=== PATIENT | female | born 1945 | race Caucasian/White ===

== ENCOUNTER 2016-11-09 18:23 | Emergency (ER) | payer MEDICARE ==
[2016-11-09] MEDS ORDERED: SODIUM CHLORIDE 0.9% 500 ML IV STA (18:41)
[2016-11-09] MEDS ORDERED: ALBUTEROL NEBULIZED 2.5 MG/3 ML INHALATION STA ×2 (18:41→21:02)
--- NOTE | 2016-11-09 18:44 | ED ---
General Adult HPI - General Chief complaint: Upper Respiratory Infection Stated complaint: diff breathing Time Seen by Provider: 11/09/16 18:37 Source: patient, RN notes reviewed Mode of arrival: wheelchair Limitations: no limitations - History of Present Illness Initial comments: 71-year-old female presents emergency Department with a chief complaint of shortness of breath. Patient states she's had a cough with yellow sputum and shortness of breath for the past 3 days or so. Patient denies any fever chills this. Patient denies any pain. Patient states she was concerned due to the shortness of breath and cough so she thought that she should be seen. Patient admits to history of pneumonia a few months ago. Patient denies any leg swelling. Patient states that she has no heart history. Patient states she does have hypertension. Patient denies being a smoker. Patient states that she was concerned due to the continued cough and shortness of breath she thought that she should be evaluated today.Patient denies any recent fever, chills, chest pain, back pain, abdominal pain, nausea vomiting, numbness or tingling, dysuria or hematuria, constipation or diarrhea, headaches or visual changes, or any other current symptoms. - Related Data Home Medications Medication Instructions Recorded Confirmed Furosemide [Lasix] 40 mg PO HS 07/30/15 11/09/16 Mometasone Furoate [Mometasone 2 drops BOTH EARS DAILY PRN 07/30/15 11/09/16 Furoate 0.1%] Ranitidine HCl [Zantac] 150 mg PO BID 07/30/15 11/09/16 Simvastatin [Zocor] 40 mg PO HS 07/30/15 11/09/16 Fluticasone Nasal [place] [Flonase 2 spr EA NOSTRIL DAILY PRN 12/17/15 11/09/16 Nasal [place]] Albuterol Sulfate [Proair Hfa] 2 puff INHALATION RT-Q4H PRN 04/02/16 11/09/16 Carboxymethylcellulose Sodium 1 drop BOTH EYES BID PRN 04/02/16 11/09/16 [Refresh Tears] Cholecalciferol [Vitamin D3] 8,000 unit PO DAILY 04/02/16 11/09/16 Fluticasone Propionate [Flovent 1 puff INHALATION RT-BID 04/02/16 11/09/16 Hfa 110mcg] Ipratropium-Albuterol Nebulize 3 ml INHALATION RT-Q4H PRN 04/02/16 11/09/16 [Duoneb 0.5 mg-3 mg/3 ml Soln] Multivitamin [Multivitamins Adult 1 tab PO DAILY 04/02/16 11/09/16 Gummies] Potassium Chloride [K-Tab ER] 10 meq PO DAILY 04/02/16 11/09/16 Furosemide [Lasix] 80 mg PO QAM 11/09/16 11/09/16 Montelukast [Singulair] 10 mg PO HS 11/09/16 11/09/16 Previous Rx's Medication Instructions Recorded Albuterol Nebulized [Ventolin 2.5 mg INHALATION Q4H #20 nebu 11/09/16 Nebulized] Levofloxacin [Levaquin] 750 mg PO DAILY #5 tab 11/09/16 predniSONE 50 mg PO DAILY #5 tab 11/09/16 Allergies Allergy/AdvReac Type Severity Reaction Status Date / Time tetanus immune globulin Allergy Unknown Verified 11/09/16 18:55 aspirin AdvReac Unknown Verified 11/09/16 18:55 Review of Systems ROS Statement: Those systems with pertinent positive or pertinent negative responses have been documented in the HPI. ROS Other: All systems not noted in ROS Statement are negative. Past Medical History Past Medical History: Hyperlipidemia, Thyroid Disorder Additional Past Medical History / Comment(s): edema, seasonal allergies to grass , trees and mold. History of Any Multi-Drug Resistant Organisms: None Reported Past Surgical History: Adenoidectomy, Appendectomy, Tonsillectomy Additional Past Surgical History / Comment(s): 3/4 thyroid removed, right leg and foot fracture repair, carple tunnel kim repair, parts of her ribs reomved from left upper chest, ovarian cyst, kim breast cysts removed, 1ft intestine removed for blockage Past Psychological History: No Psychological Hx Reported Smoking Status: Never smoker Past Alcohol Use History: None Reported Past Drug Use History: None Reported General Exam - General Exam Comments Initial Comments: General: The patient is awake and alert, in no distress, and does not appear acutely ill. Eye: Pupils are equal, round and reactive to light, extra-ocular movements are intact; there is normal conjunctiva bilaterally. No signs of icterus. Ears, nose, mouth and throat: There are moist mucous membranes and no oral lesions. Neck: The neck is supple, there is no tenderness. Cardiovascular: There is a regular rate and rhythm. No murmur, rub or gallop is appreciated. Respiratory: Lungs are clear to auscultation, respirations are non-labored, breath sounds are diminished in the right lower lobe. No wheezes, stridor, rales, or rhonchi. Gastrointestinal: Soft, non-distended, non-tender abdomen without masses or organomegaly noted. There is no rebound or guarding present. No CVA tenderness. Bowel sounds are unremarkable. Back: There is no tenderness to palpation in the midline. There is no obvious deformity. No rashes noted. Musculoskeletal: Normal ROM, no tenderness, There is no pedal edema. There is no calf tenderness or swelling. Sensation intact. Pulses equal bilaterally 2+. Neurological: CN II-XII intact, There are no obvious motor or sensory deficits. Coordination appears grossly intact. Speech is normal. Skin: Skin is warm and dry and no rashes or lesions are noted. Psychiatric: Cooperative, appropriate mood & affect, normal judgment. Limitations: no limitations Course Vital Signs 11/09/16 11/09/16 11/09/16 18:34 18:50 19:20 Temperature 97.7 F Pulse Rate 91 88 90 Respiratory 18 20 Rate Blood Pressure 137/60 115/67 O2 Sat by Pulse 95 93 L Oximetry 11/09/16 11/09/16 11/09/16 19:30 19:50 20:54 Temperature Pulse Rate 90 89 85 Respiratory 20 20 Rate Blood Pressure 111/59 121/61 O2 Sat by Pulse 96 97 Oximetry 11/09/16 21:22 Temperature Pulse Rate 82 Respiratory Rate Blood Pressure O2 Sat by Pulse Oximetry - Reevaluation(s) Reevaluation #1: 11/09/16 20:59 Patient does appear to have a faint wheeze on reevaluation she does have a breathing machine at home. Reevaluation #2: 11/09/16 21:36 Patient was 96 prior to the second breathing treatment and she is 96 following the breathing treatment. At this time we discussed continued at home care. We discussed discharge. She is comfortable. EKG Findings - EKG Comments: EKG Findings:: normal sinus rhythm 79 bpm, normal axis, no atopy, no S-T depressions or elevations, Medical Decision Making - Medical Decision Making 71-year-old female presents to the emergency Department chief complaint of cough and shortness of breath. This time chest x-ray was reviewed as well as the CAT scan does not show any mass. Patient does have symptoms consistent with bronchitis due to patient's age we will start her on steroids breathing treatments for home she does have a nebulizer and antibiotics. She did have improvement to the oxygen after the breathing treatments feeling much better when discussing the case the patient. This time she will be discharged. All her questions have been answered. She is comfortable with the plan. Return parameters and follow-up were discussed. - Lab Data Result diagrams: 11/09/16 18:50 11/09/16 18:50 Lab Results 11/09/16 11/09/16 11/09/16 Range/Units 18:50 18:50 18:50 WBC 5.6 (3.8-10.6) k/uL RBC 4.79 (3.80-5.40) m/uL Hgb 13.8 (11.4-16.0) gm/dL Hct 42.5 (34.0-46.0) % MCV 88.6 (80.0-100.0) fL MCH 28.8 (25.0-35.0) pg MCHC 32.5 (31.0-37.0) g/dL RDW 15.6 H (11.5-15.5) % Plt Count 136 L (150-450) k/uL Neutrophils % (Manual) 51.0 % Lymphocytes % (Manual) 10.0 % Monocytes % (Manual) 39.0 % Neutrophils # (Manual) 2.9 (1.3-7.7) k/uL Lymphocytes # (Manual) 0.6 L (1.0-4.8) k/uL Monocytes # (Manual) 2.2 H (0-1.0) k/uL Nucleated RBCs 0 (0-0) /100 WBC Differential Comment P Manual Slide Review Performed PT (9.0-12.0) sec INR (<1.1) APTT (22.0-30.0) sec D-Dimer (<0.60) mg/L FEU Sodium 143 (137-145) mmol/L Potassium 3.6 (3.5-5.1) mmol/L Chloride 105 (98-107) mmol/L Carbon Dioxide 27 (22-30) mmol/L Anion Gap 11 mmol/L BUN 20 H (7-17) mg/dL Creatinine 0.90 (0.52-1.04) mg/dL Est GFR (MDRD) Af Amer >60 (>60 ml/min/1.73 sqM) Est GFR (MDRD) Non-Af >60 (>60 ml/min/1.73 sqM) Glucose 140 H (74-99) mg/dL Plasma Lactic Acid Tomas (0.7-2.0) mmol/L Calcium 8.7 (8.4-10.2) mg/dL Total Bilirubin 0.3 (0.2-1.3) mg/dL AST 19 (14-36) U/L ALT 25 (9-52) U/L Alkaline Phosphatase 42 (38-126) U/L Total Creatine Kinase 41 (30-135) U/L CK-MB (CK-2) 1.3 (0.0-2.4) ng/mL CK-MB (CK-2) Rel Index 3.2 Troponin I <0.012 (0.000-0.034) ng/mL NT-Pro-B Natriuret Pep pg/mL Total Protein 6.6 (6.3-8.2) g/dL Albumin 4.2 (3.5-5.0) g/dL 11/09/16 11/09/16 11/09/16 Range/Units 18:50 18:50 18:50 WBC (3.8-10.6) k/uL RBC (3.80-5.40) m/uL Hgb (11.4-16.0) gm/dL Hct (34.0-46.0) % MCV (80.0-100.0) fL MCH (25.0-35.0) pg MCHC (31.0-37.0) g/dL RDW (11.5-15.5) % Plt Count (150-450) k/uL Neutrophils % (Manual) % Lymphocytes % (Manual) % Monocytes % (Manual) % Neutrophils # (Manual) (1.3-7.7) k/uL Lymphocytes # (Manual) (1.0-4.8) k/uL Monocytes # (Manual) (0-1.0) k/uL Nucleated RBCs (0-0) /100 WBC Differential Comment Manual Slide Review PT 11.0 (9.0-12.0) sec INR 1.1 (<1.1) APTT 26.0 (22.0-30.0) sec D-Dimer 0.44 (<0.60) mg/L FEU Sodium (137-145) mmol/L Potassium (3.5-5.1) mmol/L Chloride (98-107) mmol/L Carbon Dioxide (22-30) mmol/L Anion Gap mmol/L BUN (7-17) mg/dL Creatinine (0.52-1.04) mg/dL Est GFR (MDRD) Af Amer (>60 ml/min/1.73 sqM) Est GFR (MDRD) Non-Af (>60 ml/min/1.73 sqM) Glucose (74-99) mg/dL Plasma Lactic Acid Tomas 1.5 (0.7-2.0) mmol/L Calcium (8.4-10.2) mg/dL Total Bilirubin (0.2-1.3) mg/dL AST (14-36) U/L ALT (9-52) U/L Alkaline Phosphatase (38-126) U/L Total Creatine Kinase (30-135) U/L CK-MB (CK-2) (0.0-2.4) ng/mL CK-MB (CK-2) Rel Index Troponin I (0.000-0.034) ng/mL NT-Pro-B Natriuret Pep 131 pg/mL Total Protein (6.3-8.2) g/dL Albumin (3.5-5.0) g/dL - Radiology Data Radiology results: report reviewed, image reviewed Disposition Clinical Impression: Acute bronchitis Disposition: HOME SELF-CARE Condition: Stable Instructions: Acute Bronchitis (ED) Additional Instructions: Please use medication as discussed. Please follow up with family doctor if symptoms have not improved over the next two days. Please return to the emergency room if your symptoms increase or worsen or for any other concerns. Prescriptions: Albuterol Nebulized [Ventolin Nebulized] 2.5 mg INHALATION Q4H #20 nebu Levofloxacin [Levaquin] 750 mg PO DAILY #5 tab predniSONE 50 mg PO DAILY #5 tab Referrals: Kassandra Gaxiola MD [Primary Care Provider] - 1-2 days Time of Disposition: 21:37
[2016-11-09 19:31] LABS: Aty Lym Flag Marked; CH 28.6; CHCM 32.4; HCT 42.5 % (34.0-46.0); HDW 2.43; HGB 13.8 gm/dL (11.4-16.0); MCH 28.8 pg (25.0-35.0); MCHC 32.5 g/dL (31.0-37.0); MCV 88.6 fL (80.0-100.0); Mean Platelet Volume 10.5; RBC 4.79 m/uL (3.80-5.40); RDW 15.6 % (11.5-15.5); WBC 5.6 k/uL (3.8-10.6); WBC (Perox) 5.78
[2016-11-09 19:43] LABS: ALT 25 U/L (9-52); AST 19 U/L (14-36); Alkaline Phosphatase 42 U/L (38-126); Anion Gap 11 mmol/L; Blood Urea Nitrogen 20 mg/dL (7-17); Calcium 8.7 mg/dL (8.4-10.2); Carbon Dioxide 27 mmol/L (22-30); Chloride 105 mmol/L (98-107); Glucose 140 mg/dL (74-99); Non-African American GFR(MDRD) >60 (>60 ml/min/1.73 sqM); Potassium 3.6 mmol/L (3.5-5.1); Sodium 143 mmol/L (137-145); Total Bilirubin 0.3 mg/dL (0.2-1.3); Total Protein 6.6 g/dL (6.3-8.2)
[2016-11-09 19:58] LABS: INR 1.1 (<1.1)
[2016-11-09 20:06] LABS: Creatine Kinase 41 U/L (30-135)
[2016-11-09 20:09] LABS: Add Differential Manual Differential
[2016-11-09 20:12] LABS: Nucleated Red Blood Cells 0 /100 WBC (0-0); Total Cells Counted 100
[2016-11-09 20:13] LABS: Manual Review Performed
--- NOTE | 2016-11-09 20:15 | XR ---
EXAMINATION TYPE: XR chest 2V DATE OF EXAM: 11/09/2016 8:07 PM COMPARISON: 04/02/2016 HISTORY: Difficulty breathing TECHNIQUE: Frontal and lateral views of the chest are obtained. FINDINGS: Heart size is normal. There is no gross heart failure. There is coarsening of interstitial markings. There is no definite pleural effusion. There is slight prominence of the lateral left pulm onary hilum. There are chest leads. There is osteopenia. IMPRESSION: No heart failure. Only fibrotic changes. There is slight bulkiness of the superior later al left pulmonary hilum that could relate to an infiltrate or enlarged lymph node or mass that appear s new compared to old chest x-ray. Follow up is recommended.
[2016-11-09 20:19] LABS: Creatine Kinase MB 1.3 ng/mL (0.0-2.4); Troponin I <0.012 ng/mL (0.000-0.034)
[2016-11-09 20:31] VITALS: RESP 20
--- NOTE | 2016-11-09 20:39 | CT ---
EXAMINATION TYPE: CT chest wo con DATE OF EXAM: 11/09/2016 8:28 PM COMPARISON: NONE HISTORY: Patient complains of difficulty breathing and cough. CT DLP: 114.9 mGycm Automated exposure control for dose reduction was used. FINDINGS: Multiple axial sections were obtained from the thoracic inlet to the diaphragm with no contrast. FINDINGS: The lungs are clear of consolidation. There is some interstitial mild density at the right posterior lung base. There are subpleural small nodules in both lungs that measure up to 5 mm. There is no evid ence of a pulmonary mass. Thoracic aorta is atheromatous. There is no mediastinal adenopathy. I see n o hilar mass. Heart size is normal. There is no pericardial effusion. IMPRESSION: ATHEROSCLEROTIC VASCULAR DISEASE. MILD PULMONARY FIBROTIC CHANGES WITH SUBPLEURAL SMALL NODULES. NO EVIDENCE OF A LEFT SIDE PERIHILAR MASS THAT IS SUGGESTED BY THE CHEST X-RAY TODAY.
[2016-11-09] MEDS ORDERED: LEVOFLOXACIN 750 MG TAB PO STA (21:01)
[2016-11-09] MEDS ORDERED: methylPREDNISolone SOD SUCCI 125 MG/2 ML VIAL IV STA (21:01)
[2016-11-09 21:44] VITALS: BP 120/58; PULSE 97; TEMP 98.3
== END 2016-11-09 22:00 | disposition home or self-care (01) ==
LOC: EC 18:23
DX: J20.9 Acute bronchitis, unspecified (principal); E78.5 Hyperlipidemia, unspecified; J30.2 Other seasonal allergic rhinitis; Z88.6 Allergy status to analgesic agent; Z88.7 Allergy status to serum and vaccine; Z79.899 Other long term (current) drug therapy
CPT/HCPCS: 99284; 96374; 36415; 94640 ×2; 93005; 85379; 83880; 80053; 82550; 82553; 83605; 84484; 85025; 85610; 85730; 87040; 71020; 71250; J2930

== ENCOUNTER 2016-11-13 12:05 | Emergency (ER) | payer MEDICARE ==
[2016-11-13] MEDS ORDERED: IPRATROPIUM-ALBUTEROL 3 ML NEB INHALATION STA (12:54)
--- NOTE | 2016-11-13 12:58 | ED ---
General Adult HPI - General Chief complaint: Upper Respiratory Infection Stated complaint: Difficulty Breathing Time Seen by Provider: 11/13/16 12:29 Source: patient, RN notes reviewed Mode of arrival: wheelchair Limitations: no limitations - History of Present Illness Initial comments: Patient 71-year-old female who presents significant past medical history for asthma, who presents emergency room today with chief complaint of increased redness of breath. She does admit that symptoms started approximately 2 weeks ago. She states that she was seen here in the emergency room last Thursday. She states she was started on antibiotics and steroids. She states she went back to urgent care today. She states by urgent care she was advised come here to the emergency room for further evaluation. Patient doesn't that she's tried a breathing treatment earlier today which has helped some. She states she still having some shortness of breath. She states she stopped taking the antibiotic as she felt like it made her legs swell. She states she has been taking the steroid. Patient denies any other complaints or associated symptoms. Patient denies any recent fever, chills, chest pain, back pain, abdominal pain, nausea or vomiting, numbness or tingling, dysuria or hematuria, constipation or diarrhea, headaches or visual changes, or any other complaints. - Related Data Home Medications Medication Instructions Recorded Confirmed Furosemide [Lasix] 40 mg PO DAILY@1600 07/30/15 11/13/16 Mometasone Furoate [Mometasone 2 drops BOTH EARS DAILY PRN 07/30/15 11/13/16 Furoate 0.1%] Ranitidine HCl [Zantac] 150 mg PO BID 07/30/15 11/13/16 Simvastatin [Zocor] 40 mg PO HS 07/30/15 11/13/16 Fluticasone Nasal [place] [Flonase 2 spr EA NOSTRIL DAILY PRN 12/17/15 11/13/16 Nasal [place]] Carboxymethylcellulose Sodium 1 drop BOTH EYES BID PRN 04/02/16 11/13/16 [Refresh Tears] Cholecalciferol [Vitamin D3] 8,000 unit PO DAILY 04/02/16 11/13/16 Fluticasone Propionate [Flovent 1 puff INHALATION RT-BID 04/02/16 11/13/16 Hfa 110mcg] Ipratropium-Albuterol Nebulize 3 ml INHALATION RT-Q4H PRN 04/02/16 11/13/16 [Duoneb 0.5 mg-3 mg/3 ml Soln] Multivitamin [Multivitamins Adult 1 tab PO DAILY 04/02/16 11/13/16 Gummies] Potassium Chloride [K-Tab ER] 10 meq PO DAILY 04/02/16 11/13/16 Furosemide [Lasix] 80 mg PO QAM 11/09/16 11/13/16 Previous Rx's Medication Instructions Recorded Levofloxacin [Levaquin] 750 mg PO DAILY #5 tab 11/09/16 predniSONE 50 mg PO DAILY #5 tab 11/09/16 Allergies Allergy/AdvReac Type Severity Reaction Status Date / Time tetanus immune globulin Allergy Unknown Verified 11/13/16 13:03 aspirin AdvReac Unknown Verified 11/13/16 13:03 Review of Systems ROS Statement: Those systems with pertinent positive or pertinent negative responses have been documented in the HPI. ROS Other: All systems not noted in ROS Statement are negative. Past Medical History Past Medical History: Hyperlipidemia, Thyroid Disorder Additional Past Medical History / Comment(s): edema, seasonal allergies to grass , trees and mold. History of Any Multi-Drug Resistant Organisms: None Reported Past Surgical History: Adenoidectomy, Appendectomy, Tonsillectomy Additional Past Surgical History / Comment(s): 3/4 thyroid removed, right leg and foot fracture repair, carple tunnel kim repair, parts of her ribs reomved from left upper chest, ovarian cyst, kim breast cysts removed, 1ft intestine removed for blockage Past Psychological History: No Psychological Hx Reported Smoking Status: Never smoker Past Alcohol Use History: None Reported Past Drug Use History: None Reported General Exam - General Exam Comments Initial Comments: General: The patient is awake and alert, in no distress, and does not appear acutely ill. Eye: Pupils are equal, round and reactive to light, extra-ocular movements are intact. No nystagmus. There is normal conjunctiva bilaterally. No signs of icterus. Ears, nose, mouth and throat: There are moist mucous membranes and no oral lesions. Neck: The neck is supple, there is no tenderness or JVD. Cardiovascular: There is a regular rate and rhythm. No murmur, rub or gallop is appreciated. Respiratory: Lungs are clear to auscultation, respirations are non-labored, breath sounds are equal. No wheezes, stridor, rales, or rhonchi. Gastrointestinal: Soft, non-distended, non-tender abdomen without masses or organomegaly noted. There is no rebound or guarding present. No CVA tenderness. Bowel sounds are unremarkable. Musculoskeletal: Normal ROM, no tenderness. Strength 5/5. Sensation intact. Pulses equal bilaterally 2+. Neurological: A&O x 3. CN II-XII intact, There are no obvious motor or sensory deficits. Coordination appears grossly intact. Speech is normal. Skin: Skin is warm and dry and no rashes or lesions are noted. Psychiatric: Cooperative, appropriate mood & affect, normal judgment. Limitations: no limitations Course Vital Signs 11/13/16 11/13/16 11/13/16 12:20 13:16 13:26 Temperature 98.4 F Pulse Rate 91 84 Respiratory 18 20 Rate Blood Pressure 152/70 O2 Sat by Pulse 94 L Oximetry 11/13/16 13:37 Temperature Pulse Rate 88 Respiratory Rate Blood Pressure O2 Sat by Pulse Oximetry EKG Findings - EKG Comments: EKG Findings:: EKG performed at 1422: A 12-lead EKG was performed and interpreted by me as showing the following: Rate is 97, and rhythm is normal sinus. There are normal QRS complexes and normal R-wave progression. ST segments have no elevation or depression, and OH segments appear normal. Medical Decision Making - Medical Decision Making Case discussed in detail with attending physician Dr. Tolbert. Patient reexamined at this time shows no signs of distress. Patient states she was advised by urgent care to come back to the emergency room. Patient did have good workup in the emergency room on Thursday night when she had a CT of the chest which was negative. Patient's x-ray today shows no pneumonia. Shows no other acute abnormalities. Results were discussed with the patient. At this time feeling much better after breathing treatment here in the emergency room. Pulse ox 95% on room air currently. Denies any shortness of breath. At this time patient is advised to continue with her steroids that were previously prescribed. She does admit that she believes the antibiotic is causing leg swelling. She is advised that she making discontinue this at this time she has stopped it 2 days ago. Patient advised follow-up family doctor over the next 2 days or return here to the emergency room if any symptoms increase or worsen. - Lab Data Result diagrams: 11/13/16 13:10 11/13/16 13:10 Lab Results 11/13/16 11/13/16 Range/Units 13:10 13:10 WBC 9.5 (3.8-10.6) k/uL RBC 5.20 (3.80-5.40) m/uL Hgb 14.6 (11.4-16.0) gm/dL Hct 47.5 H (34.0-46.0) % MCV 91.5 (80.0-100.0) fL MCH 28.2 (25.0-35.0) pg MCHC 30.8 L (31.0-37.0) g/dL RDW 15.8 H (11.5-15.5) % Plt Count 152 (150-450) k/uL Sodium 145 (137-145) mmol/L Potassium 4.7 (3.5-5.1) mmol/L Chloride 107 (98-107) mmol/L Carbon Dioxide 26 (22-30) mmol/L Anion Gap 12 mmol/L BUN 15 (7-17) mg/dL Creatinine 0.70 (0.52-1.04) mg/dL Est GFR (MDRD) Af Amer >60 (>60 ml/min/1.73 sqM) Est GFR (MDRD) Non-Af >60 (>60 ml/min/1.73 sqM) Glucose 147 H (74-99) mg/dL Calcium 9.2 (8.4-10.2) mg/dL Total Bilirubin 0.6 (0.2-1.3) mg/dL AST 26 (14-36) U/L ALT 42 (9-52) U/L Alkaline Phosphatase 45 (38-126) U/L Total Protein 7.4 (6.3-8.2) g/dL Albumin 4.7 (3.5-5.0) g/dL Disposition Clinical Impression: Asthma exacerbation Disposition: HOME SELF-CARE Condition: Good Instructions: Bronchospasm (ED) Additional Instructions: Please continue breathing treatments at home every 4-6 hours as needed. Please continue previously prescribed steroids. Please follow-up the family doctor over the next 2 days or return here to the emergency room if any symptoms increase or worsen or for any other concerns. Time of Disposition: 14:29
[2016-11-13 13:40] LABS: ALT 42 U/L (9-52); AST 26 U/L (14-36); Alkaline Phosphatase 45 U/L (38-126); Anion Gap 12 mmol/L; Blood Urea Nitrogen 15 mg/dL (7-17); Calcium 9.2 mg/dL (8.4-10.2); Carbon Dioxide 26 mmol/L (22-30); Chloride 107 mmol/L (98-107); Glucose 147 mg/dL (74-99); Non-African American GFR(MDRD) >60 (>60 ml/min/1.73 sqM); Potassium 4.7 mmol/L (3.5-5.1); Sodium 145 mmol/L (137-145); Total Bilirubin 0.6 mg/dL (0.2-1.3); Total Protein 7.4 g/dL (6.3-8.2)
--- NOTE | 2016-11-13 13:40 | XR ---
EXAMINATION TYPE: XR chest 2V DATE OF EXAM: 11/13/2016 1:29 PM COMPARISON: 11/09/2016 HISTORY: Shortness of breath FINDINGS: The lungs are clear and there is no pneumothorax, pleural effusion, or focal pneumonia. Hyperinflati on suggests COPD and there is atherosclerotic change aorta. Underlying pulmonary fibrosis suggested. Pulmonary hilum are prominent but stable in appearance. Rece nt CT scan suggests no evidence of hilar mass. Degenerative change of the spine noted. IMPRESSION: 1. No acute process.
[2016-11-13 13:47] LABS: CH 28.6; CHCM 31.5; HCT 47.5 % (34.0-46.0); HDW 2.39; HGB 14.6 gm/dL (11.4-16.0); Immature Gran Flag Marked; MCH 28.2 pg (25.0-35.0); MCHC 30.8 g/dL (31.0-37.0); MCV 91.5 fL (80.0-100.0); Mean Platelet Volume 10.7; RDW 15.8 % (11.5-15.5); WBC 9.5 k/uL (3.8-10.6); WBC (Perox) 9.57
[2016-11-13 14:29] LABS: Add Differential Manual Differential
[2016-11-13 14:31] LABS: Nucleated Red Blood Cells 0 /100 WBC (0-0); Total Cells Counted 100
[2016-11-13 14:55] VITALS: BP 135/78; PULSE 108; RESP 16; TEMP 97.8
== END 2016-11-13 14:54 | disposition home or self-care (01) ==
LOC: EC 12:05
DX: J45.901 Unspecified asthma with (acute) exacerbation (principal); R60.9 Edema, unspecified; J30.2 Other seasonal allergic rhinitis; Z79.51 Long term (current) use of inhaled steroids; Z79.899 Other long term (current) drug therapy; Z88.7 Allergy status to serum and vaccine
CPT/HCPCS: 36415; 71020; 80053; 85025; 93005; 94640; 99284

== ENCOUNTER → 2017-08-03 | Outpatient (CLI) | payer MEDICARE ==
--- NOTE | 2017-08-04 09:07 | MM ---
Reason for exam: screening (asymptomatic). Last mammogram was performed 2 years and 1 month ago. History: Patient is postmenopausal. Family history of breast cancer. Benign stereotactic core biopsy, June 03, 2002. Benign excisional biopsy of the left breast, January 15, 1998. 2 cyst aspirations of the right breast. Core biopsy of the left breast. Core biopsy of the right breast. Took estrogen for 30 years. Physical Findings: A clinical breast exam by your physician is recommended on an annual basis and results should be correlated with mammographic findings. MG 3D Screening Mammo W/Cad Bilateral CC and MLO view(s) were taken. Prior study comparison: June 27, 2015, bilateral MG screening mammo w CAD. July 27, 2012, CAD bilateral diagnostic mammogram. There are scattered fibroglandular densities. Previous mammotome biopsy in the right and left breast. There is no discrete abnormality. No significant changes when compared with prior studies. ASSESSMENT: Benign, BI-RAD 2 RECOMMENDATION: Routine screening mammogram of both breasts in 1 year.
== END | disposition home or self-care (01) ==
LOC: RADMAMWWP 12:49
PROVIDERS: ATTEND Family Medicine
DX: Z12.31 Encounter for screening mammogram for malignant neoplasm of breast (principal)
CPT/HCPCS: 77063; G0202

== ENCOUNTER 2018-07-26 00:48 | Emergency (ER) | payer MEDICARE ==
--- NOTE | 2018-07-26 01:09 | ED ---
SOB HPI - General Chief Complaint: Shortness of Breath Stated Complaint: SOB Time Seen by Provider: 07/26/18 01:00 Source: patient Mode of arrival: ambulatory Limitations: no limitations - History of Present Illness Initial Comments: Mr. Lana Maldonado is a 72-year-old female with a history of asthma who presents the emergency department today for evaluation of persistent cough and shortness of breath. Patient states that she suffers from severe seasonal ALLERGIES, she is ALLERGIC to mold, trees, grasses. She states that despite taking her oral medications and using her albuterol every 4 hours she continues to have some wheezing. Patient states that she discussed this with her daughters evening who decided to bring her to the ER for evaluation. The patient denies any fevers, chills, chest pain, palpitations, nausea or vomiting. She reports that aside from the wheezing she is otherwise been in her usual state of health. 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 Patient states she does not want to be admitted to the hospital because her boyfriend is visiting tomorrow. - Related Data Home Medications Medication Instructions Recorded Confirmed Furosemide [Lasix] 40 mg PO DAILY@1600 07/30/15 11/13/16 Mometasone Furoate [Mometasone 2 drops BOTH EARS DAILY PRN 07/30/15 11/13/16 Furoate 0.1%] Ranitidine HCl [Zantac] 150 mg PO BID 07/30/15 11/13/16 Simvastatin [Zocor] 40 mg PO HS 07/30/15 11/13/16 Fluticasone Nasal [place] [Flonase 2 spr EA NOSTRIL DAILY PRN 12/17/15 11/13/16 Nasal [place]] Carboxymethylcellulose Sodium 1 drop BOTH EYES BID PRN 04/02/16 11/13/16 [Refresh Tears] Cholecalciferol [Vitamin D3] 8,000 unit PO DAILY 04/02/16 11/13/16 Fluticasone Propionate [Flovent 1 puff INHALATION RT-BID 04/02/16 11/13/16 Hfa 110mcg] Ipratropium-Albuterol Nebulize 3 ml INHALATION RT-Q4H PRN 04/02/16 11/13/16 [Duoneb 0.5 mg-3 mg/3 ml Soln] Multivitamin [Multivitamins Adult 1 tab PO DAILY 04/02/16 11/13/16 Gummies] Potassium Chloride [K-Tab ER] 10 meq PO DAILY 04/02/16 11/13/16 Furosemide [Lasix] 80 mg PO QAM 11/09/16 11/13/16 Previous Rx's Medication Instructions Recorded Levofloxacin [Levaquin] 750 mg PO DAILY #5 tab 11/09/16 RX: predniSONE 50 mg PO DAILY #5 tab 11/09/16 RX: predniSONE [Deltasone] 40 mg PO DAILY 5 Days #10 tablet 07/26/18 Allergies Allergy/AdvReac Type Severity Reaction Status Date / Time tetanus immune globulin Allergy Unknown Verified 07/26/18 00:57 aspirin AdvReac Unknown Verified 07/26/18 00:57 Review of Systems ROS Statement: Those systems with pertinent positive or pertinent negative responses have been documented in the HPI. ROS Other: All systems not noted in ROS Statement are negative. Past Medical History Past Medical History: COPD, Hyperlipidemia, Thyroid Disorder Additional Past Medical History / Comment(s): edema, seasonal allergies to grass , trees and mold. History of Any Multi-Drug Resistant Organisms: None Reported Past Surgical History: Adenoidectomy, Appendectomy, Tonsillectomy Additional Past Surgical History / Comment(s): 3/4 thyroid removed, right leg and foot fracture repair, carple tunnel kim repair, parts of her ribs reomved from left upper chest, ovarian cyst, kim breast cysts removed, 1ft intestine removed for blockage Past Psychological History: No Psychological Hx Reported Smoking Status: Never smoker Past Alcohol Use History: None Reported Past Drug Use History: None Reported General Exam - General Exam Comments Initial Comments: GENERAL: Patient is well-developed and well-nourished. Patient is nontoxic and well- hydrated and is in no distress. Patient is very well appearing for her age HENT: Normocephalic, Atraumatic. Neck is soft and supple. No significant lymphadenopathy is noted. Oropharynx is clear. Moist mucous membranes. Neck has full range of motion without eliciting any pain. EYES: The sclera were anicteric and conjunctiva were pink and moist. Extraocular movements were intact and pupils were equal round and reactive to light. Eyelids were unremarkable. PULMONARY: Mild expiratory wheeze noted in all lung gama no crackles, rales or decreased lung sounds CARDIOVASCULAR: There is a regular rate and rhythm without any murmurs gallops or rubs. ABDOMEN: Soft and nontender with normal bowel sounds. SKIN: Skin is clear with no lesions or rashes and otherwise unremarkable. NEUROLOGIC: Patient is alert and oriented x3. Cranial nerves II through XII are grossly intact. Motor and sensory are also intact. Normal speech, volume and content. Symmetrical smile. MUSCULOSKELETAL: Normal extremities with adequate strength and full range of motion. No lower extremity swelling or edema. No calf tenderness. LYMPHATICS: No significant lymphadenopathy is noted PSYCHIATRIC: Normal psychiatric evaluation. Limitations: no limitations Limitations: no limitations Course Vital Signs 07/26/18 07/26/18 07/26/18 00:55 02:15 02:28 Temperature 98.1 F Pulse Rate 74 72 72 Respiratory 20 Rate Blood Pressure 128/67 O2 Sat by Pulse 97 Oximetry Medical Decision Making - Medical Decision Making Patient was seen and evaluated, history was reviewed - patient was mildly tachypneic but there is no hypoxia or tachycardia, exam she did have some mild wheezing Chest x-ray breathing treatment were ordered Chest x-ray reveals chronic pulmonary fibrosis but no evidence of pneumonia Patient received her DuoNeb and reported significant improvement in breathing afterwards At this time I don't feel the patient warrants admission to the hospital, I do feel she is stable for discharge home with continued prednisone and follow up with primary care. Patient and daughters at bedside are agreeable to this. All questions pertaining to care were answered best my ability, return parameters were discussed and the patient was discharged home in stable condition. Disposition Clinical Impression: Asthma with exacerbation Disposition: HOME SELF-CARE Condition: Good Instructions: Asthma (ED) Prescriptions: RX: predniSONE [Deltasone] 40 mg PO DAILY 5 Days #10 tablet Is patient prescribed a controlled substance at d/c from ED?: No Referrals: Kassandra Gaxiola MD [Primary Care Provider] - 1-2 days
[2018-07-26] MEDS ORDERED: predniSONE 20 MG TAB PO STA (01:31)
[2018-07-26] MEDS ORDERED: IPRATROPIUM-ALBUTEROL 3 ML NEB INHALATION STA (01:31)
--- NOTE | 2018-07-26 02:11 | XR ---
EXAMINATION TYPE: XR chest 2V DATE OF EXAM: 07/26/2018 COMPARISON: 04/02/2016 and November 13, 2016 HISTORY: Short of breath TECHNIQUE: Frontal and lateral views of the chest are obtained. FINDINGS: Heart size is normal. There is slight increased density at the lateral left pulmonary hilu m. The other lung gama are clear. There is no pleural effusion. There is osteopenia. Thoracic aorta is atheromatous. Increased density at the left pulmonary hilum is stable compared to November 13 7 and likely benign. IMPRESSION: Stable appearance of the chest compared to old exam. Mild pulmonary fibrosis. Normal hea rt.
[2018-07-26 03:11] VITALS: BP 125/86; PULSE 67; RESP 18; TEMP 98.2
== END 2018-07-26 02:54 | disposition home or self-care (01) ==
LOC: EC 00:48
DX: J45.901 Unspecified asthma with (acute) exacerbation (principal); E78.5 Hyperlipidemia, unspecified; Z91.048 Other nonmedicinal substance allergy status; Z79.51 Long term (current) use of inhaled steroids; Z79.899 Other long term (current) drug therapy; Z88.7 Allergy status to serum and vaccine; Z88.6 Allergy status to analgesic agent; Z90.89 Acquired absence of other organs
CPT/HCPCS: 99285; 94640; 71046; J7512

== ENCOUNTER 2018-07-29 03:27 | Emergency (ER) | payer MEDICARE ==
[2018-07-29] MEDS ORDERED: ONDANSETRON 4 MG/2 ML VIAL IVP STA (03:41)
[2018-07-29] MEDS ORDERED: MORPHINE SULFATE 4 MG/ML SYRINGE IV STA ×2 (03:41→05:16)
[2018-07-29] MEDS ORDERED: ESMOLOL IN SODIUM CHLORIDE PMX 2.5 GM in SALINE 1 250ML.BAG IV ONE (04:14)
--- NOTE | 2018-07-29 04:31 | CT ---
EXAMINATION TYPE: CT angio neck DATE OF EXAM: 07/29/2018 HISTORY: No prior, pt awoke with severe neck pain and left sided swelling to neck compromising airway COMPARISON: CT DLP: 373.40 mGycm. Automated Exposure Control for Dose Reduction was Utilized. TECHNIQUE: CTA scan of the neck is performed with IV Contrast, patient injected with 70 mL of Isovue 370, axial images are obtained, coronal and sagittal reformatted images are reviewed. Three-D recons tructed images are created on an independent workstation and reviewed. FINDINGS: There is normal branching pattern of the great vessels on the aortic arch. There is atheromatous sr ge in the thoracic aorta without evidence of aneurysm. Ascending aorta measures 3.7 cm. There is no e vidence of aortic dissection. There is extensive abnormal density in the superior mediastinum which e xtends into the base of the neck on the left side. There is evidence for active contrast extravasatio n into the left anterior base of the neck that measures 2 x 1.3 cm. This appears to be arising from a n artery branch of the proximal left subclavian artery. This is probably a muscular branch. The total size of the hematoma is 11 x 8 x 9 cm. There is arterial flow in the vertebral arteries bilaterally which are fairly symmetric. There is art erial flow in the common internal and external carotid arteries bilaterally without evidence of hemod ynamically significant stenosis. There is no evidence of carotid or vertebral artery dissection. Ther e is arterial flow in the vertebrobasilar artery system. There is tracheal deviation to the right jcarlos e apparently due to left side neck mass. There is left pleural effusion. There is fluid has density o f 28 which could also be acute hemorrhage. IMPRESSION: Large mass at the base of the neck on the left side extending into the superior mediastin um consistent with acute hematoma. There appears to be active bleeding from a muscular branch of the proximal left subclavian artery. There is left pleural effusion which has relatively high density connie t could be hemothorax. This exam was discussed with the ER physician at 4:25 AM.
[2018-07-29 04:37] LABS: ALT 22 U/L (9-52); AST 46 U/L (14-36); Albumin 3.8 g/dL (3.5-5.0); Alkaline Phosphatase 37 U/L (38-126); Anion Gap 10 mmol/L; Anisocytosis Slight; Blood Urea Nitrogen 24 mg/dL (7-17); Calcium 8.2 mg/dL (8.4-10.2); Carbon Dioxide 24 mmol/L (22-30); Chloride 106 mmol/L (98-107); Glucose 205 mg/dL (74-99); HCT 38.8 % (34.0-46.0); HGB 12.1 gm/dL (11.4-16.0); MCH 27.9 pg (25.0-35.0); MCHC 31.3 g/dL (31.0-37.0); MCV 89.2 fL (80.0-100.0); Mean Platelet Volume 10.6; Platelet Count 242 k/uL (150-450); RBC 4.35 m/uL (3.80-5.40); RDW 16.1 % (11.5-15.5); Sodium 140 mmol/L (137-145); Total Protein 6.6 g/dL (6.3-8.2)
--- NOTE | 2018-07-29 04:39 | ED ---
Neck Injury/Pain HPI - General Chief Complaint: Neck Pain/Injury Stated Complaint: Neck Pain Time Seen by Provider: 07/29/18 03:35 Mode of arrival: ambulatory Limitations: no limitations - History of Present Illness Initial Comments: This patient is 72-year-old woman who presents to be evaluated for left-sided neck pain. The patient states that she had pain that awakened her from sleep this morning. She was feeling at the left side of the base of her neck. Family members noticed that her neck. Swollen and they called EMS. EMS transported her here. MD Complaint: neck pain -: minutes(s) Place: home Radiation: left lateral, chest Severity: moderate Quality: aching Consistency: constant Improves With: none Worsens With: none Associated Symptoms: none Treatments Prior to Arrival: none - Related Data Home Medications Medication Instructions Recorded Confirmed Furosemide [Lasix] 40 mg PO DAILY@1600 07/30/15 11/13/16 Mometasone Furoate [Mometasone 2 drops BOTH EARS DAILY PRN 07/30/15 11/13/16 Furoate 0.1%] Ranitidine HCl [Zantac] 150 mg PO BID 07/30/15 11/13/16 Simvastatin [Zocor] 40 mg PO HS 07/30/15 11/13/16 Fluticasone Nasal [place] [Flonase 2 spr EA NOSTRIL DAILY PRN 12/17/15 11/13/16 Nasal [place]] Carboxymethylcellulose Sodium 1 drop BOTH EYES BID PRN 04/02/16 11/13/16 [Refresh Tears] Cholecalciferol [Vitamin D3] 8,000 unit PO DAILY 04/02/16 11/13/16 Fluticasone Propionate [Flovent 1 puff INHALATION RT-BID 04/02/16 11/13/16 Hfa 110mcg] Ipratropium-Albuterol Nebulize 3 ml INHALATION RT-Q4H PRN 04/02/16 11/13/16 [Duoneb 0.5 mg-3 mg/3 ml Soln] Multivitamin [Multivitamins Adult 1 tab PO DAILY 04/02/16 11/13/16 Gummies] Potassium Chloride [K-Tab ER] 10 meq PO DAILY 04/02/16 11/13/16 Furosemide [Lasix] 80 mg PO QAM 11/09/16 11/13/16 Previous Rx's Medication Instructions Recorded Levofloxacin [Levaquin] 750 mg PO DAILY #5 tab 11/09/16 predniSONE 50 mg PO DAILY #5 tab 11/09/16 predniSONE [Deltasone] 40 mg PO DAILY 5 Days #10 tablet 07/26/18 Allergies Allergy/AdvReac Type Severity Reaction Status Date / Time tetanus immune globulin Allergy Unknown Verified 07/29/18 03:41 aspirin AdvReac Unknown Verified 07/29/18 03:41 Review of Systems ROS Statement: Those systems with pertinent positive or pertinent negative responses have been documented in the HPI. ROS Other: All systems not noted in ROS Statement are negative. Constitutional: Denies: fever, chills Respiratory: Denies: cough, dyspnea Cardiovascular: Reports: chest pain. Denies: palpitations, orthopnea, edema, syncope Gastrointestinal: Denies: abdominal pain, nausea, vomiting Genitourinary: Denies: dysuria, hematuria Musculoskeletal: Denies: back pain Skin: Denies: rash Neurological: Denies: headache, weakness, numbness, paresthesias Past Medical History Past Medical History: COPD, Hyperlipidemia, Thyroid Disorder Additional Past Medical History / Comment(s): edema, seasonal allergies to grass , trees and mold. History of Any Multi-Drug Resistant Organisms: None Reported Past Surgical History: Adenoidectomy, Appendectomy, Tonsillectomy Additional Past Surgical History / Comment(s): 3/4 thyroid removed, right leg and foot fracture repair, carple tunnel kim repair, parts of her ribs reomved from left upper chest, ovarian cyst, kim breast cysts removed, 1ft intestine removed for blockage Past Psychological History: No Psychological Hx Reported Smoking Status: Never smoker Past Alcohol Use History: None Reported Past Drug Use History: None Reported General Exam Limitations: no limitations General appearance: alert, in no apparent distress Head exam: Present: atraumatic, normocephalic Eye exam: Present: normal appearance ENT exam: Present: normal oropharynx Neck exam: Present: tenderness, full ROM, other (Patient has swelling to the left side of the neck, which is firm and mildly tender. No pulsatile mass. No bruit.). Absent: normal inspection, meningismus, lymphadenopathy, thyromegaly Respiratory exam: Present: normal lung sounds bilaterally. Absent: respiratory distress, wheezes, rales, rhonchi, stridor, chest wall tenderness, accessory muscle use, decreased breath sounds, prolonged expiratory Cardiovascular Exam: Present: regular rate, normal rhythm, normal heart sounds. Absent: systolic murmur, diastolic murmur, rubs, gallop GI/Abdominal exam: Present: soft. Absent: distended, tenderness, guarding, rebound, rigid, mass Extremities exam: Present: normal inspection, normal capillary refill. Absent: pedal edema, calf tenderness Back exam: Present: normal inspection. Absent: CVA tenderness (R), CVA tenderness (L) Neurological exam: Present: alert Skin exam: Present: warm, dry, intact, normal color. Absent: rash Course Vital Signs 07/29/18 07/29/18 07/29/18 03:38 03:40 03:50 Temperature 97.5 F L Pulse Rate 104 H 105 H Respiratory 20 Rate Blood Pressure 150/85 127/86 130/92 O2 Sat by Pulse 88 L 91 L Oximetry 07/29/18 07/29/18 07/29/18 04:00 04:10 04:20 Temperature Pulse Rate 93 96 Respiratory 18 Rate Blood Pressure 130/92 130/92 123/77 O2 Sat by Pulse 92 L 94 L Oximetry 07/29/18 07/29/18 07/29/18 04:30 04:40 04:50 Temperature Pulse Rate 97 96 85 Respiratory 18 18 18 Rate Blood Pressure 123/77 124/82 99/76 O2 Sat by Pulse 93 L 93 L 95 Oximetry 07/29/18 07/29/18 07/29/18 05:00 05:10 05:20 Temperature Pulse Rate 80 79 80 Respiratory 18 19 Rate Blood Pressure 99/76 102/66 104/67 O2 Sat by Pulse 96 95 Oximetry 07/29/18 07/29/18 07/29/18 05:30 05:40 05:50 Temperature Pulse Rate 80 82 78 Respiratory 18 18 Rate Blood Pressure 104/67 106/64 91/63 O2 Sat by Pulse 95 94 L 94 L Oximetry 07/29/18 07/29/18 07/29/18 06:00 06:10 06:20 Temperature Pulse Rate 76 80 78 Respiratory 18 18 Rate Blood Pressure 91/63 97/66 94/64 O2 Sat by Pulse 93 L 93 L Oximetry 07/29/18 07/29/18 07/29/18 06:30 06:40 06:50 Temperature Pulse Rate 76 78 76 Respiratory 18 18 18 Rate Blood Pressure 94/64 94/65 100/68 O2 Sat by Pulse 95 95 94 L Oximetry 07/29/18 07/29/18 06:53 07:19 Temperature 97.8 F Pulse Rate 75 75 Respiratory 18 18 Rate Blood Pressure 103/71 O2 Sat by Pulse 100 Oximetry Medical Decision Making - Medical Decision Making Patient is 73-year-old woman with what appears to be hematoma to the left neck on the exam. The workup does reveal that there has been rupture of one of the arteries off of the left subclavian. Transfer is arranged to [facility], and given concerns over transfer time, survival flight did come and take the patient for transfer. In addition I had consulted 3 other hospitals that did not have availability of appropriate surgical team. Patient was in stable condition at time of discharge. Blood pressure had been controlled with esmolol drip. - Lab Data Result diagrams: 07/29/18 03:46 07/29/18 03:46 Lab Results 07/29/18 07/29/18 07/29/18 Range/Units 03:46 03:46 03:46 WBC 15.0 H (3.8-10.6) k/uL RBC 4.35 (3.80-5.40) m/uL Hgb 12.1 (11.4-16.0) gm/dL Hct 38.8 (34.0-46.0) % MCV 89.2 (80.0-100.0) fL MCH 27.9 (25.0-35.0) pg MCHC 31.3 (31.0-37.0) g/dL RDW 16.1 H (11.5-15.5) % Plt Count 242 (150-450) k/uL Neutrophils % (Manual) 62 % Band Neutrophils % 6 % Lymphocytes % (Manual) 12 % Monocytes % (Manual) 13 % Metamyelocytes % 4 % Myelocytes % 3 % Neutrophils # (Manual) 10.20 H (1.3-7.7) k/uL Lymphocytes # (Manual) 1.80 (1.0-4.8) k/uL Monocytes # (Manual) 1.95 H (0-1.0) k/uL Metamyelocytes # (Man) 0.60 H (0) k/uL Myelocytes # (Manual) 0.45 H (0) k/uL Nucleated RBCs 0 (0-0) /100 WBC Manual Slide Review Performed Anisocytosis Slight PT (9.0-12.0) sec INR (<1.2) APTT (22.0-30.0) sec Sodium 140 (137-145) mmol/L Potassium 4.7 (3.5-5.1) mmol/L Chloride 106 (98-107) mmol/L Carbon Dioxide 24 (22-30) mmol/L Anion Gap 10 mmol/L BUN 24 H (7-17) mg/dL Creatinine 0.72 (0.52-1.04) mg/dL Est GFR (CKD-EPI)AfAm >90 (>60 ml/min/1.73 sqM) Est GFR (CKD-EPI)NonAf 84 (>60 ml/min/1.73 sqM) Glucose 205 H (74-99) mg/dL Lactic Ac Sepsis Rflx Plasma Lactic Acid Tomas 2.6 H* (0.7-2.0) mmol/L Calcium 8.2 L (8.4-10.2) mg/dL Total Bilirubin 1.0 (0.2-1.3) mg/dL AST 46 H (14-36) U/L ALT 22 (9-52) U/L Alkaline Phosphatase 37 L (38-126) U/L Troponin I (0.000-0.034) ng/mL Total Protein 6.6 (6.3-8.2) g/dL Albumin 3.8 (3.5-5.0) g/dL 07/29/18 07/29/18 07/29/18 Range/Units 03:46 03:46 04:40 WBC (3.8-10.6) k/uL RBC (3.80-5.40) m/uL Hgb (11.4-16.0) gm/dL Hct (34.0-46.0) % MCV (80.0-100.0) fL MCH (25.0-35.0) pg MCHC (31.0-37.0) g/dL RDW (11.5-15.5) % Plt Count (150-450) k/uL Neutrophils % (Manual) % Band Neutrophils % % Lymphocytes % (Manual) % Monocytes % (Manual) % Metamyelocytes % % Myelocytes % % Neutrophils # (Manual) (1.3-7.7) k/uL Lymphocytes # (Manual) (1.0-4.8) k/uL Monocytes # (Manual) (0-1.0) k/uL Metamyelocytes # (Man) (0) k/uL Myelocytes # (Manual) (0) k/uL Nucleated RBCs (0-0) /100 WBC Manual Slide Review Anisocytosis PT 10.8 (9.0-12.0) sec INR 1.1 (<1.2) APTT 20.8 L (22.0-30.0) sec Sodium (137-145) mmol/L Potassium (3.5-5.1) mmol/L Chloride (98-107) mmol/L Carbon Dioxide (22-30) mmol/L Anion Gap mmol/L BUN (7-17) mg/dL Creatinine (0.52-1.04) mg/dL Est GFR (CKD-EPI)AfAm (>60 ml/min/1.73 sqM) Est GFR (CKD-EPI)NonAf (>60 ml/min/1.73 sqM) Glucose (74-99) mg/dL Lactic Ac Sepsis Rflx Y Plasma Lactic Acid Tomas (0.7-2.0) mmol/L Calcium (8.4-10.2) mg/dL Total Bilirubin (0.2-1.3) mg/dL AST (14-36) U/L ALT (9-52) U/L Alkaline Phosphatase (38-126) U/L Troponin I <0.012 (0.000-0.034) ng/mL Total Protein (6.3-8.2) g/dL Albumin (3.5-5.0) g/dL Critical Care Time Critical Care Time: Yes (60 minutes) Critical Care Time: Critical care time for this patient is spent in performing history and physical , ordering tests, interpreting results, discussions with patient and family and then also for arranging complicated patient transportation. Number of facilities needed to be called given the unavailability of appropriate surgical team. Disposition Clinical Impression: Ruptured aneurysm of artery Disposition: OTHER INSTITUTION NOT DEFINED Condition: Critical Is patient prescribed a controlled substance at d/c from ED?: No Referrals: Kassandra Gaxiola MD [Primary Care Provider] - 1-2 days - Out of Hospital Transfer - Req. Specs Out of Hospital Transfer - Requested Specifics: Other Emergency Center ( [facility])
[2018-07-29 04:40] LABS: Potassium 4.7 mmol/L (3.5-5.1)
[2018-07-29 04:46] LABS: INR 1.1 (<1.2); Prothrombin Time 10.8 sec (9.0-12.0)
[2018-07-29 04:50] LABS: Partial Thromboplastin Time 20.8 sec (22.0-30.0)
[2018-07-29 05:14] LABS: Band Neutrophils % 6 %; Metamyelocytes % 4 %; Monocytes # (M) 1.95 k/uL (0-1.0); Myelocytes # (M) 0.45 k/uL (0); Myelocytes % 3 %; Neutrophils % (M) 62 %; Nucleated Red Blood Cells 0 /100 WBC (0-0); Total Cells Counted 100
[2018-07-29 05:59] VITALS: RESP 18
[2018-07-29 06:54] VITALS: PULSE 75; TEMP 97.8
[2018-07-29 07:21] VITALS: BP 103/71
== END 2018-07-29 07:45 | disposition other institution (70) ==
LOC: EC 03:27
DX: I72.8 Aneurysm of other specified arteries (principal); E78.5 Hyperlipidemia, unspecified; J44.9 Chronic obstructive pulmonary disease, unspecified; E07.9 Disorder of thyroid, unspecified; Z79.51 Long term (current) use of inhaled steroids; Z79.899 Other long term (current) drug therapy; Z88.7 Allergy status to serum and vaccine; Z88.6 Allergy status to analgesic agent; Z91.048 Other nonmedicinal substance allergy status; Z90.89 Acquired absence of other organs
CPT/HCPCS: 99291; 96374; 96375; 96376; 36415; 93005; 80053; 83605; 84484; 85025; 85610; 85730; 70498; J2270; J2405; Q9967

== ENCOUNTER 2018-08-09 03:15 | Inpatient (IN) | payer MEDICARE ==
[2018-08-09] MEDS ORDERED: MORPHINE SULFATE 4 MG/ML SYRINGE IV STA (03:46)
--- NOTE | 2018-08-09 03:47 | ED ---
Chest Pain HPI - General Chief Complaint: Chest Pain Stated Complaint: chest pain Time Seen by Provider: 08/09/18 03:37 Source: patient Limitations: no limitations - History of Present Illness Initial Comments: Mrs. 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 The patient was airlifted to an outside facility where she underwent endovascular procedure and was subsequently discharged home on Thursday, August 07. Patient reports that she was discharged in the evening, a prescription for narcotic pain medication was given however her pharmacy was closed on Thursday so she has not had any pain medication since Thursday afternoon. Patient reports she's had constant pain since she was evaluated by her hospital 11 days ago, she received IV narcotic pain medication while in the hospital and was transitioned to oral pain pills. She's been without these pain pills now for 36 hours and reports that the pain in her left shoulder and neck and chest wall is worsening. She denies any new pain, any exertional pain , any shortness of breath OR palpitations. - Related Data Home Medications Medication Instructions Recorded Confirmed Furosemide [Lasix] 40 mg PO DAILY@1600 07/30/15 11/13/16 Mometasone Furoate [Mometasone 2 drops BOTH EARS DAILY PRN 07/30/15 11/13/16 Furoate 0.1%] Ranitidine HCl [Zantac] 150 mg PO BID 07/30/15 11/13/16 Simvastatin [Zocor] 40 mg PO HS 07/30/15 11/13/16 Fluticasone Nasal [place] [Flonase 2 spr EA NOSTRIL DAILY PRN 12/17/15 11/13/16 Nasal [place]] Carboxymethylcellulose Sodium 1 drop BOTH EYES BID PRN 04/02/16 11/13/16 [Refresh Tears] Cholecalciferol [Vitamin D3] 8,000 unit PO DAILY 04/02/16 11/13/16 Fluticasone Propionate [Flovent 1 puff INHALATION RT-BID 04/02/16 11/13/16 Hfa 110mcg] Ipratropium-Albuterol Nebulize 3 ml INHALATION RT-Q4H PRN 04/02/16 11/13/16 [Duoneb 0.5 mg-3 mg/3 ml Soln] Multivitamin [Multivitamins Adult 1 tab PO DAILY 04/02/16 11/13/16 Gummies] Potassium Chloride [K-Tab ER] 10 meq PO DAILY 04/02/16 11/13/16 Furosemide [Lasix] 80 mg PO QAM 11/09/16 11/13/16 Previous Rx's Medication Instructions Recorded Levofloxacin [Levaquin] 750 mg PO DAILY #5 tab 11/09/16 predniSONE 50 mg PO DAILY #5 tab 11/09/16 predniSONE [Deltasone] 40 mg PO DAILY 5 Days #10 tablet 07/26/18 Allergies Allergy/AdvReac Type Severity Reaction Status Date / Time tetanus immune globulin Allergy Unknown Verified 08/09/18 03:25 aspirin AdvReac Unknown Verified 08/09/18 03:25 Review of Systems ROS Statement: Those systems with pertinent positive or pertinent negative responses have been documented in the HPI. ROS Other: All systems not noted in ROS Statement are negative. EKG Findings - EKG Comments: EKG Findings:: EKG obtained that 3:33 AM, rate is 104, rhythm is sinus tachycardia, there is a normal axis, there are normal intervals, [place] is 138, QRS is 84, QTC is 486. There are PVCs, there are no acute ST elevations or depressions no evidence of acute ischemia or infarction. Past Medical History Past Medical History: COPD, Hyperlipidemia, Thyroid Disorder Additional Past Medical History / Comment(s): edema, seasonal allergies to grass , trees and mold. History of Any Multi-Drug Resistant Organisms: None Reported Past Surgical History: Adenoidectomy, Appendectomy, Tonsillectomy Additional Past Surgical History / Comment(s): 3/4 thyroid removed, right leg and foot fracture repair, carple tunnel kim repair, parts of her ribs reomved from left upper chest, ovarian cyst, kim breast cysts removed, 1ft intestine removed for blockage Past Psychological History: No Psychological Hx Reported Smoking Status: Never smoker Past Alcohol Use History: None Reported Past Drug Use History: None Reported General Exam - General Exam Comments Initial Comments: Physical Exam GENERAL: Patient is well-developed and well-nourished. Patient is nontoxic and well- hydrated and is in no distress. HENT: Normocephalic, Atraumatic. EYES: PERRL, EOMI PULMONARY: Unlabored respirations. No audible rales rhonchi or wheezing was noted. CARDIOVASCULAR: There is a regular rate and rhythm without any murmurs gallops or rubs. ABDOMEN: Soft and nontender with normal bowel sounds. SKIN: Skin is clear with no lesions or rashes and otherwise unremarkable. : Deferred NEUROLOGIC: Patient is alert and oriented x3. Moving all extremities spontaneously MUSCULOSKELETAL: Normal extremities with adequate strength and full range of motion. No lower extremity swelling or edema. No calf tenderness. PSYCHIATRIC: Normal psychiatric evaluation. Limitations: no limitations Limitations: no limitations Course Vital Signs 08/09/18 08/09/18 08/09/18 03:21 03:50 04:00 Temperature 98.4 F Pulse Rate 109 H 99 98 Respiratory 18 20 20 Rate Blood Pressure 126/60 117/76 117/76 O2 Sat by Pulse 95 90 L 91 L Oximetry 08/09/18 08/09/18 08/09/18 04:08 04:30 04:50 Temperature Pulse Rate 98 100 Respiratory 20 18 Rate Blood Pressure 117/76 117/76 O2 Sat by Pulse 85 L 91 L 94 L Oximetry 08/09/18 05:48 Temperature Pulse Rate 95 Respiratory 16 Rate Blood Pressure 121/64 O2 Sat by Pulse 95 Oximetry Chest Pain MDM - MDM Patient was seen and evaluated, vital signs were reviewed She was obtained from patient as well as review of her medical record, patient is a vague understanding of her recent diagnoses and procedures but not a thorough understanding she notes she had a large hematoma in her chest wall requiring surgery. Labs and imaging were ordered. Labs resulted with significant leukocytosis. This is likely reactive however given the patient had a recent endovascular procedure we will need to treat CT with contrast of the neck to the pelvis were ordered to evaluate postoperative [employer] months. Patient does have a small hematoma in the right groin as well as large hematoma throughout the neck and over the chest wall minimal tenderness to palpation, no erythema, and no skin changes no signs of cellulitis Computed tomography scan confirms a large fluid collection in the left anterior chest fine IV think and Zosyn were ordered [place] patient care was discussed with admitting physician Dr. alvarez, I discussed options for admission here for IV antibiotics and monitoring versus transfer to [facility]. At this time he feels the patient is okay for admission here and further monitoring. Admission orders were placed. - Patient was updated on plan for admission here and expresses significant relief as she did not want to be transferred back to [facility] due to the inconvenience of travel for her family. Disposition Clinical Impression: Postoperative pain, Infected hematoma following procedure Disposition: ADMITTED IP TO THIS HOSP Referrals: Kassandra Gaxiola MD [Primary Care Provider] - 1-2 days
[2018-08-09 04:16] LABS: Creatine Kinase 22 U/L (30-135)
[2018-08-09 04:17] LABS: Albumin 3.7 g/dL (3.5-5.0); Calcium 8.3 mg/dL (8.4-10.2); Magnesium 2.1 mg/dL (1.6-2.3); Potassium 3.1 mmol/L (3.5-5.1); Total Bilirubin 1.5 mg/dL (0.2-1.3); Total Protein 6.7 g/dL (6.3-8.2)
[2018-08-09 04:20] LABS: Partial Thromboplastin Time 24.4 sec (22.0-30.0)
[2018-08-09 04:23] LABS: Anisocytosis Slight; HCT 33.3 % (34.0-46.0); HGB 10.2 gm/dL (11.4-16.0); Hypochromasia Marked; MCH 28.4 pg (25.0-35.0); MCHC 30.6 g/dL (31.0-37.0); MCV 92.7 fL (80.0-100.0); Mean Platelet Volume 8.2; Platelet Count 252 k/uL (150-450); Poikilocytosis Slight; RBC 3.59 m/uL (3.80-5.40); RDW 17.8 % (11.5-15.5)
[2018-08-09 04:29] LABS: Creatine Kinase MB 0.9 ng/mL (0.0-2.4); Troponin I <0.012 ng/mL (0.000-0.034)
--- NOTE | 2018-08-09 04:30 | XR ---
EXAM: XR Chest, 2 Views CLINICAL HISTORY: ITS.REASON XR Reason: Chest Pain TECHNIQUE: Frontal and lateral views of the chest. COMPARISON: Chest x-ray 07/26/18 IMPRESSION: Mildly elevated left hemidiaphragm. Bibasilar atelectasis. No pleural effusion. Unchanged heart size.
[2018-08-09 04:41] LABS: Myelocytes % 2 %; Neutrophils % (M) 77 %; Nucleated Red Blood Cells 1 /100 WBC (0-0); Total Cells Counted 200
[2018-08-09 04:42] LABS: Large Platelets Present; Monocytes # (M) 4.07 k/uL (0-1.0); Myelocytes # (M) 0.54 k/uL (0); Neutrophils # (M) 20.87 k/uL (1.3-7.7); Polychromasia Present; WBC 27.1 k/uL (3.8-10.6)
--- NOTE | 2018-08-09 05:50 | CT ---
EXAM: CT Neck With Intravenous Contrast CLINICAL HISTORY: ITS.REASON CT Reason: leukocytosis, chest pain s/p endovascular procedur TECHNIQUE: Axial computed tomography images of the neck with intravenous contrast. CTDI is 25 mGy and DLP is 543 mGy-cm. This CT exam was performed using one or more of the following dose reduction techniques: automated exposure control, adjustment of the mA and/or kV according to patient size, and/or use of iterative reconstruction technique. COMPARISON: No relevant prior studies available. FINDINGS: There is extensive low density soft tissue at the base of the neck on the left side with extension to the upper chest wall. Surgical clips are seen in this area. The thyroid demonstrates diffuse calcifications. The lung apices are clear. There is no airway narrowing. There is no arterial injury, stenosis, or occlusion. Small fluid level in the right maxillary sinus. IMPRESSION: Fluid collections versus low density soft tissue in the left juxta clavicular area.
--- NOTE | 2018-08-09 06:12 | CT ---
EXAM: CT Chest With Intravenous Contrast CLINICAL HISTORY: ITS.REASON CT Reason: leukocytosis, chest pain s/p endovascular procedur TECHNIQUE: Axial computed tomography images of the chest with intravenous contrast. CTDI is 53 mGy and DLP is 756 mGy-cm. This CT exam was performed using one or more of the following dose reduction techniques: automated exposure control, adjustment of the mA and/or kV according to patient size, and/or use of iterative reconstruction technique. COMPARISON: 07/29/18 FINDINGS: Lungs: Unremarkable. No mass. No consolidation. Pleural space: Unremarkable. No pneumothorax. No significant effusion. Heart: Unremarkable. No cardiomegaly. No significant pericardial effusion. Bones/joints: Unremarkable. No acute fracture. No dislocation. Soft tissues: Low-density soft tissue in the left juxta clavicular area has considerably decreased since the prior scan. Active hemorrhage is no longer seen in this area. Vasculature: Unremarkable. No thoracic aortic aneurysm. Lymph nodes: Unremarkable. No enlarged lymph nodes. IMPRESSION: Low-density soft tissue in the left juxta clavicular area has considerably decreased since the prior scan. Active hemorrhage is no longer seen in this area. This most likely at least partially represents residual hemorrhage. Cannot exclude abscess or abnormal soft tissue. Continued surveillance is advised. EXAM: CT Abdomen and Pelvis With Intravenous Contrast CLINICAL HISTORY: ITS.REASON CT Reason: leukocytosis, chest pain s/p endovascular procedur TECHNIQUE: Axial computed tomography images of the abdomen and pelvis with intravenous contrast. CTDI is 63 mGy and DLP is 756 mGy-cm. This CT exam was performed using one or more of the following dose reduction techniques: automated exposure control, adjustment of the mA and/or kV according to patient size, and/or use of iterative reconstruction technique. COMPARISON: No relevant prior studies available. FINDINGS: Lung bases: Unremarkable. No mass. No consolidation. ABDOMEN: Liver: Hepatomegaly. Gallbladder and bile ducts: No abnormal ductal dilation or stones. Pancreas: Unremarkable. No mass. No ductal dilation. Spleen: Unremarkable. No splenomegaly. Adrenals: Unremarkable. No mass. Kidneys and ureters: Unremarkable. No solid mass. No hydronephrosis. Stomach and bowel: Dilated, fluid-containing loops of small bowel in the left upper quadrant. The distal small and large bowel are decompressed. No mucosal thickening. PELVIS: Appendix: No findings to suggest acute appendicitis. Bladder: Unremarkable. No mass. Reproductive: Hysterectomy ABDOMEN and PELVIS: Intraperitoneal space: Unremarkable. No free air. No significant fluid collection. Bones/joints: No acute fracture. No dislocation. Soft tissues: Unremarkable. Vasculature: Unremarkable. No abdominal aortic aneurysm. Lymph nodes: Unremarkable. No enlarged lymph nodes. IMPRESSION: Dilated, fluid-containing loops of small bowel in the left upper quadrant. The distal small and large bowel are decompressed. Cannot exclude small bowel obstruction.
[2018-08-09] MEDS ORDERED: VANCOMYCIN IV PER PHARMACY 1 EACH MISC MISCELLANE PRN (06:41)
[2018-08-09] MEDS ORDERED: PIPERACILLIN-TAZOBACTAM 3.375 GM in DEXTROSE/WATER 1 50ML.BAG IVPB STA (06:41)
[2018-08-09] MEDS ORDERED: MORPHINE SULFATE 4 MG/ML SYRINGE IVP STA (06:41)
[2018-08-09] MEDS ORDERED: VANCOMYCIN 1,000 MG in SODIUM CHLORIDE 0.9% 250 ML IVPB STA (06:45)
[2018-08-09] MEDS ORDERED: ACETAMINOPHEN TAB 325 MG TAB PO PRN (06:57)
[2018-08-09] MEDS ORDERED: NALOXONE 0.4 MG/ML 1 ML VIAL IV PRN (06:57)
[2018-08-09] MEDS ORDERED: MORPHINE SULFATE 4 MG/ML SYRINGE IV PRN (06:57)
[2018-08-09] MEDS ORDERED: ONDANSETRON 4 MG/2 ML VIAL IVP PRN (06:57)
--- NOTE | 2018-08-09 12:28 | P.HPIM ---
History of Present Illness This is a pleasant 73 years old female with past medical history of COPD, hyperlipidemia, hypothyroidism, recent hospitalization for neck and upper chest hematoma. She follow up with Dr. Barrow in the outpatient setting. Today she presents with severe left neck and upper chest pain of one day duration. She has been discharged from [facility] multiple days ago however yesterday she is develops severe pain in the left neck at the base and left upper chest radiating across to the right chest. Pain was nonspecific 10/10 in severity, controlled with IV morphine and currently 1/10 area and when asked patient to point to the area of most tenderness she points to the left upper chest just superior to her left breast. The area has bruises which patient states is been there since admission to [facility] and its improving and fading away. Going back to records that shows She came to the emergency room on 07/29/2018 where she had neck CTA which showed a large mass at the base of the left knee extending into the superior mediastinum suspicious for acute hematoma, suspected rupture of one of the left subclavian artery and its branches and transferred patient to [facility], and the bleeding was stopped by procedure through a catheter in her right groin. Since then she is been feeling some pain in her right groin however it was improving and today is 1/ 10 in severity. Review of Systems CONSTITUTIONAL: No fever, no malaise, no fatigue. HEENT: No recent visual problems or hearing problems. Denied any sore throat. CARDIOVASCULAR: No orthopnea, PND, no palpitations, no syncope. PULMONARY: No shortness of breath, no cough, no hemoptysis. GASTROINTESTINAL: No diarrhea, no nausea, no vomiting, no abdominal pain. Normoactive bowel sounds. NEUROLOGICAL: No headaches, no weakness, no numbness. HEMATOLOGICAL: Denies any bleeding or petechiae. GENITOURINARY: Denies any burning micturition, frequency, or urgency. MUSCULOSKELETAL/RHEUMATOLOGICAL: Denies any joint pain, swelling, or any muscle pain. ENDOCRINE: Denies any polyuria or polydipsia. Past Medical History Past Medical History: COPD, Hyperlipidemia, Thyroid Disorder Additional Past Medical History / Comment(s): edema, seasonal allergies to grass , trees and mold. History of Any Multi-Drug Resistant Organisms: None Reported Past Surgical History: Adenoidectomy, Appendectomy, Tonsillectomy Additional Past Surgical History / Comment(s): 4 thyroid removed, right leg and foot fracture repair, carple tunnel kim repair, parts of her ribs reomved from left upper chest, ovarian cyst, kim breast cysts removed, 1ft intestine removed for blockage Past Psychological History: No Psychological Hx Reported Smoking Status: Never smoker Past Alcohol Use History: None Reported Past Drug Use History: None Reported Medications and Allergies Home Medications Medication Instructions Recorded Confirmed Type Furosemide [Lasix] 40 mg PO DAILY@1600 07/30/15 08/09/18 History Mometasone Furoate [Mometasone 2 drops BOTH EARS DAILY PRN 07/30/15 08/09/18 History Furoate 0.1%] Ranitidine HCl [Zantac] 150 mg PO BID 07/30/15 08/09/18 History Simvastatin [Zocor] 40 mg PO HS 07/30/15 08/09/18 History Fluticasone Nasal [place] [Flonase 2 spr EA NOSTRIL DAILY PRN 12/17/15 08/09/18 History Nasal [place]] Carboxymethylcellulose Sodium 1 drop BOTH EYES BID PRN 04/02/16 08/09/18 History [Refresh Tears] Cholecalciferol [Vitamin D3] 8,000 unit PO DAILY 04/02/16 08/09/18 History Fluticasone Propionate [Flovent 1 puff INHALATION RT-BID 04/02/16 08/09/18 History Hfa 110mcg] Ipratropium-Albuterol Nebulize 3 ml INHALATION RT-QID PRN 04/02/16 08/09/18 History [Duoneb 0.5 mg-3 mg/3 ml Soln] Multivitamin [Multivitamins Adult 2 tab PO DAILY 04/02/16 08/09/18 History Gummies] Potassium Chloride [K-Tab ER] 10 meq PO DAILY 04/02/16 08/09/18 History Furosemide [Lasix] 80 mg PO QAM 11/09/16 08/09/18 History Fexofenadine HCl [Lisa Allergy] 180 mg PO DAILY 08/09/18 08/09/18 History Lidocaine 5% Patch [Lidoderm] 1 patch TOPICAL DAILY PRN 08/09/18 08/09/18 History Allergies Allergy/AdvReac Type Severity Reaction Status Date / Time tetanus immune globulin Allergy Unknown Verified 08/09/18 07:49 aspirin AdvReac Unknown Verified 08/09/18 07:49 Physical Exam Vitals: Vital Signs Temp Pulse Resp BP Pulse Ox 08/09/18 07:01 97.8 F 95 16 112/56 91 L 08/09/18 05:48 95 16 121/64 95 08/09/18 04:50 100 18 117/76 94 L 08/09/18 04:30 98 20 117/76 91 L 08/09/18 04:08 85 L 08/09/18 04:00 98 20 117/76 91 L 08/09/18 03:50 99 20 117/76 90 L 08/09/18 03:21 98.4 F 109 H 18 126/60 95 Intake and Output 08/08/18 08/09/18 08/09/18 22:59 06:59 14:59 Other: Weight 53.07 kg GENERAL: The patient is alert and oriented x3, not in any acute distress. Well developed, well nourished. HEENT: Pupils are round and equally reacting to light. EOMI. No scleral icterus. No conjunctival pallor. Normocephalic, atraumatic. No pharyngeal erythema. No thyromegaly. CARDIOVASCULAR: S1 and S2 present. No murmurs, rubs, or gallops. -PULMONARY: Chest is clear to auscultation, no wheezing or crackles. Hematoma across the upper chest and the left neck base, sfading away ABDOMEN: Soft, nontender, nondistended, normoactive bowel sounds. No palpable organomegaly. MUSCULOSKELETAL: No joint swelling or deformity. -EXTREMITIES: No cyanosis, clubbing, or pedal edema. Right groin tenderness and there is some induration in the right medial thigh. The whole right lower extremity looks warmer than the left side. No erythema or discharge or once NEUROLOGICAL: Gross neurological examination did not reveal any focal deficits. SKIN: No rashes. Results CBC & Chem 7: 08/09/18 03:45 08/09/18 03:45 Labs: Abnormal Lab Results - Last 24 Hours (Table) 08/09/18 08/09/18 08/09/18 Range/Units 03:45 03:45 03:45 WBC 27.1 H (3.8-10.6) k/uL RBC 3.59 L (3.80-5.40) m/uL Hgb 10.2 L (11.4-16.0) gm/dL Hct 33.3 L (34.0-46.0) % MCHC 30.6 L (31.0-37.0) g/dL RDW 17.8 H (11.5-15.5) % Neutrophils # (Manual) 20.87 H (1.3-7.7) k/uL Monocytes # (Manual) 4.07 H (0-1.0) k/uL Myelocytes # (Manual) 0.54 H (0) k/uL Nucleated RBCs 1 H (0-0) /100 WBC Potassium 3.1 L (3.5-5.1) mmol/L BUN 21 H (7-17) mg/dL Glucose 133 H (74-99) mg/dL Calcium 8.3 L (8.4-10.2) mg/dL Total Bilirubin 1.5 H (0.2-1.3) mg/dL Total Creatine Kinase 22 L (30-135) U/L Assessment and Plan Assessment: Systemic inflammatory response, present on admissions with leukocytosis and tachycardia, tachypnea with respect rate 21 Possible infected hematoma Right lower extremity induration and warmth recent hospitalization for neck and upper chest hematoma, status post surgical intervention at [facility] about 10 days ago History of COPD, not in acute exacerbation Hyperlipidemia Hypothyroidism Plan: This is a pleasant 73 years old female who presents because of hematoma and possible sepsis. Patient has started already on Vanco and Zosyn, we'll continue with the same antibiotic; and call infectious disease consult.Patient has recent history of surgical intervention for her left lower neck hematoma, which I will get records from [facility]. Call vascular surgery consult and cardiology consult for chest pain. Also will check ultrasound for her right lower extremity complained of pain and induration. Labs and medication were resumed. Continue same treatment. Continue with symptomatic treatment. Resume home medication. Monitor lytes and vitals. DVT and GI prophylaxis. Further recommendationsof the clinical course of the patient DVT prophylaxis: Subcutaneous heparin GI Prophylaxis: Pepcid PT/OT: Pending Prognosis is guarded
[2018-08-09] MEDS: HYDROcodone/APAP 5-325MG 1 EACH TAB PO PRN (14:46)
--- NOTE | 2018-08-09 16:04 | US ---
EXAMINATION TYPE: US venous doppler duplex LE RT DATE OF EXAM: 08/09/2018 2:52 PM COMPARISON: NONE CLINICAL HISTORY: has induration on the Right medial thigh ; patient stated is post right groin cath eterization for treatment access for left IJV wall repair on 07/29/2018; swelling and hematoma right thigh since procedure SIDE PERFORMED: Right TECHNIQUE: The lower extremity deep venous system is examined utilizing real time linear array sonog gali with graded compression, doppler sonography and color-flow sonography. VESSELS IMAGED: Common Femoral Vein Deep Femoral Vein Greater Saphenous Vein * Femoral Vein Popliteal Vein Small Saphenous Vein * Proximal Calf Veins (* superficial vessels) Right Leg: Negative for DVT. See US of Extremity for fluid collection noted right medial leg. IMPRESSION: No evidence for DVT.
--- NOTE | 2018-08-09 17:00 | ECHOF ---
Referral Reason: MEASUREMENTS -------- HEIGHT: 149.9 cm WEIGHT: 53.1 kg BP: 128/71 IVSd: 1.4 cm (0.6 - 1.1) LVIDd: 3.4 cm (3.9 - 5.3) LVPWd: 1.3 cm (0.6 - 1.1) IVSs: 1.5 cm LVIDs: 2.2 cm LVPWs: 1.5 cm LAESV Index (A-L): 30.02 ml/m MV E Prabhu: 0.69 m/s MV DecT: 182 ms MV A Prabhu: 0.92 m/s MV E/A Ratio: 0.75 FINDINGS -------- Resting tachycardia (HR>100bpm). This was a technically adequate study. The left ventricular size is normal. There is mild concentric left ventricular hypertrophy. Overa ll left ventricular systolic function is normal with, an EF between 55 - 60 %. The right ventricle is normal in size and function. LA is midly dilated 29-33ml/m2. The right atrium is normal in size. Aortic valve is trileaflet and is mildly thickened. There is no evidence of aortic regurgitation. There is no evidence of aortic stenosis. The mitral valve leaflets are mildly thickened. There is trace to mild mitral regurgitation. Trace tricuspid regurgitation present. Right ventricular systolic pressure is normal at < 35 mmHg. There is borderline pulmonary hypertension. The pulmonic valve was not well visualized. The aortic root size is normal. Normal inferior vena cava with normal inspiratory collapse consistent with estimated right atrial pre ssure of 5 mmHg. There is no pericardial effusion. CONCLUSIONS -------- 1. Resting tachycardia (HR>100bpm). 2. This was a technically adequate study. 3. The left ventricular size is normal. 4. There is mild concentric left ventricular hypertrophy. 5. Overall left ventricular systolic function is normal with, an EF between 55 - 60 %. 6. LA is midly dilated 29-33ml/m2. 7. Aortic valve is trileaflet and is mildly thickened. 8. The mitral valve leaflets are mildly thickened. 9. There is trace to mild mitral regurgitation. 10. Trace tricuspid regurgitation present. 11. Right ventricular systolic pressure is normal at < 35 mmHg. 12. There is borderline pulmonary hypertension. 13. The pulmonic valve was not well visualized. 14. The aortic root size is normal. 15. There is no pericardial effusion. JOINT CUTTER: Matias Huerta RDCS
--- NOTE | 2018-08-09 17:03 | CONS ---
CONSULTATION ATTENDING DOCTOR: Dr. Gaxiola Mrs. Pike is a 73-year-old female who presented with symptoms of chest discomfort across the upper chest. She was recently in the emergency room and at that time was found to have a large hematoma from spontaneous bleeding on the left subclavian and subsequently transferred to [facility] and underwent a percutaneous procedure. Full details of that is not available to me. It is unclear if she had a coil placement. She was discharged home 2 days ago and had discomfort in the left upper chest and across the chest as well. She was mildly dyspneic, but better now. Prior to this whole event, she has been doing reasonably well. Her breathing has been stable. She has no dizziness or palpitation or syncope. She has some peripheral edema. No clear PND. No orthopnea. MEDICATION: At home included Lasix 80 in the morning, 40 in the afternoon, ranitidine, simvastatin 40 mg daily, potassium, fluticasone, DuoNeb and Flonase. REVIEW OF SYSTEMS: RESPIRATORY system: She had dyspnea on exertion. Occasional cough. GI system: No recent GI bleed. No peptic ulcer disease. system: No dysuria or hematuria. Nervous system: No stroke or seizure. PHYSICAL EXAMINATION: She is a 73-year-old female, alert, oriented, in no apparent distress. A large ecchymotic area noted on the upper chest and back. Blood pressure 128/70 with a heart rate in 90s. HEAD: Normocephalic. Eyes: Sclerae anicteric. Neck: Tenderness noted on the left side with large ecchymosis. HEART: Regular rate and rhythm, S1, S2. No S3 with systolic murmur. No diastolic murmur. ABDOMEN: Soft, nontender. Positive bowel sounds. EXTREMITIES: Trace to 1+ edema bilaterally. LAB DATA: Lab data revealed a hemoglobin of 10.2, white blood cell of 27.1, BUN and creatinine 21 and 0.8. Potassium 3.1. Troponin less than 0.012. EKG revealed a sinus mechanism with a nonspecific ST-T wave changes and rare PVCs. Chest x-ray revealed no infiltrate. CT scan of the neck shows fluid collection in the left juxtaclavicular area. IMPRESSION: 1. Discomfort in the left side of the chest, appears to be related to the recent procedure and hematoma. No evidence to suggest acute ischemic event. 2. History of hyperlipidemia. 3. Leukocytosis, most likely related to the event. 4. Prior history of chronic obstructive pulmonary disease. 5. History of hypothyroidism. RECOMMENDATION: I will obtain echocardiogram with Doppler. We will try to obtain the results of her prior workup. I will start on low-dose beta marla. We will continue to follow her blood pressure and depending on her trend, further recommendations will be made. Thank you for this consult. We will follow with you. MMODL / IJN: [id number] /
--- NOTE | 2018-08-09 17:50 | US ---
EXAMINATION TYPE: US extremity nonvasc mass RT DATE OF EXAM: 08/09/2018 COMPARISON: NONE CLINICAL HISTORY: Induration right medial thigh with right thigh swelling and hematoma post right shalini in catheterization and treatment procedure on 07/29/2018 for repair of Left IJV wall tear. FINDINGS: Extending from the groin to the right popliteal fossa throughout the right thigh are multiple nonvasc ular smoothly-marginated homogeneously anechoic collections demonstrating acoustic through sound vazquez smission - consistent with fluid collections. Larger upper complex fluid collection = 17.1 x 4.8 x 3.8cm. Larger lower complex fluid collection = 13.4 x 5.7 x 3.7cm. IMPRESSION: SONOGRAPHIC FINDINGS CONSISTENT WITH A CLINICAL DIAGNOSIS OF SEROMAS.
[2018-08-09 21:48] LABS: Bilirubin, Delta 0.5 mg/dL (0.0-0.2); Bilirubin,Unconjugated 0.9 mg/dL (0.0-1.1); Total Bilirubin 1.4 mg/dL (0.2-1.3)
[2018-08-09] MEDS: HEPARIN SODIUM,PORCINE 5,000 UNIT/ML 1 ML VIAL SQ SCH (21:52)
[2018-08-09] MEDS: METOPROLOL TARTRATE 25 MG TAB PO SCH (21:52)
[2018-08-09] MEDS: FAMOTIDINE 20 MG/2 ML VIAL IV SCH (21:52)
[2018-08-09] MEDS: IPRATROPIUM-ALBUTEROL 3 ML NEB INHALATION PRN (22:18)
[2018-08-09] MEDS: VANCOMYCIN 1,000 MG in SODIUM CHLORIDE 0.9% 250 ML IVPB SCH (22:52)
--- NOTE | 2018-08-09 23:10 | P.CONS ---
History of Present Illness - Reason for Consult Consult date: 08/09/18 - Chief Complaint Pain in chest - History of Present Illness 73-year-old female who is a very pertinent recent past medical history which he developed severe pain to her left chest and neck area. She presented to the emergency center and there was evidence of aneurysm with evidence of bleeding in counseling she was transferred to [facility]. There she underwent interventional procedure for the bleeding aneurysm in the subclavian area. She fortunately did relatively well and was discharged from [facility] a few days ago. She was seen by her primary care physician and complaining of some pain into the left subclavian area. She is feeling more poorly was also having increasing amount of discomfort into the right thigh area and consequently came to the emergency center. Imaging reveals evidence of no acute change into the left subclavian area but has evidence of fluid collection into the right thigh and with some redness and erythema the infectious diseases consultation was requested. The patient's family is present the present some further information and her questions are answered. The patient is denying high-grade fevers chills or rigors. He feels quite poorly overall with had excellent control of her pain after being given some morphine. Review of Systems 73-year-old woman more comfortable after morphine dose HEENT:Denies headache or acute visual change. Denies sinus or mouth discomforts. Denies neck stiffness or pain. Denies significant oral cavity pain. Denies difficulty on swallowing. Lungs: Denies significant shortness of breath, cough, sputum production, or hemoptysis. Cardiovascular: Denies significant shortness of breath, chest pain, chest wall pain, orthopnea, dyspnea on exertion, syncope Gastrointestinal:Denies nausea, vomiting, diarrhea, constipation, hematemesis, melena, hematochezia. No no significant change of bowel habit noticed. Musculoskeletal: Complains of pain to the right thigh which is improved over the last few days. Skin: Has evidence of the significant ecchymosis to the anterior chest wall especially to the left Neuro: Denies headache or visual change. Denies any new onset weakness or difficulty with ambulation. Denies falls or seizures. Psychiatric:Denies anxiety or depression. Endocrine: Denies significant fatigue, denies significant weight loss or weight gain. Past Medical History Past Medical History: COPD, Hyperlipidemia, Thyroid Disorder Additional Past Medical History / Comment(s): edema, seasonal allergies to grass , trees and mold. History of Any Multi-Drug Resistant Organisms: None Reported Past Surgical History: Adenoidectomy, Appendectomy, Tonsillectomy Additional Past Surgical History / Comment(s): 3/4 thyroid removed, right leg and foot fracture repair, carple tunnel kim repair, parts of her ribs reomved from left upper chest, ovarian cyst, kim breast cysts removed, 1ft intestine removed for blockage Past Anesthesia/Blood Transfusion Reactions: No Reported Reaction Additional Past Anesthesia/Blood Transfusion Reaction / Comm: Pt has received blood in past without reaction. Past Psychological History: No Psychological Hx Reported Additional Psychological History / Comment(s): . Children are close by. No tobacco use. Retired. No animal exposures Smoking Status: Never smoker Past Alcohol Use History: None Reported Past Drug Use History: None Reported - Past Family History Father Family Medical History: No Reported History Additional Family Medical History / Comment(s): Father was healthty and lived to be 89yrs old. Mother Family Medical History: No Reported History Additional Family Medical History / Comment(s): Mother was healthy and lived to be 85 yrs old. Medications and Allergies Home Medications and Allergies Comment(s): Current Medications Acetaminophen (Tylenol Tab) 650 mg PO Q6HR PRN PRN Reason: Mild Pain or Fever > 100.5 Hydrocodone Bitart/Acetaminophen (Ramona 5-325) 1 each PO Q4HR PRN PRN Reason: Moderate Pain Last Admin: 08/09/18 14:46 Dose: 1 each Albuterol/Ipratropium (Duoneb 0.5 Mg-3 Mg/3 Ml Soln) 3 ml INHALATION RT-Q4H PRN PRN Reason: shortness of breath Last Admin: 08/09/18 22:18 Dose: 3 ml Famotidine (Pepcid) 20 mg IV Q12HR ALEXUS Last Admin: 08/09/18 21:52 Dose: 20 mg Heparin Sodium (Porcine) (Heparin) 5,000 unit SQ Q12HR ALEXUS Last Admin: 08/09/18 21:52 Dose: 5,000 unit Vancomycin HCl 1,000 mg/ (Sodium Chloride) 250 mls @ 125 mls/hr IVPB Q16H ALEXUS Last Admin: 08/09/18 22:52 Dose: 125 mls/hr Metoprolol Tartrate (Lopressor) 25 mg PO BID ALEXUS Last Admin: 10/29/18 21:52 Dose: 25 mg Morphine Sulfate (Morphine Sulfate (Inj)) 4 mg IV Q4HR PRN PRN Reason: Severe Pain Naloxone HCl (Narcan) 0.2 mg IV Q2M PRN PRN Reason: Opioid Reversal Ondansetron HCl (Zofran) 4 mg IVP Q8HR PRN PRN Reason: Nausea And Vomiting Home Medications Medication Instructions Recorded Confirmed Type Furosemide [Lasix] 40 mg PO DAILY@1600 07/30/15 08/09/18 History Mometasone Furoate [Mometasone 2 drops BOTH EARS DAILY PRN 07/30/15 08/09/18 History Furoate 0.1%] Ranitidine HCl [Zantac] 150 mg PO BID 07/30/15 08/09/18 History Simvastatin [Zocor] 40 mg PO HS 07/30/15 08/09/18 History Fluticasone Nasal [place] [Flonase 2 spr EA NOSTRIL DAILY PRN 12/17/15 08/09/18 History Nasal [place]] Carboxymethylcellulose Sodium 1 drop BOTH EYES BID PRN 04/02/16 08/09/18 History [Refresh Tears] Cholecalciferol [Vitamin D3] 8,000 unit PO DAILY 04/02/16 08/09/18 History Fluticasone Propionate [Flovent 1 puff INHALATION RT-BID 04/02/16 08/09/18 History Hfa 110mcg] Ipratropium-Albuterol Nebulize 3 ml INHALATION RT-QID PRN 04/02/16 08/09/18 History [Duoneb 0.5 mg-3 mg/3 ml Soln] Multivitamin [Multivitamins Adult 2 tab PO DAILY 04/02/16 08/09/18 History Gummies] Potassium Chloride [K-Tab ER] 10 meq PO DAILY 04/02/16 08/09/18 History Furosemide [Lasix] 80 mg PO QAM 11/09/16 08/09/18 History Fexofenadine HCl [Lisa Allergy] 180 mg PO DAILY 08/09/18 08/09/18 History Lidocaine 5% Patch [Lidoderm] 1 patch TOPICAL DAILY PRN 08/09/18 08/09/18 History Allergies Allergy/AdvReac Type Severity Reaction Status Date / Time tetanus immune globulin Allergy Unknown Verified 08/09/18 07:49 aspirin AdvReac Unknown Verified 08/09/18 07:49 Physical Exam Vitals: Vital Signs Temp Pulse Resp BP Pulse Ox 08/09/18 22:26 88 08/09/18 22:18 92 08/09/18 21:07 99.3 F 107 H 24 124/65 94 L 08/09/18 20:00 101 H 21 126/56 96 08/09/18 17:00 99 19 111/61 97 08/09/18 16:00 98.3 F 98 21 110/63 97 08/09/18 14:48 108 H 23 128/71 96 08/09/18 12:00 96 08/09/18 11:00 98.2 F 101 H 21 103/56 92 L 08/09/18 07:01 97.8 F 95 16 112/56 91 L 08/09/18 05:48 95 16 121/64 95 08/09/18 04:50 100 18 117/76 94 L 08/09/18 04:30 98 20 117/76 91 L 08/09/18 04:08 85 L 08/09/18 04:00 98 20 117/76 91 L 08/09/18 03:50 99 20 117/76 90 L 08/09/18 03:21 98.4 F 109 H 18 126/60 95 Intake and Output 08/09/18 08/09/18 08/09/18 06:59 14:59 22:59 Intake Total 300 Balance 300 Intake: Intake, IV Titration 300 Amount Piperacillin-Tazobactam 3 50 .375 gm In Dextrose/Water 1 50ml.bag @ 12.5 mls/hr IVPB ONCE STA Rx#: [id number] Vancomycin 1,000 mg In 250 Sodium Chloride 0.9% 250 ml @ 125 mls/hr IVPB ONCE STA Rx#:[id number] Other: # Voids 1 Weight 53.07 kg 73-year-old woman more comfortable at this time HEENT: Anicteric conjunctiva are pink and moist nasal mucosa grossly intact without significant lesions, there is no thrush. Neck: The neck is supple without significant lymphadenopathy or thyromegaly. Lungs: symmetrical air entry with some expiratory wheezes but no kushal bronchial sounds no dullness or egophony Heart: Regular rate and rhythm with an audible S1-S2, no S3 no S4. There is no significant murmur click or rub, PMI was nondisplaced. Abdomen: Positive bowel sounds soft and nontender without palpable masses or organomegaly. There was no guarding or rebound. Extremities: The upper extremities do not have significant swelling. There is evidence of the extensive ecchymosis to the left anterior chest wall which the patient relates is abating well with this time. She has some chronic changes to left anterior chest wall where she has had prior fractured ribs many years ago. The right thigh reveals evidence of swelling compared to the right and there is significant tenderness to the anterior aspect of the thigh if he can palpable crepitance. Neuro: Awake alert oriented to person place and time. There are no acute new gross focal sensory motor deficits. Results CBC & Chem 7: 08/09/18 03:45 08/09/18 03:45 Labs: Abnormal Lab Results - Last 24 Hours (Table) 08/09/18 08/09/18 08/09/18 Range/Units 03:45 03:45 03:45 WBC 27.1 H (3.8-10.6) k/uL RBC 3.59 L (3.80-5.40) m/uL Hgb 10.2 L (11.4-16.0) gm/dL Hct 33.3 L (34.0-46.0) % MCHC 30.6 L (31.0-37.0) g/dL RDW 17.8 H (11.5-15.5) % Neutrophils # (Manual) 20.87 H (1.3-7.7) k/uL Monocytes # (Manual) 4.07 H (0-1.0) k/uL Myelocytes # (Manual) 0.54 H (0) k/uL Nucleated RBCs 1 H (0-0) /100 WBC Potassium 3.1 L (3.5-5.1) mmol/L BUN 21 H (7-17) mg/dL Glucose 133 H (74-99) mg/dL Calcium 8.3 L (8.4-10.2) mg/dL Total Bilirubin 1.5 H (0.2-1.3) mg/dL Delta Bilirubin (0.0-0.2) mg/dL Total Creatine Kinase 22 L (30-135) U/L 08/09/18 Range/Units 03:45 WBC (3.8-10.6) k/uL RBC (3.80-5.40) m/uL Hgb (11.4-16.0) gm/dL Hct (34.0-46.0) % MCHC (31.0-37.0) g/dL RDW (11.5-15.5) % Neutrophils # (Manual) (1.3-7.7) k/uL Monocytes # (Manual) (0-1.0) k/uL Myelocytes # (Manual) (0) k/uL Nucleated RBCs (0-0) /100 WBC Potassium (3.5-5.1) mmol/L BUN (7-17) mg/dL Glucose (74-99) mg/dL Calcium (8.4-10.2) mg/dL Total Bilirubin 1.4 H (0.2-1.3) mg/dL Delta Bilirubin 0.5 H (0.0-0.2) mg/dL Total Creatine Kinase (30-135) U/L Laboratory Results WBC 27.1 k/uL (3.8-10.6) H 08/09/18 03:45 RBC 3.59 m/uL (3.80-5.40) L 08/09/18 03:45 Hgb 10.2 gm/dL (11.4-16.0) L 08/09/18 03:45 Hct 33.3 % (34.0-46.0) L 08/09/18 03:45 MCV 92.7 fL (80.0-100.0) 08/09/18 03:45 MCH 28.4 pg (25.0-35.0) 08/09/18 03:45 MCHC 30.6 g/dL (31.0-37.0) L 08/09/18 03:45 RDW 17.8 % (11.5-15.5) H 08/09/18 03:45 Plt Count 252 k/uL (150-450) 08/09/18 03:45 Neutrophils % (Manual) 77 % 08/09/18 03:45 Lymphocytes % (Manual) 7 % 08/09/18 03:45 Monocytes % (Manual) 15 % 08/09/18 03:45 Myelocytes % 2 % 08/09/18 03:45 Neutrophils # (Manual) 20.87 k/uL (1.3-7.7) H 08/09/18 03:45 Lymphocytes # (Manual) 1.90 k/uL (1.0-4.8) 08/09/18 03:45 Monocytes # (Manual) 4.07 k/uL (0-1.0) H 08/09/18 03:45 Myelocytes # (Manual) 0.54 k/uL (0) H 08/09/18 03:45 Nucleated RBCs 1 /100 WBC (0-0) H 08/09/18 03:45 Manual Slide Review Performed 08/09/18 03:45 Large Platelets Present 08/09/18 03:45 Polychromasia Present 08/09/18 03:45 Hypochromasia Marked 08/09/18 03:45 Poikilocytosis Slight 08/09/18 03:45 Anisocytosis Slight 08/09/18 03:45 PT 10.0 sec (9.0-12.0) 08/09/18 03:45 INR 1.0 (<1.2) 08/09/18 03:45 APTT 24.4 sec (22.0-30.0) 08/09/18 03:45 Sodium 137 mmol/L (137-145) 08/09/18 03:45 Potassium 3.1 mmol/L (3.5-5.1) L 08/09/18 03:45 Chloride 101 mmol/L (98-107) 08/09/18 03:45 Carbon Dioxide 28 mmol/L (22-30) 08/09/18 03:45 Anion Gap 8 mmol/L 08/09/18 03:45 BUN 21 mg/dL (7-17) H 08/09/18 03:45 Creatinine 0.80 mg/dL (0.52-1.04) 08/09/18 03:45 Est GFR (CKD-EPI)AfAm 84 (>60 ml/min/1.73 sqM) 08/09/18 03:45 Est GFR (CKD-EPI)NonAf 73 (>60 ml/min/1.73 sqM) 08/09/18 03:45 Glucose 133 mg/dL (74-99) H 08/09/18 03:45 Calcium 8.3 mg/dL (8.4-10.2) L 08/09/18 03:45 Magnesium 2.1 mg/dL (1.6-2.3) 08/09/18 03:45 Total Bilirubin 1.4 mg/dL (0.2-1.3) H 08/09/18 03:45 Conjugated Bilirubin 0.0 mg/dL (0.0-0.3) 08/09/18 03:45 Unconjugated Bilirubin 0.9 mg/dL (0.0-1.1) 08/09/18 03:45 Delta Bilirubin 0.5 mg/dL (0.0-0.2) H 08/09/18 03:45 AST 30 U/L (14-36) 08/09/18 03:45 ALT 35 U/L (9-52) 08/09/18 03:45 Alkaline Phosphatase 98 U/L (38-126) 08/09/18 03:45 Total Creatine Kinase 22 U/L (30-135) L 08/09/18 03:45 CK-MB (CK-2) 0.9 ng/mL (0.0-2.4) 08/09/18 03:45 CK-MB (CK-2) Rel Index 4.1 08/09/18 03:45 Troponin I <0.012 ng/mL (0.000-0.034) 08/09/18 03:45 Total Protein 6.7 g/dL (6.3-8.2) 08/09/18 03:45 Albumin 3.7 g/dL (3.5-5.0) 08/09/18 03:45 Comments: Ultrasound with 2 fluid collections into the right thigh. CT of the chest without pneumothorax or pneumonia Assessment and Plan (1) Postoperative pain Narrative/Plan: 73-year-old woman with a recent pertinent history in that she had the sudden difficulty with pain to the left anterior chest wall side evidence of a bleeding aneurysm which required interventional repair at the [facility]. Shortly after arrival to home she started having some increasing pain at that site and presented to the emergency center. With pain control she' s feeling much better at this time. The area of extensive ecchymosis is improving. There is by ultrasound evidence of some fluid collection into the right thigh which by echo characteristics appears to more of seroma than hematoma. The site does not appear to be grossly infected. The patient does have a leukocytosis noted at admission unclear what the changes from her recent discharge from the [facility]. Her most recent laboratory at this hospital revealed evidence of leukocytosis and was already occurring. With concerns to infection at the right thigh and possibly the anterior chest wall the patient has been started on vancomycin which is appropriate until there is further data. Blood cultures in process. Evaluation she has been requested and may further help direct current therapy. We'll continue ongoing supportive care pain control appears to be adequate at this time. Awaiting her bed in the cardiac unit. Family's questions or answered. Current Visit: Yes Status: Acute Code(s): G89.18 - OTHER ACUTE POSTPROCEDURAL PAIN SNOMED Code(s): 858151601 (2) Ruptured aneurysm of artery Current Visit: No Status: Acute Code(s): I72.9 - ANEURYSM OF UNSPECIFIED SITE SNOMED Code(s): 13698213
[2018-08-10] MEDS: HYDROcodone/APAP 5-325MG 1 EACH TAB PO PRN ×3 (01:21→13:23)
[2018-08-10] MEDS: IPRATROPIUM-ALBUTEROL 3 ML NEB INHALATION PRN ×5 (03:21→22:05)
[2018-08-10 07:17] LABS: ALT 22 U/L (9-52); AST 22 U/L (14-36); Albumin 2.8 g/dL (3.5-5.0); Alkaline Phosphatase 75 U/L (38-126); Anion Gap 7 mmol/L; Blood Urea Nitrogen 18 mg/dL (7-17); Calcium 8.2 mg/dL (8.4-10.2); Carbon Dioxide 27 mmol/L (22-30); Chloride 105 mmol/L (98-107); Glucose 92 mg/dL (74-99); Potassium 3.8 mmol/L (3.5-5.1); Sodium 139 mmol/L (137-145); Total Bilirubin 0.9 mg/dL (0.2-1.3); Total Protein 5.4 g/dL (6.3-8.2)
[2018-08-10 07:34] LABS: Anisocytosis Slight; HGB 9.2 gm/dL (11.4-16.0); Hypochromasia Marked; MCH 28.9 pg (25.0-35.0); MCHC 30.6 g/dL (31.0-37.0); MCV 94.5 fL (80.0-100.0); Macrocytosis Slight; Platelet Count 191 k/uL (150-450); Poikilocytosis Slight; RBC 3.18 m/uL (3.80-5.40); RDW 17.3 % (11.5-15.5)
[2018-08-10] MEDS: FAMOTIDINE 20 MG/2 ML VIAL IV SCH (08:35)
[2018-08-10] MEDS: METOPROLOL TARTRATE 25 MG TAB PO SCH ×2 (08:35→20:05)
[2018-08-10] MEDS: HEPARIN SODIUM,PORCINE 5,000 UNIT/ML 1 ML VIAL SQ SCH ×2 (08:35→20:05)
--- NOTE | 2018-08-10 09:17 | P.PN ---
Subjective This is a pleasant 73 years old female with past medical history of COPD, hyperlipidemia, hypothyroidism, recent hospitalization for neck and upper chest hematoma. She follow up with Dr. Barrow in the outpatient setting. Today she presents with severe left neck and upper chest pain of one day duration. She has been discharged from [facility] multiple days ago however yesterday she is develops severe pain in the left neck at the base and left upper chest radiating across to the right chest. Pain was nonspecific 10/10 in severity, controlled with IV morphine and currently 1/10 area and when asked patient to point to the area of most tenderness she points to the left upper chest just superior to her left breast. The area has bruises which patient states is been there since admission to [facility] and its improving and fading away. Going back to records that shows She came to the emergency room on 07/29/2018 where she had neck CTA which showed a large mass at the base of the left knee extending into the superior mediastinum suspicious for acute hematoma, suspected rupture of one of the left subclavian artery and its branches and transferred patient to [facility], and the bleeding was stopped by procedure through a catheter in her right groin. Since then she is been feeling some pain in her right groin however it was improving and today is 1/ 10 in severity. 08/10/2018 Patient confirmed to me that she having the pain of the left upper chest after her boyfriend gave her heart and she went home, and after that she was trying to get up from her incliner when she developed severe left upper chest pain. Patient can move her left shoulders and upper arm freely in all directions both actively and passively. Patient chest pain was severe last night and uncontrolled that affected her sleep. However she feels better today with pain medication. Her right thigh is much better as per patient is a pleased as she can bend her knee today. She was still complaining of from cough and some whitish phlegm at times. Patient has suspicious of bowel obstruction on CAT scan. She has bowel movement about 2 days ago. She is passing flatus until last night. Patient denies abdominal pain and no tenderness on abdominal exam. We will order abdominal x-ray for follow-up. Encourage incentive spirometry. Objective - Vital Signs Vital signs: Vital Signs Temp 97.3 F L 08/09/18 23:06 Pulse 80 08/10/18 08:08 Resp 18 08/09/18 23:06 BP 115/56 08/10/18 01:57 Pulse Ox 94 L 08/10/18 04:00 Intake & Output 08/09/18 08/10/18 08/10/18 18:59 06:59 18:59 Intake Total 300 360 Balance 300 360 Weight 54.7 kg Intake: Intake, IV Titration 300 Amount Piperacillin-Tazobactam 3 50 .375 gm In Dextrose/Water 1 50ml.bag @ 12.5 mls/hr IVPB ONCE STA Rx#: [id number] Vancomycin 1,000 mg In 250 Sodium Chloride 0.9% 250 ml @ 125 mls/hr IVPB ONCE STA Rx#:[id number] Oral 360 Other: Voiding Method Toilet # Voids 2 - Exam GENERAL: The patient is alert and oriented x3, not in any acute distress. Well developed, well nourished. HEENT: Pupils are round and equally reacting to light. EOMI. No scleral icterus. No conjunctival pallor. Normocephalic, atraumatic. No pharyngeal erythema. No thyromegaly. CARDIOVASCULAR: S1 and S2 present. No murmurs, rubs, or gallops. -PULMONARY: Chest is clear to auscultation, no wheezing or crackles. Hematoma across the upper chest and the left neck base, fading away. Upper chest wall nontender. No obvious swelling ABDOMEN: Soft, nontender, nondistended, normoactive bowel sounds. No palpable organomegaly. MUSCULOSKELETAL: No joint swelling or deformity. -EXTREMITIES: No cyanosis, clubbing, or pedal edema. Right groin tenderness and there is some induration in the right medial thigh. The whole right lower extremity looks warmer than the left side. No erythema or discharge or once. All improving NEUROLOGICAL: Gross neurological examination did not reveal any focal deficits. SKIN: No rashes. - Labs CBC & Chem 7: 08/10/18 06:04 08/10/18 06:04 Labs: Abnormal Lab Results - Last 24 Hours (Table) 08/09/18 08/10/18 08/10/18 Range/Units 03:45 06:04 06:04 WBC 23.7 H (3.8-10.6) k/uL RBC 3.18 L (3.80-5.40) m/uL Hgb 9.2 L (11.4-16.0) gm/dL Hct 30.0 L (34.0-46.0) % MCHC 30.6 L (31.0-37.0) g/dL RDW 17.3 H (11.5-15.5) % BUN 18 H (7-17) mg/dL Calcium 8.2 L (8.4-10.2) mg/dL Total Bilirubin 1.4 H (0.2-1.3) mg/dL Delta Bilirubin 0.5 H (0.0-0.2) mg/dL Total Protein 5.4 L (6.3-8.2) g/dL Albumin 2.8 L (3.5-5.0) g/dL Microbiology - Last 24 Hours (Table) 08/09/18 07:00 Blood Culture - Preliminary Blood No Growth after 24 hours Assessment and Plan Assessment: Systemic inflammatory response, present on admissions with leukocytosis and tachycardia, tachypnea with respect rate 21 Possible infected hematoma, Right lower extremity induration and warmth, ultrasound: Seroma of the right lower extremit recent hospitalization for neck and upper chest hematoma, status post surgical intervention at [facility] about 10 days prior to admission History of COPD, not in acute exacerbation Hyperlipidemia Hypothyroidism Plan: This is a pleasant 73 years old female who presents because of hematoma and possible sepsis. Patient has started already on Vanco and Zosyn, we'll continue with the same antibiotic; and call infectious disease consult.Patient has recent history of surgical intervention for her left lower neck hematoma, which I will get records from [facility]. Call vascular surgery consult and cardiology consult for chest pain. Also will check ultrasound for her right lower extremity complained of pain and induration. Labs and medication were resumed. Continue same treatment. Continue with symptomatic treatment. Resume home medication. Monitor lytes and vitals. DVT and GI prophylaxis. Further recommendationsof the clinical course of the patient DVT prophylaxis: Subcutaneous heparin GI Prophylaxis: Pepcid PT/OT: Pending Prognosis is guarded
[2018-08-10 10:37] LABS: Band Neutrophils % 7 %; Metamyelocytes # (M) 0.24 k/uL (0); Metamyelocytes % 1 %; Neutrophils % (M) 72 %; Nucleated Red Blood Cells 1 /100 WBC (0-0); Total Cells Counted 200
[2018-08-10 10:38] LABS: Lymphocytes # (M) 1.41 k/uL (1.0-4.8); Monocytes # (M) 3.76 k/uL (0-1.0); WBC 23.5 k/uL (3.8-10.6)
[2018-08-10 10:39] LABS: Polychromasia Present
[2018-08-10] MEDS: VANCOMYCIN 1,000 MG in SODIUM CHLORIDE 0.9% 250 ML IVPB SCH (13:23)
--- NOTE | 2018-08-10 13:57 | CONS ---
CONSULTATION This is a 73-year-old female, she came to the emergency room. 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 For that patient was transferred to in [facility]. Patient had some endovascular intervention, detail is not known. According to the patient they went from the groin and they controlled the bleeding. Patient was sent home in and she came to the emergency room with some chest discomfort. Patient responded well to the pain medication. Patient had a CT of the neck and chest. Neck was negative, chest showed there is some fluid collection noted off the left subclavicular area. No evidence of stenosis, obstruction or thrombosis. MEDICAL HISTORY: History of COPD, hyperlipidemia, thyroid disorder. SURGICAL HISTORY: Patient had thyroid removed and right leg and foot fracture noted in the past. Patient also had some cysts removed from the breast. PHYSICAL EXAMINATION: Patient was seen in the emergency room. . NECK: Supple. She has some ecchymosis noted to the anterior chest wall from the previous hematoma. Good air entry into both lungs. ABDOMEN: Soft. Femorals are present. CT scan report noted. At this point there is no evidence of the any leaking aneurysm. No evidence of a thrombosis. There is some fluid collection. We will watch very closely. At this point, follow with you. MMODL / IJN: [id number] /
--- NOTE | 2018-08-10 14:28 | P.PN ---
Subjective Progress Note Date: 08/10/18 Is is a pleasant 73-year-old female who initially presented to the hospital with symptoms of chest discomfort across the upper chest area. She was recently in the emergency room and at that time was found to have a large hematoma from spontaneous bleeding on the left subclavian and was transferred to the [facility] for which she underwent a percutaneous procedure. She was seen in consultation yesterday by Dr. Holman who follows her in the office. This morning patient was seen and examined sitting up in the chair, denied any chest pain, breathing is stable. Hemodynamically she is stable. I pressure 110/50 with a heart rate in the 70s, 96% on 2 L of oxygen. White blood cell count 23.5, hemoglobin 9.2, platelet count 191. Sodium 139, potassium 3.8, BUN 18, creatinine 0.7. Echocardiogram with Doppler study was performed which revealed an ejection fraction of 55-60%. Objective - Vital Signs Vital signs: Vital Signs Temp 98.2 F 08/10/18 10:57 Pulse 84 08/10/18 11:58 Resp 18 08/10/18 10:58 BP 111/53 08/10/18 10:57 Pulse Ox 96 08/10/18 10:57 Intake & Output 08/09/18 08/10/18 08/10/18 18:59 06:59 18:59 Intake Total 300 720 Output Total 300 Balance 300 420 Weight 54.7 kg Intake: Intake, IV Titration 300 Amount Piperacillin-Tazobactam 3 50 .375 gm In Dextrose/Water 1 50ml.bag @ 12.5 mls/hr IVPB ONCE STA Rx#: [id number] Vancomycin 1,000 mg In 250 Sodium Chloride 0.9% 250 ml @ 125 mls/hr IVPB ONCE STA Rx#:[id number] Oral 720 Output: Urine 300 Other: Voiding Method Toilet Toilet # Voids 2 1 # Bowel Movements 1 - Exam PHYSICAL EXAMINATION: GENERAL: 73-year-old female in no acute distress at the time of my examination HEENT: Head is atraumatic, normocephalic. Pupils equal, round. Sclera anicteric. Conjunctiva are clear. Mucous membranes of the mouth are moist. Neck is supple. There is no elevated jugular venous pressure.] bruit is heard. HEART EXAMINATION: Heart S1, S2 normal. No murmur or gallop heard. CHEST EXAMINATION: Lungs are clear to auscultation and precussion. Positive upper chest wall tenderness is noted on palpation ABDOMEN: Soft, nontender. Bowel sounds are heard. No organomegaly noted. EXTREMITIES: 2+ peripheral pulses with trace evidence of peripheral edema and no calf tenderness noted. NEUROLOGIC patient is awake, alert and oriented X3 . - Labs CBC & Chem 7: 08/10/18 06:04 08/10/18 06:04 Labs: Abnormal Lab Results - Last 24 Hours (Table) 08/09/18 08/10/18 08/10/18 Range/Units 03:45 06:04 06:04 WBC 23.5 H (3.8-10.6) k/uL RBC 3.18 L (3.80-5.40) m/uL Hgb 9.2 L (11.4-16.0) gm/dL Hct 30.0 L (34.0-46.0) % MCHC 30.6 L (31.0-37.0) g/dL RDW 17.3 H (11.5-15.5) % Neutrophils # (Manual) 18.50 H (1.3-7.7) k/uL Monocytes # (Manual) 3.76 H (0-1.0) k/uL Metamyelocytes # (Man) 0.24 H (0) k/uL Nucleated RBCs 1 H (0-0) /100 WBC BUN 18 H (7-17) mg/dL Calcium 8.2 L (8.4-10.2) mg/dL Total Bilirubin 1.4 H (0.2-1.3) mg/dL Delta Bilirubin 0.5 H (0.0-0.2) mg/dL Total Protein 5.4 L (6.3-8.2) g/dL Albumin 2.8 L (3.5-5.0) g/dL Microbiology - Last 24 Hours (Table) 08/09/18 07:00 Blood Culture - Preliminary Blood No Growth after 24 hours Assessment and Plan Plan: Assessment and plan #1 atypical chest pain, likely secondary to recent procedure and hematoma. No evidence to suggest acute ischemic event. #2 hyperlipidemia #3 leukocytosis #4 history of COPD #7 hypothyroidism Plan Echocardiogram with Doppler study was performed which revealed a normal left ventricular systolic function. Hemodynamically the patient is stable today. Further recommendations to follow. DNP note has been reviewed, I agree with a documented findings and plan of care. Patient was seen and examined.
[2018-08-10] MEDS: SIMETHICONE 80 MG CHEWABLE PO SCH ×3 (15:09→20:05)
[2018-08-10 16:01] LABS: Anisocytosis Slight; HCT 30.2 % (34.0-46.0); Hypochromasia Marked; MCH 28.2 pg (25.0-35.0); MCHC 29.7 g/dL (31.0-37.0); MCV 94.8 fL (80.0-100.0); Macrocytosis Slight; Platelet Count 187 k/uL (150-450); Poikilocytosis Slight; RBC 3.19 m/uL (3.80-5.40); RDW 17.2 % (11.5-15.5); WBC 26.5 k/uL (3.8-10.6)
[2018-08-10] MEDS: LIDOCAINE 5% PATCH TOPICAL SCH (16:16)
[2018-08-10] MEDS: FAMOTIDINE 20 MG TAB PO SCH (20:05)
--- NOTE | 2018-08-10 21:59 | P.PN ---
Subjective Progress Note Date: 08/10/18 73-year-old female who is a very pertinent recent past medical history which he developed severe pain to her left chest and neck area. She presented to the emergency center and there was evidence of aneurysm with evidence of bleeding in counseling she was transferred to [facility]. There she underwent interventional procedure for the bleeding aneurysm in the subclavian area. She fortunately did relatively well and was discharged from [facility] a few days ago. She was seen by her primary care physician and complaining of some pain into the left subclavian area. She is feeling more poorly was also having increasing amount of discomfort into the right thigh area and consequently came to the emergency center. Imaging reveals evidence of no acute change into the left subclavian area but has evidence of fluid collection into the right thigh and with some redness and erythema the infectious diseases consultation was requested. The patient's family is present the present some further information and her questions are answered. The patient is denying high-grade fevers chills or rigors. He feels quite poorly overall with had excellent control of her pain after being given some morphine. 08/10/2018 reveals the patient to be further improved today with utilization of topical lidocaine and morphine. Her family is present and are pleased with her improvement. She is still having some discomfort to her right leg but it seems to have improved further today it is much less swollen and tender than it was. Objective - Vital Signs Vital signs: Vital Signs Temp 97.3 F L 08/10/18 20:05 Pulse 95 08/10/18 20:05 Resp 19 08/10/18 20:05 BP 123/59 08/10/18 20:05 Pulse Ox 92 L 08/10/18 20:05 Intake & Output 08/10/18 08/10/18 08/11/18 06:59 18:59 06:59 Intake Total 300 940 250 Output Total 300 Balance 300 640 250 Weight 54.7 kg Intake: IV 10 0.9 10 Intake, IV Titration 300 Amount Piperacillin-Tazobactam 3 50 .375 gm In Dextrose/Water 1 50ml.bag @ 12.5 mls/hr IVPB ONCE STA Rx#: [id number] Vancomycin 1,000 mg In 250 Sodium Chloride 0.9% 250 ml @ 125 mls/hr IVPB ONCE STA Rx#:[id number] Oral 940 240 Output: Urine 300 Other: Voiding Method Toilet Toilet Toilet # Voids 2 1 # Bowel Movements 1 - Exam 73-year-old woman more comfortable at this time HEENT: Anicteric conjunctiva are pink and moist nasal mucosa grossly intact without significant lesions, there is no thrush. Neck: The neck is supple without significant lymphadenopathy or thyromegaly. Lungs: symmetrical air entry with some expiratory wheezes but no kushal bronchial sounds no dullness or egophony Heart: Regular rate and rhythm with an audible S1-S2, no S3 no S4. There is no significant murmur click or rub, PMI was nondisplaced. Abdomen: Positive bowel sounds soft and nontender without palpable masses or organomegaly. There was no guarding or rebound. Extremities: The upper extremities do not have significant swelling. There is evidence of the extensive ecchymosis to the left anterior chest wall which the patient relates is abating well with this time. She has some chronic changes to left anterior chest wall where she has had prior fractured ribs many years ago. The right thigh reveals evidence of swelling compared to the right , but it has improved today, there is no skin erythema or crepitance noted Neuro: Awake alert oriented to person place and time. There are no acute new gross focal sensory motor deficits. - Labs CBC & Chem 7: 08/10/18 15:21 08/10/18 06:04 Labs: Abnormal Lab Results - Last 24 Hours (Table) 08/10/18 08/10/18 08/10/18 Range/Units 06:04 06:04 15:21 WBC 23.5 H 26.5 H (3.8-10.6) k/uL RBC 3.18 L 3.19 L (3.80-5.40) m/uL Hgb 9.2 L 9.0 L (11.4-16.0) gm/dL Hct 30.0 L 30.2 L (34.0-46.0) % MCHC 30.6 L 29.7 L (31.0-37.0) g/dL RDW 17.3 H 17.2 H (11.5-15.5) % Neutrophils # (Manual) 18.50 H (1.3-7.7) k/uL Monocytes # (Manual) 3.76 H (0-1.0) k/uL Metamyelocytes # (Man) 0.24 H (0) k/uL Nucleated RBCs 1 H (0-0) /100 WBC BUN 18 H (7-17) mg/dL Calcium 8.2 L (8.4-10.2) mg/dL Total Protein 5.4 L (6.3-8.2) g/dL Albumin 2.8 L (3.5-5.0) g/dL Microbiology - Last 24 Hours (Table) 08/09/18 07:00 Blood Culture - Preliminary Blood No Growth after 24 hours Laboratory Results WBC 26.5 k/uL (3.8-10.6) H 08/10/18 15:21 RBC 3.19 m/uL (3.80-5.40) L 08/10/18 15:21 Hgb 9.0 gm/dL (11.4-16.0) L 08/10/18 15:21 Hct 30.2 % (34.0-46.0) L 08/10/18 15:21 MCV 94.8 fL (80.0-100.0) 08/10/18 15:21 MCH 28.2 pg (25.0-35.0) 08/10/18 15:21 MCHC 29.7 g/dL (31.0-37.0) L 08/10/18 15:21 RDW 17.2 % (11.5-15.5) H 08/10/18 15:21 Plt Count 187 k/uL (150-450) 08/10/18 15:21 Neutrophils % (Manual) 72 % 08/10/18 06:04 Band Neutrophils % 7 % 08/10/18 06:04 Lymphocytes % (Manual) 6 % 08/10/18 06:04 Monocytes % (Manual) 16 % 08/10/18 06:04 Metamyelocytes % 1 % 08/10/18 06:04 Myelocytes % 2 % 08/09/18 03:45 Neutrophils # (Manual) 18.50 k/uL (1.3-7.7) H 08/10/18 06:04 Lymphocytes # (Manual) 1.41 k/uL (1.0-4.8) 08/10/18 06:04 Monocytes # (Manual) 3.76 k/uL (0-1.0) H 08/10/18 06:04 Metamyelocytes # (Man) 0.24 k/uL (0) H 08/10/18 06:04 Myelocytes # (Manual) 0.54 k/uL (0) H 08/09/18 03:45 Nucleated RBCs 1 /100 WBC (0-0) H 08/10/18 06:04 Manual Slide Review Performed 08/10/18 06:04 Large Platelets Present 08/09/18 03:45 Polychromasia Present 08/10/18 06:04 Hypochromasia Marked 08/10/18 15:21 Poikilocytosis Slight 08/10/18 15:21 Anisocytosis Slight 08/10/18 15:21 Macrocytosis Slight 08/10/18 15:21 PT 10.0 sec (9.0-12.0) 08/09/18 03:45 INR 1.0 (<1.2) 08/09/18 03:45 APTT 24.4 sec (22.0-30.0) 08/09/18 03:45 Sodium 139 mmol/L (137-145) 08/10/18 06:04 Potassium 3.8 mmol/L (3.5-5.1) 08/10/18 06:04 Chloride 105 mmol/L (98-107) 08/10/18 06:04 Carbon Dioxide 27 mmol/L (22-30) 08/10/18 06:04 Anion Gap 7 mmol/L 08/10/18 06:04 BUN 18 mg/dL (7-17) H 08/10/18 06:04 Creatinine 0.72 mg/dL (0.52-1.04) 08/10/18 06:04 Est GFR (CKD-EPI)AfAm >90 (>60 ml/min/1.73 sqM) 08/10/18 06:04 Est GFR (CKD-EPI)NonAf 83 (>60 ml/min/1.73 sqM) 08/10/18 06:04 Glucose 92 mg/dL (74-99) 08/10/18 06:04 Calcium 8.2 mg/dL (8.4-10.2) L 08/10/18 06:04 Magnesium 2.1 mg/dL (1.6-2.3) 08/09/18 03:45 Total Bilirubin 0.9 mg/dL (0.2-1.3) 08/10/18 06:04 Conjugated Bilirubin 0.0 mg/dL (0.0-0.3) 08/09/18 03:45 Unconjugated Bilirubin 0.9 mg/dL (0.0-1.1) 08/09/18 03:45 Delta Bilirubin 0.5 mg/dL (0.0-0.2) H 08/09/18 03:45 AST 22 U/L (14-36) 08/10/18 06:04 ALT 22 U/L (9-52) 08/10/18 06:04 Alkaline Phosphatase 75 U/L (38-126) 08/10/18 06:04 Total Creatine Kinase 22 U/L (30-135) L 08/09/18 03:45 CK-MB (CK-2) 0.9 ng/mL (0.0-2.4) 08/09/18 03:45 CK-MB (CK-2) Rel Index 4.1 08/09/18 03:45 Troponin I <0.012 ng/mL (0.000-0.034) 08/09/18 03:45 Total Protein 5.4 g/dL (6.3-8.2) L 08/10/18 06:04 Albumin 2.8 g/dL (3.5-5.0) L 08/10/18 06:04 Microbiology 08/09/18 07:00 Blood Blood Culture - Preliminary No Growth after 24 hours Assessment and Plan (1) Postoperative pain Narrative/Plan: 73-year-old woman with a recent pertinent history in that she had the sudden difficulty with pain to the left anterior chest wall side evidence of a bleeding aneurysm which required interventional repair at the [facility]. Shortly after arrival to home she started having some increasing pain at that site and presented to the emergency center. With pain control she' s feeling much better at this time. The area of extensive ecchymosis is improving. There is by ultrasound evidence of some fluid collection into the right thigh which by echo characteristics appears to more of seroma than hematoma. The site does not appear to be grossly infected. The patient does have a leukocytosis noted at admission unclear what the changes from her recent discharge from the [facility]. Her most recent laboratory at this hospital revealed evidence of leukocytosis and was already occurring. With concerns to infection at the right thigh and possibly the anterior chest wall the patient has been started on vancomycin which is appropriate until there is further data. Blood cultures in process. Evaluation she has been requested and may further help direct current therapy. We'll continue ongoing supportive care pain control appears to be adequate at this time. Awaiting her bed in the cardiac unit. Family's questions or answered. 08/10/2018 reveals the patient to be further improved. Pain control is improved. Cultures are in process and her way to determine any further antibiotic therapy. Is having no difficulty with current vancomycin therapy. She is not having significant fever or chills and the leg is improved. Current Visit: Yes Status: Acute Code(s): G89.18 - OTHER ACUTE POSTPROCEDURAL PAIN SNOMED Code(s): 887600638 (2) Ruptured aneurysm of artery Current Visit: No Status: Acute Code(s): I72.9 - ANEURYSM OF UNSPECIFIED SITE SNOMED Code(s): 21973337
[2018-08-11] MEDS: VANCOMYCIN 1,000 MG in SODIUM CHLORIDE 0.9% 250 ML IVPB SCH ×2 (06:09→21:17)
--- NOTE | 2018-08-11 07:28 | XR ---
EXAMINATION TYPE: XR abdomen 2V DATE OF EXAM: 08/10/2018 COMPARISON: NONE HISTORY: Pain TECHNIQUE: Single supine KUB image of the abdomen is obtained FINDINGS: Nonspecific distention of small and large bowel with moderate fecal stasis. No convincing evidence for pneumoperitoneum. No unusual calcifications. The lung bases are clear. The osseous structures are intact. IMPRESSION: 1. Overall nonspecific bowel gas pattern.
[2018-08-11] MEDS: LIDOCAINE 5% PATCH TOPICAL SCH (08:49)
[2018-08-11] MEDS: HEPARIN SODIUM,PORCINE 5,000 UNIT/ML 1 ML VIAL SQ SCH ×2 (08:49→20:13)
[2018-08-11] MEDS: SIMETHICONE 80 MG CHEWABLE PO SCH ×4 (08:49→20:12)
[2018-08-11] MEDS: FAMOTIDINE 20 MG TAB PO SCH ×2 (08:49→21:23)
[2018-08-11] MEDS: METOPROLOL TARTRATE 25 MG TAB PO SCH ×2 (08:49→20:12)
--- NOTE | 2018-08-11 10:03 | P.PN ---
Subjective This is a pleasant 73 years old female with past medical history of COPD, hyperlipidemia, hypothyroidism, recent hospitalization for neck and upper chest hematoma. She follow up with Dr. Barrow in the outpatient setting. Today she presents with severe left neck and upper chest pain of one day duration. She has been discharged from [facility] multiple days ago however yesterday she is develops severe pain in the left neck at the base and left upper chest radiating across to the right chest. Pain was nonspecific 10/10 in severity, controlled with IV morphine and currently 1/10 area and when asked patient to point to the area of most tenderness she points to the left upper chest just superior to her left breast. The area has bruises which patient states is been there since admission to [facility] and its improving and fading away. Going back to records that shows She came to the emergency room on 07/29/2018 where she had neck CTA which showed a large mass at the base of the left knee extending into the superior mediastinum suspicious for acute hematoma, suspected rupture of one of the left subclavian artery and its branches and transferred patient to [facility], and the bleeding was stopped by procedure through a catheter in her right groin. Since then she is been feeling some pain in her right groin however it was improving and today is 1/ 10 in severity. 08/10/2018 Patient confirmed to me that she having the pain of the left upper chest after her boyfriend gave her heart and she went home, and after that she was trying to get up from her incliner when she developed severe left upper chest pain. Patient can move her left shoulders and upper arm freely in all directions both actively and passively. Patient chest pain was severe last night and uncontrolled that affected her sleep. However she feels better today with pain medication. Her right thigh is much better as per patient is a pleased as she can bend her knee today. She was still complaining of from cough and some whitish phlegm at times. Patient has suspicious of bowel obstruction on CAT scan. She has bowel movement about 2 days ago. She is passing flatus until last night. Patient denies abdominal pain and no tenderness on abdominal exam. We will order abdominal x-ray for follow-up. Encourage incentive spirometry. 08/11/2018 Patient left upper chest pain and dried upper thigh pain are significantly improving and the pain is well controlled on both sides. No more fever. However she still have leukocytosis. Repeat labs from today is still pending. Patient still is on IV antibiotics. Records from [facility] still pending, discussed with staff and bedside nurse to request them again today. Objective - Vital Signs Vital signs: Vital Signs Temp 98.9 F 08/11/18 07:37 Pulse 86 08/11/18 07:37 Resp 24 08/11/18 08:32 BP 98/59 08/11/18 07:37 Pulse Ox 97 08/11/18 07:37 Intake & Output 08/10/18 08/11/18 08/11/18 18:59 06:59 18:59 Intake Total 940 450 Output Total 300 Balance 640 450 Weight 56.155 kg Intake: IV 10 0.9 10 Oral 940 440 Output: Urine 300 Other: Voiding Method Toilet Toilet # Voids 1 2 # Bowel Movements 1 1 - Exam GENERAL: The patient is alert and oriented x3, not in any acute distress. Well developed, well nourished. HEENT: Pupils are round and equally reacting to light. EOMI. No scleral icterus. No conjunctival pallor. Normocephalic, atraumatic. No pharyngeal erythema. No thyromegaly. CARDIOVASCULAR: S1 and S2 present. No murmurs, rubs, or gallops. -PULMONARY: Chest is clear to auscultation, no wheezing or crackles. Hematoma across the upper chest and the left neck base, fading away. Upper chest wall nontender. No obvious swelling ABDOMEN: Soft, nontender, nondistended, normoactive bowel sounds. No palpable organomegaly. MUSCULOSKELETAL: No joint swelling or deformity. -EXTREMITIES: No cyanosis, clubbing, or pedal edema. Right groin tenderness and there is some induration in the right medial thigh. The whole right lower extremity looks warmer than the left side. No erythema or discharge or once. All improving NEUROLOGICAL: Gross neurological examination did not reveal any focal deficits. SKIN: No rashes. - Labs CBC & Chem 7: 08/10/18 15:21 08/10/18 06:04 Labs: Abnormal Lab Results - Last 24 Hours (Table) 08/10/18 08/10/18 Range/Units 06:04 15:21 WBC 23.5 H 26.5 H (3.8-10.6) k/uL RBC 3.19 L (3.80-5.40) m/uL Hgb 9.0 L (11.4-16.0) gm/dL Hct 30.2 L (34.0-46.0) % MCHC 29.7 L (31.0-37.0) g/dL RDW 17.2 H (11.5-15.5) % Neutrophils # (Manual) 18.50 H (1.3-7.7) k/uL Monocytes # (Manual) 3.76 H (0-1.0) k/uL Metamyelocytes # (Man) 0.24 H (0) k/uL Nucleated RBCs 1 H (0-0) /100 WBC Microbiology - Last 24 Hours (Table) 08/09/18 07:00 Blood Culture - Preliminary Blood No Growth after 48 hours Assessment and Plan Assessment: Systemic inflammatory response, present on admissions with leukocytosis and tachycardia, tachypnea with respect rate 21 Possible infected hematoma, Right lower extremity induration and warmth, ultrasound: Seroma of the right lower extremit recent hospitalization for neck and upper chest hematoma, status post surgical intervention at [facility] about 10 days prior to admission History of COPD, not in acute exacerbation Hyperlipidemia Hypothyroidism Plan: This is a pleasant 73 years old female who presents because of hematoma and possible sepsis. Patient has started already on Vanco and Zosyn, we'll continue with the same antibiotic; and call infectious disease consult.Patient has recent history of surgical intervention for her left lower neck hematoma, which I will get records from [facility]. Call vascular surgery consult and cardiology consult for chest pain. Also will check ultrasound for her right lower extremity complained of pain and induration. Labs and medication were resumed. Continue same treatment. Continue with symptomatic treatment. Resume home medication. Monitor lytes and vitals. DVT and GI prophylaxis. Further recommendationsof the clinical course of the patient DVT prophylaxis: Subcutaneous heparin GI Prophylaxis: Pepcid PT/OT: Pending Prognosis is guarded
[2018-08-11 10:49] LABS: ALT 19 U/L (9-52); AST 22 U/L (14-36); Albumin 2.9 g/dL (3.5-5.0); Alkaline Phosphatase 82 U/L (38-126); Anion Gap 7 mmol/L; Blood Urea Nitrogen 18 mg/dL (7-17); Calcium 8.2 mg/dL (8.4-10.2); Carbon Dioxide 23 mmol/L (22-30); Chloride 110 mmol/L (98-107); Glucose 130 mg/dL (74-99); Potassium 4.3 mmol/L (3.5-5.1); Sodium 140 mmol/L (137-145); Total Bilirubin 0.9 mg/dL (0.2-1.3); Total Protein 5.5 g/dL (6.3-8.2)
[2018-08-11 10:54] LABS: Anisocytosis Slight; HCT 30.8 % (34.0-46.0); HGB 9.2 gm/dL (11.4-16.0); Hypochromasia Marked; MCH 28.7 pg (25.0-35.0); MCV 95.8 fL (80.0-100.0); Macrocytosis Slight; Mean Platelet Volume 8.9; Platelet Count 166 k/uL (150-450); Poikilocytosis Slight; RBC 3.22 m/uL (3.80-5.40); RDW 16.6 % (11.5-15.5); WBC 20.6 k/uL (3.8-10.6)
[2018-08-11 11:38] LABS: Band Neutrophils % 1 %; Lymphocytes # (M) 1.24 k/uL (1.0-4.8); Metamyelocytes # (M) 0.21 k/uL (0); Metamyelocytes % 1 %; Monocytes # (M) 4.12 k/uL (0-1.0); Myelocytes # (M) 0.41 k/uL (0); Myelocytes % 2 %; Neutrophils % (M) 71 %; Nucleated Red Blood Cells 0 /100 WBC (0-0); Polychromasia Present; Total Cells Counted 200
[2018-08-11] MEDS: IPRATROPIUM-ALBUTEROL 3 ML NEB INHALATION PRN ×2 (15:08→19:07)
[2018-08-11] MEDS: HYDROcodone/APAP 5-325MG 1 EACH TAB PO PRN (20:15)
[2018-08-11] MEDS ORDERED: VANCOMYCIN TROUGH DUE 1 EACH MISC MISCELLANE ONE (21:00)
[2018-08-12] MEDS: IPRATROPIUM-ALBUTEROL 3 ML NEB INHALATION PRN ×4 (08:10→20:08)
[2018-08-12 09:23] LABS: Anisocytosis Slight; HGB 9.9 gm/dL (11.4-16.0); Hypochromasia Marked; MCH 28.9 pg (25.0-35.0); MCHC 30.8 g/dL (31.0-37.0); Mean Platelet Volume 8.7; Platelet Count 173 k/uL (150-450); Poikilocytosis Slight; RDW 16.5 % (11.5-15.5); WBC 15.8 k/uL (3.8-10.6)
[2018-08-12] MEDS: LIDOCAINE 5% PATCH TOPICAL SCH (09:26)
[2018-08-12] MEDS: HEPARIN SODIUM,PORCINE 5,000 UNIT/ML 1 ML VIAL SQ SCH ×2 (09:26→20:47)
[2018-08-12] MEDS: FAMOTIDINE 20 MG TAB PO SCH ×2 (09:26→20:47)
[2018-08-12] MEDS: METOPROLOL TARTRATE 25 MG TAB PO SCH ×2 (09:26→20:46)
[2018-08-12] MEDS: SIMETHICONE 80 MG CHEWABLE PO SCH ×4 (09:26→22:06)
[2018-08-12 09:38] LABS: ALT 25 U/L (9-52); AST 31 U/L (14-36); Alkaline Phosphatase 92 U/L (38-126); Anion Gap 7 mmol/L; Blood Urea Nitrogen 15 mg/dL (7-17); Calcium 8.6 mg/dL (8.4-10.2); Carbon Dioxide 22 mmol/L (22-30); Chloride 112 mmol/L (98-107); Glucose 98 mg/dL (74-99); Potassium 5.2 mmol/L (3.5-5.1); Sodium 141 mmol/L (137-145); Total Protein 5.9 g/dL (6.3-8.2)
[2018-08-12 10:00] LABS: Band Neutrophils % 2 %; Eosinophils # (M) 0.16 k/uL (0-0.7); Lymphocytes # (M) 0.79 k/uL (1.0-4.8); Metamyelocytes # (M) 0.47 k/uL (0); Metamyelocytes % 3 %; Monocytes # (M) 2.69 k/uL (0-1.0); Myelocytes # (M) 0.32 k/uL (0); Myelocytes % 2 %; Neutrophils % (M) 70 %; Nucleated Red Blood Cells 0 /100 WBC (0-0); Polychromasia Present; Total Cells Counted 200
[2018-08-12] MEDS: VANCOMYCIN 1,000 MG in SODIUM CHLORIDE 0.9% 250 ML IVPB SCH ×2 (10:50→22:06)
[2018-08-12] MEDS ORDERED: SODIUM POLYSTYRENE SULFONATE 15 GM/60 ML BOTTLE PO STA (11:44)
--- NOTE | 2018-08-12 11:44 | P.PN ---
Subjective This is a pleasant 73 years old female with past medical history of COPD, hyperlipidemia, hypothyroidism, recent hospitalization for neck and upper chest hematoma. She follow up with Dr. Barrow in the outpatient setting. Today she presents with severe left neck and upper chest pain of one day duration. She has been discharged from [facility] multiple days ago however yesterday she is develops severe pain in the left neck at the base and left upper chest radiating across to the right chest. Pain was nonspecific 10/10 in severity, controlled with IV morphine and currently 1/10 area and when asked patient to point to the area of most tenderness she points to the left upper chest just superior to her left breast. The area has bruises which patient states is been there since admission to [facility] and its improving and fading away. 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 Since then she is been feeling some pain in her right groin however it was improving and today is 1/ 10 in severity. 08/10/2018 Patient confirmed to me that she having the pain of the left upper chest after her boyfriend gave her heart and she went home, and after that she was trying to get up from her incliner when she developed severe left upper chest pain. Patient can move her left shoulders and upper arm freely in all directions both actively and passively. Patient chest pain was severe last night and uncontrolled that affected her sleep. However she feels better today with pain medication. Her right thigh is much better as per patient is a pleased as she can bend her knee today. She was still complaining of from cough and some whitish phlegm at times. Patient has suspicious of bowel obstruction on CAT scan. She has bowel movement about 2 days ago. She is passing flatus until last night. Patient denies abdominal pain and no tenderness on abdominal exam. We will order abdominal x-ray for follow-up. Encourage incentive spirometry. 08/11/2018 Patient left upper chest pain and dried upper thigh pain are significantly improving and the pain is well controlled on both sides. No more fever. However she still have leukocytosis. Repeat labs from today is still pending. Patient still is on IV antibiotics. Records from [facility] still pending, discussed with staff and bedside nurse to request them again today. 08/12/2018 Patient chest pain is continued to improve and is today is 0/10, no dyspnea. She still complains from the tilt cough and with few white phlegm. Her right thigh swelling and possible infection is improving and her high pain is well controlled down to 1-2/10 in severity today. Continue with pain management. She saturating 96% on 2 L nasal cannula. WBC is coming down to 15.8 K, mostly patient is responding well with the IV vancomycin her BMP was unremarkable except for mild increase in potassium. One-time dose of Kayexalate is given. Follow-up potassium level tomorrow. Objective - Vital Signs Vital signs: Vital Signs Temp 97.5 F L 08/12/18 07:33 Pulse 88 08/12/18 08:22 Resp 18 08/12/18 07:33 BP 130/64 08/12/18 07:33 Pulse Ox 96 08/12/18 07:33 Intake & Output 08/11/18 08/12/18 08/12/18 18:59 06:59 18:59 Other: # Voids 3 0 # Bowel Movements 1 0 - Exam GENERAL: The patient is alert and oriented x3, not in any acute distress. Well developed, well nourished. HEENT: Pupils are round and equally reacting to light. EOMI. No scleral icterus. No conjunctival pallor. Normocephalic, atraumatic. No pharyngeal erythema. No thyromegaly. CARDIOVASCULAR: S1 and S2 present. No murmurs, rubs, or gallops. -PULMONARY: Chest is clear to auscultation, no wheezing or crackles. Hematoma across the upper chest and the left neck base, fading away. Upper chest wall nontender. No obvious swelling ABDOMEN: Soft, nontender, nondistended, normoactive bowel sounds. No palpable organomegaly. MUSCULOSKELETAL: No joint swelling or deformity. -EXTREMITIES: No cyanosis, clubbing, or pedal edema. Right groin tenderness and there is some induration in the right medial thigh. The whole right lower extremity looks warmer than the left side. No erythema or discharge or once. All improving NEUROLOGICAL: Gross neurological examination did not reveal any focal deficits. SKIN: No rashes. - Labs CBC & Chem 7: 08/12/18 08:27 08/12/18 08:27 Labs: Abnormal Lab Results - Last 24 Hours (Table) 08/12/18 08/12/18 Range/Units 08:27 08:27 WBC 15.8 H (3.8-10.6) k/uL RBC 3.40 L (3.80-5.40) m/uL Hgb 9.9 L (11.4-16.0) gm/dL Hct 32.0 L (34.0-46.0) % MCHC 30.8 L (31.0-37.0) g/dL RDW 16.5 H (11.5-15.5) % Neutrophils # (Manual) 11.30 H (1.3-7.7) k/uL Lymphocytes # (Manual) 0.79 L (1.0-4.8) k/uL Monocytes # (Manual) 2.69 H (0-1.0) k/uL Metamyelocytes # (Man) 0.47 H (0) k/uL Myelocytes # (Manual) 0.32 H (0) k/uL Potassium 5.2 H (3.5-5.1) mmol/L Chloride 112 H (98-107) mmol/L Total Protein 5.9 L (6.3-8.2) g/dL Albumin 3.0 L (3.5-5.0) g/dL Microbiology - Last 24 Hours (Table) 08/09/18 07:00 Blood Culture - Preliminary Blood No Growth after 72 hours Assessment and Plan Assessment: Systemic inflammatory response, present on admissions with leukocytosis and tachycardia, tachypnea with respect rate 21, improvement Possible infected hematoma Right lower extremity induration and warmth, ultrasound: Seroma of the right lower extremit, with possible infection recent hospitalization for neck and upper chest hematoma, status post surgical intervention at [facility] about 10 days prior to admission History of COPD, not in acute exacerbation Hyperlipidemia Hypothyroidism Plan: This is a pleasant 73 years old female who presents because of hematoma and possible sepsis. Patient has started already on Vanco and Zosyn, we'll continue with the same antibiotic; and call infectious disease consult.Patient has recent history of surgical intervention for her left lower neck hematoma, which I will get records from [facility]. Call vascular surgery consult and cardiology consult for chest pain. Also will check ultrasound for her right lower extremity complained of pain and induration. Labs and medication were resumed. Continue same treatment. Continue with symptomatic treatment. Resume home medication. Monitor lytes and vitals. DVT and GI prophylaxis. Further recommendationsof the clinical course of the patient DVT prophylaxis: Subcutaneous heparin GI Prophylaxis: Pepcid PT/OT: Pending Prognosis is guarded
[2018-08-12] MEDS ORDERED: MORPHINE ORAL SOLN 10 MG/5 ML CUP PO PRN (13:45)
[2018-08-12] MEDS: HYDROcodone/APAP 5-325MG 1 EACH TAB PO PRN (19:58)
[2018-08-12 23:38] VITALS: RESP 16
[2018-08-13] MEDS: HYDROcodone/APAP 5-325MG 1 EACH TAB PO PRN (01:39)
[2018-08-13] MEDS: IPRATROPIUM-ALBUTEROL 3 ML NEB INHALATION PRN ×2 (06:57→10:46)
[2018-08-13] MEDS: LIDOCAINE 5% PATCH TOPICAL SCH (08:16)
[2018-08-13] MEDS: HEPARIN SODIUM,PORCINE 5,000 UNIT/ML 1 ML VIAL SQ SCH (08:16)
[2018-08-13] MEDS: SIMETHICONE 80 MG CHEWABLE PO SCH ×2 (08:17→13:32)
[2018-08-13] MEDS: METOPROLOL TARTRATE 25 MG TAB PO SCH (08:17)
[2018-08-13] MEDS: FAMOTIDINE 20 MG TAB PO SCH (08:17)
[2018-08-13 08:37] LABS: ALT 10 U/L (9-52); AST 27 U/L (14-36); Alkaline Phosphatase 82 U/L (38-126); Anion Gap 7 mmol/L; Blood Urea Nitrogen 15 mg/dL (7-17); Calcium 8.6 mg/dL (8.4-10.2); Carbon Dioxide 23 mmol/L (22-30); Chloride 110 mmol/L (98-107); Glucose 106 mg/dL (74-99); Potassium 4.7 mmol/L (3.5-5.1); Sodium 140 mmol/L (137-145); Total Bilirubin 0.8 mg/dL (0.2-1.3); Total Protein 5.8 g/dL (6.3-8.2)
[2018-08-13 08:44] LABS: Anisocytosis Slight; HCT 32.9 % (34.0-46.0); HGB 9.8 gm/dL (11.4-16.0); Hypochromasia Marked; MCH 27.9 pg (25.0-35.0); MCHC 29.8 g/dL (31.0-37.0); MCV 93.7 fL (80.0-100.0); Mean Platelet Volume 8.8; Platelet Count 169 k/uL (150-450); Poikilocytosis Slight; RBC 3.52 m/uL (3.80-5.40); RDW 16.4 % (11.5-15.5)
[2018-08-13] MEDS: VANCOMYCIN 1,000 MG in SODIUM CHLORIDE 0.9% 250 ML IVPB SCH (11:00)
[2018-08-13 11:24] LABS: Band Neutrophils % 3 %; Lymphocytes # (M) 1.08 k/uL (1.0-4.8); Metamyelocytes # (M) 0.12 k/uL (0); Metamyelocytes % 1 %; Monocytes # (M) 1.92 k/uL (0-1.0); Myelocytes # (M) 0.12 k/uL (0); Myelocytes % 1 %; Neutrophils % (M) 71 %; Nucleated Red Blood Cells 0 /100 WBC (0-0); Polychromasia Present; Total Cells Counted 200
[2018-08-13 14:08] VITALS: BP 107/57; PULSE 88; TEMP 98.7
--- NOTE | 2018-08-13 16:02 | P.DS ---
Providers Date of admission: 08/10/18 12:32 Expected date of discharge: 08/13/18 Attending physician: MD Dr. Quan Garland Consults: 08/09/18 09:07 Consult Physician Urgent Consulting Provider: Romeo Holman Consult Reason/Comments: chest pain , h/o aneurysm procedure Do you want consulting provider notified?: Yes 08/09/18 09:14 Consult Physician Urgent Consulting Provider: Juwan Ro Consult Reason/Comments: possible infected hematoma, leukocytosis Do you want consulting provider notified?: Yes 08/09/18 12:14 Consult Physician Urgent Consulting Provider: Antwon Lira Consult Reason/Comments: h/o recent hematoma in the neck and chest with possible sepsis on admission Do you want consulting provider notified?: Already Contacted Primary care physician: Kassandra Gaxiola [place] [facility] Course: Final Diagnoses: Possible sepsis, present on admissions with leukocytosis and tachycardia, tachypnea, improved Hematoma, possibly infected. Right lower extremity induration and warmth, ultrasound: Seroma of the right lower extremit, with possible infection. recent hospitalization for neck and upper chest hematoma, status post surgical intervention at [facility] regarding bleeding aneurysm. History of COPD, not in acute exacerbation Hyperlipidemia Hypothyroidism Chest pain, atypical, no acute ischemic event as per cardiology Hospital course:This is a pleasant 73 years old female with past medical history of COPD, hyperlipidemia, hypothyroidism, recent hospitalization for neck and upper chest hematoma. She follow up with Dr. Barrow in the outpatient setting. Today she presents with severe left neck and upper chest pain of one day duration. She has been discharged from [facility] multiple days ago however yesterday she is develops severe pain in the left neck at the base and left upper chest radiating across to the right chest. Pain was nonspecific 10/10 in severity, controlled with IV morphine and currently 1/10 area and when asked patient to point to the area of most tenderness she points to the left upper chest just superior to her left breast. The area has bruises which patient states is been there since admission to [facility] and its improving and fading away. 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 Since then she is been feeling some pain in her right groin however it was improving and today is 1/ 10 in severity. 08/10/2018 Patient confirmed to me that she having the pain of the left upper chest after her boyfriend gave her heart and she went home, and after that she was trying to get up from her incliner when she developed severe left upper chest pain. Patient can move her left shoulders and upper arm freely in all directions both actively and passively. Patient chest pain was severe last night and uncontrolled that affected her sleep. However she feels better today with pain medication. Her right thigh is much better as per patient is a pleased as she can bend her knee today. She was still complaining of from cough and some whitish phlegm at times. Patient has suspicious of bowel obstruction on CAT scan. She has bowel movement about 2 days ago. She is passing flatus until last night. Patient denies abdominal pain and no tenderness on abdominal exam. We will order abdominal x-ray for follow-up. Encourage incentive spirometry. 08/11/2018 Patient left upper chest pain and dried upper thigh pain are significantly improving and the pain is well controlled on both sides. No more fever. However she still have leukocytosis. Repeat labs from today is still pending. Patient still is on IV antibiotics. Records from [facility] still pending, discussed with staff and bedside nurse to request them again today. 08/12/2018 Patient chest pain is continued to improve and is today is 0/10, no dyspnea. She still complains from the tilt cough and with few white phlegm. Her right thigh swelling and possible infection is improving and her high pain is well controlled down to 1-2/10 in severity today. Continue with pain management. She saturating 96% on 2 L nasal cannula. WBC is coming down to 15.8 K, mostly patient is responding well with the IV vancomycin her BMP was unremarkable except for mild increase in potassium. One-time dose of Kayexalate is given. Follow-up potassium level tomorrow. Evaluated by vascular surgery, cardiology. Patient maintained on IV antibiotics as per infectious disease. CT of the neck and chest reviewed by vascular surgery reporting neck as negative, chest with some fluid collection off of the left subclavian area without evidence of stenosis obstruction or thrombosis. Significant clinical improvement. Cleared for discharge by cardiology. Patient will be discharged home pending clearance from vascular surgery, infectious disease, in a stable condition with guarded prognosis. Exam GENERAL: The patient is alert and oriented x3, not in any acute distress. HEENT: Pupils are round and equally reacting to light. EOMI. No scleral icterus. No conjunctival pallor. Normocephalic. CARDIOVASCULAR: S1 and S2 present. No murmurs, rubs, or gallops. -PULMONARY: Chest is clear to auscultation, no wheezing or crackles. Hematoma across the upper chest and the left neck base, fading away. Upper chest wall nontender, no swelling ABDOMEN: Soft, nontender, nondistended, normoactive bowel sounds. No palpable organomegaly. -EXTREMITIES: No cyanosis, clubbing, or pedal edema. Right groin tenderness, edema improved NEUROLOGICAL: Gross neurological examination did not reveal any focal deficits. The impression and plan of care has been dictated as directed. : I performed a history and examination of this patient, discussed the same with the dictator. I agree with the dictator's note ,documented as a scribe. Any additional findings or plans will be noted. Time taken: 35 minutes Patient Condition at Discharge: Stable Plan - Discharge Summary Discharge Rx Participant: No New Discharge Prescriptions: New Acetaminophen Tab [Tylenol] 650 mg PO Q6HR PRN tab PRN Reason: Mild Pain Or Fever > 100.5 Metoprolol Tartrate [Lopressor] 25 mg PO BID #60 tab Continue Mometasone Furoate [Mometasone Furoate 0.1%] 2 drops BOTH EARS DAILY PRN PRN Reason: IRRITATION Simvastatin [Zocor] 40 mg PO HS Ranitidine HCl [Zantac] 150 mg PO BID Fluticasone Nasal [place] [Flonase Nasal [place]] 2 spr EA NOSTRIL DAILY PRN PRN Reason: Allergy Symptoms Multivitamin [Multivitamins Adult Gummies] 2 tab PO DAILY Carboxymethylcellulose Sodium [Refresh Tears] 1 drop BOTH EYES BID PRN PRN Reason: Dry Eye(S) Cholecalciferol [Vitamin D3] 8,000 unit PO DAILY Ipratropium-Albuterol Nebulize [Duoneb 0.5 mg-3 mg/3 ml Soln] 3 ml INHALATION RT-QID PRN PRN Reason: Shortness Of Breath Fluticasone Propionate [Flovent Hfa 110mcg] 1 puff INHALATION RT-BID Lidocaine 5% Patch [Lidoderm 5% Patch] 1 patch TOPICAL DAILY PRN PRN Reason: Pain Fexofenadine HCl [Lisa Allergy] 180 mg PO DAILY Discharge Medication List Mometasone Furoate [Mometasone Furoate 0.1%] 2 drops BOTH EARS DAILY PRN [History] Ranitidine HCl [Zantac] 150 mg PO BID 07/30/15 [History] Simvastatin [Zocor] 40 mg PO HS 07/30/15 [History] Fluticasone Nasal [place] [Flonase Nasal [place]] 2 spr EA NOSTRIL DAILY PRN [History] Carboxymethylcellulose Sodium [Refresh Tears] 1 drop BOTH EYES BID PRN 04/02/16 [History] Cholecalciferol [Vitamin D3] 8,000 unit PO DAILY 04/02/16 [History] Fluticasone Propionate [Flovent Hfa 110mcg] 1 puff INHALATION RT-BID 04/02/16 [ History] Ipratropium-Albuterol Nebulize [Duoneb 0.5 mg-3 mg/3 ml Soln] 3 ml INHALATION RT -QID PRN 04/02/16 [History] Multivitamin [Multivitamins Adult Gummies] 2 tab PO DAILY 04/02/16 [History] Fexofenadine HCl [Lisa Allergy] 180 mg PO DAILY 08/09/18 [History] Lidocaine 5% Patch [Lidoderm 5% Patch] 1 patch TOPICAL DAILY PRN 08/09/18 [ History] Acetaminophen Tab [Tylenol] 650 mg PO Q6HR PRN tab 08/13/18 [Rx] Metoprolol Tartrate [Lopressor] 25 mg PO BID #60 tab 08/13/18 [Rx] Follow up Appointment(s)/Referral(s): Juwan Ro MD [STAFF PHYSICIAN] - 1 Week Kassandra Gaxiola MD [Primary Care Provider] - 3 Days [facility], [NON-STAFF] - Antwon Lira MD [STAFF PHYSICIAN] - 1 Week Ambulatory/Diagnostic Orders: Complete Blood Count w/diff [LAB.AMB] Time Frame: 3 Days, Location: None Selected Activity/Diet/Wound Care/Special Instructions: Antibiotic as per ID. pending clearance/final DC recommendations per vascular surgery. Confirm cardiology follow-up appointment prior to discharge. Lasix dcd, borderline hypotension, normal EF reported per cardiology
[2018-08-13] MEDS ORDERED: VANCOMYCIN TROUGH DUE 1 EACH MISC MISCELLANE ONE (21:00)
== END 2018-08-13 16:51 | disposition home health service (06) | DRG 872 ==
LOC: EC 03:15 → 3NMEDONC 07:01 → 3SCARD 10:04 → 3NMEDONC 12:07 → 3SCARD 12:08 → OBSVTOIN 08-10 12:32 → 4MS4W 08-10 21:18
PROVIDERS: ADMIT Internal Medicine; ATTEND Internal Medicine
DX: A41.9 Sepsis, unspecified organism (principal); E78.5 Hyperlipidemia, unspecified; J44.9 Chronic obstructive pulmonary disease, unspecified; E89.0 Postprocedural hypothyroidism; G89.18 Other acute postprocedural pain; R07.89 Other chest pain; M79.81 Nontraumatic hematoma of soft tissue; Z79.51 Long term (current) use of inhaled steroids; Z79.899 Other long term (current) drug therapy; Z88.6 Allergy status to analgesic agent; Z88.7 Allergy status to serum and vaccine; Z90.49 Acquired absence of other specified parts of digestive tract
CPT/HCPCS: 36415; 70491; 71046; 71260; 74019; 74177; 80053; 80202; 82248; 82550; 82553; 83735; 84484; 85025; 85027; 85610; 85730; 87040; 93005; 93306; 94640; 94760; 96361; 96365; 96367; 96375; 96376; 99285

== ENCOUNTER 2018-09-04 19:29 | Emergency (ER) | payer MEDICARE ==
[2018-09-04 19:40] VITALS: TEMP 98.2
[2018-09-04] MEDS ORDERED: SODIUM CHLORIDE 0.9% 1,000 ML IV STA (19:40)
--- NOTE | 2018-09-04 20:02 | ED ---
General Adult HPI - General Source: patient Mode of arrival: ambulatory Limitations: no limitations <Cl Bell - Last Filed: 09/04/18 21:12> <Jacob Tolbert - Last Filed: 09/04/18 22:50> - General Chief complaint: Chest Pain Stated complaint: Chest pain - History of Present Illness Initial comments: Dictation was produced using [employer] dictation software. please excuse any grammatical, word or spelling errors. Chief Complaint: Chin is a 72-year-old female past medical history of superior mediastinal hematoma presents with similar symptoms as in the past. History of Present Illness: 72-year-old female with past medical history of superior mediastinal hematoma presents with chest pain and neck pain. Patient states her symptoms have been on and off since the procedure. She was diagnosed with this mediastinal hematoma back in July 29. Patient was diagnosed here based on a CT angiogram of the chest and neck. She was airlifted to [facility] where she had surgical intervention performed. Patient also was told that she had a hemothorax. A left-sided chest tube was placed. Patient had follow-up appointments last week with her vascular surgeon and was found to be okay. Patient states she's been having intermittent pain since the surgery. Today she states that she is having symptoms of left-sided chest pain with radiation to the neck and left shoulder. She states he symptoms are very similar to when she was initially diagnosed. And as any neuro deficits. Denies any numbness tingling or paresthesias to the left upper extremity. The ROS documented in this emergency department record has been reviewed and confirmed by me. Those systems with pertinent positive or negative responses have been documented in the HPI. All other systems are other negative and/or noncontributory. (Cl Bell) - Related Data Home Medications Medication Instructions Recorded Confirmed Mometasone Furoate [Mometasone 2 drops BOTH EARS DAILY PRN 07/30/15 08/09/18 Furoate 0.1%] Ranitidine HCl [Zantac] 150 mg PO BID 07/30/15 08/09/18 Simvastatin [Zocor] 40 mg PO HS 07/30/15 08/09/18 Fluticasone Nasal [place] [Flonase 2 spr EA NOSTRIL DAILY PRN 12/17/15 08/09/18 Nasal [place]] Carboxymethylcellulose Sodium 1 drop BOTH EYES BID PRN 04/02/16 08/09/18 [Refresh Tears] Cholecalciferol [Vitamin D3] 8,000 unit PO DAILY 04/02/16 08/09/18 Fluticasone Propionate [Flovent 1 puff INHALATION RT-BID 04/02/16 08/09/18 Hfa 110mcg] Ipratropium-Albuterol Nebulize 3 ml INHALATION RT-QID PRN 04/02/16 08/09/18 [Duoneb 0.5 mg-3 mg/3 ml Soln] Multivitamin [Multivitamins Adult 2 tab PO DAILY 04/02/16 08/09/18 Gummies] Fexofenadine HCl [Lisa Allergy] 180 mg PO DAILY 08/09/18 08/09/18 Lidocaine 5% Patch [Lidoderm 5% 1 patch TOPICAL DAILY PRN 08/09/18 08/09/18 Patch] Previous Rx's Medication Instructions Recorded Acetaminophen Tab [Tylenol] 650 mg PO Q6HR PRN tab 08/13/18 Ciprofloxacin HCl [Cipro] 500 mg PO Q12HR #20 tablet 08/13/18 Metoprolol Tartrate [Lopressor] 25 mg PO BID #60 tab 08/13/18 Allergies Allergy/AdvReac Type Severity Reaction Status Date / Time tetanus immune globulin Allergy Unknown Verified 09/04/18 19:40 aspirin AdvReac Unknown Verified 09/04/18 19:40 Review of Systems ROS Other: All systems not noted in ROS Statement are negative. <Cl Bell - Last Filed: 09/04/18 21:12> ROS Other: All systems not noted in ROS Statement are negative. <Jacob Tolbert - Last Filed: 09/04/18 22:50> ROS Statement: Those systems with pertinent positive or pertinent negative responses have been documented in the HPI. Past Medical History Past Medical History: COPD, Hyperlipidemia, Thyroid Disorder Additional Past Medical History / Comment(s): edema, seasonal allergies to grass , trees and mold. History of Any Multi-Drug Resistant Organisms: None Reported Past Surgical History: Adenoidectomy, Appendectomy, Tonsillectomy Additional Past Surgical History / Comment(s): 3/4 thyroid removed, right leg and foot fracture repair, carple tunnel kim repair, parts of her ribs reomved from left upper chest, ovarian cyst, kim breast cysts removed, 1ft intestine removed for blockage, heart surgery Past Anesthesia/Blood Transfusion Reactions: No Reported Reaction Additional Past Anesthesia/Blood Transfusion Reaction / Comment(s): Pt has received blood in past without reaction. Past Psychological History: No Psychological Hx Reported Smoking Status: Never smoker Past Alcohol Use History: None Reported Past Drug Use History: None Reported - Past Family History Father Family Medical History: No Reported History Additional Family Medical History / Comment(s): Father was healthty and lived to be 89yrs old. Mother Family Medical History: No Reported History Additional Family Medical History / Comment(s): Mother was healthy and lived to be 85 yrs old. <Cl Bell - Last Filed: 09/04/18 21:12> General Exam Limitations: no limitations <Cl Bell - Last Filed: 09/04/18 21:12> <Jacob Tolbert - Last Filed: 09/04/18 22:50> - General Exam Comments Initial Comments: PHYSICAL EXAM: General Impression: Alert and oriented x3, not in acute distress HEENT: Normocephalic atraumatic, extra-ocular movements intact, pupils equal and reactive to light bilaterally, mucous membranes moist. Cardiovascular: Heart regular rate and rhythm, S1&S2 audible, no murmurs, rubs or gallops Chest: Lungs clear to auscultation bilaterally, no rhonchi, no wheeze, no rales Abdomen: Bowel sounds present, abdomen soft, non-tender, non-distended, no organomegaly Musculoskeletal: Pulses present and equal in all extremities, no peripheral edema Motor: Power 5/5 bilaterally, no focal deficits noted Neurological: CN II-XII grossly intact, no focal motor or sensory deficits noted Skin: Intact with no visualized rashes Psych: Normal affect and mood (Cl Bell) Vital Signs 09/04/18 09/04/18 19:37 22:46 Temperature 98.2 F Pulse Rate 107 H 84 Respiratory 18 16 Rate Blood Pressure 132/81 124/54 O2 Sat by Pulse 94 L Oximetry Medical Decision Making - Lab Data Result diagrams: 09/04/18 20:09 09/04/18 20:09 <Cl Bell - Last Filed: 09/04/18 21:12> - Lab Data Result diagrams: 09/04/18 20:09 09/04/18 20:09 <Jacob Tolbert - Last Filed: 09/04/18 22:50> - Medical Decision Making ED course: 72-year-old female with complex history of superior mediastinal hematoma presents with chest pain, jaw pain and left shoulder pain. As upon arrival shows heart rate of 107, rest of vital signs within normal limits. Patient is well-appearing. Labs and CTs of the chest and neck were obtained. Patient is sent out to oncoming physician for follow-up of pending studies. EKG Interpretation: A 12 lead EKG was obtained. It was interpreted by myself and attending physician. There is a P wave before every QRS complex. Rate is 101. Rhythm is sinus tachycardia,. Interval 142, QS 94, QTC 484. QT is not prolonged. No ST segment depression or elevation. Overall, this EKG is unremarkable (Cl Bell) - Lab Data Lab Results 09/04/18 09/04/18 09/04/18 Range/Units 20:09 20:09 20:09 WBC 6.4 (3.8-10.6) k/uL RBC 4.74 (3.80-5.40) m/uL Hgb 13.2 D (11.4-16.0) gm/dL Hct 41.0 (34.0-46.0) % MCV 86.6 D (80.0-100.0) fL MCH 27.9 (25.0-35.0) pg MCHC 32.3 (31.0-37.0) g/dL RDW 15.1 (11.5-15.5) % Plt Count 137 L (150-450) k/uL Neutrophils % (Manual) 55 % Lymphocytes % (Manual) 20 % Monocytes % (Manual) 25 % Neutrophils # (Manual) 3.52 (1.3-7.7) k/uL Lymphocytes # (Manual) 1.28 (1.0-4.8) k/uL Monocytes # (Manual) 1.60 H (0-1.0) k/uL Nucleated RBCs 0 (0-0) /100 WBC Manual Slide Review Performed Large Platelets Present Hypochromasia Slight PT (9.0-12.0) sec INR (<1.2) APTT (22.0-30.0) sec Sodium 141 (137-145) mmol/L Potassium 3.1 L (3.5-5.1) mmol/L Chloride 106 (98-107) mmol/L Carbon Dioxide 29 (22-30) mmol/L Anion Gap 6 mmol/L BUN 16 (7-17) mg/dL Creatinine 0.83 (0.52-1.04) mg/dL Est GFR (CKD-EPI)AfAm 80 (>60 ml/min/1.73 sqM) Est GFR (CKD-EPI)NonAf 70 (>60 ml/min/1.73 sqM) Glucose 109 H (74-99) mg/dL Calcium 9.0 (8.4-10.2) mg/dL Magnesium 1.9 (1.6-2.3) mg/dL Total Bilirubin 0.2 (0.2-1.3) mg/dL AST 15 (14-36) U/L ALT 20 (9-52) U/L Alkaline Phosphatase 42 (38-126) U/L Total Creatine Kinase <20 L (30-135) U/L CK-MB (CK-2) 0.5 (0.0-2.4) ng/mL CK-MB (CK-2) Rel Index Troponin I <0.012 (0.000-0.034) ng/mL Total Protein 6.5 (6.3-8.2) g/dL Albumin 3.7 (3.5-5.0) g/dL Lipase 91 (23-300) U/L 09/04/18 Range/Units 20:09 WBC (3.8-10.6) k/uL RBC (3.80-5.40) m/uL Hgb (11.4-16.0) gm/dL Hct (34.0-46.0) % MCV (80.0-100.0) fL MCH (25.0-35.0) pg MCHC (31.0-37.0) g/dL RDW (11.5-15.5) % Plt Count (150-450) k/uL Neutrophils % (Manual) % Lymphocytes % (Manual) % Monocytes % (Manual) % Neutrophils # (Manual) (1.3-7.7) k/uL Lymphocytes # (Manual) (1.0-4.8) k/uL Monocytes # (Manual) (0-1.0) k/uL Nucleated RBCs (0-0) /100 WBC Manual Slide Review Large Platelets Hypochromasia PT 10.7 (9.0-12.0) sec INR 1.1 (<1.2) APTT 26.4 (22.0-30.0) sec Sodium (137-145) mmol/L Potassium (3.5-5.1) mmol/L Chloride (98-107) mmol/L Carbon Dioxide (22-30) mmol/L Anion Gap mmol/L BUN (7-17) mg/dL Creatinine (0.52-1.04) mg/dL Est GFR (CKD-EPI)AfAm (>60 ml/min/1.73 sqM) Est GFR (CKD-EPI)NonAf (>60 ml/min/1.73 sqM) Glucose (74-99) mg/dL Calcium (8.4-10.2) mg/dL Magnesium (1.6-2.3) mg/dL Total Bilirubin (0.2-1.3) mg/dL AST (14-36) U/L ALT (9-52) U/L Alkaline Phosphatase (38-126) U/L Total Creatine Kinase (30-135) U/L CK-MB (CK-2) (0.0-2.4) ng/mL CK-MB (CK-2) Rel Index Troponin I (0.000-0.034) ng/mL Total Protein (6.3-8.2) g/dL Albumin (3.5-5.0) g/dL Lipase (23-300) U/L Disposition <Cl Bell - Last Filed: 09/04/18 21:12> Is patient prescribed a controlled substance at d/c from ED?: No <Jacob Tolbert - Last Filed: 09/04/18 22:50> Clinical Impression: Chest pain Disposition: HOME SELF-CARE Condition: Good Instructions: Chest Pain (ED) Referrals: Kassandra Gaxiola MD [Primary Care Provider] - 1-2 days
[2018-09-04 20:41] LABS: INR 1.1 (<1.2); Partial Thromboplastin Time 26.4 sec (22.0-30.0); Prothrombin Time 10.7 sec (9.0-12.0)
[2018-09-04 20:48] LABS: Albumin 3.7 g/dL (3.5-5.0); Magnesium 1.9 mg/dL (1.6-2.3); Potassium 3.1 mmol/L (3.5-5.1); Total Bilirubin 0.2 mg/dL (0.2-1.3); Total Protein 6.5 g/dL (6.3-8.2)
[2018-09-04 20:51] LABS: Creatine Kinase <20 U/L (30-135)
[2018-09-04 20:54] LABS: Hypochromasia Slight; MCH 27.9 pg (25.0-35.0); MCHC 32.3 g/dL (31.0-37.0); Mean Platelet Volume 10.4; Platelet Count 137 k/uL (150-450); RBC 4.74 m/uL (3.80-5.40); RDW 15.1 % (11.5-15.5); WBC 6.4 k/uL (3.8-10.6)
[2018-09-04 20:58] LABS: HGB 13.2 gm/dL (11.4-16.0)
[2018-09-04 20:59] LABS: MCV 86.6 fL (80.0-100.0)
[2018-09-04 21:05] LABS: Creatine Kinase MB 0.5 ng/mL (0.0-2.4); Troponin I <0.012 ng/mL (0.000-0.034)
[2018-09-04 21:43] LABS: Lymphocytes # (M) 1.28 k/uL (1.0-4.8); Neutrophils # (M) 3.52 k/uL (1.3-7.7); Neutrophils % (M) 55 %; Nucleated Red Blood Cells 0 /100 WBC (0-0); Total Cells Counted 100
[2018-09-04 21:44] LABS: Large Platelets Present
--- NOTE | 2018-09-04 21:48 | CT ---
EXAMINATION TYPE: CT angio chest DATE OF EXAM: 09/04/2018 COMPARISON: CT August 09, 2018 HISTORY: Chest and neck pain. CT DLP: 192.4 mGycm. Automated Exposure Control for Dose Reduction was Utilized. CONTRAST: CTA scan of the thorax is performed with IV Contrast, patient injected with 62ml mL of Isovue 370, pu lmonary embolism protocol. MIP Images are created on CT scanner and reviewed. FINDINGS: LUNGS: There is new diffuse groundglass opacity bilaterally felt to reflect mild edema. No focal pleu ral effusion or pneumothorax is seen bilaterally. Tracheobronchial tree remains patent. No suspicious focal consolidation is seen MEDIASTINUM: There is satisfactory enhancement of the pulmonary artery and its branches, there is no CT evidence for pulmonary embolism. There are no greater than 1 cm hilar or mediastinal lymph nodes. No significant pericardial effusion is seen. Cardiomegaly is redemonstrated. Enlarged main pulmona ry artery measuring 3.0 cm diameter axial image 48 is redemonstrated. Adjacent ascending aorta measur es 3.7 cm diameter axial image 48. Some chronic deformity to left superior aspect sternum is redemons trated. OTHER: Underlying scoliosis is felt present. Suspect surgical change to the right breast. IMPRESSION: 1. No CT evidence for acute pulmonary embolism. 2. Cardiomegaly with mild diffuse alveolar edema, correlate for mild acute CHF exacerbation.
--- NOTE | 2018-09-04 21:54 | CT ---
EXAMINATION TYPE: CT angio neck DATE OF EXAM: 09/04/2018 HISTORY: Chest and neck pain. COMPARISON: CT neck August 09, 2018 CT DLP: 240.8 mGycm. Automated Exposure Control for Dose Reduction was Utilized. TECHNIQUE: CTA scan of the neck is performed with IV Contrast, patient injected with 62ml mL of Isov ue 370, axial images are obtained, coronal and sagittal reformatted images are reviewed. Three-D joann nstructed images are created on an independent workstation and reviewed. FINDINGS: Carotid/Vascular Structures: Moderate mixed plaque in the aortic arch is present. There is normal thr ee-vessel origin from aortic arch. Visualized portion of the subclavian arteries are patent bilateral ly with some tortuous course. Right common carotid artery shows tortuous course without significant p laque or stenosis including at level of right carotid bulb. There is mild calcified plaque in left ca rotid bulb without significant stenosis. Remainder of bilateral internal/external carotid artery show no significant plaque or stenosis with mild calcified plaque supraclinoid segments seen bilaterally. There is torturous course of bilateral vertebral arteries which are patent to basilar junction. No linear hypodensity to suggest dissection is seen. No suspicious extraluminal contrast is noted. Other: Underlying scoliosis is redemonstrated. There is exaggerated cervical kyphosis again seen. There are multiple calcified nodules throughout the thyroid gland redemonstrated. There is marked interval improvement in left supraclavicular hematoma versus prior study. IMPRESSION: No significant stenosis in common or internal carotid arteries bilaterally. No carotid d issection is present.
[2018-09-04] MEDS ORDERED: POTASSIUM CHLORIDE ER 20 MEQ TAB.ER PO STA (22:17)
[2018-09-04] MEDS ORDERED: HYDROcodone/APAP 5-325MG 1 EACH TAB PO STA (22:18)
[2018-09-04 22:48] VITALS: BP 124/54; PULSE 84; RESP 16
== END 2018-09-04 23:19 | disposition home or self-care (01) ==
LOC: EC 19:29
DX: R07.9 Chest pain, unspecified (principal); M54.2 Cervicalgia; R68.84 Jaw pain; M25.512 Pain in left shoulder; J44.9 Chronic obstructive pulmonary disease, unspecified; E78.5 Hyperlipidemia, unspecified; E07.9 Disorder of thyroid, unspecified; Z79.51 Long term (current) use of inhaled steroids; Z79.899 Other long term (current) drug therapy; Z90.89 Acquired absence of other organs; Z88.6 Allergy status to analgesic agent; Z88.7 Allergy status to serum and vaccine
CPT/HCPCS: 36415; 80053; 82550; 82553; 83690; 83735; 84484; 85025; 85610; 85730; 70498; 71275; 99285; 96360; 96361 ×2; Q9967

== ENCOUNTER → 2018-10-01 | Outpatient (CLI) | payer MEDICARE ==
--- NOTE | 2018-10-01 12:35 | BD ---
EXAMINATION TYPE: Axial Bone Density DATE OF EXAM: 10/01/2018 COMPARISON: NONE CLINICAL HISTORY: Osteoporosis screening. Postmenopausal female. Height: 58 Weight: 114.5 FRAX RISK QUESTIONS: Alcohol (3 or more units per day): no Family History (Parent hip fracture): no Glucocorticoids (More than 3mos): no (Ex: prednisone, prednisolone, methylprednisolone, dexamethasone, and hydrocortisone). History of Fracture in Adulthood: yes Secondary Osteoporosis: 1. Type 1 Diabetes: no 2. Hyperthyroidism: no 3. Menopause before 45: yes 4. Malnutrition: no 5. Chronic liver disease: no Rheumatoid Arthritis: no Current Tobacco Use: no RISK FACTORS HISTORY OF: Hip Fracture (Right/Left): right femur fx When: 4 years ago Surgery to Spine/Hip(right/left)/Wrist (right/left): bilateral carpal tunnel surgery/ right femur When: femur 4 years ago Family History of Osteoporosis: yes Active: yes Diet low in dairy products/other sources of calcium: no Postmenopausal woman: age 27 hysterectomy Lost more than 2 inches in height since high school: yes Frequent falls: no MEDICATIONS: fluticasone, mometasone, vitafusion, robert, simvastatin, furosemide, zantac, potassium chloride Additional History: EXAM MEASUREMENTS: Bone mineral densitometry was performed using the [employer] System. Bone mineral density as measured about the Lumbar spine is: ----- L1-L4(G/cm2): 0.785 T Score Values are as follows: ----- L2: -3.2 ----- L3: -4.1 ----- L4: -3.7 ----- L1-L4: -3.3 Bone mineral density has: increased 0.5 % since study of: 09.30.2016 Bone mineral density about the L hip (g/cm2): 0.894 T Score values are as follows: -----L Neck: -1.0 -----L Total: -1.1 Bone mineral density has: decreased -2.4 % since study of: 09.30.2016 IMPRESSION: Osteoporosis (T Score less than -2.5). There is increased fracture risk and therapy is usually indicated based on age. Re-Screen 1-2 years. NOTE: T-SCORE=SD OF THE YOUNG ADULT MEAN.
--- NOTE | 2018-10-07 10:21 | MM ---
Reason for exam: screening (asymptomatic). Last mammogram was performed 1 year and 2 months ago. History: Patient is postmenopausal. Benign stereotactic core biopsy, June 03, 2002. Benign excisional biopsy of the left breast, January 15, 1998. 2 cyst aspirations of the right breast. Core biopsy of the left breast. Core biopsy of the right breast. Took estrogen for 30 years. Physical Findings: A clinical breast exam by your physician is recommended on an annual basis and results should be correlated with mammographic findings. MG 3D Screening Mammo W/Cad Bilateral CC and MLO view(s) were taken. Prior study comparison: August 03, 2017, bilateral MG 3d screening mammo w/cad. June 27, 2015, bilateral MG screening mammo w CAD. There are scattered fibroglandular densities. Stable benign calcifications. There is no discrete abnormality. No significant changes when compared with prior studies. ASSESSMENT: Benign, BI-RAD 2 RECOMMENDATION: Routine screening mammogram of both breasts in 1 year.
== END ==
LOC: RADMAMWWP 10:25
PROVIDERS: ATTEND Family Medicine
DX: Z12.31 Encounter for screening mammogram for malignant neoplasm of breast (principal); M81.0 Age-related osteoporosis without current pathological fracture
CPT/HCPCS: 77063; 77067; 77080

== ENCOUNTER 2018-10-16 13:45 | Emergency (ER) | payer MEDICARE ==
[2018-10-16] MEDS ORDERED: MORPHINE SULFATE 4 MG/ML SYRINGE IV STA (14:04)
[2018-10-16] MEDS ORDERED: SODIUM CHLORIDE 0.9% 1,000 ML IV STA (14:04)
[2018-10-16 14:54] LABS: Albumin 3.8 g/dL (3.5-5.0); Calcium 8.8 mg/dL (8.4-10.2); Potassium 4.1 mmol/L (3.5-5.1); Total Bilirubin 0.5 mg/dL (0.2-1.3); Total Protein 6.5 g/dL (6.3-8.2)
[2018-10-16 14:56] LABS: Partial Thromboplastin Time 28.6 sec (22.0-30.0); Prothrombin Time 10.4 sec (9.0-12.0)
[2018-10-16 15:03] LABS: HCT 42.7 % (34.0-46.0); HGB 12.7 gm/dL (11.4-16.0); Hypochromasia Slight; MCH 25.7 pg (25.0-35.0); MCHC 29.8 g/dL (31.0-37.0); MCV 86.1 fL (80.0-100.0); Mean Platelet Volume 9.4; Platelet Count 153 k/uL (150-450); RBC 4.96 m/uL (3.80-5.40); RDW 15.7 % (11.5-15.5); WBC 5.9 k/uL (3.8-10.6)
[2018-10-16 15:10] LABS: Creatine Kinase <20 U/L (30-135)
[2018-10-16 15:23] LABS: Creatine Kinase MB 0.4 ng/mL (0.0-2.4); Troponin I <0.012 ng/mL (0.000-0.034)
[2018-10-16 15:50] LABS: Band Neutrophils % 1 %; Lymphocytes # (M) 1.06 k/uL (1.0-4.8); Monocytes # (M) 1.18 k/uL (0-1.0); Neutrophils % (M) 61 %; Nucleated Red Blood Cells 0 /100 WBC (0-0); Total Cells Counted 100
[2018-10-16 15:51] LABS: Toxic Vacuolation Present
--- NOTE | 2018-10-16 16:11 | ED ---
Chest Pain HPI - General Chief Complaint: Chest Pain Stated Complaint: chest pain Time Seen by Provider: 10/16/18 13:56 Source: patient, RN notes reviewed Mode of arrival: wheelchair Limitations: no limitations - History of Present Illness Initial Comments: This is a 73-year-old female presents with complaints of sharp left-sided chest pain is been intermittent for some time. She states is dull and sharp was 8/10 severity she hasn't shortness of breath with it today. No cough or phlegm production she states it does seem to radiate up into her neck. No focal deficits. She did recently have a left carotid artery procedure. She is certain about this. No cough or phlegm production the pain is somewhat reproducible with movement and deep breathing. She does state pain seems to radiate at times to her back. No other current complaints MD Complaint: chest pain - Related Data Home Medications Medication Instructions Recorded Confirmed Mometasone Furoate [Mometasone 2 drops BOTH EARS DAILY PRN 07/30/15 10/16/18 Furoate 0.1%] Ranitidine HCl [Zantac] 150 mg PO BID 07/30/15 10/16/18 Simvastatin [Zocor] 40 mg PO HS 07/30/15 10/16/18 Fluticasone Nasal [place] [Flonase 2 spr EA NOSTRIL DAILY PRN 12/17/15 10/16/18 Nasal [place]] Carboxymethylcellulose Sodium 1 drop BOTH EYES BID PRN 04/02/16 10/16/18 [Refresh Tears] Cholecalciferol [Vitamin D3] 8,000 unit PO DAILY 04/02/16 10/16/18 Ipratropium-Albuterol Nebulize 3 ml INHALATION RT-QID PRN 04/02/16 10/16/18 [Duoneb 0.5 mg-3 mg/3 ml Soln] Multivitamin [Multivitamins Adult 2 tab PO DAILY 04/02/16 10/16/18 Gummies] Fexofenadine HCl [Lisa Allergy] 180 mg PO DAILY 08/09/18 10/16/18 Lidocaine 5% Patch [Lidoderm 5% 1 patch TOPICAL DAILY PRN 08/09/18 10/16/18 Patch] Furosemide [Lasix] 40 mg PO DAILY 10/16/18 10/16/18 Furosemide [Lasix] 80 mg PO DAILY 10/16/18 10/16/18 Potassium Chloride ER [K-Dur 10] 10 meq PO DAILY 10/16/18 10/16/18 Previous Rx's Medication Instructions Recorded predniSONE 20 mg PO BID #10 tab 10/16/18 Allergies Allergy/AdvReac Type Severity Reaction Status Date / Time bee venom protein (honey bee) Allergy Anaphylaxis Verified 10/16/18 14:23 tetanus immune globulin Allergy Unknown Verified 10/16/18 14:23 aspirin AdvReac Unknown Verified 10/16/18 14:23 Review of Systems ROS Statement: Those systems with pertinent positive or pertinent negative responses have been documented in the HPI. ROS Other: All systems not noted in ROS Statement are negative. EKG Findings - EKG Results: EKG: interpreted by PAULD (Normal sinus rhythm rate of 98. Interval 1:30 QRS duration 84 QT since QTC 370/472 left exodeviation nonspecific anterior configuration) Past Medical History Past Medical History: COPD, Hyperlipidemia, Thyroid Disorder Additional Past Medical History / Comment(s): edema, seasonal allergies to grass , trees and mold. History of Any Multi-Drug Resistant Organisms: None Reported Past Surgical History: Adenoidectomy, Appendectomy, Tonsillectomy Additional Past Surgical History / Comment(s): 3/4 thyroid removed, right leg and foot fracture repair, carple tunnel kim repair, parts of her ribs reomved from left upper chest, ovarian cyst, kim breast cysts removed, 1ft intestine removed for blockage, heart surgery, Anerysm repain in neck 07/2018 Past Anesthesia/Blood Transfusion Reactions: No Reported Reaction Additional Past Anesthesia/Blood Transfusion Reaction / Comment(s): Pt has received blood in past without reaction. Past Psychological History: No Psychological Hx Reported Smoking Status: Never smoker Past Alcohol Use History: None Reported Past Drug Use History: None Reported - Past Family History Father Family Medical History: No Reported History Additional Family Medical History / Comment(s): Father was healthty and lived to be 89yrs old. Mother Family Medical History: No Reported History Additional Family Medical History / Comment(s): Mother was healthy and lived to be 85 yrs old. General Exam - General Exam Comments Initial Comments: This is a well-developed well-nourished awake alert oriented 3 female Limitations: no limitations General appearance: alert, anxious Head exam: Present: atraumatic, normocephalic, normal inspection Eye exam: Present: normal appearance, PERRL, EOMI. Absent: scleral icterus, conjunctival injection, periorbital swelling ENT exam: Present: normal exam, mucous membranes moist Neck exam: Present: normal inspection, tenderness (Some mild tenderness palpation over the left anterior lateral neck musculature), other (No stridor JVD or bruits). Absent: meningismus, lymphadenopathy Respiratory exam: Present: normal lung sounds bilaterally, chest wall tenderness (Producible tennis palpation on the left costochondral costal sternal margin.). Absent: respiratory distress, wheezes, rales, rhonchi, stridor Cardiovascular Exam: Present: regular rate, normal rhythm, normal heart sounds. Absent: systolic murmur, diastolic murmur, rubs, gallop, clicks GI/Abdominal exam: Present: soft, normal bowel sounds. Absent: distended, tenderness, guarding, rebound, rigid Extremities exam: Present: full ROM, normal capillary refill. Absent: tenderness, pedal edema, joint swelling, calf tenderness Back exam: Present: normal inspection Neurological exam: Present: alert, oriented X3, CN II-XII intact Psychiatric exam: Present: normal affect, normal mood Skin exam: Present: warm, dry, intact, normal color. Absent: rash Course Vital Signs 10/16/18 10/16/18 10/16/18 13:48 14:00 15:00 Temperature 97.2 F L Pulse Rate 106 H 101 H 88 Respiratory 18 16 18 Rate Blood Pressure 123/77 110/67 118/68 O2 Sat by Pulse 93 L 93 L 95 Oximetry 10/16/18 10/16/18 16:00 17:00 Temperature Pulse Rate 84 81 Respiratory 18 11 L Rate Blood Pressure 116/67 118/64 O2 Sat by Pulse 95 84 L Oximetry - Reevaluation(s) Reevaluation #1: 10/16/18 16:13 EKG was compared with one dated 09/04/18 shows similar configuration. Chest Pain MDM - MDM I did review the imaging and reports no evidence of acute findings. The patient 's chest wall pain is reproducible at this time is low index of suspicion for cardiovascular or pulmonary etiologies. Patient be discharged Disposition Clinical Impression: Costalchondritis, Chest wall syndrome Disposition: HOME SELF-CARE Condition: Good Instructions: Costochondritis (ED), Chest Wall Pain (ED) Additional Instructions: [id number] Tylenol for pain in addition to the prescribed medication Prescriptions: predniSONE 20 mg PO BID #10 tab Is patient prescribed a controlled substance at d/c from ED?: No Referrals: Kassandra Gaxiola MD [Primary Care Provider] - 1-2 days
--- NOTE | 2018-10-16 16:46 | CT ---
EXAMINATION TYPE: CT angio neck DATE OF EXAM: 10/16/2018 HISTORY: Chest pain. History of left side carotid aneurysm repair. COMPARISON: 09/04/2018 CT DLP: 243.1 mGycm. Automated Exposure Control for Dose Reduction was Utilized. TECHNIQUE: CTA scan of the neck is performed with IV Contrast, patient injected with 65ml mL of Isov ue 370, axial images are obtained, coronal and sagittal reformatted images are reviewed. Three-D joann nstructed images are created on an independent workstation and reviewed. FINDINGS: There is normal branching pattern of the great vessels on the aortic arch. There is wide patency of t he common internal and external carotid arteries. There is minimal plaque with calcification at the l eft carotid artery bifurcation without luminal narrowing. There is bilateral arterial flow in the lulu tebral arteries which are fairly symmetric. There is patency of the vertebrobasilar artery system. Th ere is bilateral intracranial internal carotid artery flow. There is no evidence of carotid or verteb ral aneurysm or dissection. IMPRESSION: Negative CT angiogram of the neck. No change compared to last exam.
--- NOTE | 2018-10-16 17:02 | CT ---
EXAMINATION TYPE: CT angio thor/abd pel aorta DATE OF EXAM: 10/16/2018 COMPARISON: 07/31/2018 HISTORY: Chest pain. CT DLP: 528.4 mGycm. Automated Exposure Control for Dose Reduction was Utilized. CONTRAST: CT scan of the thorax, abdomen and pelvis is performed with IV Contrast, patient injected with 65ml m L of Isovue 370. FINDINGS: There are 3-D post processed images. There is fairly normal branching pattern of the great vessels on the aortic arch. There is bilateral patency of the subclavian arteries. Thoracic aorta shows mild atheromatous change. The ascending aort a measures 2.7 cm. There is no evidence of dissection. I see no filling defects in the pulmonary jason magdaleno. Abdominal aorta shows no evidence of aneurysm or dissection. There is atheromatous mild change. There is patency of the celiac artery and superior mesenteric artery. There is bilateral patency of the re nal arteries. There is bilateral patency of the iliac and femoral arteries. I see no evidence of hemo dynamic stenosis. There is 1 cm cyst left lobe of the liver. Liver shows otherwise no focal defect. Bile ducts are not dilated. Spleen appears normal. Kidneys show no hydronephrosis. There is no retroperitoneal adenopath y. There is no evidence of a bowel obstruction. Bladder distends smoothly. There is metal artifact fr om surgery on the proximal right femur. There is intramedullary radha. There is no evidence of free air . IMPRESSION: Minimal atherosclerotic vascular disease. No evidence of aneurysm or dissection. No evidence of hemod ynamic stenosis. No evidence of pulmonary embolism. No adverse change compared to old exam.
[2018-10-16] MEDS ORDERED: predniSONE 50 MG TAB PO STA (17:44)
[2018-10-16 18:07] VITALS: BP 149/74; PULSE 78; RESP 16; TEMP 97.8
== END 2018-10-16 18:06 | disposition home or self-care (01) ==
LOC: EC 13:45
DX: M94.0 Chondrocostal junction syndrome [Tietze] (principal); M54.2 Cervicalgia; M54.9 Dorsalgia, unspecified; E78.5 Hyperlipidemia, unspecified; J44.9 Chronic obstructive pulmonary disease, unspecified; Z88.6 Allergy status to analgesic agent; Z88.7 Allergy status to serum and vaccine; Z91.018 Allergy to other foods; Z79.899 Other long term (current) drug therapy; Z90.89 Acquired absence of other organs
CPT/HCPCS: 36415; 93005; 83880; 80053; 82150; 82550; 82553; 83690; 83735; 84484; 85025; 85610; 85730; 70498; 71275; 74174; 99285; 96374; 96361 ×3; J2270; J7512; Q9967

== ENCOUNTER 2019-06-05 09:30 | Inpatient (IN) | payer MEDICARE ==
[2019-06-05] MEDS ORDERED: PIPERACILLIN-TAZOBACTAM 3.375 GM in SODIUM CHLORIDE 0.9% 100 ML IVPB STA (09:45)
--- NOTE | 2019-06-05 10:00 | ED ---
General Adult HPI - General Chief complaint: Extremity Injury, Lower Stated complaint: rt leg infection Time Seen by Provider: 06/05/19 09:30 Source: patient, RN notes reviewed Mode of arrival: wheelchair Limitations: no limitations - History of Present Illness Initial comments: This is a 73-year-old female presents to the emergency department stating that on Thursday she cut her leg on a tin box. Patient states he got red and warm so she went to her primary medical care doctor and was put on Bactrim. Patient states since that time is gotten worse and she was instructed since he is not improving that she is to follow-up in the emergency department. Patient states the area of redness is getting worse and spreading. Patient states it's also very warm. Patient denies any fever or chills. Patient denies any posterior leg pain or swelling. Patient denies any other symptoms at this time. Her injury was to the distal right leg. - Related Data Home Medications Medication Instructions Recorded Confirmed Mometasone Furoate [Mometasone 2 drops BOTH EARS DAILY PRN 07/30/15 06/05/19 Furoate 0.1%] Ranitidine HCl [Zantac] 150 mg PO BID 07/30/15 06/05/19 Simvastatin [Zocor] 40 mg PO HS 07/30/15 06/05/19 Fluticasone Nasal [place] [Flonase 2 spr EA NOSTRIL DAILY PRN 12/17/15 06/05/19 Nasal [place]] Carboxymethylcellulose Sodium 1 drop BOTH EYES BID PRN 04/02/16 06/05/19 [Refresh Tears] Cholecalciferol [Vitamin D3 (25 8,000 unit PO DAILY 04/02/16 06/05/19 Mcg = 1000 Iu)] Fexofenadine HCl [Lisa Allergy] 180 mg PO DAILY 08/09/18 06/05/19 Furosemide [Lasix] 40 mg PO HS 10/16/18 06/05/19 Furosemide [Lasix] 80 mg PO QAM 10/16/18 06/05/19 Potassium Chloride ER [K-Dur 10] 10 meq PO DAILY 10/16/18 06/05/19 Albuterol Sulfate [Proair Hfa] 2 puff INHALATION RT-Q6H PRN 06/05/19 06/05/19 Fluticasone Propionate [Flovent 1 puff INHALATION RT-BID 06/05/19 06/05/19 Hfa 110 mcg] Sulfamethox-Tmp 800-160Mg [Bactrim 1 tab PO Q12HR 06/05/19 06/05/19 DS 800-160 mg] Allergies Allergy/AdvReac Type Severity Reaction Status Date / Time bee venom protein (honey bee) Allergy Anaphylaxis Verified 06/05/19 09:43 tetanus immune globulin Allergy Rash/Hives Verified 06/05/19 09:43 aspirin AdvReac NOSE BLEED Verified 06/05/19 09:43 Review of Systems ROS Statement: Those systems with pertinent positive or pertinent negative responses have been documented in the HPI. ROS Other: All systems not noted in ROS Statement are negative. Past Medical History Past Medical History: COPD, Hyperlipidemia, Thyroid Disorder Additional Past Medical History / Comment(s): edema, seasonal allergies to grass, trees and mold. History of Any Multi-Drug Resistant Organisms: None Reported Past Surgical History: Adenoidectomy, Appendectomy, Tonsillectomy Additional Past Surgical History / Comment(s): 3/4 thyroid removed, right leg and foot fracture repair, carple tunnel kim repair, parts of her ribs reomved from left upper chest, ovarian cyst, kim breast cysts removed, 1ft intestine removed for blockage, heart surgery, Anerysm repain in neck 07/2018 Past Anesthesia/Blood Transfusion Reactions: No Reported Reaction Additional Past Anesthesia/Blood Transfusion Reaction / Comment(s): Pt has received blood in past without reaction. Past Psychological History: No Psychological Hx Reported Smoking Status: Never smoker Past Alcohol Use History: None Reported Past Drug Use History: None Reported - Past Family History Father Family Medical History: No Reported History Additional Family Medical History / Comment(s): Father was healthty and lived to be 89yrs old. Mother Family Medical History: No Reported History Additional Family Medical History / Comment(s): Mother was healthy and lived to be 85 yrs old. General Exam - General Exam Comments Initial Comments: GENERAL: Patient is well-developed and well-nourished. Patient is nontoxic and well- hydrated and is in mild distress. ENT: Neck is soft and supple. No significant lymphadenopathy is noted. Oropharynx is clear. Moist mucous membranes. Neck has full range of motion without eliciting any pain. EYES: The sclera were anicteric and conjunctiva were pink and moist. Extraocular movements were intact and pupils were equal round and reactive to light. Eyelids were unremarkable. PULMONARY: Unlabored respirations. Good breath sounds bilaterally. No audible rales rhonchi or wheezing was noted. CARDIOVASCULAR: There is a regular rate and rhythm without any murmurs gallops or rubs. ABDOMEN: Soft and nontender with normal bowel sounds. SKIN: Skin is clear with no lesions or rashes and otherwise unremarkable. NEUROLOGIC: Patient is alert and oriented x3. Cranial nerves II through XII are grossly intact. Motor and sensory are also intact. Normal speech, volume and content. Symmetrical smile. MUSCULOSKELETAL: Patient has an area around a superficial wound on the distal right leg that appears warm hot and tender. Classic representation for cellulitis LYMPHATICS: No significant lymphadenopathy is noted PSYCHIATRIC: Normal psychiatric evaluation. Limitations: no limitations Course Vital Signs 06/05/19 09:33 Temperature 98.2 F Pulse Rate 80 Respiratory 16 Rate Blood Pressure 120/65 O2 Sat by Pulse 95 Oximetry Medical Decision Making - Medical Decision Making EKG shows normal sinus rhythm at 64 bpm GA interval is 140 QRS is 94 QT interval 466 QTC is 480. Patient's EKG shows no ST segment elevation or depression or T wave abnormalities are noted. Patient states she had outpatient x-rays are indicated to her that there was no damage to the bone and there was no foreign body noted Patient failed outpatient treatment for cellulitis on the leg I therefore started the patient on Zosyn called Dr. Jarquin he agreed to admit admitted the patient wrote admitting orders. - Lab Data Result diagrams: 06/05/19 10:05 06/05/19 10:05 Lab Results 06/05/19 06/05/19 06/05/19 Range/Units 10:05 10:05 10:05 WBC 5.9 (3.8-10.6) k/uL RBC 5.12 (3.80-5.40) m/uL Hgb 13.9 (11.4-16.0) gm/dL Hct 44.2 (34.0-46.0) % MCV 86.3 (80.0-100.0) fL MCH 27.2 (25.0-35.0) pg MCHC 31.5 (31.0-37.0) g/dL RDW 16.1 H (11.5-15.5) % Plt Count 126 L (150-450) k/uL Neutrophils % (Manual) 58 % Band Neutrophils % 1 % Lymphocytes % (Manual) 13 % Monocytes % (Manual) 28 % Neutrophils # (Manual) 3.40 (1.3-7.7) k/uL Lymphocytes # (Manual) 0.77 L (1.0-4.8) k/uL Monocytes # (Manual) 1.65 H (0-1.0) k/uL Nucleated RBCs 0 (0-0) /100 WBC Manual Slide Review Performed Anisocytosis Slight PT (9.0-12.0) sec INR (<1.2) APTT (22.0-30.0) sec Sodium 142 (137-145) mmol/L Potassium 4.4 (3.5-5.1) mmol/L Chloride 105 (98-107) mmol/L Carbon Dioxide 25 (22-30) mmol/L Anion Gap 12 mmol/L BUN 13 (7-17) mg/dL Creatinine 0.84 (0.52-1.04) mg/dL Est GFR (CKD-EPI)AfAm 79 (>60 ml/min/1.73 sqM) Est GFR (CKD-EPI)NonAf 68 (>60 ml/min/1.73 sqM) Glucose 103 H (74-99) mg/dL Plasma Lactic Acid Tomas 1.3 (0.7-2.0) mmol/L Calcium 9.7 (8.4-10.2) mg/dL Total Bilirubin 0.4 (0.2-1.3) mg/dL AST 17 (14-36) U/L ALT 15 (9-52) U/L Alkaline Phosphatase 47 (38-126) U/L Total Protein 7.1 (6.3-8.2) g/dL Albumin 4.2 (3.5-5.0) g/dL Urine Color Urine Appearance (Clear) Urine pH (5.0-8.0) Ur Specific [place] (1.001-1.035) Urine Protein (Negative) Urine Glucose (UA) (Negative) Urine Ketones (Negative) Urine Blood (Negative) Urine Nitrite (Negative) Urine Bilirubin (Negative) Urine Urobilinogen (<2.0) mg/dL Ur Leukocyte Esterase (Negative) Urine RBC (0-5) /hpf Urine WBC (0-5) /hpf Ur Squamous Epith Cells (0-4) /hpf 06/05/19 06/05/19 Range/Units 10:05 10:05 WBC (3.8-10.6) k/uL RBC (3.80-5.40) m/uL Hgb (11.4-16.0) gm/dL Hct (34.0-46.0) % MCV (80.0-100.0) fL MCH (25.0-35.0) pg MCHC (31.0-37.0) g/dL RDW (11.5-15.5) % Plt Count (150-450) k/uL Neutrophils % (Manual) % Band Neutrophils % % Lymphocytes % (Manual) % Monocytes % (Manual) % Neutrophils # (Manual) (1.3-7.7) k/uL Lymphocytes # (Manual) (1.0-4.8) k/uL Monocytes # (Manual) (0-1.0) k/uL Nucleated RBCs (0-0) /100 WBC Manual Slide Review Anisocytosis PT 10.2 (9.0-12.0) sec INR 0.9 (<1.2) APTT 29.0 (22.0-30.0) sec Sodium (137-145) mmol/L Potassium (3.5-5.1) mmol/L Chloride (98-107) mmol/L Carbon Dioxide (22-30) mmol/L Anion Gap mmol/L BUN (7-17) mg/dL Creatinine (0.52-1.04) mg/dL Est GFR (CKD-EPI)AfAm (>60 ml/min/1.73 sqM) Est GFR (CKD-EPI)NonAf (>60 ml/min/1.73 sqM) Glucose (74-99) mg/dL Plasma Lactic Acid Tomas (0.7-2.0) mmol/L Calcium (8.4-10.2) mg/dL Total Bilirubin (0.2-1.3) mg/dL AST (14-36) U/L ALT (9-52) U/L Alkaline Phosphatase (38-126) U/L Total Protein (6.3-8.2) g/dL Albumin (3.5-5.0) g/dL Urine Color Yellow Urine Appearance Clear (Clear) Urine pH 7.0 (5.0-8.0) Ur Specific [place] 1.010 (1.001-1.035) Urine Protein Negative (Negative) Urine Glucose (UA) Negative (Negative) Urine Ketones Negative (Negative) Urine Blood Negative (Negative) Urine Nitrite Negative (Negative) Urine Bilirubin Negative (Negative) Urine Urobilinogen <2.0 (<2.0) mg/dL Ur Leukocyte Esterase Large H (Negative) Urine RBC 1 (0-5) /hpf Urine WBC 2 (0-5) /hpf Ur Squamous Epith Cells <1 (0-4) /hpf Disposition Clinical Impression: Cellulitis of leg, right Disposition: ADMITTED IP TO THIS HOSP Referrals: Kassandra Gaxiola MD [Primary Care Provider] - 1-2 days Time of Disposition: 11:36
[2019-06-05] MEDS: SODIUM CHLORIDE 0.9% 500 ML 500 ML IV SCH ×2 (10:09→10:10)
[2019-06-05 10:42] LABS: Anisocytosis Slight; HCT 44.2 % (34.0-46.0); HGB 13.9 gm/dL (11.4-16.0); MCH 27.2 pg (25.0-35.0); MCHC 31.5 g/dL (31.0-37.0); MCV 86.3 fL (80.0-100.0); Mean Platelet Volume 10.4; Platelet Count 126 k/uL (150-450); RBC 5.12 m/uL (3.80-5.40); RDW 16.1 % (11.5-15.5); WBC 5.9 k/uL (3.8-10.6)
[2019-06-05 10:51] LABS: Appearance,Urine Clear (Clear); Bilirubin,Urine Negative (Negative); Blood,Urine Negative (Negative); Color,Urine Yellow; Glucose,Urine (UA) Negative (Negative); INR 0.9 (<1.2); Ketones,Urine Negative (Negative); Leukocyte Esterase,Urine Large (Negative); Nitrite,Urine Negative (Negative); Protein,Urine Negative (Negative); Prothrombin Time 10.2 sec (9.0-12.0); RBC,Urine 1 /hpf (0-5); Squamous Epithelial Cell,Urine <1 /hpf (0-4); Urobilinogen,Urine <2.0 mg/dL (<2.0); WBC,Urine 2 /hpf (0-5)
[2019-06-05 10:53] LABS: Albumin 4.2 g/dL (3.5-5.0); Calcium 9.7 mg/dL (8.4-10.2); Potassium 4.4 mmol/L (3.5-5.1); Total Bilirubin 0.4 mg/dL (0.2-1.3); Total Protein 7.1 g/dL (6.3-8.2)
[2019-06-05 11:16] LABS: Band Neutrophils % 1 %; Lymphocytes # (M) 0.77 k/uL (1.0-4.8); Monocytes # (M) 1.65 k/uL (0-1.0); Neutrophils % (M) 58 %; Nucleated Red Blood Cells 0 /100 WBC (0-0); Total Cells Counted 100
[2019-06-05] MEDS ORDERED: SODIUM CHLORIDE 0.9% 1,000 ML IV ONE (11:36)
[2019-06-05 14:05] VITALS: BMI 24.0
[2019-06-05] MEDS ORDERED: ARTIFICIAL TEARS-HYPROMELLOSE DROPS 15 ML BTL BOTH EYES PRN (14:21)
[2019-06-05] MEDS ORDERED: FLUTICASONE 50MCG/SPRAY NASAL 16GM EA NOSTRIL PRN (14:21)
[2019-06-05] MEDS ORDERED: ALBUTEROL NEBULIZED 2.5 MG/3 ML INHALATION PRN (14:21)
[2019-06-05] MEDS ORDERED: MOMETASONE FUROATE BOTH EARS PRN (14:21)
[2019-06-05] MEDS ORDERED: TEMAZEPAM 15 MG CAP PO PRN (14:23)
[2019-06-05] MEDS ORDERED: HYDROcodone/APAP 5-325MG 1 EACH TAB PO PRN (14:23)
[2019-06-05] MEDS ORDERED: ALPRAZolam 0.25 MG TAB PO PRN (14:23)
[2019-06-05] MEDS ORDERED: ACETAMINOPHEN TAB 500 MG TAB PO PRN (14:23)
--- NOTE | 2019-06-05 15:18 | HP ---
HISTORY AND PHYSICAL DATE OF SERVICE: 06/05/2019 CHIEF COMPLAINT: Pain and swelling of the right leg. HISTORY OF PRESENT ILLNESS: This 73-year-old woman with a past medical history of multiple medical problems including history of COPD, hyperlipidemia, hypothyroidism, history of adenoidectomy, appendectomy history, being followed by Dr. Kassandra Gaxiola in the outpatient setting, apparently slipped and fell in a dog pee and hit a tin can according to her a few days ago. The patient had a severe injury on the right espinoza. Patient was started on Bactrim. Because of increasing pain and swelling and worsening of symptoms, patient came to [facility] and was admitted to the hospital for further evaluation and treatment. There is no history of fever, rigors or chills. No history of headache, loss of consciousness or seizures. The platelets only 126. PAST MEDICAL HISTORY: History of COPD, hyperlipidemia, hypothyroidism, history of adenoidectomy. MEDICATIONS: Prior to admission include home medications: 1. Mometasone 2 drops daily p.r.n. 2. Flonase 2 sprays daily p.r.n. 3. Refresh 1 drop both eyes b.i.d. 4. Bactrim DS 1 p.o. b.i.d. 5. Flovent 1 puff b.i.d. 6. ProAir HFA 2 puffs q.6h p.r.n. 7. Lasix 80 mg q.a.m. and 40 mg q.h.s. 8. Zocor 40 mg q.h.s. 9. Zantac 150 mg p.o. b.i.d. 10.K-Dur 10 mEq p.o. daily. 11.Lisa 180 mg p.o. daily. 12.Vitamin D3 1000 daily. ALLERGIES: BEE VENOM, TETANUS, IMMUNOGLOBULIN, ASPIRIN. FAMILY HISTORY: No history of heart disease or strokes in the family. SOCIAL HISTORY: No history of smoking. No history of alcohol intake. REVIEW OF SYSTEMS: ENT: Diminished vision. Diminished hearing. CARDIOVASCULAR: No angina or palpitations. RESPIRATION: As mentioned earlier. GI no nausea or vomiting. no dysuria. NERVOUS SYSTEM: No numbness or weakness. ALLERGY/IMMUNOLOGY: No asthma, hay fever. MUSCULOSKELETAL as mentioned earlier. HEMATOLOGY/ONCOLOGY: No history of anemia. ENDOCRINE: Hypothyroidism. CONSTITUTIONAL: As mentioned earlier. DERMATOLOGY mentioned earlier. RHEUMATOLOGY: Negative. PSYCHIATRY as mentioned. PHYSICAL EXAMINATION: Alert and oriented x3. Pulse is 66. Blood pressure 146/74, respiration 18, temperature 98 degrees, pulse ox 94% on room air. HEENT: Conjunctivae normal. Oral mucosa moist. NECK is no jugular venous distention. No carotid bruit. No lymph node enlargement. CARDIOVASCULAR: S1, S2 muffled. No S3, no S4. RESPIRATORY: Breath sounds diminished in the bases. A few scattered rhonchi and crackles. ABDOMEN: Soft, nontender. No mass palpable. LEGS: Significant swelling of the left leg, in the lower left leg and some tenderness and erythema and also some excoriation also present. No expressible pus noted. Pulses diminished bilaterally. NERVOUS SYSTEM: Higher functions as mentioned. Moves all 4 limbs. No focal motor or sensory deficits. LYMPHATICS: No lymph nodes palpable in the neck, axillae or groin. SKIN as mentioned. JOINTS: No active deforming arthropathy. LAB: WBC 5.9, hemoglobin 13.9, platelets 126. ASSESSMENT: 1. Acute right leg cellulitis with failure of outpatient treatment. 2. Thrombocytopenia. 3. Rule out peripheral vascular disease, peripheral artery disease. 4. Chronic obstructive pulmonary disease. 5. Hyperlipidemia. 6. Hypothyroidism. 7. History of seasonal allergies. 8. History of appendectomy. 9. History of intestinal resection. 10.History of aneurysm repair in the neck. RECOMMENDATIONS AND DISCUSSION: In this 73-year-old woman who presented with multiple medical issues, at this time, we will monitor the patient closely. Continue the current medications, management and symptomatic treatment . We will initiate home medications. DVT prophylaxis. I would also recommend broad-spectrum IV antibiotics, infectious disease evaluation. Doppler of the lower legs are ordered to rule out possible peripheral vascular disease. Overall prognosis guarded because of multiple complex medical issues. Symptomatic treatment of the pain also is ordered. Further recommendations to follow. MMODL / IJN: [id number] /
[2019-06-05] MEDS: PIPERACILLIN-TAZOBACTAM 3.375 GM in SODIUM CHLORIDE 0.9% 100 ML IVPB SCH ×2 (16:02→23:49)
[2019-06-05] MEDS: HEPARIN SODIUM,PORCINE 5,000 UNIT/ML 1 ML VIAL SQ SCH ×2 (16:02→20:39)
[2019-06-05] MEDS: HYDROmorphone 0.5 MG/0.5 ML SYRINGE IVP PRN ×2 (16:02→23:49)
[2019-06-05] MEDS: FLUTICASONE 110 MCG INHALER INHALATION SCH (20:18)
[2019-06-05] MEDS: FAMOTIDINE 20 MG TAB PO SCH (20:27)
[2019-06-05] MEDS: FUROSEMIDE 40 MG TAB PO SCH (20:27)
[2019-06-05] MEDS: ATORVASTATIN 20 MG TAB PO SCH (20:27)
[2019-06-06] MEDS: HYDROmorphone 0.5 MG/0.5 ML SYRINGE IVP PRN ×3 (04:30→15:05)
[2019-06-06] MEDS: FLUTICASONE 110 MCG INHALER INHALATION SCH ×2 (08:00→21:35)
[2019-06-06] MEDS: HEPARIN SODIUM,PORCINE 5,000 UNIT/ML 1 ML VIAL SQ SCH ×2 (08:27→20:47)
[2019-06-06] MEDS: FUROSEMIDE 80 MG TAB PO SCH (08:28)
[2019-06-06] MEDS: LORATADINE 10 MG TAB PO SCH (08:28)
[2019-06-06] MEDS: CHOLECALCIFEROL 1,000 UNIT TAB PO SCH (08:28)
[2019-06-06] MEDS: PIPERACILLIN-TAZOBACTAM 3.375 GM in SODIUM CHLORIDE 0.9% 100 ML IVPB SCH ×2 (08:28→15:05)
[2019-06-06] MEDS: FAMOTIDINE 20 MG TAB PO SCH (08:28)
[2019-06-06] MEDS: POTASSIUM CHLORIDE ER 10 MEQ TAB.ER.PRT PO SCH (08:28)
[2019-06-06 09:08] LABS: Calcium 8.2 mg/dL (8.4-10.2); Potassium 3.8 mmol/L (3.5-5.1)
[2019-06-06 09:10] LABS: Anisocytosis Slight; HCT 41.3 % (34.0-46.0); MCHC 31.4 g/dL (31.0-37.0); MCV 85.8 fL (80.0-100.0); Mean Platelet Volume 10.2; Platelet Count 126 k/uL (150-450); RBC 4.81 m/uL (3.80-5.40); RDW 16.7 % (11.5-15.5)
[2019-06-06 10:16] LABS: Monocytes # (M) 1.92 k/uL (0-1.0); Neutrophils % (M) 58 %; Nucleated Red Blood Cells 0 /100 WBC (0-0); Total Cells Counted 100
--- NOTE | 2019-06-06 16:31 | PN ---
PROGRESS NOTE DATE OF SERVICE: 06/06/2019 This 73-year-old woman who was admitted with pain and swelling of the right leg had significant cellulitis and failure of outpatient treatment. Patient was started on broad-spectrum IV antibiotics. Infectious Disease is following the patient closely. No chest pain. No palpitations. No fever. On exam, alert and oriented x3. Pulse is 86, blood pressure 104/63, respiration 18, temperature 98.2, pulse ox 93% on room air. HEENT: Conjunctivae normal. NECK: No jugular venous distention. CARDIOVASCULAR SYSTEM: S1, S2 muffled. RESPIRATORY SYSTEM: Breath sounds diminished at the bases. No rhonchi. No crackles. ABDOMEN: Soft, non-tender. LEGS: Right leg cellulitis present. NERVOUS SYSTEM: No focal deficit. LABS: Platelets are 126. Otherwise, monocytes are 1.92. Other labs are noted. Cultures are pending at this time. ASSESSMENT: 1. Acute right leg cellulitis with failure of outpatient treatment. 2. Thrombocytopenia; undetermined etiology. 3. Rule out peripheral artery disease. 4. Chronic obstructive pulmonary disease. 5. Hyperlipidemia. 6. Hypothyroidism. 7. History of seasonal allergies. 8. History appendectomy. 9. History of intestinal resection. 10.History of aneurysm repair in the neck. RECOMMENDATIONS AND DISCUSSION: I recommend to continue current medications, continue with the monitoring, symptomatic treatment. Otherwise, I would also recommend vascular surgery consultation. Further recommendations to follow. MMODL / CATHYN: [id number] /
[2019-06-06] MEDS: ATORVASTATIN 20 MG TAB PO SCH (20:47)
[2019-06-06] MEDS: FUROSEMIDE 40 MG TAB PO SCH (20:48)
--- NOTE | 2019-06-06 22:48 | P.PN ---
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 Patient did well and was discharged home subsequently admitted to [facility] due to increasing pain and significant ecchymosis to the left neck/chest wall. Patient was stabilized and discharged home on ciprofloxacin. The patient gives history that she slipped and dog urine, fell and caused abrasion to the right pretibial area by a tin can. Patient denies any loss of consciousness. She denies any lightheadedness or dizziness prior to the fall. She has been treated in the outpatient setting with Bactrim but continued to have increased redness and swelling and thus came into [facility] emergency center for evaluation. She has been afebrile, white count 5.9, creatinine 0.83. She was given 2 L of IV fluids in the emergency center, started on Zosyn and [facility] Blood culture and urine cultures are status received. Urine was positive for large leukoesterase and PVCs 2. Patient denies any urinary symptoms. Patient states the the swelling of her right lower leg is much improved since admission. Please see the consult note as dictated by nurse practitioner Mrs. Silvia Moscoso. The patient relates that she had the acute injury to the right lower extremity has developed extensive cellulitis. She did have a fall which resulted in ecchymosis to the right knee and left distal leg also. Do not appear infected but minimally tender. Cultures are in process and she is currently being lucretia ated cefazolin. Silvadene and local care to the leg is been requested. Elevate the site. No Other sites of infection are noted.. She relates no further acute vascular abnormalities like she had with the left subclavian artery and was cared for at the [facility]. I evaluation, assessment and plan as dictated by nurse practitioner Mrs. Silvia Moscoso. Objective - Vital Signs Vital signs: Vital Signs Temp 98.2 F 06/06/19 13:04 Pulse 86 06/06/19 13:04 Resp 18 06/06/19 13:04 BP 104/63 06/06/19 13:04 Pulse Ox 93 L 06/06/19 13:04 Intake & Output 06/06/19 06/06/19 06/07/19 06:59 18:59 06:59 Intake Total 500 840 Balance 500 840 Intake: Oral 500 840 Other: Voiding Method Toilet Toilet Bedside Commode Bedside Commode # Voids 4 3 - Labs CBC & Chem 7: 06/06/19 07:49 06/06/19 07:49 Labs: Abnormal Lab Results - Last 24 Hours (Table) 06/06/19 06/06/19 Range/Units 07:49 07:49 RDW 16.7 H (11.5-15.5) % Plt Count 126 L (150-450) k/uL Lymphocytes # (Manual) 0.60 L (1.0-4.8) k/uL Monocytes # (Manual) 1.92 H (0-1.0) k/uL Calcium 8.2 L (8.4-10.2) mg/dL Microbiology - Last 24 Hours (Table) 06/05/19 10:03 Blood Culture - Preliminary Blood No Growth after 24 hours 06/05/19 10:05 Urine Culture - Final Urine,Clean Catch
--- NOTE | 2019-06-06 23:02 | CONS ---
DATE OF CONSULTATION: 06/06/2019 This patient is a 73-year-old pleasant female. She has a history of trauma to the right lower extremity and developed marked cellulitis and tenderness on the right lower extremity. The patient has no history of diabetes. 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 PHYSICAL EXAMINATION: The patient's vital signs are stable. NECK: Supple. Trachea central. CHEST: Clear. ABDOMEN: Soft. Femorals are 2+. Dorsal pedis 1+. The patient has cellulitis of the right lower extremity. No discharge noted. There is slight tenderness noted. PLAN: Patient's IV antibiotic under care of Dr. Juwan Ro. Recommend Silvadene cream with a compression wrap. At this point, no need for surgical intervention. If she notes any localized abscess, then the patient may need I&D. I have discussed this case with Dr. Ro. MMISMAEL / CATHYN: [id number] / MTDD
[2019-06-07] MEDS: HYDROmorphone 0.5 MG/0.5 ML SYRINGE IVP PRN ×2 (00:29→20:40)
[2019-06-07] MEDS: FLUTICASONE 110 MCG INHALER INHALATION SCH ×2 (07:58→19:56)
[2019-06-07] MEDS: FAMOTIDINE 20 MG TAB PO SCH (08:57)
[2019-06-07] MEDS: FUROSEMIDE 80 MG TAB PO SCH (08:57)
[2019-06-07] MEDS: HEPARIN SODIUM,PORCINE 5,000 UNIT/ML 1 ML VIAL SQ SCH ×2 (08:57→20:41)
[2019-06-07] MEDS: LORATADINE 10 MG TAB PO SCH (08:57)
[2019-06-07] MEDS: CHOLECALCIFEROL 1,000 UNIT TAB PO SCH (08:58)
[2019-06-07] MEDS: POTASSIUM CHLORIDE ER 10 MEQ TAB.ER.PRT PO SCH (08:58)
[2019-06-07 11:19] LABS: Anisocytosis Slight; HCT 44.8 % (34.0-46.0); HGB 14.4 gm/dL (11.4-16.0); MCH 27.7 pg (25.0-35.0); MCHC 32.1 g/dL (31.0-37.0); MCV 86.4 fL (80.0-100.0); Mean Platelet Volume 9.5; Platelet Count 144 k/uL (150-450); RBC 5.18 m/uL (3.80-5.40); RDW 16.1 % (11.5-15.5); WBC 7.2 k/uL (3.8-10.6)
[2019-06-07 11:29] LABS: Calcium 8.8 mg/dL (8.4-10.2); Potassium 4.2 mmol/L (3.5-5.1)
[2019-06-07 12:30] LABS: Band Neutrophils % 1 %; Eosinophils # (M) 0.07 k/uL (0-0.7); Lymphocytes # (M) 0.86 k/uL (1.0-4.8); Monocytes # (M) 2.02 k/uL (0-1.0); Neutrophils % (M) 59 %; Nucleated Red Blood Cells 0 /100 WBC (0-0); Total Cells Counted 200
[2019-06-07 12:33] LABS: Poikilocytosis (M) Present
--- NOTE | 2019-06-07 13:10 | XR ---
EXAMINATION TYPE: XR Hip RT and AP Pelvis DATE OF EXAM: 06/07/2019 COMPARISON: NONE HISTORY: Right hip pain from fall. TECHNIQUE: A single AP view of the pelvis is obtained. Two views of the right hip are obtained. FINDINGS: There is no acute fracture/dislocation evident in the pelvis. Old healed fracture deformi ty of seen of the right mid femoral diaphysis. Intramedullary radha and proximal cortical screw christy es the known prior old healed fracture. Old healed fracture deformities of the inferior pubic rami ar e also seen. Mild generalized osseous demineralization is present. Minimal degenerative changes of th e femoral acetabular joints are seen as there is joint space narrowing. Very mild degenerative change s of the lumbosacral junction are also noted. No lucency surrounds the right femoral radha. The overlyi ng soft tissue appears unremarkable. Two views of right hip show no acute fracture or dislocation. No focal lytic or sclerotic lesion seen in the proximal right femur. The overlying soft tissue is unremarkable. IMPRESSION: There is no acute fracture or dislocation in the pelvis or right hip. Mild bilateral fem oral acetabular arthropathy and mild degenerative changes of the lumbosacral joint. Old healed fractu res of the right femur and inferior pubic rami as discussed above.
[2019-06-07 14:58] VITALS: RESP 16
--- NOTE | 2019-06-07 17:15 | PN ---
PROGRESS NOTE DATE OF SERVICE: pt with acute right leg cellulitis with failure of outpatient treatment is being closely monitored. Patient also complained of hip pain also. No chest pain. No palpitations. No fever. X-ray of the hip showed mild bilateral femoral acetabular arthropathy and DJD. Old heel fracture of the right femur was also noted and inferior pubic rami also noted. No chest pain. No palpitations. No fever. EXAM: Alert and oriented times three. Pulse 78, blood pressure 102/60, respiration 20, temperature 98.2, pulse ox 94% on room air. HEENT is conjunctivae normal. NECK: No jugular venous distention. CARDIOVASCULAR: S1, S2 muffled. RESPIRATIONS: Breath sounds diminished in the bases. A few scattered rhonchi. No crackles. ABDOMEN is soft, nontender. LEGS: No edema. No swelling. NERVOUS SYSTEM: No focal deficits. LEGS are significant swelling and erythema and cellulitis of the right leg. NERVOUS SYSTEM: No focal deficits. LABS: WBC 7.2, hemoglobin 14.4, platelets 144, monocytes at 2.02. ASSESSMENT: 1. Acute right leg cellulitis with failure of outpatient treatment. 2. Thrombocytopenia undetermined etiology. 3. Right hip pain possible degenerative joint disease. 4. Chronic obstructive pulmonary disease. 5. Hyperlipidemia. 6. Hypothyroidism. 7. History of seasonal allergies. 8. History of appendectomy. 9. History intestinal resection. 10.History of aneurysm repair in the neck. RECOMMENDATIONS AND DISCUSSION: Recommend to continue current medication, continue to monitor, symptomatic treatment. Otherwise, at this time, I recommend follow closely with Infectious Disease. Continue the IV antibiotics. Guarded prognosis. Further recommendations to follow. MMODL / IJN: [id number] / [facility]ITALQuynh
--- NOTE | 2019-06-07 19:15 | P.CONS ---
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 Patient did well and was discharged home subsequently admitted to [facility] due to increasing pain and significant ecchymosis to the left neck/chest wall. Patient was stabilized and discharged home on ciprofl oxacin. The patient gives history that she slipped and dog urine, fell and caused abrasion to the right pretibial area by a tin can. Patient denies any loss of consciousness. She denies any lightheadedness or dizziness prior to the fall. She has been treated in the outpatient setting with Bactrim but continued to have increased redness and swelling and thus came into [facility] emergency center for evaluation. She has been afebrile, white count 5.9, creatinine 0.83. She was given 2 L of IV fluids in the emergency center, started on Zosyn and [facility] Blood culture and urine cultures are status received. Urine was positive for large leukoesterase and PVCs 2. Patient denies any urinary symptoms. Patient states the the swelling of her right lower leg is much improved since admission. Review of Systems All systems: negative Constitutional: Denies anorexia, Denies chills, Denies fatigue, Denies fever, Denies malaise, Denies poor appetite, Denies weakness Eyes: denies blurred vision, denies pain Ears, nose, mouth and throat: Denies dysphagia, Denies headache, Denies nasal congestion, Denies nasal discharge, Denies sore throat, Denies vertigo Cardiovascular: Denies chest pain, Denies decreased exercise tolerance, Denies dyspnea on exertion, Denies edema, Denies leg edema, Denies lightheadedness, Denies palpitations, Denies shortness of breath, Denies syncope Respiratory: Denies cough, Denies cough with sputum, Denies dyspnea, Denies excessive sputum, Denies hemoptysis, Denies home oxygen, Denies wheezing Gastrointestinal: Denies abdominal pain, Denies diarrhea, Denies loss of appetite, Denies nausea, Denies vomiting Genitourinary: Denies dysuria, Denies hematuria, Denies urgency, Denies urinary frequency Musculoskeletal: Denies frequent falls, Denies gait dysfunction, Denies muscle weakness, Denies myalgias Integumentary: Reports color changes, Reports darkening of skin, Reports wounds, Denies pruritus, Denies rash Neurological: Denies aphasia, Denies change in mentation, Denies confusion, Denies numbness, Denies weakness Psychiatric: Denies anxiety, Denies depression Endocrine: Denies fatigue, Denies weight change Past Medical History Past Medical History: COPD, Hyperlipidemia, Thyroid Disorder Additional Past Medical History / Comment(s): edema, seasonal allergies to grass, trees and mold. History of Any Multi-Drug Resistant Organisms: None Reported Past Surgical History: Adenoidectomy, Appendectomy, Tonsillectomy Additional Past Surgical History / Comment(s): 3/4 thyroid removed, right leg and foot fracture repair, carple tunnel kim repair, parts of her ribs reomved from left upper chest, ovarian cyst, kim breast cysts removed, 1ft intestine removed for blockage, heart surgery, Anerysm repain in neck 07/2018 Past Anesthesia/Blood Transfusion Reactions: No Reported Reaction Additional Past Anesthesia/Blood Transfusion Reaction / Comm: Pt has received blood in past without reaction. Past Psychological History: No Psychological Hx Reported Additional Psychological History / Comment(s): . Children are close by. No tobacco use. Retired Smoking Status: Never smoker Past Alcohol Use History: None Reported Additional Past Alcohol Use History / Comment(s): Lifelong nonsmoker. No illicit drug use, no alcohol use. Patient's daughter and granddaughter currently living with her. Patient has her own dog and her daughters to dogs in the home. She is retired. Past Drug Use History: None Reported - Past Family History Father Family Medical History: No Reported History Additional Family Medical History / Comment(s): Father was healthty and lived to be 89yrs old. Mother Family Medical History: No Reported History Additional Family Medical History / Comment(s): Mother was healthy and lived to be 85 yrs old. Medications and Allergies Home Medications Medication Instructions Recorded Confirmed Type Mometasone Furoate [Mometasone 2 drops BOTH EARS DAILY PRN 07/30/15 06/05/19 History Furoate 0.1%] Ranitidine HCl [Zantac] 150 mg PO BID 10/19/15 08/25/19 History Simvastatin [Zocor] 40 mg PO HS 07/30/15 06/05/19 History Fluticasone Nasal [place] [Flonase 2 spr EA NOSTRIL DAILY PRN 12/17/15 06/05/19 History Nasal [place]] Carboxymethylcellulose Sodium 1 drop BOTH EYES BID PRN 04/02/16 06/05/19 History [Refresh Tears] Cholecalciferol [Vitamin D3 (25 8,000 unit PO DAILY 04/02/16 06/05/19 History Mcg = 1000 Iu)] Fexofenadine HCl [Lisa Allergy] 180 mg PO DAILY 08/09/18 06/05/19 History Furosemide [Lasix] 40 mg PO HS 10/16/18 06/05/19 History Furosemide [Lasix] 80 mg PO QAM 10/16/18 06/05/19 History Potassium Chloride ER [K-Dur 10] 10 meq PO DAILY 10/16/18 06/05/19 History Albuterol Sulfate [Proair Hfa] 2 puff INHALATION RT-Q6H PRN 06/05/19 06/05/19 History Fluticasone Propionate [Flovent 1 puff INHALATION RT-BID 06/05/19 06/05/19 History Hfa 110 mcg] Sulfamethox-Tmp 800-160Mg [Bactrim 1 tab PO Q12HR 06/05/19 06/05/19 History DS 800-160 mg] Allergies Allergy/AdvReac Type Severity Reaction Status Date / Time bee venom protein (honey bee) Allergy Anaphylaxis Verified 06/05/19 09:43 tetanus immune globulin Allergy Rash/Hives Verified 06/05/19 09:43 aspirin AdvReac NOSE BLEED Verified 06/05/19 09:43 Physical Exam Vitals: Vital Signs Temp Pulse Pulse Pulse Resp BP BP 06/06/19 08:14 72 06/06/19 08:01 68 06/06/19 04:55 97.9 F 76 20 109/65 06/05/19 22:15 97.5 F L 86 20 126/81 06/05/19 15:00 97.8 F 83 18 120/60 06/05/19 12:13 98.1 F 76 14 158/86 06/05/19 12:10 98.0 F 66 18 146/74 06/05/19 11:57 72 14 143/82 06/05/19 09:33 98.2 F 80 16 120/65 Pulse Ox 06/06/19 08:14 06/06/19 08:01 06/06/19 04:55 95 06/05/19 22:15 98 06/05/19 15:00 93 L 06/05/19 12:13 96 06/05/19 12:10 95 06/05/19 11:57 94 L 06/05/19 09:33 95 Intake and Output 06/05/19 06/06/19 06/06/19 22:59 06:59 14:59 Intake Total 400 100 Balance 400 100 Intake: Oral 400 100 Other: Voiding Method Toilet Bedside Commode # Voids 4 Gen: This is a 73-year-old female. Patient is sitting up in bed and appears to be comfortable and in no acute distress. HEENT: Head is atraumatic, normocephalic. Pupils equal, round. Sclerae is anicteric. NECK: Supple. No JVD. No lymphadenopathy. No thyromegaly. LUNGS: Clear to auscultation. No wheezes or rhonchi. No intercostal retractions. HEART: Regular rate and rhythm. No murmur. ABDOMEN: Soft. Bowel sounds are present. No masses. No tenderness. EXTREMITIES: No pedal edema. Legs are elevated in bed. Patient has abrasion to the mid pretibial area on the right with surrounding erythema and mild edema. No drainage. No foul order. NEUROLOGICAL: Patient is awake, alert and oriented x3. Cranial nerves 2 through 12 are grossly intact. Results Results: Laboratory Results WBC 6.0 k/uL (3.8-10.6) 06/06/19 07:49 RBC 4.81 m/uL (3.80-5.40) 06/06/19 07:49 Hgb 13.0 gm/dL (11.4-16.0) 06/06/19 07:49 Hct 41.3 % (34.0-46.0) 06/06/19 07:49 MCV 85.8 fL (80.0-100.0) 06/06/19 07:49 MCH 27.0 pg (25.0-35.0) 06/06/19 07:49 MCHC 31.4 g/dL (31.0-37.0) 06/06/19 07:49 RDW 16.7 % (11.5-15.5) H 06/06/19 07:49 Plt Count 126 k/uL (150-450) L 06/06/19 07:49 Neutrophils % (Manual) 58 % 06/05/19 10:05 Band Neutrophils % 1 % 06/05/19 10:05 Lymphocytes % (Manual) 13 % 06/05/19 10:05 Monocytes % (Manual) 28 % 06/05/19 10:05 Neutrophils # (Manual) 3.40 k/uL (1.3-7.7) 06/05/19 10:05 Lymphocytes # (Manual) 0.77 k/uL (1.0-4.8) L 06/05/19 10:05 Monocytes # (Manual) 1.65 k/uL (0-1.0) H 06/05/19 10:05 Nucleated RBCs 0 /100 WBC (0-0) 06/05/19 10:05 Manual Slide Review Performed 06/05/19 10:05 Anisocytosis Slight 06/06/19 07:49 PT 10.2 sec (9.0-12.0) 06/05/19 10:05 INR 0.9 (<1.2) 06/05/19 10:05 APTT 29.0 sec (22.0-30.0) 06/05/19 10:05 Sodium 140 mmol/L (137-145) 06/06/19 07:49 Potassium 3.8 mmol/L (3.5-5.1) 06/06/19 07:49 Chloride 103 mmol/L (98-107) 06/06/19 07:49 Carbon Dioxide 27 mmol/L (22-30) 06/06/19 07:49 Anion Gap 10 mmol/L 06/06/19 07:49 BUN 13 mg/dL (7-17) 06/06/19 07:49 Creatinine 0.90 mg/dL (0.52-1.04) 06/06/19 07:49 Est GFR (CKD-EPI)AfAm 73 (>60 ml/min/1.73 sqM) 06/06/19 07:49 Est GFR (CKD-EPI)NonAf 63 (>60 ml/min/1.73 sqM) 06/06/19 07:49 Glucose 87 mg/dL (74-99) 06/06/19 07:49 Plasma Lactic Acid Tomas 1.3 mmol/L (0.7-2.0) 06/05/19 10:05 Calcium 8.2 mg/dL (8.4-10.2) L 06/06/19 07:49 Total Bilirubin 0.4 mg/dL (0.2-1.3) 06/05/19 10:05 AST 17 U/L (14-36) 06/05/19 10:05 ALT 15 U/L (9-52) 06/05/19 10:05 Alkaline Phosphatase 47 U/L (38-126) 06/05/19 10:05 Total Protein 7.1 g/dL (6.3-8.2) 06/05/19 10:05 Albumin 4.2 g/dL (3.5-5.0) 06/05/19 10:05 Urine Color Yellow 06/05/19 10:05 Urine Appearance Clear (Clear) 06/05/19 10:05 Urine pH 7.0 (5.0-8.0) 06/05/19 10:05 Ur Specific [place] 1.010 (1.001-1.035) 06/05/19 10:05 Urine Protein Negative (Negative) 06/05/19 10:05 Urine Glucose (UA) Negative (Negative) 06/05/19 10:05 Urine Ketones Negative (Negative) 06/05/19 10:05 Urine Blood Negative (Negative) 06/05/19 10:05 Urine Nitrite Negative (Negative) 06/05/19 10:05 Urine Bilirubin Negative (Negative) 06/05/19 10:05 Urine Urobilinogen <2.0 mg/dL (<2.0) 06/05/19 10:05 Ur Leukocyte Esterase Large (Negative) H 06/05/19 10:05 Urine RBC 1 /hpf (0-5) 06/05/19 10:05 Urine WBC 2 /hpf (0-5) 06/05/19 10:05 Ur Squamous Epith Cells <1 /hpf (0-4) 06/05/19 10:05 CBC & Chem 7: 06/06/19 07:49 06/06/19 07:49 Labs: Abnormal Lab Results - Last 24 Hours (Table) 06/05/19 06/05/19 06/05/19 Range/Units 10:05 10:05 10:05 RDW 16.1 H (11.5-15.5) % Plt Count 126 L (150-450) k/uL Lymphocytes # (Manual) 0.77 L (1.0-4.8) k/uL Monocytes # (Manual) 1.65 H (0-1.0) k/uL Glucose 103 H (74-99) mg/dL Calcium (8.4-10.2) mg/dL Ur Leukocyte Esterase Large H (Negative) 06/06/19 06/06/19 Range/Units 07:49 07:49 RDW 16.7 H (11.5-15.5) % Plt Count 126 L (150-450) k/uL Lymphocytes # (Manual) (1.0-4.8) k/uL Monocytes # (Manual) (0-1.0) k/uL Glucose (74-99) mg/dL Calcium 8.2 L (8.4-10.2) mg/dL Ur Leukocyte Esterase (Negative) Microbiology - Last 24 Hours (Table) 06/05/19 10:05 Urine Culture - Preliminary Urine,Clean Catch Assessment and Plan Plan: This is a 73-year-old female patient admitted to the hospital with right lower extremity cellulitis secondary to abrasion with tin can. Patient is currently on Zosyn. Patient does have ALLERGY to tetanus. Blood and urine cultures as received. No wound culture is available as patient is not having drainage. Continue supportive care. Further recommendations as patient progresses. The above dictated assessment and findings were discussed with Dr. Ro. The impression and plan of care have been directed as dictated. Silvia Moscoso nurse practitioner acting as scribe for Dr. Ro.
[2019-06-07] MEDS: FUROSEMIDE 40 MG TAB PO SCH (20:41)
[2019-06-07] MEDS: ATORVASTATIN 20 MG TAB PO SCH (20:41)
--- NOTE | 2019-06-08 00:19 | P.PN ---
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 Patient did well and was discharged home subsequently admitted to [facility] due to increasing pain and significant ecchymosis to the left neck/chest wall. Patient was stabilized and discharged home on ciprofloxacin. The patient gives history that she slipped and dog urine, fell and caused abrasion to the right pretibial area by a tin can. Patient denies any loss of consciousness. She denies any lightheadedness or dizziness prior to the fall. She has been treated in the outpatient setting with Bactrim but continued to have increased redness and swelling and thus came into [facility] emergency center for evaluation. She has been afebrile, white count 5.9, creatinine 0.83. She was given 2 L of IV fluids in the emergency center, started on Zosyn and [facility]. Blood culture and urine cultures are status received. Urine was positive for large leukoesterase and PVCs 2. Patient denies any urinary symptoms. Patient states the the swelling of her right lower leg is much improved since admission. 06/07/2019 the patient has improved and the pain and swelling to the right leg has improved. Denies other acute new symptoms. Objective - Vital Signs Vital signs: Vital Signs Temp 97.2 F L 06/07/19 22:57 Pulse 98 06/07/19 22:57 Resp 16 06/07/19 22:57 BP 117/74 06/07/19 22:57 Pulse Ox 93 L 06/07/19 22:57 Intake & Output 06/07/19 06/07/19 06/08/19 06:59 18:59 06:59 Intake Total 600 1080 Balance 600 1080 Intake: Oral 600 1080 Other: Voiding Method Toilet Toilet Bedside Commode Bedside Commode # Voids 3 1 1 - Exam Gen: This is a 73-year-old female. Patient is sitting up in bed and appears to be comfortable and in no acute distress. HEENT: Head is atraumatic, normocephalic. Pupils equal, round. Sclerae is anict melissa. NECK: Supple. No JVD. No lymphadenopathy. No thyromegaly. LUNGS: Clear to auscultation. No wheezes or rhonchi. No intercostal retractions. HEART: Regular rate and rhythm. No murmur. ABDOMEN: Soft. Bowel sounds are present. No masses. No tenderness. EXTREMITIES: No pedal edema. Legs are elevated in bed. Patient has abrasion to the mid pretibial area on the right with improved erythema and mild edema. No drainage. No foul order. NEUROLOGICAL: Patient is awake, alert and oriented x3. - Labs CBC & Chem 7: 06/07/19 10:57 06/07/19 10:57 Labs: Abnormal Lab Results - Last 24 Hours (Table) 06/07/19 Range/Units 10:57 RDW 16.1 H (11.5-15.5) % Plt Count 144 L (150-450) k/uL Lymphocytes # (Manual) 0.86 L (1.0-4.8) k/uL Monocytes # (Manual) 2.02 H (0-1.0) k/uL Microbiology - Last 24 Hours (Table) 06/05/19 10:03 Blood Culture - Preliminary Blood No Growth after 48 hours Laboratory Results WBC 7.2 k/uL (3.8-10.6) 06/07/19 10:57 RBC 5.18 m/uL (3.80-5.40) 06/07/19 10:57 Hgb 14.4 gm/dL (11.4-16.0) 06/07/19 10:57 Hct 44.8 % (34.0-46.0) 06/07/19 10:57 MCV 86.4 fL (80.0-100.0) 06/07/19 10:57 MCH 27.7 pg (25.0-35.0) 06/07/19 10:57 MCHC 32.1 g/dL (31.0-37.0) 06/07/19 10:57 RDW 16.1 % (11.5-15.5) H 06/07/19 10:57 Plt Count 144 k/uL (150-450) L 06/07/19 10:57 Neutrophils % (Manual) 59 % 06/07/19 10:57 Band Neutrophils % 1 % 06/07/19 10:57 Lymphocytes % (Manual) 12 % 06/07/19 10:57 Monocytes % (Manual) 28 % 06/07/19 10:57 Eosinophils % (Manual) 1 % 06/07/19 10:57 Neutrophils # (Manual) 4.30 k/uL (1.3-7.7) 06/07/19 10:57 Lymphocytes # (Manual) 0.86 k/uL (1.0-4.8) L 06/07/19 10:57 Monocytes # (Manual) 2.02 k/uL (0-1.0) H 06/07/19 10:57 Eosinophils # (Manual) 0.07 k/uL (0-0.7) 06/07/19 10:57 Nucleated RBCs 0 /100 WBC (0-0) 06/07/19 10:57 Manual Slide Review Performed 06/07/19 10:57 Poikilocytosis (manual Present 06/07/19 10:57 Anisocytosis Slight 06/07/19 10:57 PT 10.2 sec (9.0-12.0) 06/05/19 10:05 INR 0.9 (<1.2) 06/05/19 10:05 APTT 29.0 sec (22.0-30.0) 06/05/19 10:05 Sodium 139 mmol/L (137-145) 06/07/19 10:57 Potassium 4.2 mmol/L (3.5-5.1) 06/07/19 10:57 Chloride 103 mmol/L (98-107) 06/07/19 10:57 Carbon Dioxide 26 mmol/L (22-30) 06/07/19 10:57 Anion Gap 10 mmol/L 06/07/19 10:57 BUN 15 mg/dL (7-17) 06/07/19 10:57 Creatinine 0.77 mg/dL (0.52-1.04) 06/07/19 10:57 Est GFR (CKD-EPI)AfAm 87 (>60 ml/min/1.73 sqM) 06/07/19 10:57 Est GFR (CKD-EPI)NonAf 76 (>60 ml/min/1.73 sqM) 06/07/19 10:57 Glucose 94 mg/dL (74-99) 06/07/19 10:57 Plasma Lactic Acid Tomas 1.3 mmol/L (0.7-2.0) 06/05/19 10:05 Calcium 8.8 mg/dL (8.4-10.2) 06/07/19 10:57 Total Bilirubin 0.4 mg/dL (0.2-1.3) 06/05/19 10:05 AST 17 U/L (14-36) 06/05/19 10:05 ALT 15 U/L (9-52) 06/05/19 10:05 Alkaline Phosphatase 47 U/L (38-126) 06/05/19 10:05 Total Protein 7.1 g/dL (6.3-8.2) 06/05/19 10:05 Albumin 4.2 g/dL (3.5-5.0) 06/05/19 10:05 Urine Color Yellow 06/05/19 10:05 Urine Appearance Clear (Clear) 06/05/19 10:05 Urine pH 7.0 (5.0-8.0) 06/05/19 10:05 Ur Specific [place] 1.010 (1.001-1.035) 06/05/19 10:05 Urine Protein Negative (Negative) 06/05/19 10:05 Urine Glucose (UA) Negative (Negative) 06/05/19 10:05 Urine Ketones Negative (Negative) 06/05/19 10:05 Urine Blood Negative (Negative) 06/05/19 10:05 Urine Nitrite Negative (Negative) 06/05/19 10:05 Urine Bilirubin Negative (Negative) 06/05/19 10:05 Urine Urobilinogen <2.0 mg/dL (<2.0) 06/05/19 10:05 Ur Leukocyte Esterase Large (Negative) H 06/05/19 10:05 Urine RBC 1 /hpf (0-5) 06/05/19 10:05 Urine WBC 2 /hpf (0-5) 06/05/19 10:05 Ur Squamous Epith Cells <1 /hpf (0-4) 06/05/19 10:05 Microbiology 06/05/19 10:03 Blood Blood Culture - Preliminary No Growth after 48 hours 06/05/19 10:05 Urine,Clean Catch Urine Culture - Final Assessment and Plan (1) Cellulitis of leg, right Current Visit: Yes Status: Acute Code(s): L03.115 - CELLULITIS OF RIGHT LOWER LIMB SNOMED Code(s): 308388309
[2019-06-08 07:59] LABS: Calcium 8.5 mg/dL (8.4-10.2); Potassium 3.7 mmol/L (3.5-5.1)
[2019-06-08 08:11] LABS: Anisocytosis Slight; HCT 45.2 % (34.0-46.0); HGB 14.4 gm/dL (11.4-16.0); MCH 27.4 pg (25.0-35.0); MCHC 31.8 g/dL (31.0-37.0); MCV 86.3 fL (80.0-100.0); Platelet Count 127 k/uL (150-450); RBC 5.23 m/uL (3.80-5.40); RDW 16.9 % (11.5-15.5); WBC 6.7 k/uL (3.8-10.6)
[2019-06-08] MEDS: FLUTICASONE 110 MCG INHALER INHALATION SCH (08:15)
[2019-06-08] MEDS: FUROSEMIDE 80 MG TAB PO SCH (08:49)
[2019-06-08] MEDS: HEPARIN SODIUM,PORCINE 5,000 UNIT/ML 1 ML VIAL SQ SCH (08:49)
[2019-06-08] MEDS: CHOLECALCIFEROL 1,000 UNIT TAB PO SCH (08:49)
[2019-06-08] MEDS: FAMOTIDINE 20 MG TAB PO SCH (08:49)
[2019-06-08] MEDS: POTASSIUM CHLORIDE ER 10 MEQ TAB.ER.PRT PO SCH (08:50)
[2019-06-08] MEDS: LORATADINE 10 MG TAB PO SCH (08:50)
[2019-06-08 09:27] LABS: Lymphocytes # (M) 0.74 k/uL (1.0-4.8); Monocytes # (M) 2.08 k/uL (0-1.0); Neutrophils % (M) 58 %; Nucleated Red Blood Cells 0 /100 WBC (0-0); Poikilocytosis (M) Present; Total Cells Counted 100
[2019-06-08 14:20] VITALS: BP 113/77; PULSE 89; TEMP 98.9
--- NOTE | 2019-06-08 16:58 | P.DS ---
Providers Date of admission: 06/07/19 15:45 Expected date of discharge: 06/08/19 Attending physician: Yoan Jarquin Consults: 06/05/19 14:23 Consult Physician Routine Consulting Provider: Juwan Ro Consult Reason/Comments: cellulitis Do you want consulting provider notified?: Yes 06/06/19 14:39 Consult Physician Routine Consulting Provider: Antwon Lira Consult Reason/Comments: pad Do you want consulting provider notified?: Yes Primary care physician: Kassandra Gaxiola Hospital Course: Final diagnosis Acute right leg cellulitis with failure of outpatient treatment Thrombocytopenia of undetermined etiology Right hip pain possible degenerative joint disease Chronic obstructive pulmonary disease Hyperlipidemia Hypothyroidism History of seasonal ALLERGIES history of appendectomy History of intestinal resection History of aneurysm repair in the neck Discharge disposition Patient is being discharged in a stable condition with guarded prognosis to home and patient will follow-up with primary care provider this week. She will go home on an oral course of antibiotics per infectious disease recommendations in the form of Keflex. History of present illness This is a 73-year-old female who was admitted with acute right leg cellulitis with failure of outpatient treatment and was being closely monitored. Patient was on IV antibiotic therapy in the form of cefazolin per infectious disease recommendations. Cultures were negative and patient will be going home on oral antibiotics in the form of Keflex for the next 10 days. Patient will follow-up with primary care provider Dr. Gaxiola this week. Patient denies any chest pain, shortness of breath, or palpitations at this time. Patient remained afebrile. Patient denies any nausea or vomiting and is tolerating diet. Patient states that her leg is much better and has improved over the last 2 days. Patient will follow-up in the wound care clinic as needed. Currently patient's condition is stable with much improvement in patient is asking to go home. On exam vital signs are stable. A pressure is 113/77, pulse is 89, respirations are 16, temp is 98.9F, oxygen saturation is 92% on room air. Cardio S1 and S2 are muffled. Respiratory system shows diminished breath sounds in the bases otherwise clear to auscultation. Abdomen is soft, thin, nontender. Nervous system shows no focal deficits and gait is steady. Please refer to medication reconciliation sheet for a list of medications. Patient Condition at Discharge: Stable Plan - Discharge Summary Discharge Rx Participant: No New Discharge Prescriptions: New Cephalexin [Keflex] 500 mg PO Q8HR #21 cap SILVER sulfADIAZINE CREAM [Silvadene Cream] 1 applic TOPICAL DAILY #1 applic Continue Mometasone Furoate [Mometasone Furoate 0.1%] 2 drops BOTH EARS DAILY PRN PRN Reason: IRRITATION Simvastatin [Zocor] 40 mg PO HS Ranitidine HCl [Zantac] 150 mg PO BID Fluticasone Nasal [place] [Flonase Nasal [place]] 2 spr EA NOSTRIL DAILY PRN PRN Reason: Allergy Symptoms Carboxymethylcellulose Sodium [Refresh Tears] 1 drop BOTH EYES BID PRN PRN Reason: Dry Eye(S) Cholecalciferol [Vitamin D3 (25 Mcg = 1000 Iu)] 8,000 unit PO DAILY Fexofenadine HCl [Lisa Allergy] 180 mg PO DAILY Furosemide [Lasix] 40 mg PO HS Furosemide [Lasix] 80 mg PO QAM Potassium Chloride ER [K-Dur 10] 10 meq PO DAILY Fluticasone Propionate [Flovent Hfa 110 mcg] 1 puff INHALATION RT-BID Albuterol Sulfate [Proair Hfa] 2 puff INHALATION RT-Q6H PRN PRN Reason: Shortness Of Breath Discontinued Sulfamethox-Tmp 800-160Mg [Bactrim DS 800-160 mg] 1 tab PO Q12HR Discharge Medication List Mometasone Furoate [Mometasone Furoate 0.1%] 2 drops BOTH EARS DAILY PRN 07/30/15 [History] Ranitidine HCl [Zantac] 150 mg PO BID 07/30/15 [History] Simvastatin [Zocor] 40 mg PO HS 07/30/15 [History] Fluticasone Nasal [place] [Flonase Nasal [place]] 2 spr EA NOSTRIL DAILY PRN 12/17/15 [History] Carboxymethylcellulose Sodium [Refresh Tears] 1 drop BOTH EYES BID PRN 04/02/16 [History] Cholecalciferol [Vitamin D3 (25 Mcg = 1000 Iu)] 8,000 unit PO DAILY 04/02/16 [History] Fexofenadine HCl [Lisa Allergy] 180 mg PO DAILY 08/09/18 [History] Furosemide [Lasix] 40 mg PO HS 10/16/18 [History] Furosemide [Lasix] 80 mg PO QAM 10/16/18 [History] Potassium Chloride ER [K-Dur 10] 10 meq PO DAILY 10/16/18 [History] Albuterol Sulfate [Proair Hfa] 2 puff INHALATION RT-Q6H PRN 06/05/19 [History] Fluticasone Propionate [Flovent Hfa 110 mcg] 1 puff INHALATION RT-BID 06/05/19 [History] Cephalexin [Keflex] 500 mg PO Q8HR #21 cap 06/08/19 [Rx] SILVER sulfADIAZINE CREAM [Silvadene Cream] 1 applic TOPICAL DAILY #1 applic 06/08/19 [Rx] Follow up Appointment(s)/Referral(s): Kassandra Gaxiola MD [Primary Care Provider] - 06/09/19 2:30 am ( ) Patient Instructions/Handouts: Cellulitis (DC) Activity/Diet/Wound Care/Special Instructions: Activity Limited until follow-up Continue antibiotics until complete Follow-up with primary care provider upon discharge Follow-up with wound clinic as needed Continue current diet Apply Silvadene to the wound once daily until follow-up Discharge Disposition: HOME SELF-CARE
== END 2019-06-08 15:06 | disposition home or self-care (01) | DRG 603 ==
LOC: EC 09:30 → 4MS4W 11:42 → OBSVTOIN 06-07 15:45
PROVIDERS: ADMIT Internal Medicine; ATTEND Internal Medicine
DX: L03.115 Cellulitis of right lower limb (principal); D69.6 Thrombocytopenia, unspecified; E03.9 Hypothyroidism, unspecified; I49.3 Ventricular premature depolarization; M19.90 Unspecified osteoarthritis, unspecified site; J44.9 Chronic obstructive pulmonary disease, unspecified; E78.5 Hyperlipidemia, unspecified; Z79.51 Long term (current) use of inhaled steroids; Z90.49 Acquired absence of other specified parts of digestive tract; Z86.79 Personal history of other diseases of the circulatory system; Z88.7 Allergy status to serum and vaccine; Z88.6 Allergy status to analgesic agent; Z91.030 Bee allergy status; Z90.89 Acquired absence of other organs; Z98.890 Other specified postprocedural states
CPT/HCPCS: 36415; 73502; 80048; 80053; 81001; 83605; 85025; 85610; 85730; 87040; 87086; 93005; 94640; 96365; 99284

== ENCOUNTER 2019-10-03 08:25 | Emergency (ER) | payer MEDICARE ==
[2019-10-03 08:32] VITALS: BP 120/73; PULSE 86; RESP 18; TEMP 98
--- NOTE | 2019-10-03 08:47 | ED ---
Eye Problem HPI - General Chief complaint: Eye Problems Stated complaint: post surg rt eye vision loss Time Seen by Provider: 10/03/19 08:34 Source: patient, RN notes reviewed, old records reviewed Mode of arrival: ambulatory Limitations: no limitations - History of Present Illness Initial comments: Patient is a 74-year-old female who presents emergency Department today with complaints of right eye or dictation. Patient reports that she had her right lens replacement surgery done in of last week. Patient reports that this is an by Dr. Richardson at [facility] surgery site. She reports she's been using the drops as directed after the surgery. Patient complains of blurry vision, and right eye pain saturating since yesterday. Patient reports she called office and was told to come to the emergency room. - Related Data Home Medications Medication Instructions Recorded Confirmed Mometasone Furoate [Mometasone 2 drops BOTH EARS DAILY PRN 07/30/15 06/05/19 Furoate 0.1%] Ranitidine HCl [Zantac] 150 mg PO BID 07/30/15 06/05/19 Simvastatin [Zocor] 40 mg PO HS 07/30/15 06/05/19 Fluticasone Nasal [place] [Flonase 2 spr EA NOSTRIL DAILY PRN 12/17/15 06/05/19 Nasal [place]] Carboxymethylcellulose Sodium 1 drop BOTH EYES BID PRN 04/02/16 06/05/19 [Refresh Tears] Cholecalciferol [Vitamin D3 (25 8,000 unit PO DAILY 04/02/16 06/05/19 Mcg = 1000 Iu)] Fexofenadine HCl [Lisa Allergy] 180 mg PO DAILY 08/09/18 06/05/19 Furosemide [Lasix] 40 mg PO HS 10/16/18 06/05/19 Furosemide [Lasix] 80 mg PO QAM 10/16/18 06/05/19 Potassium Chloride ER [K-Dur 10] 10 meq PO DAILY 10/16/18 06/05/19 Albuterol Sulfate [Proair Hfa] 2 puff INHALATION RT-Q6H PRN 06/05/19 06/05/19 Fluticasone Propionate [Flovent 1 puff INHALATION RT-BID 06/05/19 06/05/19 Hfa 110 mcg] Previous Rx's Medication Instructions Recorded Cephalexin [Keflex] 500 mg PO Q8HR #21 cap 06/08/19 SILVER sulfADIAZINE CREAM 1 applic TOPICAL DAILY #1 applic 06/08/19 [Silvadene Cream] Allergies Allergy/AdvReac Type Severity Reaction Status Date / Time bee venom protein (honey bee) Allergy Anaphylaxis Verified 10/03/19 08:32 tetanus immune globulin Allergy Rash/Hives Verified 10/03/19 08:32 aspirin AdvReac NOSE BLEED Verified 10/03/19 08:32 Review of Systems ROS Statement: Those systems with pertinent positive or pertinent negative responses have been documented in the HPI. ROS Other: All systems not noted in ROS Statement are negative. Past Medical History Past Medical History: COPD, Hyperlipidemia, Thyroid Disorder Additional Past Medical History / Comment(s): edema, seasonal allergies to grass, trees and mold. History of Any Multi-Drug Resistant Organisms: None Reported Past Surgical History: Adenoidectomy, Appendectomy, Tonsillectomy Additional Past Surgical History / Comment(s): 3/4 thyroid removed, right leg and foot fracture repair, carple tunnel kim repair, parts of her ribs reomved from left upper chest, ovarian cyst, kim breast cysts removed, 1ft intestine removed for blockage, heart surgery, Anerysm repain in neck 07/2018 Past Anesthesia/Blood Transfusion Reactions: No Reported Reaction Additional Past Anesthesia/Blood Transfusion Reaction / Comment(s): Pt has received blood in past without reaction. Past Psychological History: No Psychological Hx Reported Smoking Status: Never smoker Past Alcohol Use History: None Reported Past Drug Use History: None Reported - Past Family History Father Family Medical History: No Reported History Additional Family Medical History / Comment(s): Father was healthty and lived to be 89yrs old. Mother Family Medical History: No Reported History Additional Family Medical History / Comment(s): Mother was healthy and lived to be 85 yrs old. General Exam - General Exam Comments Initial Comments: 74-year-old female. Alert and oriented. Limitations: no limitations General appearance: alert, in no apparent distress Head exam: Present: atraumatic, normocephalic, normal inspection Eye exam: Present: normal appearance, PERRL, EOMI, other (right eye conjunctival injection. No pain with EOM. ). Absent: scleral icterus, conjunctival injection, periorbital swelling Expanded Pupils: Regular, Round: Left (Pain with bright lights) Sclera/Conjunctival: Injection: Right Visual acuity (R) = 20/: 100 Visual acuity (L) = 20/: 30 With correction: No IOP (R) in mmH IOP (L) in mmH IOP measured with: Tonopen ENT exam: Present: normal exam, mucous membranes moist Neck exam: Present: normal inspection. Absent: tenderness, meningismus, lymphadenopathy Respiratory exam: Present: normal lung sounds bilaterally. Absent: respiratory distress, wheezes, rales, rhonchi, stridor Cardiovascular Exam: Present: regular rate, normal rhythm, normal heart sounds. Absent: systolic murmur, diastolic murmur, rubs, gallop, clicks GI/Abdominal exam: Present: soft, normal bowel sounds. Absent: distended, tenderness, guarding, rebound, rigid Neurological exam: Present: alert, oriented X3, CN II-XII intact Psychiatric exam: Present: normal affect, normal mood Course Vital Signs 10/03/19 08:28 Temperature 98.0 F Pulse Rate 86 Respiratory 18 Rate Blood Pressure 120/73 O2 Sat by Pulse 94 L Oximetry Medical Decision Making - Medical Decision Making patient's 74-year-old with right eye pain approximately 4 days post lens replacement. This was done by Dr. Richardson. She has 20/100 vision acuity in the right eye 20/30 in the left. She does have some significant right eye conjunctival injection. Patient's case is discussed with Dr. Flores ankle discussed the case with Dr. Richardson. He recommends going directly to his office at 10 AM for him to evaluate her. Patient will be discharged from the hospital and would likely to the office. Disposition Clinical Impression: Post-op pain, Injection of surface of right eye Disposition: HOME SELF-CARE Condition: Good Instructions (If sedation given, give patient instructions): Blurred Vision (ED) Additional Instructions: Patient advised to go directly to Dr. Richardson's office at 10 AM. Is patient prescribed a controlled substance at d/c from ED?: No Referrals: Kassandra Gaxiola MD [Primary Care Provider] - 1-2 days Time of Disposition: 09:25
[2019-10-03] MEDS ORDERED: SODIUM CHLORIDE 0.9% 1,000 ML IV ONE (09:21)
[2019-10-03] MEDS ORDERED: SODIUM CHLORIDE 0.9% 1,000 ML IV SCH (09:30)
== END 2019-10-03 09:37 | disposition home or self-care (01) ==
LOC: EC 08:25
DX: G89.18 Other acute postprocedural pain (principal); H15.89 Other disorders of sclera; E78.5 Hyperlipidemia, unspecified; J44.9 Chronic obstructive pulmonary disease, unspecified; Z79.899 Other long term (current) drug therapy; Z88.6 Allergy status to analgesic agent; Z88.7 Allergy status to serum and vaccine; Z91.030 Bee allergy status
CPT/HCPCS: 99284

== ENCOUNTER 2019-10-11 08:34 | Emergency (ER) | payer MEDICARE ==
[2019-10-11 08:42] VITALS: RESP 18; TEMP 97.9
--- NOTE | 2019-10-11 09:09 | ED ---
General Adult HPI - General Chief complaint: Chest Pain Stated complaint: BLAIR Time Seen by Provider: 10/11/19 08:40 Source: patient, family, RN notes reviewed, old records reviewed Mode of arrival: ambulatory Limitations: physical limitation - History of Present Illness Initial comments: This is a 74-year-old female presents emergency Department for chest pain on the left side. Patient states this happened many times to her in the past usually it is the beginning of a pneumonia. Patient states she is coughing and coughing up some sputum. Patient states when she coughs the pain is much more significant. Patient states she is short of breath when she is coughing so much. Patient also states that she coughs so hard yesterday that she felt a pop and was side of her chest that is when the pain began. Patient denies any back pain. Patient denies any abdominal pain patient denies nausea vomiting diarrhea. Patient denies any lightheadedness or dizziness. Patient denies any swelling to the legs or calf tenderness. - Related Data Home Medications Medication Instructions Recorded Confirmed Mometasone Furoate [Mometasone 2 drops BOTH EARS DAILY PRN 07/30/15 06/05/19 Furoate 0.1%] Ranitidine HCl [Zantac] 150 mg PO BID 07/30/15 06/05/19 Simvastatin [Zocor] 40 mg PO HS 07/30/15 06/05/19 Fluticasone Nasal [place] [Flonase 2 spr EA NOSTRIL DAILY PRN 12/17/15 06/05/19 Nasal [place]] Carboxymethylcellulose Sodium 1 drop BOTH EYES BID PRN 04/02/16 06/05/19 [Refresh Tears] Cholecalciferol [Vitamin D3 (25 8,000 unit PO DAILY 04/02/16 06/05/19 Mcg = 1000 Iu)] Fexofenadine HCl [Lisa Allergy] 180 mg PO DAILY 08/09/18 06/05/19 Furosemide [Lasix] 40 mg PO HS 10/16/18 06/05/19 Furosemide [Lasix] 80 mg PO QAM 10/16/18 06/05/19 Potassium Chloride ER [K-Dur 10] 10 meq PO DAILY 10/16/18 06/05/19 Albuterol Sulfate [Proair Hfa] 2 puff INHALATION RT-Q6H PRN 06/05/19 06/05/19 Fluticasone Propionate [Flovent 1 puff INHALATION RT-BID 06/05/19 06/05/19 Hfa 110 mcg] Previous Rx's Medication Instructions Recorded Cephalexin [Keflex] 500 mg PO Q8HR #21 cap 06/08/19 SILVER sulfADIAZINE CREAM 1 applic TOPICAL DAILY #1 applic 06/08/19 [Silvadene Cream] Azithromycin [Zithromax Tri-Yinka] 500 mg PO DAILY #3 tab 10/11/19 Allergies Allergy/AdvReac Type Severity Reaction Status Date / Time bee venom protein (honey bee) Allergy Anaphylaxis Verified 10/11/19 08:42 tetanus immune globulin Allergy Rash/Hives Verified 10/11/19 08:42 aspirin AdvReac NOSE BLEED Verified 10/11/19 08:42 Review of Systems ROS Statement: Those systems with pertinent positive or pertinent negative responses have been documented in the HPI. ROS Other: All systems not noted in ROS Statement are negative. Past Medical History Past Medical History: COPD, Hyperlipidemia, Thyroid Disorder Additional Past Medical History / Comment(s): edema, seasonal allergies to grass, trees and mold. History of Any Multi-Drug Resistant Organisms: None Reported Past Surgical History: Adenoidectomy, Appendectomy, Bowel Resection, Tonsillectomy Additional Past Surgical History / Comment(s): 3/4 thyroid removed, right leg an d foot fracture repair, carple tunnel kim repair, parts of her ribs reomved from left upper chest, ovarian cyst, kim breast cysts removed, 1ft intestine removed for blockage, heart surgery, Anerysm repair in neck 07/2018. Right eye surgery Past Anesthesia/Blood Transfusion Reactions: No Reported Reaction Additional Past Anesthesia/Blood Transfusion Reaction / Comment(s): Pt has received blood in past without reaction. Past Psychological History: No Psychological Hx Reported Smoking Status: Never smoker Past Alcohol Use History: None Reported Past Drug Use History: None Reported - Past Family History Father Family Medical History: No Reported History Additional Family Medical History / Comment(s): Father was healthty and lived to be 89yrs old. Mother Family Medical History: No Reported History Additional Family Medical History / Comment(s): Mother was healthy and lived to be 85 yrs old. General Exam - General Exam Comments Initial Comments: GENERAL: Patient is well-developed and well-nourished. Patient is nontoxic and well-hydrated and is in mild distress. ENT: Neck is soft and supple. No significant lymphadenopathy is noted. Oropharynx is clear. Moist mucous membranes. Neck has full range of motion without eliciting any pain. EYES: The sclera were anicteric and conjunctiva were pink and moist. Extraocular movements were intact and pupils were equal round and reactive to light. Eyelids were unremarkable. PULMONARY: Unlabored respirations. Good breath sounds bilaterally. No audible rales rhonchi or wheezing was noted. CARDIOVASCULAR: There is a regular rate and rhythm without any murmurs gallops or rubs. ABDOMEN: Soft and nontender with normal bowel sounds. SKIN: Skin is clear with no lesions or rashes and otherwise unremarkable. NEUROLOGIC: Patient is alert and oriented x3. Cranial nerves II through XII are grossly intact. Motor and sensory are also intact. Normal speech, volume and content. Symmetrical smile. MUSCULOSKELETAL: Normal extremities with adequate strength and full range of motion. LYMPHATICS: No significant lymphadenopathy is noted PSYCHIATRIC: Normal psychiatric evaluation. Limitations: physical limitation Course Vital Signs 10/11/19 10/11/19 10/11/19 08:38 08:58 10:04 Temperature 97.9 F Pulse Rate 101 H 92 Pulse Rate [ 99 Brush Head Maker ] Respiratory 18 18 Rate Blood Pressure 122/71 114/72 O2 Sat by Pulse 94 L 98 Oximetry Medical Decision Making - Medical Decision Making EKG shows normal sinus rhythm at 90 bpm IN interval 132 QRS is 92 QT interval 360 QTC is 472. Patient's EKG shows no ST segment elevation. Chest x-ray shows no acute abnormality. I will back into the room and reevaluated the patient she states that after lying there for a while she was only having Left-sided chest pain with deep breathing. I gave the patient a shot of Toradol and Rocephin because of all the coughing and sputum production. - Lab Data Result diagrams: 10/11/19 08:50 10/11/19 08:50 Lab Results 10/11/19 10/11/19 10/11/19 Range/Units 08:50 08:50 08:50 WBC 11.4 H (3.8-10.6) k/uL RBC 5.44 H (3.80-5.40) m/uL Hgb 14.6 (11.4-16.0) gm/dL Hct 47.4 H (34.0-46.0) % MCV 87.1 (80.0-100.0) fL MCH 26.9 (25.0-35.0) pg MCHC 30.9 L (31.0-37.0) g/dL RDW 15.7 H (11.5-15.5) % Plt Count 132 L (150-450) k/uL Neutrophils % (Manual) 72 % Lymphocytes % (Manual) 9 % Monocytes % (Manual) 19 % Neutrophils # (Manual) 8.21 H (1.3-7.7) k/uL Lymphocytes # (Manual) 1.03 (1.0-4.8) k/uL Monocytes # (Manual) 2.17 H (0-1.0) k/uL Nucleated RBCs 0 (0-0) /100 WBC Manual Slide Review Performed RBC Morphology Normal PT 10.6 (9.0-12.0) sec INR 1.0 (<1.2) APTT 27.5 (22.0-30.0) sec D-Dimer 0.43 (<0.60) mg/L FEU Sodium 142 (137-145) mmol/L Potassium 3.4 L (3.5-5.1) mmol/L Chloride 105 (98-107) mmol/L Carbon Dioxide 25 (22-30) mmol/L Anion Gap 12 mmol/L BUN 14 (7-17) mg/dL Creatinine 0.73 (0.52-1.04) mg/dL Est GFR (CKD-EPI)AfAm >90 (>60 ml/min/1.73 sqM) Est GFR (CKD-EPI)NonAf 81 (>60 ml/min/1.73 sqM) Glucose 218 H (74-99) mg/dL Calcium 8.7 (8.4-10.2) mg/dL Magnesium 1.7 (1.6-2.3) mg/dL Total Bilirubin 0.5 (0.2-1.3) mg/dL AST 19 (14-36) U/L ALT 14 (4-34) U/L Alkaline Phosphatase 47 (38-126) U/L Troponin I (0.000-0.034) ng/mL Total Protein 7.3 (6.3-8.2) g/dL Albumin 4.3 (3.5-5.0) g/dL 10/11/19 Range/Units 08:50 WBC (3.8-10.6) k/uL RBC (3.80-5.40) m/uL Hgb (11.4-16.0) gm/dL Hct (34.0-46.0) % MCV (80.0-100.0) fL MCH (25.0-35.0) pg MCHC (31.0-37.0) g/dL RDW (11.5-15.5) % Plt Count (150-450) k/uL Neutrophils % (Manual) % Lymphocytes % (Manual) % Monocytes % (Manual) % Neutrophils # (Manual) (1.3-7.7) k/uL Lymphocytes # (Manual) (1.0-4.8) k/uL Monocytes # (Manual) (0-1.0) k/uL Nucleated RBCs (0-0) /100 WBC Manual Slide Review RBC Morphology PT (9.0-12.0) sec INR (<1.2) APTT (22.0-30.0) sec D-Dimer (<0.60) mg/L FEU Sodium (137-145) mmol/L Potassium (3.5-5.1) mmol/L Chloride (98-107) mmol/L Carbon Dioxide (22-30) mmol/L Anion Gap mmol/L BUN (7-17) mg/dL Creatinine (0.52-1.04) mg/dL Est GFR (CKD-EPI)AfAm (>60 ml/min/1.73 sqM) Est GFR (CKD-EPI)NonAf (>60 ml/min/1.73 sqM) Glucose (74-99) mg/dL Calcium (8.4-10.2) mg/dL Magnesium (1.6-2.3) mg/dL Total Bilirubin (0.2-1.3) mg/dL AST (14-36) U/L ALT (4-34) U/L Alkaline Phosphatase (38-126) U/L Troponin I <0.012 (0.000-0.034) ng/mL Total Protein (6.3-8.2) g/dL Albumin (3.5-5.0) g/dL Disposition Clinical Impression: Acute bronchitis Disposition: [facility] Instructions (If sedation given, give patient instructions): Acute Bronchitis (ED) Prescriptions: Azithromycin [Zithromax Tri-Yinka] 500 mg PO DAILY #3 tab Is patient prescribed a controlled substance at d/c from ED?: No Referrals: Kassandra Gaxiola MD [Primary Care Provider] - 1-2 days Time of Disposition: 10:55
--- NOTE | 2019-10-11 09:32 | XR ---
EXAMINATION TYPE: XR chest 2V DATE OF EXAM: 10/11/2019 COMPARISON: 08/09/2018 TECHNIQUE: PA and lateral views submitted. HISTORY: Chest pain FINDINGS: The lungs are clear and there is no pneumothorax, pleural effusion, or focal pneumonia. Atheroscler otic change aorta. Ectasia of the ascending aorta. Metallic density overlying the left lung apex coul d be related to previous procedure or foreign body. No overt failure. Underlying COPD noted. Degenera tive change of the spine. Arthropathy of the shoulders with diffuse osteopenia. IMPRESSION: 1. COPD with no definite acute process. Left perihilar subsegmental consolidation may been the basis of atelectasis rather than early infiltrate correlate clinically..
[2019-10-11 09:34] LABS: ALT 14 U/L (4-34); AST 19 U/L (14-36); African American GFR (CKD) >90 (>60 ml/min/1.73 sqM); Albumin 4.3 g/dL (3.5-5.0); Alkaline Phosphatase 47 U/L (38-126); Anion Gap 12 mmol/L; Blood Urea Nitrogen 14 mg/dL (7-17); Calcium 8.7 mg/dL (8.4-10.2); Carbon Dioxide 25 mmol/L (22-30); Chloride 105 mmol/L (98-107); Glucose 218 mg/dL (74-99); Magnesium 1.7 mg/dL (1.6-2.3); Non-African American GFR(CKD) 81 (>60 ml/min/1.73 sqM); Potassium 3.4 mmol/L (3.5-5.1); Sodium 142 mmol/L (137-145); Total Bilirubin 0.5 mg/dL (0.2-1.3); Total Protein 7.3 g/dL (6.3-8.2)
[2019-10-11 09:41] LABS: D-Dimer 0.43 mg/L FEU (<0.60); Partial Thromboplastin Time 27.5 sec (22.0-30.0); Prothrombin Time 10.6 sec (9.0-12.0)
[2019-10-11 09:48] LABS: HCT 47.4 % (34.0-46.0); HGB 14.6 gm/dL (11.4-16.0); MCH 26.9 pg (25.0-35.0); MCHC 30.9 g/dL (31.0-37.0); MCV 87.1 fL (80.0-100.0); Mean Platelet Volume 11.1; Platelet Count 132 k/uL (150-450); RBC 5.44 m/uL (3.80-5.40); RDW 15.7 % (11.5-15.5); WBC 11.4 k/uL (3.8-10.6)
[2019-10-11 10:25] LABS: Lymphocytes # (M) 1.03 k/uL (1.0-4.8); Monocytes # (M) 2.17 k/uL (0-1.0); Neutrophils # (M) 8.21 k/uL (1.3-7.7); Neutrophils % (M) 72 %; Nucleated Red Blood Cells 0 /100 WBC (0-0); Total Cells Counted 100
[2019-10-11] MEDS ORDERED: cefTRIAXone IN SWFI 1,000 MG/10 ML SYRINGE IVP STA (10:49)
[2019-10-11] MEDS ORDERED: KETOROLAC 60 MG/2 ML VIAL IVP STA (10:54)
[2019-10-11 11:22] VITALS: BP 128/76; PULSE 72
== END 2019-10-11 11:12 ==
LOC: EC 08:34
DX: J20.9 Acute bronchitis, unspecified (principal); J44.9 Chronic obstructive pulmonary disease, unspecified; E78.5 Hyperlipidemia, unspecified; Z90.89 Acquired absence of other organs; Z79.51 Long term (current) use of inhaled steroids; Z79.899 Other long term (current) drug therapy; Z91.048 Other nonmedicinal substance allergy status; Z88.7 Allergy status to serum and vaccine; Z88.6 Allergy status to analgesic agent
CPT/HCPCS: 36415; 93005; 85379; 80053; 83735; 84484; 85025; 85610; 85730; 87040; 71046; 99285; 96374; 96375; J0696; J1885

== ENCOUNTER 2020-03-06 00:55 | Observation (INO) | payer MEDICARE ==
--- NOTE | 2020-03-06 01:12 | ED ---
Extremity Problem HPI - General Chief complaint: Extremity Problem,Nontraumatic Stated complaint: Leg Pain Time Seen by Provider: 03/06/20 00:58 Source: patient, RN notes reviewed, old records reviewed Mode of arrival: wheelchair Limitations: no limitations - History of Present Illness Initial comments: This is a 74-year-old female presenting with bilateral lower extremity leg pain leg edema history of blood clot. Patient complaining of left lower extremity pain occasional cough no significant current shortness of breath. Patient states that she has no recent travel history no sick contacts. No fevers. Patient has been having increasing pain causing her difficulty to walk secondary to swelling. No significant current chest pain patient does have high cholesterol and COPD MD Complaint: extremity pain, extremity swelling (BL LE) -: days(s) Location: left, right, bilateral lower extremity History of Same: No Radiation: proximal Severity scale (1-10): 7 Quality: aching Consistency: constant Improves with: nothing Worsens with: weight bearing Associated Symptoms: shortness of breath (COPD) - Related Data Home Medications Medication Instructions Recorded Confirmed Mometasone Furoate [Mometasone 2 drops BOTH EARS DAILY PRN 07/30/15 06/05/19 Furoate 0.1%] Ranitidine HCl [Zantac] 150 mg PO BID 07/30/15 06/05/19 Simvastatin [Zocor] 40 mg PO HS 07/30/15 06/05/19 Fluticasone Nasal [place] [Flonase 2 spr EA NOSTRIL DAILY PRN 12/17/15 06/05/19 Nasal [place]] Carboxymethylcellulose Sodium 1 drop BOTH EYES BID PRN 04/02/16 06/05/19 [Refresh Tears] Cholecalciferol [Vitamin D3 (25 8,000 unit PO DAILY 04/02/16 06/05/19 Mcg = 1000 Iu)] Fexofenadine HCl [Lisa Allergy] 180 mg PO DAILY 08/09/18 06/05/19 Furosemide [Lasix] 40 mg PO HS 10/16/18 06/05/19 Furosemide [Lasix] 80 mg PO QAM 10/16/18 06/05/19 Potassium Chloride ER [K-Dur 10] 10 meq PO DAILY 10/16/18 06/05/19 Albuterol Sulfate [Proair Hfa] 2 puff INHALATION RT-Q6H PRN 06/05/19 06/05/19 Fluticasone Propionate [Flovent 1 puff INHALATION RT-BID 06/05/19 06/05/19 Hfa 110 mcg] Previous Rx's Medication Instructions Recorded Cephalexin [Keflex] 500 mg PO Q8HR #21 cap 06/08/19 SILVER sulfADIAZINE CREAM 1 applic TOPICAL DAILY #1 applic 06/08/19 [Silvadene Cream] Azithromycin [Zithromax Tri-Yinka] 500 mg PO DAILY #3 tab 10/11/19 Allergies Allergy/AdvReac Type Severity Reaction Status Date / Time bee venom protein (honey bee) Allergy Anaphylaxis Verified 03/06/20 01:01 tetanus immune globulin Allergy Rash/Hives Verified 03/06/20 01:01 aspirin AdvReac NOSE BLEED Verified 03/06/20 01:01 Review of Systems ROS Statement: Those systems with pertinent positive or pertinent negative responses have been documented in the HPI. ROS Other: All systems not noted in ROS Statement are negative. Past Medical History Past Medical History: COPD, Hyperlipidemia, Thyroid Disorder Additional Past Medical History / Comment(s): edema, seasonal allergies to grass, trees and mold. History of Any Multi-Drug Resistant Organisms: None Reported Past Surgical History: Adenoidectomy, Appendectomy, Bowel Resection, Tonsillectomy Additional Past Surgical History / Comment(s): 3/4 thyroid removed, right leg and foot fracture repair, carple tunnel kim repair, parts of her ribs reomved from left upper chest, ovarian cyst, kim breast cysts removed, 1ft intestine removed for blockage, heart surgery, Anerysm repair in neck 07/2018. Right eye surgery Past Anesthesia/Blood Transfusion Reactions: No Reported Reaction Additional Past Anesthesia/Blood Transfusion Reaction / Comment(s): Pt has received blood in past without reaction. Past Psychological History: No Psychological Hx Reported Smoking Status: Never smoker Past Alcohol Use History: None Reported Past Drug Use History: None Reported - Past Family History Father Family Medical History: No Reported History Additional Family Medical History / Comment(s): Father was healthty and lived to be 89yrs old. Mother Family Medical History: No Reported History Additional Family Medical History / Comment(s): Mother was healthy and lived to be 85 yrs old. General Exam Limitations: no limitations General appearance: alert, in no apparent distress, anxious Head exam: Present: atraumatic, normocephalic, normal inspection Eye exam: Present: normal appearance, PERRL, EOMI. Absent: scleral icterus, conjunctival injection, periorbital swelling ENT exam: Present: normal exam, mucous membranes moist Neck exam: Present: normal inspection. Absent: tenderness, meningismus, lymphadenopathy Respiratory exam: Present: rhonchi, decreased breath sounds, prolonged expiratory. Absent: respiratory distress, wheezes, rales, stridor Cardiovascular Exam: Present: normal rhythm, tachycardia, normal heart sounds. Absent: systolic murmur, diastolic murmur, rubs, gallop, clicks GI/Abdominal exam: Present: soft, normal bowel sounds. Absent: distended, tenderness, guarding, rebound, rigid Extremities exam: Present: normal inspection, full ROM, tenderness (BL LEG), normal capillary refill, calf tenderness (Left), other (BL LE EDEMA 2 plus). Absent: pedal edema, joint swelling Back exam: Present: normal inspection Neurological exam: Present: alert, oriented X3, CN II-XII intact Psychiatric exam: Present: normal affect, normal mood Skin exam: Present: warm, dry, intact, normal color. Absent: rash Course Vital Signs 03/06/20 00:56 Temperature 98.6 F Pulse Rate 102 H Respiratory 22 Rate Blood Pressure 124/71 O2 Sat by Pulse 97 Oximetry - Reevaluation(s) Reevaluation #1: 03/06/20 03:11 Medical records reviewed Reevaluation #2: 03/06/20 03:11 Patient's in no distress - Consultations Consultation #1: Spoke with Dr. Jarquin for [facility] Medical Decision Making - Medical Decision Making 74 female with bilateral leg pain from coughing coming in for evaluation. Patient has bilateral lower extremity edema will admit obtain ultrasound to rule out DVT, patient also has chest x-ray showing infiltrate versus mass, will admit for IV antibiotics - Lab Data Result diagrams: 03/06/20 01:27 03/06/20 01:27 Lab Results 03/06/20 03/06/20 03/06/20 Range/Units 01:27 01:27 01:27 WBC 7.8 (3.8-10.6) k/uL RBC 5.12 (3.80-5.40) m/uL Hgb 13.5 (11.4-16.0) gm/dL Hct 43.9 (34.0-46.0) % MCV 85.8 D (80.0-100.0) fL MCH 26.4 (25.0-35.0) pg MCHC 30.7 L (31.0-37.0) g/dL RDW 15.7 H (11.5-15.5) % Plt Count 154 (150-450) k/uL Neutrophils % (Manual) 60 % Band Neutrophils % 1 % Lymphocytes % (Manual) 11 % Monocytes % (Manual) 27 % Metamyelocytes % 1 % Neutrophils # (Manual) 4.70 (1.3-7.7) k/uL Lymphocytes # (Manual) 0.86 L (1.0-4.8) k/uL Monocytes # (Manual) 2.11 H (0-1.0) k/uL Metamyelocytes # (Man) 0.08 H (0) k/uL Nucleated RBCs 0 (0-0) /100 WBC Manual Slide Review Performed PT 10.7 (9.0-12.0) sec INR 1.0 (<1.2) APTT 29.6 (22.0-30.0) sec D-Dimer 0.39 (<0.60) mg/L FEU Sodium 140 (137-145) mmol/L Potassium 3.1 L (3.5-5.1) mmol/L Chloride 101 (98-107) mmol/L Carbon Dioxide 26 (22-30) mmol/L Anion Gap 13 mmol/L BUN 17 (7-17) mg/dL Creatinine 0.91 (0.52-1.04) mg/dL Est GFR (CKD-EPI)AfAm 71 (>60 ml/min/1.73 sqM) Est GFR (CKD-EPI)NonAf 61 (>60 ml/min/1.73 sqM) Glucose 136 H (74-99) mg/dL Calcium 8.9 (8.4-10.2) mg/dL Phosphorus 4.3 (2.5-4.5) mg/dL Magnesium 2.1 (1.6-2.3) mg/dL Total Bilirubin 0.3 (0.2-1.3) mg/dL AST 19 (14-36) U/L ALT 11 (4-34) U/L Alkaline Phosphatase 69 (38-126) U/L Creatine Kinase 44 (30-135) U/L Troponin I (0.000-0.034) ng/mL NT-Pro-B Natriuret Pep pg/mL Total Protein 7.4 (6.3-8.2) g/dL Albumin 4.4 (3.5-5.0) g/dL 03/06/20 03/06/20 Range/Units 01:27 01:27 WBC (3.8-10.6) k/uL RBC (3.80-5.40) m/uL Hgb (11.4-16.0) gm/dL Hct (34.0-46.0) % MCV (80.0-100.0) fL MCH (25.0-35.0) pg MCHC (31.0-37.0) g/dL RDW (11.5-15.5) % Plt Count (150-450) k/uL Neutrophils % (Manual) % Band Neutrophils % % Lymphocytes % (Manual) % Monocytes % (Manual) % Metamyelocytes % % Neutrophils # (Manual) (1.3-7.7) k/uL Lymphocytes # (Manual) (1.0-4.8) k/uL Monocytes # (Manual) (0-1.0) k/uL Metamyelocytes # (Man) (0) k/uL Nucleated RBCs (0-0) /100 WBC Manual Slide Review PT (9.0-12.0) sec INR (<1.2) APTT (22.0-30.0) sec D-Dimer (<0.60) mg/L FEU Sodium (137-145) mmol/L Potassium (3.5-5.1) mmol/L Chloride (98-107) mmol/L Carbon Dioxide (22-30) mmol/L Anion Gap mmol/L BUN (7-17) mg/dL Creatinine (0.52-1.04) mg/dL Est GFR (CKD-EPI)AfAm (>60 ml/min/1.73 sqM) Est GFR (CKD-EPI)NonAf (>60 ml/min/1.73 sqM) Glucose (74-99) mg/dL Calcium (8.4-10.2) mg/dL Phosphorus (2.5-4.5) mg/dL Magnesium (1.6-2.3) mg/dL Total Bilirubin (0.2-1.3) mg/dL AST (14-36) U/L ALT (4-34) U/L Alkaline Phosphatase (38-126) U/L Creatine Kinase (30-135) U/L Troponin I <0.012 (0.000-0.034) ng/mL NT-Pro-B Natriuret Pep 202 pg/mL Total Protein (6.3-8.2) g/dL Albumin (3.5-5.0) g/dL - EKG Data -: EKG Interpreted by Me (EKG shows sinus rhythm of 91, [place] 1:30, QRS 94, QTc 477) - Radiology Data Radiology results: report reviewed (Chest x-ray shows worsening infiltrate), image reviewed Disposition Clinical Impression: Bilateral leg edema, Edema of lower extremity, Pneumonia Disposition: ADMITTED IP TO THIS [facility] Condition: Good Is patient prescribed a controlled substance at d/c from ED?: No Referrals: Kassandra Gaxiola MD [Primary Care Provider] - 1-2 days
[2020-03-06] MEDS ORDERED: MORPHINE SULFATE 4 MG/ML SYRINGE IVP STA (02:00)
[2020-03-06 02:12] LABS: HCT 43.9 % (34.0-46.0); HGB 13.5 gm/dL (11.4-16.0); MCH 26.4 pg (25.0-35.0); MCHC 30.7 g/dL (31.0-37.0); Mean Platelet Volume 11.3; Platelet Count 154 k/uL (150-450); RBC 5.12 m/uL (3.80-5.40); RDW 15.7 % (11.5-15.5); WBC 7.8 k/uL (3.8-10.6)
[2020-03-06 02:19] LABS: MCV 85.8 fL (80.0-100.0)
[2020-03-06 02:25] LABS: Albumin 4.4 g/dL (3.5-5.0); Calcium 8.9 mg/dL (8.4-10.2); D-Dimer 0.39 mg/L FEU (<0.60); Magnesium 2.1 mg/dL (1.6-2.3); Partial Thromboplastin Time 29.6 sec (22.0-30.0); Phosphorus 4.3 mg/dL (2.5-4.5); Potassium 3.1 mmol/L (3.5-5.1); Prothrombin Time 10.7 sec (9.0-12.0); Total Bilirubin 0.3 mg/dL (0.2-1.3); Total Protein 7.4 g/dL (6.3-8.2)
[2020-03-06 02:28] LABS: Band Neutrophils % 1 %; Lymphocytes # (M) 0.86 k/uL (1.0-4.8); Metamyelocytes # (M) 0.08 k/uL (0); Metamyelocytes % 1 %; Monocytes # (M) 2.11 k/uL (0-1.0); Neutrophils % (M) 60 %; Nucleated Red Blood Cells 0 /100 WBC (0-0); Total Cells Counted 100
--- NOTE | 2020-03-06 02:48 | XR ---
EXAMINATION TYPE: XR chest 2V DATE OF EXAM: 03/06/2020 COMPARISON: 10/11/2019 HISTORY: Short of breath TECHNIQUE: FINDINGS: There is some left side perihilar infiltrate. There is no gross heart failure. Thoracic aor ta is atheromatous. There is no pleural effusion. Heart is top normal in size. IMPRESSION: There is some left side perihilar infiltrate appears increased compared to last exam. Fol low-up recommended. Tumor is possible. No heart failure. Heart appears slightly increased compared to old exam.
[2020-03-06] MEDS ORDERED: POTASSIUM BICARBONATE/CIT AC 20 MEQ TABLET.EFF PO ONE (03:06)
[2020-03-06] MEDS ORDERED: IPRATROPIUM-ALBUTEROL 3 ML NEB INHALATION PRN (03:09)
[2020-03-06] MEDS ORDERED: AZITHROMYCIN 500 MG in SODIUM CHLORIDE 0.9% 250 ML IVPB STA (03:09)
[2020-03-06] MEDS ORDERED: FUROSEMIDE 10 MG/ML 4 ML VIAL IV SCH (03:15)
--- NOTE | 2020-03-06 04:01 | CT ---
EXAMINATION TYPE: CT angio chest DATE OF EXAM: 03/06/2020 COMPARISON: 09/04/2018 HISTORY: SOB CT DLP: 182.3 mGycm Automated exposure control for dose reduction was used. CONTRAST: Performed with IV Contrast, patient injected with 80mL mL of Isovue 370. Multiple axial sections were obtained from the thoracic inlet to the diaphragm with intravenous contr ast and 3-D post processed images. FINDINGS: There is mild subsegmental atelectasis at the lung bases. There is no pleural effusion. There is no e vidence of a pulmonary mass. Thoracic aorta is atheromatous. Ascending aorta measures 3.5 cm. There are large pulmonary arteries. I see no filling defect in the pulmonary arteries. There is no mediastinal adenopathy. There are no h ilar masses. Bony thorax is intact. Upper abdominal soft tissues are intact. IMPRESSION: No evidence of pulmonary embolism. Large pulmonary arteries suggestive of pulmonary hypertension. Mil d fibrotic changes and subsegmental atelectasis at the lung bases similar to old exam. There is clear ing of the groundglass interstitial pulmonary infiltrates to a large extent compared to old exam.
[2020-03-06 04:58] LABS: Appearance,Urine Clear (Clear); Bilirubin,Urine Negative (Negative); Blood,Urine Negative (Negative); Color,Urine Light Yellow; Glucose,Urine (UA) Negative (Negative); Ketones,Urine Negative (Negative); Leukocyte Esterase,Urine Negative (Negative); Nitrite,Urine Negative (Negative); PH, Urine 6.5 (5.0-8.0); Protein,Urine Negative (Negative); Specific Gravity,Urine 1.019 (1.001-1.035); Urobilinogen,Urine <2.0 mg/dL (<2.0)
[2020-03-06] MEDS ORDERED: AZITHROMYCIN 500 MG in SODIUM CHLORIDE 0.9% 250 ML IVPB ONE (05:00)
[2020-03-06 08:54] VITALS: RESP 18
--- NOTE | 2020-03-06 08:57 | US ---
EXAMINATION TYPE: US venous doppler duplex LE DATE OF EXAM: 03/06/2020 8:49 AM COMPARISON: NONE CLINICAL HISTORY: edema. Edema SIDE PERFORMED: Bilateral TECHNIQUE: The lower extremity deep venous system is examined utilizing real time linear array sonog gali with graded compression, doppler sonography and color-flow sonography. VESSELS IMAGED: External Iliac Vein (EIV) Common Femoral Vein Deep Femoral Vein Greater Saphenous Vein * Femoral Vein Popliteal Vein Small Saphenous Vein * Proximal Calf Veins (* superficial vessels) There is normal flow, compressibility, vascular waveforms. Right Leg: Negative for DVT Left Leg: Negative for DVT IMPRESSION: No evident deep venous arthrosis at or above the knees.
[2020-03-06] MEDS ORDERED: ENOXAPARIN 40 MG/0.4 ML SYRINGE SQ SCH (09:00)
[2020-03-06] MEDS ORDERED: FAMOTIDINE 20 MG TAB PO SCH (11:30)
[2020-03-06] MEDS ORDERED: KETOROLAC 30 MG/ML 1 ML VIAL IVP SCH (12:00)
[2020-03-06] MEDS ORDERED: POTASSIUM CHLORIDE ER 20 MEQ TAB.ER PO STA (13:58)
--- NOTE | 2020-03-06 14:16 | XR ---
Left ankle HISTORY: Ankle swelling 3 views of the left ankle Soft tissue swelling is noted. Bone mineralization is reduced. Joint space and alignment are normal. No fracture or dislocation. Postop change noted to the fifth metatarsal. Soft tissue calcification in the left leg may represent phlebolith. IMPRESSION: Soft tissue swelling. Osteopenia.
[2020-03-06 14:29] VITALS: BMI 23.0
--- NOTE | 2020-03-06 15:36 | P.HPIM ---
History of Present Illness 74-year-old pleasant female came in with complaints of edema. The left leg patient was worked up for PE and a DVT all of which are negative. Patient while workup for PE is found to have some groundglass a paced is in the CT patient doesn't have any fevers patient does have some lymphopenia because of these findings Covid 19 testing was ordered results of which are still pending and patient will isolate herself until we get the results of Covid 19. Patient denied any shortness of breath does have history of can start failure can be related to pulmonary edema pedal edema can be secondary to that as well. Patient received IV Lasix feeling better now. I did obtain a x-ray of the left leg there may be some osteoarthritis but that there is only osteopenia suspicion is low for gouty arthritis. Patient will be given not at nonsteroidal anti- inflammatory medications clinically patient doesn't appear to have cellulitis at this time patient will be discharged on nonsteroidal anti-inflammatory's and azithromycin for possible atypical pneumonia versus Covid 19. Review of Systems REVIEW OF SYSTEMS: CONSTITUTIONAL: No fever, no malaise, no fatigue. HEENT: No recent visual problems or hearing problems. Denied any sore throat. CARDIOVASCULAR: No chest pain, orthopnea, PND, no palpitations, no syncope. PULMONARY: No shortness of breath, no cough, no hemoptysis. GASTROINTESTINAL: No diarrhea, no nausea, no vomiting, no abdominal pain. NEUROLOGICAL: No headaches, no weakness, no numbness. HEMATOLOGICAL: Denies any bleeding or petechiae. GENITOURINARY: Denies any burning micturition, frequency, or urgency. MUSCULOSKELETAL/RHEUMATOLOGICAL: As mentioned in HPI ENDOCRINE: Denies any polyuria or polydipsia. The rest of the 14-point review of systems is negative. Past Medical History Past Medical History: COPD, Hyperlipidemia, Thyroid Disorder Additional Past Medical History / Comment(s): edema, seasonal allergies to grass, trees and mold. History of Any Multi-Drug Resistant Organisms: None Reported Past Surgical History: Adenoidectomy, Appendectomy, Bowel Resection, Tonsillectomy Additional Past Surgical History / Comment(s): 3/4 thyroid removed, right leg and foot fracture repair, carple tunnel kim repair, parts of her ribs reomved from left upper chest, ovarian cyst, kim breast cysts removed, 1ft intestine removed for blockage, heart surgery, Anerysm repair in neck 07/2018. Right eye surgery Past Anesthesia/Blood Transfusion Reactions: No Reported Reaction Additional Past Anesthesia/Blood Transfusion Reaction / Comment(s): Pt has received blood in past without reaction. Past Psychological History: No Psychological Hx Reported Smoking Status: Never smoker Past Alcohol Use History: None Reported Past Drug Use History: None Reported - Past Family History Father Family Medical History: No Reported History Additional Family Medical History / Comment(s): Father was healthty and lived to be 89yrs old. Mother Family Medical History: No Reported History Additional Family Medical History / Comment(s): Mother was healthy and lived to be 85 yrs old. Medications and Allergies Home Medications Medication Instructions Recorded Confirmed Type Mometasone Furoate [Mometasone 2 drops BOTH EARS DAILY PRN 07/30/15 06/05/19 History Furoate 0.1%] Simvastatin [Zocor] 40 mg PO HS 07/30/15 06/05/19 History Fluticasone Nasal [place] [Flonase 2 spr EA NOSTRIL DAILY PRN 12/17/15 06/05/19 History Nasal [place]] Carboxymethylcellulose Sodium 1 drop BOTH EYES BID PRN 04/02/16 06/05/19 History [Refresh Tears] Cholecalciferol [Vitamin D3 (25 8,000 unit PO DAILY 04/02/16 06/05/19 History Mcg = 1000 Iu)] Furosemide [Lasix] 40 mg PO HS 10/16/18 06/05/19 History Furosemide [Lasix] 80 mg PO QAM 10/16/18 06/05/19 History Albuterol Sulfate [Proair Hfa] 2 puff INHALATION RT-Q6H PRN 06/05/19 06/05/19 History Fluticasone Propionate [Flovent 1 puff INHALATION RT-BID 06/05/19 06/05/19 History Hfa 110 mcg] SILVER sulfADIAZINE CREAM 1 applic TOPICAL DAILY #1 applic 06/08/19 Rx [Silvadene Cream] Azithromycin [Zithromax Tri-Yinka] 500 mg PO DAILY #5 tab 03/06/20 Rx Famotidine [Pepcid] 20 mg PO BID #30 tab 03/06/20 Rx Meloxicam [Mobic] 15 mg PO DAILY #14 tab 03/06/20 Rx Potassium Chloride ER [K-Dur 10] 20 meq PO BID #60 tab 03/06/20 Rx Allergies Allergy/AdvReac Type Severity Reaction Status Date / Time bee venom protein (honey bee) Allergy Anaphylaxis Verified 03/06/20 01:01 tetanus immune globulin Allergy Rash/Hives Verified 03/06/20 01:01 aspirin AdvReac NOSE BLEED Verified 03/06/20 01:01 Physical Exam Vitals: Vital Signs Temp Pulse Resp BP Pulse Ox 03/06/20 08:53 81 18 128/70 95 03/06/20 06:38 70 16 120/70 96 03/06/20 00:56 98.6 F 102 H 22 124/71 97 Intake and Output 03/06/20 03/06/20 03/06/20 06:59 14:59 22:59 Other: Weight 51.71 kg 51.71 kg PHYSICAL EXAMINATION: GENERAL: The patient is alert and oriented x3, not in any acute distress. Well developed, well nourished. HEENT: Pupils are round and equally reacting to light. EOMI. No scleral icterus. No conjunctival pallor. Normocephalic, atraumatic. No pharyngeal erythema. No thyromegaly. CARDIOVASCULAR: S1 and S2 present. No murmurs, rubs, or gallops. PULMONARY: Chest is clear to auscultation, no wheezing or crackles. ABDOMEN: Soft, nontender, nondistended, normoactive bowel sounds. No palpable organomegaly. MUSCULOSKELETAL: No joint swelling or deformity. EXTREMITIES: No cyanosis, clubbing, or pedal edema. Mild ankle swelling on the left side NEUROLOGICAL: Gross neurological examination did not reveal any focal deficits. SKIN: No rashes. Note: Because of COVID 19 isolation, some of the history and physical exam findings or indirect and obtained from nursing staff, and other physician examinations to avoid unnecessary contact with the patient. Results CBC & Chem 7: 03/06/20 01:27 03/06/20:27 Labs: Abnormal Lab Results - Last 24 Hours (Table) 03/06/20 03/06/20 Range/Units : 01:27 MCHC 30.7 L (31.0-37.0) g/dL RDW 15.7 H (11.5-15.5) % Lymphocytes # (Manual) 0.86 L (1.0-4.8) k/uL Monocytes # (Manual) 2.11 H (0-1.0) k/uL Metamyelocytes # (Man) 0.08 H (0) k/uL Potassium 3.1 L (3.5-5.1) mmol/L Glucose 136 H (74-99) mg/dL Assessment and Plan Plan: -Left ankle swelling most probably osteoarthritis of the left ankle patient will be discharged on anti-inflammatory medications follow-up with PCP as an outpatient patient doesn't appear to have cellulitis in that area. -Ground glass appearance on the chest CAT scan rule out pulmonary embolism but this groundglass appearance can be CHF received IV Lasix overnight feeling well I cannot completely rule out atypical pneumonia: 19:19 testing was pending patient will be discharged on azithromycin although patient doesn't have any fever or significant cough. Echocardiogram in the past showed normal ejection fraction on the completely cannot rule out diastolic dysfunction with some acute exacerbation -COPD without any acute exacerbation -Hyperlipidemia -Hypothyroidism
--- NOTE | 2020-03-06 15:37 | P.DS ---
Providers Date of admission: 03/06/20 03:09 Attending physician: Ajit Montejo [facility] Course: Please of to my history of present illness for further details Patient Condition at Discharge: Good Plan - Discharge Summary New Discharge Prescriptions: New Meloxicam [Mobic] 15 mg PO DAILY #14 tab Famotidine [Pepcid] 20 mg PO BID #30 tab Continue Azithromycin [Zithromax Tri-Yinka] 500 mg PO DAILY #5 tab Changed Potassium Chloride ER [K-Dur 10] 20 meq PO BID #60 tab Discontinued Ranitidine HCl [Zantac] 150 mg PO BID Fexofenadine HCl [Lisa Allergy] 180 mg PO DAILY Cephalexin [Keflex] 500 mg PO Q8HR #21 cap No Action Mometasone Furoate [Mometasone Furoate 0.1%] 2 drops BOTH EARS DAILY PRN PRN Reason: IRRITATION Simvastatin [Zocor] 40 mg PO HS Fluticasone Nasal [place] [Flonase Nasal [place]] 2 spr EA NOSTRIL DAILY PRN PRN Reason: Allergy Symptoms Carboxymethylcellulose Sodium [Refresh Tears] 1 drop BOTH EYES BID PRN PRN Reason: Dry Eye(S) Cholecalciferol [Vitamin D3 (25 Mcg = 1000 Iu)] 8,000 unit PO DAILY Furosemide [Lasix] 40 mg PO HS Furosemide [Lasix] 80 mg PO QAM Fluticasone Propionate [Flovent Hfa 110 mcg] 1 puff INHALATION RT-BID Albuterol Sulfate [Proair Hfa] 2 puff INHALATION RT-Q6H PRN PRN Reason: Shortness Of Breath SILVER sulfADIAZINE CREAM [Silvadene Cream] 1 applic TOPICAL DAILY #1 applic Discharge Medication List Mometasone Furoate [Mometasone Furoate 0.1%] 2 drops BOTH EARS DAILY PRN 07/30/15 [History] Simvastatin [Zocor] 40 mg PO HS 07/30/15 [History] Fluticasone Nasal [place] [Flonase Nasal [place]] 2 spr EA NOSTRIL DAILY PRN 12/17/15 [History] Carboxymethylcellulose Sodium [Refresh Tears] 1 drop BOTH EYES BID PRN 04/02/16 [History] Cholecalciferol [Vitamin D3 (25 Mcg = 1000 Iu)] 8,000 unit PO DAILY 04/02/16 [History] Furosemide [Lasix] 40 mg PO HS 10/16/18 [History] Furosemide [Lasix] 80 mg PO QAM 10/16/18 [History] Albuterol Sulfate [Proair Hfa] 2 puff INHALATION RT-Q6H PRN 06/05/19 [History] Fluticasone Propionate [Flovent Hfa 110 mcg] 1 puff INHALATION RT-BID 06/05/19 [History] SILVER sulfADIAZINE CREAM [Silvadene Cream] 1 applic TOPICAL DAILY #1 applic 06/08/19 [Rx] Azithromycin [Zithromax Tri-Yinka] 500 mg PO DAILY #5 tab 03/06/20 [Rx] Famotidine [Pepcid] 20 mg PO BID #30 tab 03/06/20 [Rx] Meloxicam [Mobic] 15 mg PO DAILY #14 tab 03/06/20 [Rx] Potassium Chloride ER [K-Dur 10] 20 meq PO BID #60 tab 03/06/20 [Rx] Follow up Appointment(s)/Referral(s): Kassandra Gaxiola MD [Primary Care Provider] - 3 Days Discharge Disposition: HOME SELF-CARE
[2020-03-06 16:13] VITALS: BP 118/78; PULSE 74; TEMP 98.2
[2020-03-07] MEDS ORDERED: AZITHROMYCIN 500 MG TAB PO SCH (06:00)
== END 2020-03-06 16:19 | disposition home or self-care (01) ==
LOC: EC 00:55 → 4SSUR 03:09
PROVIDERS: ADMIT Hospitalist; ATTEND Hospitalist
DX: M79.89 Other specified soft tissue disorders (principal); J44.9 Chronic obstructive pulmonary disease, unspecified; E78.5 Hyperlipidemia, unspecified; E89.0 Postprocedural hypothyroidism; R91.8 Other nonspecific abnormal finding of lung field; R60.0 Localized edema; M79.605 Pain in left leg; M79.604 Pain in right leg; D72.810 Lymphocytopenia; E78.00 Pure hypercholesterolemia, unspecified; J30.1 Allergic rhinitis due to pollen; M85.872 Other specified disorders of bone density and structure, left ankle and foot; Z11.59 Encounter for screening for other viral diseases; Z79.899 Other long term (current) drug therapy; Z79.51 Long term (current) use of inhaled steroids; Z91.030 Bee allergy status; Z88.7 Allergy status to serum and vaccine; Z88.6 Allergy status to analgesic agent; Z90.89 Acquired absence of other organs; Z90.49 Acquired absence of other specified parts of digestive tract; Z87.81 Personal history of (healed) traumatic fracture; Z98.890 Other specified postprocedural states; Z86.69 Personal history of other diseases of the nervous system and sense organs; Z87.42 Personal history of other diseases of the female genital tract; Z87.19 Personal history of other diseases of the digestive system; Z86.79 Personal history of other diseases of the circulatory system
CPT/HCPCS: 96366; 96367; 96365; 96372; 96375; 71275; 99285; 36415; 93005; 85379; 83880; 80053; 82550; 83735; 84100; 84484; 85025; 85610; 85730; 81003; 87040; 87635; 73610; 71046; 93970; G0378; J2270; J1940; J0456; J1650; J0696; J1885; Q9967

== ENCOUNTER 2020-05-16 19:21 | Emergency (ER) | payer MEDICARE ==
[2020-05-16 19:45] VITALS: TEMP 98
--- NOTE | 2020-05-16 19:47 | ED ---
Fall HPI - General Chief Complaint: Fall Stated Complaint: Fall Time Seen by Provider: 05/16/20 19:35 Source: patient, family, RN notes reviewed, old records reviewed Mode of arrival: ambulatory - History of Present Illness Initial Comments: This is a 4-year-old female DF for fall, patient leaned over trying to reach and the coffee table to fall out of her chair landing on her left sided no loss of consciousness. Complaining of left shoulder pain left-sided pain left-sided rib pain. No significant shortness of breath. 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, recurrent falls Fall Witnessed: yes, by family Place Fall Occurred: home Loss of Consciousness: none Prolonged Down Time?: no Symptoms Prior to Fall: none Location - Extremities: Left: Shoulder, Elbow, Forearm Severity: moderate Quality: burning Context: tripped/slipped Associated Symptoms: denies - Related Data Home Medications Medication Instructions Recorded Confirmed Mometasone Furoate [Mometasone 2 drops BOTH EARS DAILY PRN 07/30/15 06/05/19 Furoate 0.1%] Simvastatin [Zocor] 40 mg PO HS 07/30/15 06/05/19 Fluticasone Nasal [place] [Flonase 2 spr EA NOSTRIL DAILY PRN 12/17/15 06/05/19 Nasal [place]] Carboxymethylcellulose Sodium 1 drop BOTH EYES BID PRN 04/02/16 06/05/19 [Refresh Tears] Cholecalciferol [Vitamin D3 (25 8,000 unit PO DAILY 04/02/16 06/05/19 Mcg = 1000 Iu)] Furosemide [Lasix] 40 mg PO HS 10/16/18 06/05/19 Furosemide [Lasix] 80 mg PO QAM 10/16/18 06/05/19 Albuterol Sulfate [Proair Hfa] 2 puff INHALATION RT-Q6H PRN 06/05/19 06/05/19 Fluticasone Propionate [Flovent 1 puff INHALATION RT-BID 06/05/19 06/05/19 Hfa 110 mcg] Previous Rx's Medication Instructions Recorded SILVER sulfADIAZINE CREAM 1 applic TOPICAL DAILY #1 applic 06/08/19 [Silvadene Cream] Azithromycin [Zithromax Tri-Yinka] 500 mg PO DAILY #5 tab 03/06/20 Famotidine [Pepcid] 20 mg PO BID #30 tab 03/06/20 Meloxicam [Mobic] 15 mg PO DAILY #14 tab 03/06/20 Potassium Chloride ER [K-Dur 10] 20 meq PO BID #60 tab 03/06/20 Allergies Allergy/AdvReac Type Severity Reaction Status Date / Time bee venom protein (honey bee) Allergy Anaphylaxis Verified 05/16/20 19:44 tetanus immune globulin Allergy Rash/Hives Verified 05/16/20 19:44 aspirin AdvReac NOSE BLEED Verified 05/16/20 19:44 Review of Systems ROS Statement: Those systems with pertinent positive or pertinent negative responses have been documented in the HPI. ROS Other: All systems not noted in ROS Statement are negative. Past Medical History Past Medical History: COPD, Hyperlipidemia, Thyroid Disorder Additional Past Medical History / Comment(s): edema, seasonal allergies to grass, trees and mold. History of Any Multi-Drug Resistant Organisms: None Reported Past Surgical History: Adenoidectomy, Appendectomy, Bowel Resection, Tonsillectomy Additional Past Surgical History / Comment(s): 3/4 thyroid removed, right leg and foot fracture repair, carple tunnel kim repair, parts of her ribs reomved from left upper chest, ovarian cyst, kim breast cysts removed, 1ft intestine re moved for blockage, heart surgery, Anerysm repair in neck 07/2018. Right eye surgery Past Anesthesia/Blood Transfusion Reactions: No Reported Reaction Additional Past Anesthesia/Blood Transfusion Reaction / Comment(s): Pt has received blood in past without reaction. Past Psychological History: No Psychological Hx Reported Smoking Status: Never smoker Past Alcohol Use History: None Reported Past Drug Use History: None Reported - Past Family History Father Family Medical History: No Reported History Additional Family Medical History / Comment(s): Father was healthty and lived to be 89yrs old. Mother Family Medical History: No Reported History Additional Family Medical History / Comment(s): Mother was healthy and lived to be 85 yrs old. General Exam General appearance: alert, in no apparent distress Head exam: Present: atraumatic, normocephalic, normal inspection Eye exam: Present: normal appearance, PERRL, EOMI. Absent: scleral icterus, conjunctival injection, periorbital swelling ENT exam: Present: normal exam, mucous membranes moist Neck exam: Present: normal inspection. Absent: tenderness, meningismus, lymphadenopathy Respiratory exam: Present: normal lung sounds bilaterally. Absent: respiratory distress, wheezes, rales, rhonchi, stridor Cardiovascular Exam: Present: regular rate, normal rhythm, normal heart sounds. Absent: systolic murmur, diastolic murmur, rubs, gallop, clicks GI/Abdominal exam: Present: soft, normal bowel sounds. Absent: distended, tenderness, guarding, rebound, rigid Extremities exam: Present: normal inspection, full ROM, normal capillary refill. Absent: tenderness, pedal edema, joint swelling, calf tenderness Back exam: Present: normal inspection Neurological exam: Present: alert, oriented X3, CN II-XII intact Psychiatric exam: Present: normal affect, normal mood Skin exam: Present: warm, dry, intact, normal color. Absent: rash Course Vital Signs 05/16/20 05/16/20 19:39 21:48 Temperature 98.0 F 98.0 F Pulse Rate 90 78 Respiratory 17 16 Rate Blood Pressure 119/73 139/85 O2 Sat by Pulse 96 94 L Oximetry - Reevaluation(s) Reevaluation #1: medical record is reviewed patient symptoms siginficantly improved informed patient of results, questions answered and ok for discharge, Medical Decision Making - Medical Decision Making 74 female DF status post fall mechanical fall in nature with no trauma noted. Patient can be discharged - Radiology Data Radiology results: report reviewed (X-ray of left shoulder elbow and ribs as well as chest x-rays negative for genetic injury), image reviewed Disposition Clinical Impression: Fall, Contusion of left shoulder, Contusion of rib on left side Disposition: HOME SELF-CARE Condition: Good Instructions (If sedation given, give patient instructions): Fall Prevention for Older Adults (ED), Shoulder Pain (ED), Rib Contusion (ED) Is patient prescribed a controlled substance at d/c from ED?: No Referrals: Kassandra Gaxiola MD [Primary Care Provider] - 1-2 days
--- NOTE | 2020-05-16 20:54 | XR ---
EXAMINATION TYPE: XR chest 2V DATE OF EXAM: 05/16/2020 COMPARISON: 03/06/2020 HISTORY: Chest pain TECHNIQUE: 2 views FINDINGS: There is some left side mild perihilar infiltrate. There is also some infiltrate above the right pulmonary hilum apparently in the anterior segment of the right upper lobe. There is no heart f ailure. Heart is enlarged. There is no pleural effusion. There is osteopenia. There is prominence of the left pulmonary hilum shown to be related to large vessels on the old CT scan of 03/06/2020. There is a mild thoracic dextroscoliosis. IMPRESSION: There is some new right upper lobe infiltrate compared to old exam. Stable left perihilar density. No heart failure seen. Follow-up recommended to show clearing. No heart failure seen.
--- NOTE | 2020-05-16 20:55 | XR ---
EXAMINATION TYPE: XR shoulder complete LT DATE OF EXAM: 05/16/2020 COMPARISON: NONE HISTORY: Shoulder pain TECHNIQUE: 3 views FINDINGS: I see no fracture nor dislocation. There is some poorly marginated interstitial infiltrate around the left pulmonary hilum. The glenohumeral joint is anatomic. There is osteopenia. IMPRESSION: No acute abnormality of the left shoulder. Left side perihilar infiltrate.
--- NOTE | 2020-05-16 20:59 | XR ---
EXAMINATION TYPE: XR ribs LT DATE OF EXAM: 05/16/2020 COMPARISON: 03/06/2020 HISTORY: Rib pain TECHNIQUE: 4 views FINDINGS: There is no evidence of pleural effusion or pneumothorax. I see no rib fracture. There is s ome osteopenia. There is some mild perihilar interstitial pulmonary infiltrate and poorly defined lef t pulmonary proximal vessels. IMPRESSION: No rib fracture seen. Left pulmonary hilum is indistinct and there is probably left perih ilar infiltrate. I am still concerned that there is something developing at the left pulmonary hilum even though the chest x-ray is fairly stable.
--- NOTE | 2020-05-16 21:06 | XR ---
EXAMINATION TYPE: XR elbow complete LT DATE OF EXAM: 05/16/2020 COMPARISON: NONE HISTORY: Elbow pain TECHNIQUE: 3 views FINDINGS: I see no fracture nor dislocation. Joint spaces are fairly normal. There is no sign of radi opaque foreign body. There is no evidence of elbow joint effusion. IMPRESSION: No fracture seen.
[2020-05-16] MEDS ORDERED: ACET/COD 300 MG/30 MG STARTER PACK 6 TAB BTL PO STA (21:11)
[2020-05-16] MEDS ORDERED: Acetaminophen-Codeine 300-30mg TAB PO STA (21:11)
[2020-05-16 21:49] VITALS: BP 139/85; PULSE 78; RESP 16
== END 2020-05-16 21:49 | disposition home or self-care (01) ==
LOC: EC 19:21
DX: S40.012A Contusion of left shoulder, initial encounter (principal); S20.212A Contusion of left front wall of thorax, initial encounter; J44.9 Chronic obstructive pulmonary disease, unspecified; E78.5 Hyperlipidemia, unspecified; Z79.899 Other long term (current) drug therapy; Z79.51 Long term (current) use of inhaled steroids; Z91.030 Bee allergy status; Z88.6 Allergy status to analgesic agent; Z88.7 Allergy status to serum and vaccine; W07.XXXA Fall from chair, initial encounter
CPT/HCPCS: 71046; 99284

== ENCOUNTER 2021-07-25 20:50 | Emergency (ER) | payer MEDICARE ==
[2021-07-25 22:24] VITALS: RESP 18
[2021-07-25] MEDS ORDERED: ACET/COD 300 MG/30 MG STARTER PACK 6 TAB BTL PO STA (23:39)
[2021-07-25] MEDS ORDERED: MORPHINE SULFATE 2 MG/ML SYRINGE IM STA (23:39)
[2021-07-25] MEDS ORDERED: KETOROLAC 15 MG/ML 1 ML VIAL IM STA (23:39)
--- NOTE | 2021-07-25 23:41 | ED ---
Back Pain HPI - General Chief Complaint: Back Pain/Injury Stated Complaint: Back Pain Time Seen by Provider: 07/25/21 22:59 Source: patient - History of Present Illness Initial Comments: 75-year-old female patient presents to the emergency department today for evaluation of left low back pain with radiation down the left leg. States it started earlier tonight around 8 PM. States she does have history of chronic back pain intermittently. Denies any injury. Denies any fall. She denies numbness, tickling, weakness to the extremities. Denies saddle anesthesia or loss of bowel or bladder control. Denies abdominal pain or fever. States she did take Tylenol without relief. Denies using any other medications. - Related Data Home Medications Medication Instructions Recorded Confirmed Mometasone Furoate [Mometasone 2 drops BOTH EARS DAILY PRN 07/30/15 06/05/19 Furoate 0.1%] Simvastatin [Zocor] 40 mg PO HS 07/30/15 06/05/19 Fluticasone Nasal [place] [Flonase 2 spr EA NOSTRIL DAILY PRN 12/17/15 06/05/19 Nasal [place]] Carboxymethylcellulose Sodium 1 drop BOTH EYES BID PRN 04/02/16 06/05/19 [Refresh Tears] Cholecalciferol [Vitamin D3 (25 8,000 unit PO DAILY 04/02/16 06/05/19 Mcg = 1000 Iu)] Furosemide [Lasix] 40 mg PO HS 10/16/18 06/05/19 Furosemide [Lasix] 80 mg PO QAM 10/16/18 06/05/19 Albuterol Sulfate [Proair Hfa] 2 puff INHALATION RT-Q6H PRN 06/05/19 06/05/19 Fluticasone Propionate [Flovent 1 puff INHALATION RT-BID 06/05/19 06/05/19 Hfa 110 mcg] Previous Rx's Medication Instructions Recorded SILVER sulfADIAZINE CREAM 1 applic TOPICAL DAILY #1 applic 06/08/19 [Silvadene Cream] Azithromycin [Zithromax Tri-Yinka (3 500 mg PO DAILY #5 tab 03/06/20 tabs)] Famotidine [Pepcid] 20 mg PO BID #30 tab 03/06/20 Meloxicam [Mobic] 15 mg PO DAILY #14 tab 03/06/20 Potassium Chloride ER [K-Dur 10] 20 meq PO BID #60 tab 03/06/20 Cyclobenzaprine [Flexeril] 5 mg PO BID #10 tablet 07/25/21 Ibuprofen [Motrin] 600 mg PO Q8HR PRN #30 tab 07/25/21 Allergies Allergy/AdvReac Type Severity Reaction Status Date / Time bee venom protein (honey bee) Allergy Anaphylaxis Verified 07/25/21 22:24 tetanus immune globulin Allergy Rash/Hives Verified 07/25/21 22:24 aspirin AdvReac NOSE BLEED Verified 07/25/21 22:24 Review of Systems ROS Statement: Those systems with pertinent positive or pertinent negative responses have been documented in the HPI. ROS Other: All systems not noted in ROS Statement are negative. Past Medical History Past Medical History: COPD, Hyperlipidemia, Thyroid Disorder Additional Past Medical History / Comment(s): edema, seasonal allergies to grass, trees and mold. History of Any Multi-Drug Resistant Organisms: None Reported Past Surgical History: Adenoidectomy, Appendectomy, Bowel Resection, Tonsillectomy Additional Past Surgical History / Comment(s): 3/4 thyroid removed, right leg and foot fracture repair, carple tunnel kim repair, parts of her ribs reomved from left upper chest, ovarian cyst, kim breast cysts removed, 1ft intestine removed for blockage, heart surgery, Anerysm repair in neck 07/2018. Right eye surgery Past Anesthesia/Blood Transfusion Reactions: No Reported Reaction Additional Past Anesthesia/Blood Transfusion Reaction / Comment(s): Pt has received blood in past without reaction. Past Psychological History: No Psychological Hx Reported Smoking Status: Never smoker Past Alcohol Use History: None Reported Past Drug Use History: None Reported - Past Family History Father Family Medical History: No Reported History Additional Family Medical History / Comment(s): Father was healthty and lived to be 89yrs old. Mother Family Medical History: No Reported History Additional Family Medical History / Comment(s): Mother was healthy and lived to be 85 yrs old. General Exam General appearance: alert, in no apparent distress Eye exam: Present: normal appearance, PERRL, EOMI. Absent: scleral icterus, conjunctival injection, nystagmus, periorbital swelling ENT exam: Present: normal exam, normal oropharynx, mucous membranes moist Respiratory exam: Present: normal lung sounds bilaterally. Absent: respiratory distress, wheezes, rales, rhonchi, stridor Cardiovascular Exam: Present: regular rate, normal rhythm, normal heart sounds. Absent: systolic murmur, diastolic murmur, rubs, gallop, clicks GI/Abdominal exam: Present: soft, normal bowel sounds. Absent: distended, tenderness, guarding, rebound, rigid Extremities exam: Present: normal inspection, full ROM, normal capillary refill, other (Skin to the lower extremities is pink, warm, dry. Cap refill less than 3 seconds. Pedal and posttibial pulses 2+.). Absent: tenderness, pedal edema, joint swelling, calf tenderness Neurological exam: Present: alert, oriented X3, CN II-XII intact Expanded Motor strength exam: RLE: 5, LLE: 5 Psychiatric exam: Present: normal affect, normal mood Skin exam: Present: warm, dry, intact, normal color. Absent: rash Course Vital Signs 07/25/21 07/25/21 22:18 23:55 Temperature 97.9 F 98.4 F Pulse Rate 77 82 Respiratory 18 18 Rate Blood Pressure 126/73 146/81 O2 Sat by Pulse 95 94 L Oximetry Medical Decision Making - Medical Decision Making 75-year-old female patient presented to the emergency department today for evaluation of left low back pain with radiation down the left leg. Neurovascular status intact. No concerning symptoms for cauda equina. She is afebrile, vital signs. Symptoms are consistent with sciatica. She'll be given pain medication. Discharge. Her primary care physician for recheck in 1-2 days. Return parameters discussed in detail. She verbalizes understanding and agrees with this plan. My attending is Dr. Tolbert. Disposition Clinical Impression: Sciatica Disposition: HOME SELF-CARE Condition: Good Instructions (If sedation given, give patient instructions): Sciatica (ED), Acute Low Back Pain (ED) Additional Instructions: Take medications as directed. Avoid prolonged sitting, standing, lying down. Try to walk at least once per hour. Follow up with her primary care physician for recheck in 1-2 days. Return to the emergency department for any new, worsening, or concerning symptoms. Prescriptions: Cyclobenzaprine [Flexeril] 5 mg PO BID #10 tablet Ibuprofen [Motrin] 600 mg PO Q8HR PRN #30 tab PRN Reason: Pain Is patient prescribed a controlled substance at d/c from ED?: No Referrals: Kassandra Gaxiola MD [Primary Care Provider] - 1-2 days Time of Disposition: 23:40
[2021-07-26 00:36] VITALS: BP 146/81; PULSE 82; TEMP 98.4
== END 2021-07-25 23:55 | disposition home or self-care (01) ==
LOC: EC 20:50
DX: M54.41 Lumbago with sciatica, right side (principal); J44.9 Chronic obstructive pulmonary disease, unspecified; E78.5 Hyperlipidemia, unspecified; Z91.018 Allergy to other foods; Z88.6 Allergy status to analgesic agent; Z88.7 Allergy status to serum and vaccine; Z79.899 Other long term (current) drug therapy
CPT/HCPCS: 99283 ×2; 96372 ×4; J2270; J1885

== ENCOUNTER → 2021-10-15 | Outpatient (CLI) | payer MEDICARE ==
[2021-10-15 10:13] LABS: Appearance,Urine Clear (Clear); Bilirubin,Urine Negative (Negative); Blood,Urine Negative (Negative); Color,Urine Yellow; Glucose,Urine (UA) Negative (Negative); Ketones,Urine Negative (Negative); Leukocyte Esterase,Urine Negative (Negative); Nitrite,Urine Negative (Negative); Protein,Urine Trace (Negative); Specific Gravity,Urine 1.015 (1.001-1.035); Urobilinogen,Urine <2.0 mg/dL (<2.0)
[2021-10-15 10:24] LABS: African American GFR (CKD) >90 (>60 ml/min/1.73 sqM); Anion Gap 6 mmol/L; Blood Urea Nitrogen 9 mg/dL (7-17); Calcium 8.7 mg/dL (8.4-10.2); Carbon Dioxide 25 mmol/L (22-30); Chloride 110 mmol/L (98-107); Glucose 102 mg/dL (74-99); Non-African American GFR(CKD) 84 (>60 ml/min/1.73 sqM); Sodium 141 mmol/L (137-145)
[2021-10-15 10:26] LABS: Prothrombin Time 10.9 sec (9.0-12.0)
[2021-10-15 10:27] LABS: HCT 42.5 % (34.0-46.0); HGB 13.1 gm/dL (11.4-16.0); Hypochromasia Moderate; MCH 27.4 pg (25.0-35.0); MCHC 30.9 g/dL (31.0-37.0); MCV 88.9 fL (80.0-100.0); Mean Platelet Volume 11.4; Platelet Count 118 k/uL (150-450); RBC 4.78 m/uL (3.80-5.40); RDW 15.6 % (11.5-15.5); WBC 4.2 k/uL (3.8-10.6)
[2021-10-15 11:54] LABS: Band Neutrophils % 1 %; Eosinophils # (M) 0.04 k/uL (0-0.7); Lymphocytes # (M) 0.46 k/uL (1.0-4.8); Monocytes # (M) 1.05 k/uL (0-1.0); Neutrophils % (M) 62 %; Nucleated Red Blood Cells 0 /100 WBC (0-0); Total Cells Counted 100
[2021-10-15 11:55] LABS: Anisocytosis (M) Present
--- NOTE | 2021-10-15 14:50 | XR ---
EXAMINATION TYPE: XR chest 2V DATE OF EXAM: 10/15/2021 COMPARISON: 03/06/2020 INDICATION: Short of breath TECHNIQUE: Single frontal view of the chest is obtained. FINDINGS: The heart size is normal. The pulmonary vasculature is normal. The lungs are clear. Pulmonary hilum appears somewhat prominent but stable over the interval. There is exaggeration of thoracic kyphosis in the upper thoracic spine. IMPRESSION: 1. No acute pulmonary process.
== END | disposition home or self-care (01) ==
LOC: LABPAT 08:24
PROVIDERS: ATTEND Orthopaedic Surgery Orthopaedic Surgery of the Spine
DX: Z01.812 Encounter for preprocedural laboratory examination (principal)
CPT/HCPCS: 36415; 71046; 80048; 81003; 85025; 85610; 85730; 87070

== ENCOUNTER 2021-12-05 15:35 | Inpatient (IN) | payer MEDICARE ==
--- NOTE | 2021-12-05 15:50 | ED ---
Fall HPI - General Stated Complaint: Fall-R hip injury Time Seen by Provider: 12/05/21 15:35 Source: patient, EMS Mode of arrival: EMS - History of Present Illness Initial Comments: This is a 68-year-old female with a history of COPD hyperlipidemia thyroid disorder spinal stenosis prior surgery and right femur who apparently fell in a chair gave way at her home today landing on her right hip complains or right hip pain. She was brought in by EMS clinically it appeared that she had a fractured right hip. No complaints of head neck or other injuries. She was given 4 mg of morphine sulfate with some relief of the pain. The current complaints modifying factors MD Complaint: fall - Related Data Home Medications Medication Instructions Recorded Confirmed Mometasone Furoate [Mometasone 2 drops BOTH EARS DAILY PRN 07/30/15 12/05/21 Furoate 0.1%] Simvastatin [Zocor] 40 mg PO HS 07/30/15 12/05/21 Fluticasone Nasal [place] [Flonase 2 spr EA NOSTRIL DAILY PRN 12/17/15 12/05/21 Nasal [place]] Carboxymethylcellulose Sodium 1 drop BOTH EYES BID PRN 04/02/16 12/05/21 [Refresh Tears] Cholecalciferol [Vitamin D3 (25 8,000 unit PO DAILY 04/02/16 12/05/21 Mcg = 1000 Iu)] Albuterol Sulfate [Proair Hfa] 2 puff INHALATION RT-Q6H PRN 06/05/19 12/05/21 Fluticasone Propionate [Flovent 1 puff INHALATION RT-BID 06/05/19 12/05/21 Hfa 110 mcg] Cyclobenzaprine [Flexeril] 5 mg PO BID PRN 10/22/21 12/05/21 Potassium Chloride [Potassium 10 meq PO DAILY 12/05/21 12/05/21 Chloride ER] Sennosides-Docusate Sodium 1 tab PO DAILY 12/05/21 12/05/21 [Senokot-S] Previous Rx's Medication Instructions Recorded Famotidine [Pepcid] 20 mg PO BID #30 tab 03/06/20 HYDROcodone/APAP 7.5-325MG [[place] 1 tab PO Q6HR PRN #28 tab 11/03/21 7.5-325] Allergies Allergy/AdvReac Type Severity Reaction Status Date / Time bee venom protein (honey bee) Allergy Anaphylaxis Verified 12/05/21 17:24 tetanus immune globulin Allergy Rash/Hives Verified 12/05/21 17:24 aspirin AdvReac NOSE BLEED Verified 12/05/21 17:24 Review of Systems ROS Statement: Those systems with pertinent positive or pertinent negative responses have been documented in the HPI. ROS Other: All systems not noted in ROS Statement are negative. Past Medical History Past Medical History: COPD, Hyperlipidemia, Thyroid Disorder Additional Past Medical History / Comment(s): edema, seasonal allergies to grass, trees and mold. History of Any Multi-Drug Resistant Organisms: None Reported Past Surgical History: Adenoidectomy, Appendectomy, Bowel Resection, Tonsillectomy Additional Past Surgical History / Comment(s): 3/4 thyroid removed, right leg and foot fracture repair, carple tunnel kim repair, parts of her ribs reomved from left upper chest, ovarian cyst, kim breast cysts removed, 1ft intestine removed for blockage, heart surgery, Anerysm repair in neck 07/2018. Right eye surgery, lumbar spine surgery, cage and screws placed Oct 2021 Past Anesthesia/Blood Transfusion Reactions: No Reported Reaction Additional Past Anesthesia/Blood Transfusion Reaction / Comment(s): Pt has received blood in past without reaction. Past Psychological History: No Psychological Hx Reported Smoking Status: Never smoker Past Alcohol Use History: None Reported Past Drug Use History: None Reported - Past Family History Father Family Medical History: No Reported History Additional Family Medical History / Comment(s): Father was healthty and lived to be 89yrs old. Mother Family Medical History: No Reported History Additional Family Medical History / Comment(s): Mother was healthy and lived to be 85 yrs old. General Exam - General Exam Comments Initial Comments: This a well-developed frail-appearing emails awake alert oriented 3 with a Glenn Coma Scale of 15 Limitations: physical limitation General appearance: alert, anxious Head exam: Present: atraumatic, normocephalic, normal inspection Eye exam: Present: normal appearance, PERRL, EOMI. Absent: scleral icterus, conjunctival injection, periorbital swelling ENT exam: Present: normal exam, mucous membranes moist Neck exam: Present: normal inspection, full ROM. Absent: tenderness, meningismus, lymphadenopathy Respiratory exam: Present: normal lung sounds bilaterally. Absent: respiratory distress, wheezes, rales, rhonchi, stridor Cardiovascular Exam: Present: regular rate, normal rhythm, normal heart sounds. Absent: systolic murmur, diastolic murmur, rubs, gallop, clicks GI/Abdominal exam: Present: soft, normal bowel sounds. Absent: distended, tenderness, guarding, rebound, rigid Rectal exam: Present: deferred Extremities exam: Present: tenderness, normal capillary refill, other (Tenderness palpation of the right proximal femur lateral rotation and shortening noted. No tenderness palpation of the foot ankle tib-fib or knee on that side. No pelvic tenderness). Absent: full ROM, pedal edema, joint swelling, calf tenderness Back exam: Present: normal inspection Neurological exam: Present: alert, oriented X3, CN II-XII intact Psychiatric exam: Present: normal affect, normal mood Skin exam: Present: warm, dry, intact, normal color. Absent: rash Course Vital Signs 12/05/21 12/05/21 15:42 18:08 Temperature 99.0 F Pulse Rate 97 90 Respiratory 18 18 Rate Blood Pressure 136/82 119/59 O2 Sat by Pulse 94 L 96 Oximetry Medical Decision Making - Medical Decision Making I did discuss findings with patient family members were present also with Dr. Chris patient will be admitted for medical clearance for Dr. Montejo's group patient was still having pain she did receive more pain medication. - EKG Data -: EKG Interpreted by Me EKG shows normal: sinus rhythm Rate: normal (Sinus rhythm rate 90. Interval 139 QRS duration 90 QT since QTC 394/442 nonspecific lateral changes) - Radiology Data Radiology results: report reviewed, image reviewed (Imaging reviewed and evidence of a surgical neck fracture right hip) Disposition Clinical Impression: Closed right hip fracture Disposition: ADMITTED IP TO THIS [facility] Condition: Stable Referrals: Kassandra Gaxiola MD [Primary Care Provider] - 1-2 days
[2021-12-05] MEDS ORDERED: MORPHINE SULFATE 2 MG/ML SYRINGE IVP STA (15:57)
--- NOTE | 2021-12-05 16:44 | XR ---
EXAMINATION TYPE: XR pelvis AP view, XR femur RT DATE OF EXAM: 12/05/2021 COMPARISON: X-ray dated 06/07/2019 and 07/17/2013 INDICATION: Pain after fall TECHNIQUE: Single AP view of the pelvis with standard 4 views of the right femur. FINDINGS: Diffuse osteopenia. Previous lumbosacral fixation using 2 rods and 4 screws with no hardware break. M ild degenerative changes of the hip joints. Degenerative changes with near ankylosis of the sacroilia c joints. No definite acute pelvic bone fracture identified. Previous right femoral fixation using an intramedullary nail and interlocking screw. No evidence of p rosthesis break. Partially healed fracture of the femoral diaphysis fracture, grossly stable since 20 19 x-ray with stable slight malalignment. Subtle nondisplaced fracture at the old fracture site canno t be excluded. Very subtle linear lucency is seen at the most superior aspect of the right femoral neck at its junct ion with the greater trochanter, possibly artifactual rather than a subtle nondisplaced fracture, ple ase correlate clinically. IMPRESSION: Questionable very subtle nondisplaced fracture at the junction of the right femoral neck and right fe moral greater trochanter versus artifact, please correlate clinically. No other definite obvious frac ture identified.
[2021-12-05] MEDS ORDERED: HYDROmorphone 0.5 MG/0.5 ML SYRINGE IVP STA (16:49)
--- NOTE | 2021-12-05 17:04 | XR ---
EXAMINATION: XR chest 2V DATE AND TIME: 12/05/2021 4:19 PM CLINICAL INDICATION: Pain; fall TECHNIQUE: AP and lateral COMPARISON: 10/31/2021 FINDINGS: There is architectural distortion, with asymmetry of the position of the shoulders/clavicles. No definite acute pulmonary process. The pleural spaces are negative. The cardiac silhouette is not enlarged. The remainder of the mediastinal silhouette is unremarkable. The skeletal structures are negative for fracture or malalignment. The soft tissues are negative for acute findings. IMPRESSION: No acute radiographic process.
[2021-12-05] MEDS ORDERED: LORazepam 2 MG/ML INJ IM STA (18:34)
[2021-12-05] MEDS ORDERED: HYDROmorphone 1 MG/ML 1 ML SYRINGE IVP STA (18:34)
[2021-12-05] MEDS ORDERED: LORazepam 2 MG/ML INJ IV STA (18:50)
--- NOTE | 2021-12-05 18:52 | CT ---
EXAMINATION TYPE: CT hip RT wo con DATE OF EXAM: 12/05/2021 COMPARISON: Same day radiographs HISTORY: Fall, right hip pain. CT DLP: 509 mGycm Automated exposure control for dose reduction was used. FINDINGS: Imaging FOV obtained from the right hemisacrum down to the distal right femoral shaft. There is an apex-anterior intertrochanteric right femoral neck fracture. The right femoral IM radha appears intact. The acetabulum is intact. There are no other fractures. Soft tissues are unremarkable. IMPRESSION: RIGHT FEMORAL NECK FRACTURE.
[2021-12-05] MEDS ORDERED: NALOXONE 0.4 MG/ML 1 ML VIAL IV PRN (18:59)
[2021-12-05 19:04] LABS: ALT 10 U/L (4-34); AST 21 U/L (14-36); African American GFR (CKD) >90 (>60 ml/min/1.73 sqM); Albumin 3.8 g/dL (3.5-5.0); Alkaline Phosphatase 84 U/L (38-126); Anion Gap 8 mmol/L; Blood Urea Nitrogen 10 mg/dL (7-17); Calcium 8.1 mg/dL (8.4-10.2); Carbon Dioxide 28 mmol/L (22-30); Chloride 105 mmol/L (98-107); Creatine Kinase <20 U/L (30-135); Glucose 108 mg/dL (74-99); Magnesium 1.9 mg/dL (1.6-2.3); Non-African American GFR(CKD) 85 (>60 ml/min/1.73 sqM); Sodium 141 mmol/L (137-145); Total Bilirubin 0.5 mg/dL (0.2-1.3); Total Protein 6.9 g/dL (6.3-8.2)
[2021-12-05 19:08] LABS: Appearance,Urine Clear (Clear); Bilirubin,Urine Negative (Negative); Blood,Urine Negative (Negative); Color,Urine Light Yellow; Glucose,Urine (UA) Negative (Negative); Ketones,Urine Negative (Negative); Leukocyte Esterase,Urine Negative (Negative); Nitrite,Urine Negative (Negative); PH, Urine 6.5 (5.0-8.0); Protein,Urine Negative (Negative); Specific Gravity,Urine 1.007 (1.001-1.035); Urobilinogen,Urine <2.0 mg/dL (<2.0)
[2021-12-05 19:17] LABS: HGB 11.8 gm/dL (11.4-16.0); Hypochromasia Moderate; MCH 26.5 pg (25.0-35.0); MCHC 31.1 g/dL (31.0-37.0); MCV 85.2 fL (80.0-100.0); Mean Platelet Volume 11.3; Platelet Count 127 k/uL (150-450); RBC 4.46 m/uL (3.80-5.40); RDW 15.9 % (11.5-15.5); WBC 6.3 k/uL (3.8-10.6)
[2021-12-05 19:20] LABS: Partial Thromboplastin Time 26.1 sec (22.0-30.0); Prothrombin Time 11.1 sec (9.0-12.0)
[2021-12-05 20:14] LABS: Band Neutrophils % 1 %; Hypersegmented Neutrophils Present; Lymphocytes # (M) 0.88 k/uL (1.0-4.8); Metamyelocytes # (M) 0.06 k/uL (0); Metamyelocytes % 1 %; Monocytes # (M) 1.26 k/uL (0-1.0); Neutrophils % (M) 65 %; Nucleated Red Blood Cells 0 /100 WBC (0-0); Total Cells Counted 200
[2021-12-05] MEDS: HYDROmorphone 1 MG/ML 1 ML SYRINGE IVP PRN (22:45)
[2021-12-06] MEDS: SODIUM CHLORIDE 0.9% 1,000 ML IV SCH ×3 (00:16→11:44)
[2021-12-06] MEDS: HEPARIN SODIUM,PORCINE/PF 5,000 UNIT/0.5 ML SYRINGE SQ SCH ×3 (00:17→22:10)
[2021-12-06] MEDS ORDERED: Potassium Replacement Protocol 1 EACH MISC MISCELLANE PRN (02:39)
[2021-12-06] MEDS: POTASSIUM CHLORIDE ER 20 MEQ TAB.ER PO SCH ×2 (03:06→03:55)
[2021-12-06] MEDS: HYDROmorphone 1 MG/ML 1 ML SYRINGE IVP PRN ×4 (03:06→12:39)
[2021-12-06] MEDS ORDERED: FLUTICASONE 50MCG/SPRAY NASAL 16GM EA NOSTRIL PRN (08:09)
[2021-12-06] MEDS ORDERED: ARTIFICIAL TEARS-HYPROMELLOSE DROPS 15 ML BTL BOTH EYES PRN (08:09)
[2021-12-06] MEDS ORDERED: POTASSIUM CHLORIDE ER 20 MEQ TAB.ER PO STA (08:29)
--- NOTE | 2021-12-06 08:40 | P.CONS ---
History of Present Illness - Reason for Consult The operative clearance - History of Present Illness 76-year-old female was admitted after a mechanical fall and found to have right femoral neck fracture. Patient will undergo surgery today. Patient is fairly functional and lives by herself. Patient had a recent spinal surgery which she tolerated very well. Patient does have history of COPD although as per the patient patient never smoked and denies any present smoking history. Patient had an EKG which showed some nonspecific T-wave changes in the lateral leads although these are not new. Patient presently doesn't have any chest pain patient denied any shortness of breath, denied any history of congestive heart failure. REVIEW OF SYSTEMS: CONSTITUTIONAL: No fever, no malaise, no fatigue. HEENT: No recent visual problems or hearing problems. Denied any sore throat. CARDIOVASCULAR: No chest pain, orthopnea, PND, no palpitations, no syncope. PULMONARY: No shortness of breath, no cough, no hemoptysis. GASTROINTESTINAL: No diarrhea, no nausea, no vomiting, no abdominal pain. NEUROLOGICAL: No headaches, no weakness, no numbness. HEMATOLOGICAL: Denies any bleeding or petechiae. GENITOURINARY: Denies any burning micturition, frequency, or urgency. MUSCULOSKELETAL/RHEUMATOLOGICAL: As mentioned in HPI ENDOCRINE: Denies any polyuria or polydipsia. The rest of the 14-point review of systems is negative. PHYSICAL EXAMINATION: GENERAL: The patient is alert and oriented x3, not in any acute distress. Thin built HEENT: Pupils are round and equally reacting to light. EOMI. No scleral icterus. No conjunctival pallor. Normocephalic, atraumatic. No pharyngeal erythema. No thyromegaly. CARDIOVASCULAR: S1 and S2 present. No murmurs, rubs, or gallops. PULMONARY: Chest is clear to auscultation, no wheezing or crackles. ABDOMEN: Soft, nontender, nondistended, normoactive bowel sounds. No palpable organomegaly. MUSCULOSKELETAL: Deferred to orthopedic surgery EXTREMITIES: No cyanosis, clubbing, or pedal edema. NEUROLOGICAL: Gross neurological examination did not reveal any focal deficits. SKIN: No rashes. Assessment and plan - preoperative clearance for right hip surgery: Patient is a low operative risk for surgery. -Hyperlipidemia--hypothyroidism COPD without any acute exacerbation -Chronic back pain with recent back surgery DVT prophylaxis: Per primary service Past Medical History Past Medical History: COPD, Hyperlipidemia, Thyroid Disorder Additional Past Medical History / Comment(s): edema, seasonal allergies to grass, trees and mold. History of Any Multi-Drug Resistant Organisms: None Reported Past Surgical History: Adenoidectomy, Appendectomy, Bowel Resection, Tonsillectomy Additional Past Surgical History / Comment(s): 3/4 thyroid removed, right leg and foot fracture repair, carple tunnel kim repair, parts of her ribs reomved from left upper chest, ovarian cyst, kim breast cysts removed, 1ft intestine removed for blockage, heart surgery, Anerysm repair in neck 07/2018. Right eye surgery, lumbar spine surgery, cage and screws placed Oct 2021 Past Anesthesia/Blood Transfusion Reactions: No Reported Reaction Additional Past Anesthesia/Blood Transfusion Reaction / Comm: Pt has received blood in past without reaction. Past Psychological History: No Psychological Hx Reported Additional Psychological History / Comment(s): . Children are close by. No tobacco use. Retired Smoking Status: Never smoker Past Alcohol Use History: None Reported Additional Past Alcohol Use History / Comment(s): Lifelong nonsmoker. No illicit drug use, no alcohol use. Patient's daughter and granddaughter currently living with her. Patient has her own dog and her daughters to dogs in the home. She is retired. Past Drug Use History: None Reported - Past Family History Father Family Medical History: No Reported History Additional Family Medical History / Comment(s): Father was healthty and lived to be 89yrs old. Mother Family Medical History: No Reported History Additional Family Medical History / Comment(s): Mother was healthy and lived to be 85 yrs old. Medications and Allergies Home Medications Medication Instructions Recorded Confirmed Type Mometasone Furoate [Mometasone 2 drops BOTH EARS DAILY PRN 07/30/15 12/05/21 History Furoate 0.1%] Simvastatin [Zocor] 40 mg PO HS 07/30/15 12/05/21 History Fluticasone Nasal [place] [Flonase 2 spr EA NOSTRIL DAILY PRN 12/17/15 12/05/21 History Nasal [place]] Carboxymethylcellulose Sodium 1 drop BOTH EYES BID PRN 04/02/16 12/05/21 History [Refresh Tears] Cholecalciferol [Vitamin D3 (25 8,000 unit PO DAILY 04/02/16 12/05/21 History Mcg = 1000 Iu)] Albuterol Sulfate [Proair Hfa] 2 puff INHALATION RT-Q6H PRN 06/05/19 12/05/21 History Fluticasone Propionate [Flovent 1 puff INHALATION RT-BID 06/05/19 12/05/21 History Hfa 110 mcg] Famotidine [Pepcid] 20 mg PO BID #30 tab 03/06/20 12/05/21 Rx Cyclobenzaprine [Flexeril] 5 mg PO BID PRN 10/22/21 12/05/21 History HYDROcodone/APAP 7.5-325MG [[place] 1 tab PO Q6HR PRN #28 tab 11/03/21 12/05/21 Rx 7.5-325] Potassium Chloride [Potassium 10 meq PO DAILY 12/05/21 12/05/21 History Chloride ER] Sennosides-Docusate Sodium 1 tab PO DAILY 12/05/21 12/05/21 History [Senokot-S] Allergies Allergy/AdvReac Type Severity Reaction Status Date / Time bee venom protein (honey bee) Allergy Anaphylaxis Verified 12/05/21 17:24 tetanus immune globulin Allergy Rash/Hives Verified 12/05/21 17:24 aspirin AdvReac NOSE BLEED Verified 12/05/21 17:24 Physical Exam Vitals: Vital Signs Temp Pulse Pulse Resp BP BP Pulse Ox 12/06/21 06:49 98.4 F 85 17 103/59 91 L 12/06/21 01:29 97.7 F 90 14 114/67 95 12/05/21 22:27 98.5 F 87 14 110/66 92 L 12/05/21 21:42 77 16 149/79 98 12/05/21 18:08 90 18 119/59 96 12/05/21 15:42 99.0 F 97 18 136/82 94 L Intake and Output 12/05/21 12/06/21 12/06/21 22:59 06:59 14:59 Output Total 500 Balance -500 Output: Urine 500 Other: Weight 49.895 kg Results CBC & Chem 7: 12/05/21 18:44 12/05/21 18:44 Labs: Abnormal Lab Results - Last 24 Hours (Table) 12/05/21 12/05/21 Range/Units 18:44 18:44 RDW 15.9 H (11.5-15.5) % Plt Count 127 L (150-450) k/uL Lymphocytes # (Manual) 0.88 L (1.0-4.8) k/uL Monocytes # (Manual) 1.26 H (0-1.0) k/uL Metamyelocytes # (Man) 0.06 H (0) k/uL Potassium 3.0 L (3.5-5.1) mmol/L Glucose 108 H (74-99) mg/dL Calcium 8.1 L (8.4-10.2) mg/dL Creatine Kinase <20 L (30-135) U/L
[2021-12-06 10:08] LABS: African American GFR (CKD) 101.2 (60.0-200.0); Anion Gap 13.2 mmol/L (10.00-18.00); BUN/Creat Ratio 15.5 Ratio (12.00-20.00); Blood Urea Nitrogen 9.3 mg/dL (9.0-27.0); Calcium 8.5 mg/dL (8.7-10.3); Carbon Dioxide 23.8 mmol/L (20.0-27.5); Non-African American GFR(CKD) 87.3 (60.0-200.0); Potassium 3.8 mmol/L (3.5-5.5)
[2021-12-06] MEDS: POTASSIUM CHLORIDE ER 10 MEQ TAB.ER.PRT PO SCH (10:23)
[2021-12-06] MEDS: CHOLECALCIFEROL 125 MCG (5000 IU) TABLET PO SCH (10:26)
[2021-12-06] MEDS: FAMOTIDINE 20 MG TAB PO SCH ×2 (10:26→22:09)
[2021-12-06] MEDS: SENNOSIDES-DOCUSATE SODIUM 1 EACH TAB PO SCH (10:27)
--- NOTE | 2021-12-06 10:54 | P.HPOR ---
History of Present Illness H&P Date: 12/06/21 This patient is a 76-year-old female with past medical history COPD, hyperlipidemia, thyroid disorder that presented to [facility] emergency department yesterday 12/05/21 with complaints of right hip pain following a fall at home. The patient states she was walking at home holding onto a chair, when the chair pushed forward and she fell onto the right hip. She was unable to get up off the floor or ambulate. She was able to reach the phone and call her daughter, who called EMS. Patient was transported to [facility] emergency department. X-rays and CT scan of the right hip in the emergency department revealed a right femoral neck fracture. Patient was admitted under the care of orthopedic surgery with a consult placed to internal medicine for preoperative medical clearance. Patient is seen and examined bedside morning. She is complaining of isolated right hip pain. She also notes chronic low back pain. Patient has history of recent lumbar spine surgery by Dr. Quinones. 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 Patient states her pain is manageable at this time. She has no additional complaints. She states she does not take blood thinners. She has not eaten since yesterday. She denies numbness or tingling of the bilateral lower extremities. Vital signs stable. Past Medical History Past Medical History: COPD, Hyperlipidemia, Thyroid Disorder Additional Past Medical History / Comment(s): edema, seasonal allergies to grass, trees and mold. History of Any Multi-Drug Resistant Organisms: None Reported Past Surgical History: Adenoidectomy, Appendectomy, Bowel Resection, Tonsillectomy Additional Past Surgical History / Comment(s): 3/4 thyroid removed, right leg an d foot fracture repair, carple tunnel kim repair, parts of her ribs reomved from left upper chest, ovarian cyst, kim breast cysts removed, 1ft intestine removed for blockage, heart surgery, Anerysm repair in neck 07/2018. Right eye surgery, lumbar spine surgery, cage and screws placed Oct 2021 Past Anesthesia/Blood Transfusion Reactions: No Reported Reaction Additional Past Anesthesia/Blood Transfusion Reaction / Comment(s): Pt has received blood in past without reaction. Past Psychological History: No Psychological Hx Reported Additional Psychological History / Comment(s): . Children are close by. No tobacco use. Retired Smoking Status: Never smoker Past Alcohol Use History: None Reported Additional Past Alcohol Use History / Comment(s): Lifelong nonsmoker. No illicit drug use, no alcohol use. Patient's daughter and granddaughter currently living with her. Patient has her own dog and her daughters to dogs in the home. She is retired. Past Drug Use History: None Reported - Past Family History Father Family Medical History: No Reported History Additional Family Medical History / Comment(s): Father was healthty and lived to be 89yrs old. Mother Family Medical History: No Reported History Additional Family Medical History / Comment(s): Mother was healthy and lived to be 85 yrs old. Medications and Allergies Home Medications Medication Instructions Recorded Confirmed Type Mometasone Furoate [Mometasone 2 drops BOTH EARS DAILY PRN 07/30/15 12/05/21 History Furoate 0.1%] Simvastatin [Zocor] 40 mg PO HS 07/30/15 12/05/21 History Fluticasone Nasal [place] [Flonase 2 spr EA NOSTRIL DAILY PRN 12/17/15 12/05/21 History Nasal [place]] Carboxymethylcellulose Sodium 1 drop BOTH EYES BID PRN 04/02/16 12/05/21 History [Refresh Tears] Cholecalciferol [Vitamin D3 (25 8,000 unit PO DAILY 04/02/16 12/05/21 History Mcg = 1000 Iu)] Albuterol Sulfate [Proair Hfa] 2 puff INHALATION RT-Q6H PRN 06/05/19 12/05/21 History Fluticasone Propionate [Flovent 1 puff INHALATION RT-BID 06/05/19 12/05/21 History Hfa 110 mcg] Famotidine [Pepcid] 20 mg PO BID #30 tab 03/06/20 12/05/21 Rx Cyclobenzaprine [Flexeril] 5 mg PO BID PRN 10/22/21 12/05/21 History HYDROcodone/APAP 7.5-325MG [[place] 1 tab PO Q6HR PRN #28 tab 11/03/21 12/05/21 Rx 7.5-325] Potassium Chloride [Potassium 10 meq PO DAILY 12/05/21 12/05/21 History Chloride ER] Sennosides-Docusate Sodium 1 tab PO DAILY 12/05/21 12/05/21 History [Senokot-S] Allergies Allergy/AdvReac Type Severity Reaction Status Date / Time bee venom protein (honey bee) Allergy Anaphylaxis Verified 12/05/21 17:24 tetanus immune globulin Allergy Rash/Hives Verified 12/05/21 17:24 aspirin AdvReac NOSE BLEED Verified 12/05/21 17:24 Physical Examination On examination, the patient is sitting up in bed in no apparent distress. She is alert and oriented 3. Her head appears normocephalic and atraumatic. Her breathing appears nonlabored. On inspection of the bilateral upper extremities, there are no obvious deformities or signs of trauma. On inspection of her left lower extremity, there are no obvious deformities or signs of trauma. No pain with passive range of motion of the left hip. On inspection of the right lower extremity, the extremity is short and externally rotated. There is diffuse pain with palpation of the right hip, range of motion of the right hip is not tested at this time. No pain with palpation of the right knee, lower leg, ankle, foot. Right lower extremity is warm and well perfused with brisk capillary refill distally. Patient has good strength and range of motion of the right ankle and toes. Motor and sensory function is intact of the right lower extremity. Calves are soft and nontender to palpation bilaterally. Results Right hip, femur x-ray 12/05/21: Acute basicervical femoral neck fracture with evidence of a prior intramedullary radha of the right femur. Prior femur fracture appears healed. - Labs Labs: Abnormal Lab Results - Last 24 Hours (Table) 12/05/21 12/05/21 12/06/21 Range/Units 18:44 18:44 05:28 RDW 15.9 H (11.5-15.5) % Plt Count 127 L (150-450) k/uL Lymphocytes # (Manual) 0.88 L (1.0-4.8) k/uL Monocytes # (Manual) 1.26 H (0-1.0) k/uL Metamyelocytes # (Man) 0.06 H (0) k/uL Potassium 3.0 L (3.5-5.1) mmol/L Glucose 108 H (74-99) mg/dL Calcium 8.1 L 8.5 L (8.4-10.2) mg/dL Creatine Kinase <20 L (30-135) U/L H & H 12/05/21 Range/Units 18:44 Hgb 11.8 (11.4-16.0) gm/dL Hct 38.0 (34.0-46.0) % Coagulation 12/05/21 Range/Units 18:40 INR 1.0 (<1.2) Result Diagrams: 12/05/21 18:44 12/06/21 05:28 Assessment and Plan Assessment: Right basicervical femoral neck fracture History of intramedullary radha of right femur in 2012 Plan: - The clinical and imaging findings were discussed with the patient. The patient was discussed in detail Dr. Petty. Recommend removal of right femoral nail and insertion of long gamma nail today, pending medical clearance and consent. Patient gave verbal consent for procedure bedside today. - Non-weight bearing right lower extremity. - Pain medication as needed. - Internal medicine consulted for pre-op medical clearance. - NPO diet. Will plan for OR this afternoon.
[2021-12-06] MEDS ORDERED: TRANEXAMIC ACID 1,000 MG in SODIUM CHLORIDE 0.9% 100 ML IVPB ONE ×4 (11:05)
[2021-12-06] MEDS ORDERED: LACTATED RINGERS 1,000 ML IV ONE (14:47)
[2021-12-06] MEDS ORDERED: fentaNYL (PF) 50 MCG/ML 2 ML AMP IVP ONE (15:15)
[2021-12-06 15:34] LABS: Glucose,Whole Blood 91 mg/dL (75-99)
[2021-12-06] MEDS ORDERED: TRANEXAMIC ACID 1,000 MG/10 ML VIAL ONE (16:40)
[2021-12-06] MEDS ORDERED: PROPOFOL 10 MG/ML 20 ML VIAL IV ONE (16:40)
[2021-12-06] MEDS ORDERED: PHENYLEPHRINE-0.9% NACL SYG 1,000 MCG/10 ML SYRINGE ONE (16:40)
[2021-12-06] MEDS ORDERED: SUCCINYLCHOLINE CHLORIDE 100 MG/5 ML SYR IV ONE (16:40)
[2021-12-06] MEDS ORDERED: LIDOCAINE 1% INJ 10MG/ML (20 ML MDV) ONE (16:40)
[2021-12-06] MEDS ORDERED: NEOSTIGMINE 1 MG/ML 10 ML VIAL ONE (16:40)
[2021-12-06] MEDS ORDERED: HYDROmorphone (PF) 1 MG/ML ONE (16:40)
[2021-12-06] MEDS ORDERED: ROCURONIUM 10 MG/ML (5 ML VIAL) IV ONE (16:40)
[2021-12-06] MEDS ORDERED: GLYCOPYRROLATE 0.2 MG/ML 2 ML VIAL ONE (16:40)
[2021-12-06] MEDS ORDERED: fentaNYL (PF) 50 MCG/ML 2 ML AMP ONE (16:40)
[2021-12-06] MEDS ORDERED: SODIUM CHLORIDE 0.9% 100 ML BAG ONE (16:40)
[2021-12-06] MEDS ORDERED: ESMOLOL 100 MG/10 ML VIAL ONE (16:40)
[2021-12-06] MEDS ORDERED: SODIUM CHLORIDE 0.9% 100 ML with ceFAZolin 1,000 MG IV ONE ×2 (16:45)
--- NOTE | 2021-12-06 18:47 | FL ---
Fluoroscopy HISTORY: Nail insertion MR fracture 1.2 minutes fluoroscopy time supplied to the referring clinician. 6 intraoperative C-arm images docu ment the procedure. See dictated report from orthopedic surgery.
[2021-12-06] MEDS ORDERED: NEOMYCIN-BACITRACIN-POLY OINT 14 GM TUBE TOPICAL ONE (18:51)
[2021-12-06] MEDS ORDERED: ONDANSETRON 4 MG/2 ML VIAL IVP PRN (18:57)
[2021-12-06] MEDS ORDERED: HYDROcodone/APAP 5-325MG 1 EACH TAB PO PRN (18:57)
[2021-12-06] MEDS ORDERED: HYDROmorphone 1 MG/ML 1 ML SYRINGE IVP PRN ×3 (19:01)
--- NOTE | 2021-12-06 19:11 | P.OP ---
Date of Procedure: 12/06/21 Preoperative Diagnosis: 1. Right basicervical femoral neck fracture 2. History of right proximal third diaphyseal femur fracture status post antegrade intramedullary nail (by another provider) with resulting malunion 3. Osteoporosis 4. COPD Postoperative Diagnosis: same Procedure(s) Performed: 1. Operative fixation of right intertrochanteric/basicervical femoral neck fracture fracture with long Intra-medullary hip screw 2. Removal of right femoral nail 3. Application of negative pressure incisional wound VAC right hip, 20-cm Implants: [id number] Gil Gamma Nail 85 mm lag screw 45 mm distal interlocking screw Anesthesia: GETA Surgeon: Ferny Petty Industrial Technologist #1: Maria Elena Reyes Estimated Blood Loss (ml): 200 IV fluids (ml): 1,200 Urine output (ml): 150 Pathology: none sent Condition: stable Disposition: PACU Indications for Procedure: I met with the patient and their family preoperatively to discuss their injury and treatment options. They have an extra-capsular, basicervical femoral neck fracture. There is also an antegrade femoral nail from prior treatment of a proximal 1/3 diaphyseal femur fracture treated in [address] Segura. The post operative course of that procedure was complicated by infection and delayed union. There was an attempt to remove the distal interlocking screw to dynamize the fracture. The patient was admitted under the care of my partner, Dr. Chris and I was asked to assume care. The patient was cleared for surgery. I recommended removing the IM nail and placing a long gamma nail. We discussed the potential risks and complications of this surgical procedure including but certainly not limited to risks from anesthesia, superficial infection, deep infection, fracture nonunion, fracture malunion, hardware failure including broken hardware, varus collapse with lag screw cut out of the femoral head, progression of hip arthritis, limb length discrepancy, symptomatic hardware, need for further surgery including hardware removal and conversion to arthroplasty, DVT, PE, acute coronary event, pressure ulcers, urinary tract infection, failure to thrive, an inability to regain preinjury level of function, and possibly . The patient and their family understand these potential complications and also awknowledge that other less common complications are possible. the patient and her daughter understand the elevated risk given her prior fracture, poor bone quality, malunion and complications from her prior surgery. They provided both their verbal and written consent to go forward with operative fixation of their hip fracture with an intramedullary hip screw. Description of Procedure: The patient was identified in preoperative holding and the correct operative extremity was marked with my initials. I reviewed the consent form with the patient and their family and all of their questions were answered. The patient was then brought back to the operating room by anesthesia. Anesthesia, p reoperative antibiotics, and tranexamic acid were given by the anesthesia team while on the gurney. Both ankles were padded with webril and boots for the Mar Lin table were applied. The patient was then carefully transferred onto the Mar [place] table. A perineal post was immediately placed. The contralateral arm was secured on a well-padded arm duke. The ipsilateral arm was draped across the chest and secured with a pillow, foam, and paper tape to allow access to the proximal femur. Nonsterile drapes were applied to the operative extremity. The height of the table was elevated and the contralateral extremity was dropped towards the floor to facilitate imaging. A timeout was performed identifying the correct patient, operative extremity, and procedure. Fluoroscopy was brought in to assess the fracture. A provisional reduction was performed using longitudinal traction, adduction, and internal rotation. An AP and lateral view were obtained to assess the reduction. The operative extremity was then prepped and draped in the standard sterile fashion. The prior scare over the lateral aspect of the proximal femur was marked out and skin and subcutaneous tissues were incised sharply. The underlying fascia was incised in line with the skin incision. I then dissected down to the greater trochanter and found the nail. A universal extraction device was threaded into the proximal aspect of the nail. The proximal interlocking screw was identified and removed. The nail was then easily removed. A long ball-tipped guidewire was placed. An opening reamer and soft tissue cannula were placed over the guidepin and used to open the proximal femur to the level of the lesser trochanter. I measured over the guide wire after the wire was placed distally. A long gamma nail was dispensed, hooked up to the targeting arm and I verified that the trochar through the targeting arm lined up with the slots on the nail. The nail was then impacted into the proximal femur until the appropriate depth had been reached. The trocar was then placed up to the lateral cortex of the femur and a guidepin was placed in the center position on the AP view and centered in the femoral head on the lateral view. Once the position of the guidewire was verified, we reamed to appropriate depth and placed a lag screw over the guidewire and into the femoral head. The position of the lag screw was assessed with fluoroscopy. The guidewire was then removed from the femoral head. The set screw was placed proximally, brought fully down and then released a quarter turn to allow compression. A distal interlocking screw was placed using perfect circles and freehand technique. Final fluoroscopic images were taken showing excellent reduction of the fracture and appropriate position of the implants. A ll wounds were thoroughly irrigated and closed in layers. Due to the patient's soft tissue quality and this being a revision procedure, I elected to place an incisional Prevena wound VAC. The proximal incision measured 20-cm. The drapes were taken down, the patient was transferred off the Mar Lin table, and was brought to recovery having tolerated the procedure well. Maria Elena Reyes PA-C was required as a skilled emergency medicine physician assistant for patient positioning, retraction, placement of implants, closure of wounds, and application of dressings. PLAN: The patient will be Toe-touch weight bearing on her operative extremity given her poor bone quality. 2 doses of postoperative antibiotics. DVT prophylaxis with aspirin 81 mg twice a day starting the day of surgery. Dressing change on postoperative day #2. Appreciate Internal Medical assistance with perioperative medical management. Discharge planning and process.
[2021-12-06] MEDS ORDERED: METOPROLOL TARTRATE 5 MG/5 ML VIAL IVP ONE (19:30)
[2021-12-06] MEDS: FLUTICASONE 110 MCG INHALER INHALATION SCH (21:06)
[2021-12-06] MEDS: ATORVASTATIN 20 MG TAB PO SCH (22:10)
[2021-12-06] MEDS: CYCLOBENZAPRINE 5 MG TAB PO PRN (22:14)
[2021-12-06] MEDS: HYDROcodone/APAP 5-325MG 1 EACH TAB PO PRN (22:30)
[2021-12-07] MEDS: SODIUM CHLORIDE 0.9% 1,000 ML IV SCH ×2 (01:56→12:26)
[2021-12-07] MEDS: HYDROcodone/APAP 5-325MG 1 EACH TAB PO PRN ×4 (03:50→21:17)
[2021-12-07] MEDS: FLUTICASONE 110 MCG INHALER INHALATION SCH ×2 (08:07→19:25)
[2021-12-07] MEDS: ALBUTEROL NEBULIZED 2.5 MG/3 ML INHALATION PRN ×3 (08:07→19:25)
[2021-12-07] MEDS: HEPARIN SODIUM,PORCINE/PF 5,000 UNIT/0.5 ML SYRINGE SQ SCH ×2 (09:24→20:02)
[2021-12-07] MEDS: FAMOTIDINE 20 MG TAB PO SCH ×2 (09:24→20:02)
[2021-12-07] MEDS: POTASSIUM CHLORIDE ER 10 MEQ TAB.ER.PRT PO SCH (09:24)
[2021-12-07] MEDS: CHOLECALCIFEROL 125 MCG (5000 IU) TABLET PO SCH (09:24)
[2021-12-07] MEDS: SENNOSIDES-DOCUSATE SODIUM 1 EACH TAB PO SCH (09:24)
[2021-12-07 10:50] LABS: Basophils # (A) 0.02 X 10*3/uL (0.00-0.10); Basophils % (A) 0.1 %; Eosinophils # (A) 0.01 X 10*3/uL (0.04-0.35); Eosinophils % (A) 0 %; HGB 8.3 g/dL (12.0-15.0); Immature Grans, Automated 1.4 %; Lymphocytes # (A) 0.56 X 10*3/uL (0.90-5.00); Lymphocytes % (A) 2.7 %; MCH 25.8 pg (27.0-32.0); MCHC 28.6 g/dL (32.0-37.0); MCV 90.1 fL (80.0-97.0); Mean Platelet Volume 13.3 fL (9.5-12.2); Monocytes # (A) 8.05 X 10*3/uL (0.20-1.00); Monocytes % (A) 38.9 %; NRBC Per 100 WBC 0 /100 WBCS (0.0-0.0); Neutrophils # (A) 11.75 X 10*3/uL (1.80-7.70); Neutrophils % (A) 56.9 %; Platelet Count 112 X 10*3/uL (140-440); RBC 3.22 X 10*6/uL (4.10-5.20); RDW 15.9 % (11.5-14.5); WBC 20.69 X 10*3/uL (4.50-10.00)
--- NOTE | 2021-12-07 13:11 | P.PN ---
Subjective Progress Note Date: 12/07/21 This patient is a 76- year old female who is status-post operative fixation of right intertrochanteric/basicervical femoral neck fracture fracture with long IM hip screw and removal of right femoral nail on 12/06/[address] Petty. Today is post-operative day #1. Patient is seen and examined bedside. She states her right hip pain has improved and her hip feels better after having surgery. She has not yet been up with physical therapy. She feels well and has no complaints this morning. She denies chest pain, shortness of breath, nausea, vomiting. Vital signs stable. Objective - Vital Signs Vital signs: Vital Signs Temp 98.8 F 12/07/21 07:39 Pulse 109 H 12/07/21 08:23 Resp 18 12/07/21 07:39 BP 106/60 12/07/21 07:39 Pulse Ox 94 L 12/07/21 07:39 Intake & Output 12/06/21 12/07/21 12/07/21 18:59 06:59 18:59 Intake Total 900 50 Output Total 700 350 Balance 200 -300 Intake: IV 900 50 Output: Urine 500 350 Estimated Blood Loss 200 Other: Voiding Method Indwelling Catheter Indwelling Catheter Indwelling Catheter # Voids 1 - Exam On examination, patient is sitting up in bed in no acute distress. She is alert and orientated x3. On inspection of the right hip, there is Prevena wound vac in place. The wound vac has a good seal at this time. There is also an Opsite dressing intact distal that is clean, dry, intact. Mild swelling of the thigh, the thigh is soft and compressible. She has good strength and ROM of the right ankle. Motor and sensory function is intact of the right lower extremity. Dorsalis pedis pulse +2, right lower extremity is warm and well perfused. Calf is soft and non-tender. - Labs CBC & Chem 7: 12/07/21 04:45 12/06/21 05:28 Labs: Abnormal Lab Results - Last 24 Hours (Table) 12/07/21 Range/Units 04:45 WBC 20.69 H (4.50-10.00) X 10*3/uL RBC 3.22 L (4.10-5.20) X 10*6/uL Hgb 8.3 L (12.0-15.0) g/dL Hct 29.0 L (37.2-46.3) % MCH 25.8 L (27.0-32.0) pg MCHC 28.6 L (32.0-37.0) g/dL RDW 15.9 H (11.5-14.5) % Plt Count 112 L (140-440) X 10*3/uL Plt Count Comment DECREASED A MPV 13.3 H (9.5-12.2) fL Immature Gran # 0.30 H (0.00-0.04) X 10*3/uL Neutrophils # 11.75 H (1.80-7.70) X 10*3/uL Lymphocytes # 0.56 L (0.90-5.00) X 10*3/uL Monocytes # 8.05 H (0.20-1.00) X 10*3/uL Eosinophils # 0.01 L (0.04-0.35) X 10*3/uL Assessment and Plan Assessment: Status-post operative fixation of right intertrochanteric/basicervical femoral neck fracture fracture with long IM hip screw and removal of right femoral nail on 12/06/21. Post-operative day #1. History of intramedullary radha of right femur in 2013 Plan: - Toe touch weight bearing operative leg. Up with assistance, up with a walker. - Physical therapy for mobilization. - Keep Prevena wound vac in place. Keep Opsite dressing intact. - Pain management as needed. - Aspirin 81mg BID x 4 weeks for DVT prophylaxis. - 2 doses of post-operative antibiotics complete. - Internal medicine for mainor-operative medical management. - Anticipate discharge to rehab within next 24-48 hours. Case management consulted for discharge planning.
--- NOTE | 2021-12-07 13:23 | P.PN ---
Subjective Progress Note Date: 12/07/21 76-year-old female was admitted after a mechanical fall and found to have right femoral neck fracture. Patient will undergo surgery today. Patient is fairly functional and lives by herself. Patient had a recent spinal surgery which she tolerated very well. Patient does have history of COPD although as per the patient patient never smoked and denies any present smoking history. Patient had an EKG which showed some nonspecific T-wave changes in the lateral leads although these are not new. Patient presently doesn't have any chest pain patient denied any shortness of breath, denied any history of congestive heart failure. 12/07/2021 Patient elevated today resting in bed with family at the bedside. She is postop day 1 long intramedullary right hip screw removal right femoral nail. Patient is complaining of pain to the right hip currently has an ice pack in place she states that is being controlled pain medication. Denies any numbness or tingling to lower extremity. Indwelling catheter in place urine is clear yellow. She is up up with physical therapy states that she did sit on the edge of the bed today to try to get to the bedside commode. Passing gas no BM. Labs today white count 20.69, hemoglobin 8.3, platelet count 112. Afebrile, heart rate 109, blood pressure 106/60 she is 94% on 2 L nasal cannula. Review of Systems Constitutional: Denied any fatigue denied any fever. Cardio vascular: denied any chest pain, palpitations Gastrointestinal: denied any nausea, vomiting, diarrhea Pulmonary: Denied any shortness of breath cough Neurologic denied any new focal deficits All inpatient medications were reviewed and appropriate changes in these medications as dictated in the interval history and assessment and plan. PHYSICAL EXAMINATION: GENERAL: The patient is alert and oriented x3, not in any acute distress. Thin built HEENT: Pupils are round and equally reacting to light. EOMI. No scleral icterus. No conjunctival pallor. Normocephalic, atraumatic. No pharyngeal erythema. No thyromegaly. CARDIOVASCULAR: S1 and S2 present. No murmurs, rubs, or gallops. PULMONARY: Chest is clear to auscultation, no wheezing or crackles. ABDOMEN: Soft, nontender, nondistended, normoactive bowel sounds. No palpable organomegaly. MUSCULOSKELETAL: Deferred to orthopedic surgery EXTREMITIES: No cyanosis, clubbing, or pedal edema. NEUROLOGICAL: Gross neurological examination did not reveal any focal deficits. SKIN: No rashes. Assessment and plan -Right femoral neck fracture status post fall patient is postop day #1 surgical repair with intramedullary hip screw, removal of right hip nail and application of woundvac -Leukocytosis reactive to above surgery -Postoperative anemia -Sinus tachycardia, possibly related to pain -Hyperlipidemia -hypothyroidism -COPD without any acute exacerbation -Chronic back pain with recent back surgery DVT prophylaxis: Per primary service GI Prophylaxis: FULL CODE Plan Encourage IS Repeat labs tomorrow PT/OT consultation D/C planning probably rehab thursday Prognosis guarded Thank you kindly for this consultation we will continue to follow along with patient this hospitalization. Objective - Vital Signs Vital signs: Vital Signs Temp 98.8 F 12/07/21 07:39 Pulse 109 H 12/07/21 08:23 Resp 18 12/07/21 07:39 BP 106/60 12/07/21 07:39 Pulse Ox 94 L 12/07/21 07:39 Intake & Output 12/06/21 12/07/21 12/07/21 18:59 06:59 18:59 Intake Total 900 50 Output Total 700 350 Balance 200 -300 Intake: IV 900 50 Output: Urine 500 350 Estimated Blood Loss 200 Other: Voiding Method Indwelling Catheter Indwelling Catheter # Voids 1 - Labs CBC & Chem 7: 12/07/21 04:45 12/06/21 05:28 Labs: Abnormal Lab Results - Last 24 Hours (Table) 12/06/21 Range/Units 05:28 Calcium 8.5 L (8.7-10.3) mg/dL
[2021-12-07] MEDS: CYCLOBENZAPRINE 5 MG TAB PO PRN (20:02)
[2021-12-07] MEDS: ATORVASTATIN 20 MG TAB PO SCH (20:02)
[2021-12-07] MEDS: ASPIRIN 81 MG PO SCH (20:02)
[2021-12-08] MEDS: HYDROcodone/APAP 5-325MG 1 EACH TAB PO PRN ×4 (02:23→18:09)
[2021-12-08] MEDS: SODIUM CHLORIDE 0.9% 1,000 ML IV SCH ×2 (07:00→15:03)
[2021-12-08] MEDS: HEPARIN SODIUM,PORCINE/PF 5,000 UNIT/0.5 ML SYRINGE SQ SCH ×2 (07:32→22:16)
[2021-12-08] MEDS: SENNOSIDES-DOCUSATE SODIUM 1 EACH TAB PO SCH (07:32)
[2021-12-08] MEDS: POTASSIUM CHLORIDE ER 10 MEQ TAB.ER.PRT PO SCH (07:32)
[2021-12-08] MEDS: CHOLECALCIFEROL 125 MCG (5000 IU) TABLET PO SCH (07:33)
[2021-12-08] MEDS: ASPIRIN 81 MG PO SCH ×2 (07:33→22:15)
[2021-12-08] MEDS: FAMOTIDINE 20 MG TAB PO SCH ×2 (07:33→22:15)
[2021-12-08] MEDS: FLUTICASONE 110 MCG INHALER INHALATION SCH ×2 (08:39→21:07)
--- NOTE | 2021-12-08 10:44 | P.PN ---
Subjective Progress Note Date: 12/08/21 This patient is a 76- year old female who is status-post operative fixation of right intertrochanteric/basicervical femoral neck fracture fracture with long IM hip screw and removal of right femoral nail on 12/06/[address] Petty. Today is post-operative day #2. Patient is seen and examined bedside. Patient is receiving [place] for pain, she states her pain is very well-controlled at this time. She is tolerating her diet well. She has no specific complaints or concerns this morning. Hemoglobin 8.3 yesterday. Vital signs stable. Objective - Vital Signs Vital signs: Vital Signs Temp 98.1 F 12/08/21 07:21 Pulse 92 12/08/21 07:21 Resp 18 12/08/21 07:21 BP 100/54 12/08/21 07:21 Pulse Ox 98 12/08/21 07:21 Intake & Output 12/07/21 12/08/21 12/08/21 18:59 06:59 18:59 Output Total 700 Balance -700 Output: Urine 700 Other: Voiding Method Indwelling Catheter Indwelling Catheter Indwelling Catheter - Exam On examination, patient is sitting up in bed in no acute distress. She is alert and orientated x3. On inspection of the right hip, there is Prevena wound vac in place. The wound vac has a good seal at this time. There is also an Opsite dressing intact distal that is clean, dry, intact. Mild swelling of the thigh, the thigh is soft and compressible. She has good strength and ROM of the right ankle. Motor and sensory function is intact of the right lower extremity. Right lower extremity is warm and well perfused. Calf is soft and non-tender. - Labs CBC & Chem 7: 12/07/21 04:45 12/06/21 05:28 Labs: Abnormal Lab Results - Last 24 Hours (Table) 12/07/21 Range/Units 04:45 WBC 20.69 H (4.50-10.00) X 10*3/uL RBC 3.22 L (4.10-5.20) X 10*6/uL Hgb 8.3 L (12.0-15.0) g/dL Hct 29.0 L (37.2-46.3) % MCH 25.8 L (27.0-32.0) pg MCHC 28.6 L (32.0-37.0) g/dL RDW 15.9 H (11.5-14.5) % Plt Count 112 L (140-440) X 10*3/uL Plt Count Comment DECREASED A MPV 13.3 H (9.5-12.2) fL Immature Gran # 0.30 H (0.00-0.04) X 10*3/uL Neutrophils # 11.75 H (1.80-7.70) X 10*3/uL Lymphocytes # 0.56 L (0.90-5.00) X 10*3/uL Monocytes # 8.05 H (0.20-1.00) X 10*3/uL Eosinophils # 0.01 L (0.04-0.35) X 10*3/uL Assessment and Plan Assessment: Status-post operative fixation of right intertrochanteric/basicervical femoral neck fracture fracture with long IM hip screw and removal of right femoral nail on 12/06/21. Post-operative day #2. History of intramedullary radha of right femur in 2012 Plan: - Toe touch weight bearing operative leg. Up with assistance, up with a walker. - Physical therapy for mobilization. - Keep Prevena wound vac in place. Keep Opsite dressing intact. - Pain management as needed. Discontinue Dilaudid as tolerated. - Aspirin 81mg BID x 4 weeks for DVT prophylaxis. - Internal medicine for mainor-operative medical management. - Anticipate discharge to rehab within next 24-48 hours. Case management consulted for discharge planning.
--- NOTE | 2021-12-08 13:23 | P.PN ---
Subjective Progress Note Date: 12/08/21 76-year-old female was admitted after a mechanical fall and found to have right femoral neck fracture. Patient will undergo surgery today. Patient is fairly functional and lives by herself. Patient had a recent spinal surgery which she tolerated very well. Patient does have history of COPD although as per the patient patient never smoked and denies any present smoking history. Patient had an EKG which showed some nonspecific T-wave changes in the lateral leads although these are not new. Patient presently doesn't have any chest pain patient denied any shortness of breath, denied any history of congestive heart failure. 12/07/2021 Patient elevated today resting in bed with family at the bedside. She is postop day 1 long intramedullary right hip screw removal right femoral nail. Patient is complaining of pain to the right hip currently has an ice pack in place she states that is being controlled pain medication. Denies any numbness or tingling to lower extremity. Indwelling catheter in place urine is clear yellow. She is up up with physical therapy states that she did sit on the edge of the bed today to try to get to the bedside commode. Passing gas no BM. Labs today white count 20.69, hemoglobin 8.3, platelet count 112. Afebrile, heart rate 109, blood pressure 106/60 she is 94% on 2 L nasal cannula. 12/08/2021 Patient evaluated today resting in bed she is postop day 2 surgical repair for right hip fracture. Patient denies any pain, surgical dressing intact and clean to right hip. Positive peripheral pulses. Pain management with Dilaudid and [place]. PT evaluation today subacute rehab on discharge recommended patient was able to stand with assistance, does report some dizziness when standing per PT notes. No labs available from today, monitor white count repeat tomorrow. Patient is afebrile, heart rate 92, blood pressure the lower side at 100/54 she is 98% on 2 L nasal cannula. Denies bowel movement is passing gas. No other acute complaints or events overnight. Review of Systems Constitutional: Denied any fatigue denied any fever. Cardio vascular: denied any chest pain, palpitations Gastrointestinal: denied any nausea, vomiting, diarrhea Pulmonary: Denied any shortness of breath cough Neurologic denied any new focal deficits All inpatient medications were reviewed and appropriate changes in these medications as dictated in the interval history and assessment and plan. PHYSICAL EXAMINATION: GENERAL: The patient is alert and oriented x3, not in any acute distress. Thin built HEENT: Pupils are round and equally reacting to light. EOMI. No scleral icterus. No conjunctival pallor. Normocephalic, atraumatic. No pharyngeal erythema. No t hyromegaly. CARDIOVASCULAR: S1 and S2 present. No murmurs, rubs, or gallops. PULMONARY: Chest is clear to auscultation, no wheezing or crackles. ABDOMEN: Soft, nontender, nondistended, normoactive bowel sounds. No palpable organomegaly. MUSCULOSKELETAL: Deferred to orthopedic surgery EXTREMITIES: No cyanosis, clubbing, or pedal edema. NEUROLOGICAL: Gross neurological examination did not reveal any focal deficits. SKIN: No rashes. Assessment and plan -Right femoral neck fracture status post fall patient is postop day #2 surgical repair with intramedullary hip screw, removal of right hip nail and application of woundvac -Leukocytosis reactive to above surgery -Postoperative anemia -Sinus tachycardia, possibly related to pain, has improved -Hyperlipidemia -hypothyroidism -COPD without any acute exacerbation -Chronic back pain with recent back surgery DVT prophylaxis: Per primary service GI Prophylaxis: Pepcid FULL CODE Plan Encourage IS Encourage oral intake, diet being advanced to regular Repeat labs tomorrow Ok to discontinue [place] catheter once patient ambulatory PT/OT consultation D/C planning probably rehab thursday Prognosis guarded Thank you kindly for this consultation we will continue to follow along with patient this hospitalization. Objective - Vital Signs Vital signs: Vital Signs Temp 98.1 F 12/08/21 07:21 Pulse 92 12/08/21 07:21 Resp 18 12/08/21 07:21 BP 100/54 12/08/21 07:21 Pulse Ox 98 12/08/21 07:21 Intake & Output 12/07/21 12/08/21 12/08/21 18:59 06:59 18:59 Output Total 700 Balance -700 Output: Urine 700 Other: Voiding Method Indwelling Catheter Indwelling Catheter Indwelling Catheter - Labs CBC & Chem 7: 12/07/21 04:45 12/06/21 05:28
[2021-12-08] MEDS: ATORVASTATIN 20 MG TAB PO SCH (22:15)
[2021-12-09] MEDS: HYDROcodone/APAP 5-325MG 1 EACH TAB PO PRN ×4 (01:55→19:57)
[2021-12-09] MEDS: SODIUM CHLORIDE 0.9% 1,000 ML IV SCH ×2 (04:58→18:38)
[2021-12-09] MEDS: ASPIRIN 81 MG PO SCH ×2 (07:38→19:57)
[2021-12-09] MEDS: HEPARIN SODIUM,PORCINE/PF 5,000 UNIT/0.5 ML SYRINGE SQ SCH ×2 (07:38→19:56)
[2021-12-09] MEDS: FAMOTIDINE 20 MG TAB PO SCH ×2 (07:38→19:53)
[2021-12-09] MEDS: CHOLECALCIFEROL 125 MCG (5000 IU) TABLET PO SCH (07:38)
[2021-12-09] MEDS: SENNOSIDES-DOCUSATE SODIUM 1 EACH TAB PO SCH (07:38)
[2021-12-09] MEDS: POTASSIUM CHLORIDE ER 10 MEQ TAB.ER.PRT PO SCH (07:38)
[2021-12-09] MEDS: FLUTICASONE 110 MCG INHALER INHALATION SCH ×2 (09:01→18:57)
[2021-12-09 10:11] LABS: African American GFR (CKD) 101.2 (60.0-200.0); BUN/Creat Ratio 13.17 Ratio (12.00-20.00); Blood Urea Nitrogen 7.9 mg/dL (9.0-27.0); Calcium 7.5 mg/dL (8.7-10.3); Non-African American GFR(CKD) 87.3 (60.0-200.0)
[2021-12-09] MEDS ORDERED: MAGNESIUM HYDROXIDE 2,400 MG/10 ML CUP PO PRN (12:04)
[2021-12-09 12:14] LABS: Basophils # (A) 0.02 X 10*3/uL (0.00-0.10); Basophils % (A) 0.1 %; Eosinophils # (A) 0.01 X 10*3/uL (0.04-0.35); Eosinophils % (A) 0 %; HCT 20.7 % (37.2-46.3); HGB 5.9 g/dL (12.0-15.0); Immature Grans, Automated 2.2 %; Lymphocytes # (A) 0.64 X 10*3/uL (0.90-5.00); Lymphocytes % (A) 2.2 %; MCH 25.5 pg (27.0-32.0); MCHC 28.5 g/dL (32.0-37.0); MCV 89.6 fL (80.0-97.0); Mean Platelet Volume 12.9 fL (9.5-12.2); Monocytes # (A) 9.71 X 10*3/uL (0.20-1.00); Monocytes % (A) 33.5 %; NRBC Per 100 WBC 0.1 /100 WBCS (0.0-0.0); Neutrophils # (A) 17.93 X 10*3/uL (1.80-7.70); Platelet Count 103 X 10*3/uL (140-440); RBC 2.31 X 10*6/uL (4.10-5.20); RDW 16.1 % (11.5-14.5); WBC 28.96 X 10*3/uL (4.50-10.00)
[2021-12-09] MEDS ORDERED: bisacodyL 10 MG SUPP RECTAL STA (14:48)
--- NOTE | 2021-12-09 15:32 | P.PN ---
Subjective Progress Note Date: 12/09/21 76-year-old female was admitted after a mechanical fall and found to have right femoral neck fracture. Patient will undergo surgery today. Patient is fairly functional and lives by herself. Patient had a recent spinal surgery which she tolerated very well. Patient does have history of COPD although as per the patient patient never smoked and denies any present smoking history. Patient had an EKG which showed some nonspecific T-wave changes in the lateral leads although these are not new. Patient presently doesn't have any chest pain patient denied any shortness of breath, denied any history of congestive heart failure. 12/07/2021 Patient elevated today resting in bed with family at the bedside. She is postop day 1 long intramedullary right hip screw removal right femoral nail. Patient is complaining of pain to the right hip currently has an ice pack in place she states that is being controlled pain medication. Denies any numbness or tingling to lower extremity. Indwelling catheter in place urine is clear yellow. She is up up with physical therapy states that she did sit on the edge of the bed today to try to get to the bedside commode. Passing gas no BM. Labs today white count 20.69, hemoglobin 8.3, platelet count 112. Afebrile, heart rate 109, blood pressure 106/60 she is 94% on 2 L nasal cannula. 12/08/2021 Patient evaluated today resting in bed she is postop day 2 surgical repair for right hip fracture. Patient denies any pain, surgical dressing intact and clean to right hip. Positive peripheral pulses. Pain management with Dilaudid and [place]. PT evaluation today subacute rehab on discharge recommended patient was able to stand with assistance, does report some dizziness when standing per PT notes. No labs available from today, monitor white count repeat tomorrow. Patient is afebrile, heart rate 92, blood pressure the lower side at 100/54 she is 98% on 2 L nasal cannula. Denies bowel movement is passing gas. No other acute complaints or events overnight. 12/09/2021 Patient evaluated today sitting up in the chair she is postop day #3 surgical f or right hip fracture. Patient currently denies any pain. She is receiving IV pain medication for the most 24 hours, pain is being managed with [place] tablets utilizing 2 just about every 6 hours. Patient states that she hasn't had a bowel movement since surgery. She is passing gas. Give a one-time dose of milk of mag today. Otherwise urinary catheter can be discontinued as patient is ambulatory and able to use minimum bedside commode. Denies any chest pain, chest pressure cough or shortness of breath. She is 99% on 2 L nasal cannula we can trial patient on room air. Blood pressure lower side today 96/54 she is not currently on any blood pressure medications, afebrile, heart rate 89. WBC today 28.96, hgb 5.9, platelet count 103. Sodium 135, potassium 4.0, BUN 7.9, creatinine 0.6. Blood glucose stable. Patient to receive 1 unit PRBC today also having trouble with passing BM. Review of Systems Constitutional: Denied any fatigue denied any fever. Cardio vascular: denied any chest pain, palpitations Gastrointestinal: denied any nausea, vomiting, diarrhea, gas, no BM Pulmonary: Denied any shortness of breath cough Neurologic denied any new focal deficits All inpatient medications were reviewed and appropriate changes in these medications as dictated in the interval history and assessment and plan. PHYSICAL EXAMINATION: GENERAL: The patient is alert and oriented x3, not in any acute distress. Thin built HEENT: Pupils are round and equally reacting to light. EOMI. No scleral icterus. No conjunctival pallor. Normocephalic, atraumatic. No pharyngeal erythema. No t hyromegaly. CARDIOVASCULAR: S1 and S2 present. No murmurs, rubs, or gallops. PULMONARY: Chest is clear to auscultation, no wheezing or crackles. ABDOMEN: Soft, nontender, nondistended, normoactive bowel sounds. No palpable organomegaly. MUSCULOSKELETAL: Deferred to orthopedic surgery EXTREMITIES: No cyanosis, clubbing, or pedal edema. NEUROLOGICAL: Gross neurological examination did not reveal any focal deficits. SKIN: No rashes. Postsrugical right hip Assessment and plan -Right femoral neck fracture status post fall patient is postop day #3 surgical repair with intramedullary hip screw, removal of right hip nail and application of woundvac -Leukocytosis reactive to above surgery -Postoperative anemia, no signs of active bleeding however hemoglobin 5.9 today, patient will receive 1 unit of PRBCs. -Constipation postoperative, pt receiving narcotics for pain management, bowel regimine in place -Sinus tachycardia, possibly related to pain, has improved -Hyperlipidemia -hypothyroidism -COPD without any acute exacerbation -Chronic back pain with recent back surgery DVT prophylaxis: Per primary service GI Prophylaxis: Pepcid FULL CODE Plan Pt will receive 1 unit PRBC today Encourage IS, ambulation Encourage oral intake, diet being advanced to regular Ok to discontinue [place] catheter once patient ambulatory Repeat labs in AM PT/OT consultation Prognosis guarded Discharge to subacute rehab when stable Thank you kindly for this consultation we will continue to follow along with patient this hospitalization. Objective - Vital Signs Vital signs: Vital Signs Temp 98.5 F 12/09/21 08:00 Pulse 89 12/09/21 08:00 Resp 18 12/09/21 08:00 BP 96/54 12/09/21 08:00 Pulse Ox 99 12/09/21 08:00 Intake & Output 12/08/21 12/09/21 12/09/21 18:59 06:59 18:59 Intake Total 750 Output Total 900 Balance -150 Intake: Intake, IV Titration 750 Amount Sodium Chloride 0.9% 1, 750 000 ml @ 75 mls/hr IV . [id number] [facility] Rx#:[id number] Output: Urine 900 Other: Voiding Method Indwelling Catheter Indwelling Catheter Indwelling Catheter - Labs CBC & Chem 7: 12/09/21 04:06 12/09/21 04:06 Labs: Abnormal Lab Results - Last 24 Hours (Table) 12/09/21 Range/Units 04:06 Carbon Dioxide 17.0 L (20.0-27.5) mmol/L BUN 7.9 L (9.0-27.0) mg/dL Calcium 7.5 L (8.7-10.3) mg/dL
--- NOTE | 2021-12-09 15:43 | P.PN ---
Subjective Progress Note Date: 12/09/21 This patient is a 76- year old female who is status-post operative fixation of right intertrochanteric/basicervical femoral neck fracture fracture with long IM hip screw and removal of right femoral nail on 12/06/[address] Petty. Today is post-operative day #3. Patient is seen and examined bedside. She states her pain is well-controlled on oral medications. Patient's hemoglobin resulted as 5.9 this morning and 1 unit of PRBCs was ordered. Patient denies chest pain, shortness of breath, nausea, vomiting. Vital signs stable. Objective - Vital Signs Vital signs: Vital Signs Temp 97.6 F 12/09/21 14:00 Pulse 113 H 12/09/21 14:00 Resp 18 12/09/21 14:00 BP 112/65 12/09/21 14:00 Pulse Ox 100 12/09/21 14:00 Intake & Output 12/08/21 12/09/21 12/09/21 18:59 06:59 18:59 Intake Total 750 Output Total 900 Balance -150 Intake: Intake, IV Titration 750 Amount Sodium Chloride 0.9% 1, 750 000 ml @ 75 mls/hr IV . [id number] [facility] Rx#:[id number] Output: Urine 900 Other: Voiding Method Indwelling Catheter Indwelling Catheter Indwelling Catheter - Exam On examination, patient is sitting up in bed in no acute distress. She is alert and orientated x3. On inspection of the right hip, there is Prevena wound vac in place. The wound vac has a good seal at this time. There is also an Opsite dressing intact distal that is clean, dry, intact. Mild swelling of the thigh, the thigh is soft and compressible. She has good strength and ROM of the right ankle. Motor and sensory function is intact of the right lower extremity. Right lower extremity is warm and well perfused. Calf is soft and non-tender. - Labs CBC & Chem 7: 12/09/21 04:06 12/09/21 04:06 Labs: Abnormal Lab Results - Last 24 Hours (Table) 12/06/21 12/09/21 12/09/21 Range/Units 15:35 04:06 04:06 WBC 28.96 H (4.50-10.00) X 10*3/uL RBC 2.31 L (4.10-5.20) X 10*6/uL Hgb 5.9 L* (12.0-15.0) g/dL Hct 20.7 L (37.2-46.3) % MCH 25.5 L (27.0-32.0) pg MCHC 28.5 L (32.0-37.0) g/dL RDW 16.1 H (11.5-14.5) % Plt Count 103 L (140-440) X 10*3/uL MPV 12.9 H (9.5-12.2) fL Absolute Nucleated RBC 0.02 H (0.00-0.00) X 10*3/uL Immature Gran # 0.65 H (0.00-0.04) X 10*3/uL Neutrophils # 17.93 H (1.80-7.70) X 10*3/uL Lymphocytes # 0.64 L (0.90-5.00) X 10*3/uL Monocytes # 9.71 H (0.20-1.00) X 10*3/uL Eosinophils # 0.01 L (0.04-0.35) X 10*3/uL NRBC/100 WBC Diff 0.1 H (0.0-0.0) /100 WBCS Carbon Dioxide 17.0 L (20.0-27.5) mmol/L BUN 7.9 L (9.0-27.0) mg/dL Calcium 7.5 L (8.7-10.3) mg/dL Crossmatch See Detail Assessment and Plan Assessment: Status-post operative fixation of right intertrochanteric/basicervical femoral neck fracture fracture with long IM hip screw and removal of right femoral nail on 12/06/21. Post-operative day #3. Post-operative anemia, 1 unit of PRBCs ordered History of intramedullary radha of right femur in 2012 Plan: - Toe touch weight bearing operative leg. Up with assistance, up with a walker. - Physical therapy for mobilization. - Keep Prevena wound vac in place. Keep Opsite dressing intact. - Pain management as needed. Discontinue Dilaudid as tolerated. - Aspirin 81mg BID x 4 weeks for DVT prophylaxis. - Internal medicine for mainor-operative medical management. - Hemoglobin resulted at 5.9 today, 1 unit of PRBCs ordered. - Anticipate discharge to rehab tomorrow if medically cleared. Case management following.
[2021-12-09] MEDS: ATORVASTATIN 20 MG TAB PO SCH (19:57)
[2021-12-10] MEDS: HYDROcodone/APAP 5-325MG 1 EACH TAB PO PRN ×3 (03:11→14:17)
[2021-12-10] MEDS: SENNOSIDES-DOCUSATE SODIUM 1 EACH TAB PO SCH (07:55)
[2021-12-10] MEDS: FAMOTIDINE 20 MG TAB PO SCH (07:55)
[2021-12-10] MEDS: CHOLECALCIFEROL 125 MCG (5000 IU) TABLET PO SCH (07:55)
[2021-12-10] MEDS: POTASSIUM CHLORIDE ER 10 MEQ TAB.ER.PRT PO SCH (07:55)
[2021-12-10] MEDS: HEPARIN SODIUM,PORCINE/PF 5,000 UNIT/0.5 ML SYRINGE SQ SCH (07:55)
[2021-12-10] MEDS: SODIUM CHLORIDE 0.9% 1,000 ML IV SCH (07:55)
[2021-12-10] MEDS: ASPIRIN 81 MG PO SCH (07:55)
[2021-12-10 08:05] VITALS: RESP 17; TEMP 98
[2021-12-10] MEDS: FLUTICASONE 110 MCG INHALER INHALATION SCH (08:27)
[2021-12-10 09:23] LABS: African American GFR (CKD) 107.4 (60.0-200.0); Anion Gap 8.7 mmol/L (10.00-18.00); BUN/Creat Ratio 15.2 Ratio (12.00-20.00); Blood Urea Nitrogen 7.6 mg/dL (9.0-27.0); Calcium 7.2 mg/dL (8.7-10.3); Carbon Dioxide 18.3 mmol/L (20.0-27.5); Non-African American GFR(CKD) 92.7 (60.0-200.0); Potassium 3.6 mmol/L (3.5-5.5)
[2021-12-10 10:06] LABS: HCT 23.2 % (37.2-46.3); HGB 6.9 g/dL (12.0-15.0); MCH 26.1 pg (27.0-32.0); MCHC 29.7 g/dL (32.0-37.0); MCV 87.9 fL (80.0-97.0); NRBC Per 100 WBC 0.1 /100 WBCS (0.0-0.0); Platelet Count 112 X 10*3/uL (140-440); RBC 2.64 X 10*6/uL (4.10-5.20); RDW 15.5 % (11.5-14.5)
[2021-12-10 11:04] LABS: Basophils # (A) 0.01 X 10*3/uL (0.00-0.10); Basophils % (A) 0 %; Eosinophils # (A) 0.02 X 10*3/uL (0.04-0.35); Eosinophils % (A) 0.1 %; Immature Grans, Automated 2.7 %; Lymphocytes # (A) 0.75 X 10*3/uL (0.90-5.00); Lymphocytes % (A) 3.2 %; Monocytes # (A) 5.99 X 10*3/uL (0.20-1.00); Monocytes % (A) 25.8 %; Neutrophils # (A) 15.81 X 10*3/uL (1.80-7.70); Neutrophils % (A) 68.2 %
--- NOTE | 2021-12-10 12:02 | P.PN ---
Subjective Progress Note Date: 12/10/21 76-year-old female was admitted after a mechanical fall and found to have right femoral neck fracture. Patient will undergo surgery today. Patient is fairly functional and lives by herself. Patient had a recent spinal surgery which she tolerated very well. Patient does have history of COPD although as per the patient patient never smoked and denies any present smoking history. Patient had an EKG which showed some nonspecific T-wave changes in the lateral leads although these are not new. Patient presently doesn't have any chest pain patient denied any shortness of breath, denied any history of congestive heart failure. 12/07/2021 Patient elevated today resting in bed with family at the bedside. She is postop day 1 long intramedullary right hip screw removal right femoral nail. Patient is complaining of pain to the right hip currently has an ice pack in place she states that is being controlled pain medication. Denies any numbness or tingling to lower extremity. Indwelling catheter in place urine is clear yellow. She is up up with physical therapy states that she did sit on the edge of the bed today to try to get to the bedside commode. Passing gas no BM. Labs today white count 20.69, hemoglobin 8.3, platelet count 112. Afebrile, heart rate 109, blood pressure 106/60 she is 94% on 2 L nasal cannula. 12/08/2021 Patient evaluated today resting in bed she is postop day 2 surgical repair for right hip fracture. Patient denies any pain, surgical dressing intact and clean to right hip. Positive peripheral pulses. Pain management with Dilaudid and Mobile. PT evaluation today subacute rehab on discharge recommended patient was able to stand with assistance, does report some dizziness when standing per PT notes. No labs available from today, monitor white count repeat tomorrow. Patient is afebrile, heart rate 92, blood pressure the lower side at 100/54 she is 98% on 2 L nasal cannula. Denies bowel movement is passing gas. No other acute complaints or events overnight. 12/09/2021 Patient evaluated today sitting up in the chair she is postop day #3 surgical f or right hip fracture. Patient currently denies any pain. She is receiving IV pain medication for the most 24 hours, pain is being managed with Mobile tablets utilizing 2 just about every 6 hours. Patient states that she hasn't had a bowel movement since surgery. She is passing gas. Give a one-time dose of milk of mag today. Otherwise urinary catheter can be discontinued as patient is ambulatory and able to use minimum bedside commode. Denies any chest pain, chest pressure cough or shortness of breath. She is 99% on 2 L nasal cannula we can trial patient on room air. Blood pressure lower side today 96/54 she is not currently on any blood pressure medications, afebrile, heart rate 89. WBC today 28.96, hgb 5.9, platelet count 103. Sodium 135, potassium 4.0, BUN 7.9, creatinine 0.6. Blood glucose stable. Patient to receive 1 unit PRBC today also having trouble with passing BM. 12/10/2021 Patient sitting in the chair today. Catheter was not discontinued yesterday plan will be to discharge today with catheter in place can do a voiding trial once she is at rehab. Otherwise no acute events overnight. Hemoglobin 6.9 status post 1 unit PRBCs yesterday. Patient denies any dizziness lightheadedness, tolerating ambulation. Denies chest pain, chest pressure, shortness of breath. She is tolerating diet. Sodium 132 today, pt not receiving IV fluids last night. Inaccurate intake and output documented. White count 23.2 today improved 28.9 yesterday, hemoglobin 6.9. Platelet count stable at 112. She is afebrile, heart rate 87, blood pressure 100/69, 98% on 2 L of nasal ca nnula. No clinical indicators of infection, lungs clear, no fever, white count reactive to recent surgey and is trending down, ok to follow up outpatient. Review of Systems Constitutional: Denied any fatigue denied any fever. Cardio vascular: denied any chest pain, palpitations Gastrointestinal: denied any nausea, vomiting, diarrhea, passing gas, had a BM. Pulmonary: Denied any shortness of breath cough Neurologic denied any new focal deficits All inpatient medications were reviewed and appropriate changes in these medications as dictated in the interval history and assessment and plan. PHYSICAL EXAMINATION: GENERAL: The patient is alert and oriented x3, not in any acute distress. Thin built HEENT: Pupils are round and equally reacting to light. EOMI. No scleral icterus. No conjunctival pallor. Normocephalic, atraumatic. No pharyngeal erythema. No thyromegaly. CARDIOVASCULAR: S1 and S2 present. No murmurs, rubs, or gallops. PULMONARY: Chest is clear to auscultation, no wheezing or crackles. ABDOMEN: Soft, nontender, nondistended, normoactive bowel sounds. No palpable or ganomegaly. MUSCULOSKELETAL: Deferred to orthopedic surgery EXTREMITIES: No cyanosis, clubbing, or mild ankle edema non pitting +2 peripheral pulses NEUROLOGICAL: Gross neurological examination did not reveal any focal deficits. SKIN: No rashes. Postsrugical right hip Assessment and plan -Right femoral neck fracture status post fall patient is postop day #4 surgical repair with intramedullary hip screw, removal of right hip nail and application of woundvac -Leukocytosis reactive to above surgery, improving -Postoperative anemia, no signs of active bleeding however hemoglobin 6.9 s/p 1 unit PRBC -Constipation postoperative, pt receiving narcotics for pain management, bowel regimine in place -Sinus tachycardia, possibly related to pain, has improved -Hyperlipidemia -hypothyroidism -COPD without any acute exacerbation -Chronic back pain with recent back surgery DVT prophylaxis: Per primary service GI Prophylaxis: Pepcid FULL CODE Plan Encourage IS, ambulation Encourage oral intake Ok to discontinue arroyo catheter once patient ambulatory Repeat labs outpatient Discharge to [facility] Thank you kindly for this consultation. Objective - Vital Signs Vital signs: Vital Signs Temp 98.0 F 12/10/21 08:00 Pulse 87 12/10/21 08:00 Resp 17 12/10/21 08:00 BP 100/69 12/10/21 08:00 Pulse Ox 98 12/10/21 08:00 Intake & Output 12/09/21 12/10/21 12/10/21 18:59 06:59 18:59 Intake Total 1820 Output Total 1300 1800 Balance 520 -1800 Intake: Oral 1200 Blood Product 620 Rc As-1 Unit 310 [id number] Output: Urine 1300 1800 Other: Voiding Method Indwelling Catheter Indwelling Catheter # Bowel Movements 1 1 - Labs CBC & Chem 7: 12/10/21 04:17 12/10/21 04:17 Labs: Abnormal Lab Results - Last 24 Hours (Table) 12/06/21 12/09/21 12/09/21 Range/Units 15:35 04:06 04:06 WBC 28.96 H (4.50-10.00) X 10*3/uL RBC 2.31 L (4.10-5.20) X 10*6/uL Hgb 5.9 L* (12.0-15.0) g/dL Hct 20.7 L (37.2-46.3) % MCH 25.5 L (27.0-32.0) pg MCHC 28.5 L (32.0-37.0) g/dL RDW 16.1 H (11.5-14.5) % Plt Count 103 L (140-440) X 10*3/uL MPV 12.9 H (9.5-12.2) fL Absolute Nucleated RBC 0.02 H (0.00-0.00) X 10*3/uL Immature Gran # 0.65 H (0.00-0.04) X 10*3/uL Neutrophils # 17.93 H (1.80-7.70) X 10*3/uL Lymphocytes # 0.64 L (0.90-5.00) X 10*3/uL Monocytes # 9.71 H (0.20-1.00) X 10*3/uL Eosinophils # 0.01 L (0.04-0.35) X 10*3/uL NRBC/100 WBC Diff 0.1 H (0.0-0.0) /100 WBCS Sodium (135-145) mmol/L Carbon Dioxide 17.0 L (20.0-27.5) mmol/L Anion Gap (10.00-18.00) mmol/L BUN 7.9 L (9.0-27.0) mg/dL Creatinine (0.6-1.5) mg/dL Calcium 7.5 L (8.7-10.3) mg/dL Crossmatch See Detail 12/10/21 12/10/21 Range/Units 04:17 04:17 WBC 23.20 H (4.50-10.00) X 10*3/uL RBC 2.64 L (4.10-5.20) X 10*6/uL Hgb 6.9 L* (12.0-15.0) g/dL Hct 23.2 L (37.2-46.3) % MCH 26.1 L (27.0-32.0) pg MCHC 29.7 L (32.0-37.0) g/dL RDW 15.5 H (11.5-14.5) % Plt Count 112 L (140-440) X 10*3/uL MPV 13.0 H (9.5-12.2) fL Absolute Nucleated RBC 0.03 H (0.00-0.00) X 10*3/uL Immature Gran # (0.00-0.04) X 10*3/uL Neutrophils # (1.80-7.70) X 10*3/uL Lymphocytes # (0.90-5.00) X 10*3/uL Monocytes # (0.20-1.00) X 10*3/uL Eosinophils # (0.04-0.35) X 10*3/uL NRBC/100 WBC Diff 0.1 H (0.0-0.0) /100 WBCS Sodium 132 L (135-145) mmol/L Carbon Dioxide 18.3 L (20.0-27.5) mmol/L Anion Gap 8.70 L (10.00-18.00) mmol/L BUN 7.6 L (9.0-27.0) mg/dL Creatinine 0.5 L (0.6-1.5) mg/dL Calcium 7.2 L (8.7-10.3) mg/dL Crossmatch
--- NOTE | 2021-12-10 13:37 | P.DS ---
Providers Date of admission: 12/05/21 18:59 Expected date of discharge: 12/10/21 Attending physician: Ferny Petty Consults: 12/05/21 19:01 Consult Physician Urgent Consulting Provider: Ronit Glass Consult Reason/Comments: Medical clearance for surgery Do you want consulting provider notified?: Already Contacted Primary care physician: [facility] Course: This is a 76-year-old male who is admitted to [facility] on 11/18/21 after a ground-level fall and sustaining injury to the left lower extremity. X-rays and CT scan in the emergency department revealed a right intertrochanteric/basicervical femoral neck fracture. She is admitted to our service for surgical intervention and care. 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 Patient was taken to surgery for removal of right femoral nail and operative fixation of right intertrochanteric/basicervical femoral neck fracture with long intramedullary hip screw on 12/06/[address] Petty. The procedure was performed without complication or sequelae. The patient is doing fairly well postoperatively. Vital signs and labs are stable on postoperative day #4. Patient's hemoglobin resulted as 5.9 yesterday, and she was transfused 1 unit of PRBCs yesterday. Repeat hemoglobin is 6.9 this morning. Patient was examined bedside today. She states she is feeling well and the pain in her right hip is well-controlled. She has been working with physical therapy. Patient denies chest pain, shortness of breath, nausea, vomiting. She feels comfortably being discharged to rehab today. On examination, the patient is sitting up in bed in no apparent distress. She is alert and oriented 3. On inspection of the Prevena wound vac in place along the anterior hip. Clean, dry, intact Opsite dressing in place. Mild swelling of the thigh, the thigh is soft and compressible. Patient has good strength and ROM of the right ankle. Motor and sensory function intact right lower extremity. Dorsalis pedis pulse +2, right lower extremity is warm and well perfused. Calves are soft and non-tender to palpation bilaterally. Patient is discharged to rehab today in good condition, pending medical clearance today. Patient will follow-up with Dr. Petty in the office in 1 week. Please see med rec for accurate list of discharge medication. Patient Condition at Discharge: Stable Plan - Discharge Summary Discharge Rx Participant: Yes New Discharge Prescriptions: New HYDROcodone/APAP 5-325MG [[place] 5-325] 1 tab PO Q6HR PRN 7 Days #28 tab PRN Reason: Pain Cholecalciferol [Vitamin D3 (125 Mcg = 5000 Iu)] 125 mcg PO DAILY tablet Aspirin 81 mg PO BID Continue Mometasone Furoate [Mometasone Furoate 0.1%] 2 drops BOTH EARS DAILY PRN PRN Reason: IRRITATION Simvastatin [Zocor] 40 mg PO HS Fluticasone Nasal [place] [Flonase Nasal [place]] 2 spr EA NOSTRIL DAILY PRN PRN Reason: Allergy Symptoms Carboxymethylcellulose Sodium [Refresh Tears] 1 drop BOTH EYES BID PRN PRN Reason: Dry Eye(S) Fluticasone Propionate [Flovent Hfa 110 mcg] 1 puff INHALATION RT-BID Albuterol Sulfate [Proair Hfa] 2 puff INHALATION RT-Q6H PRN PRN Reason: Shortness Of Breath Famotidine [Pepcid] 20 mg PO BID #30 tab Cyclobenzaprine [Flexeril] 5 mg PO BID PRN PRN Reason: Muscle Spasm Potassium Chloride [Potassium Chloride ER] 10 meq PO DAILY Sennosides-Docusate Sodium [Senokot-S] 1 tab PO DAILY Discontinued Cholecalciferol [Vitamin D3 (25 Mcg = 1000 Iu)] 8,000 unit PO DAILY HYDROcodone/APAP 7.5-325MG [[place] 7.5-325] 1 tab PO Q6HR PRN #28 tab PRN Reason: Pain Discharge Medication List Mometasone Furoate [Mometasone Furoate 0.1%] 2 drops BOTH EARS DAILY PRN 07/30/15 [History] Simvastatin [Zocor] 40 mg PO HS 07/30/15 [History] Fluticasone Nasal [place] [Flonase Nasal [place]] 2 spr EA NOSTRIL DAILY PRN 12/17/15 [History] Carboxymethylcellulose Sodium [Refresh Tears] 1 drop BOTH EYES BID PRN 04/02/16 [History] Albuterol Sulfate [Proair Hfa] 2 puff INHALATION RT-Q6H PRN 06/05/19 [History] Fluticasone Propionate [Flovent Hfa 110 mcg] 1 puff INHALATION RT-BID 06/05/19 [History] Famotidine [Pepcid] 20 mg PO BID #30 tab 03/06/20 [Rx] Cyclobenzaprine [Flexeril] 5 mg PO BID PRN 10/22/21 [History] Potassium Chloride [Potassium Chloride ER] 10 meq PO DAILY 12/05/21 [History] Sennosides-Docusate Sodium [Senokot-S] 1 tab PO DAILY 12/05/21 [History] Aspirin 81 mg PO BID 12/09/21 [Rx] Cholecalciferol [Vitamin D3 (125 Mcg = 5000 Iu)] 125 mcg PO DAILY tablet 12/09/21 [Rx] HYDROcodone/APAP 5-325MG [[place] 5-325] 1 tab PO Q6HR PRN 7 Days #28 tab 12/09/21 [Rx] Follow up Appointment(s)/Referral(s): Kassandra Gaxiola MD [Primary Care Provider] - 1-2 days Delisa Black, [NON-STAFF] - As Needed [facility], [NON-STAFF] - As Needed Ferny Petty MD [Medical Doctor] - 12/23/21 9:15 am Ambulatory/Diagnostic Orders: Basic Metabolic Panel [LAB.AMB] Time Frame: 2 Days, Location: None Selected Complete Blood Count w/diff [LAB.AMB] Time Frame: 3 Days, Location: None Selected
[2021-12-10 14:43] VITALS: BP 118/68; PULSE 80
== END 2021-12-10 16:46 | DRG 482 ==
LOC: EC 15:35 → 4SSUR 18:59
PROVIDERS: ADMIT Orthopaedic Surgery; ATTEND Orthopaedic Surgery
PROC: 0QS606Z Reposition Right Upper Femur with Intramedullary Internal Fixation Device, Open Approach (ICD-10-PCS; principal; 2021-12-05)
PROC: 0QP604Z Removal of Internal Fixation Device from Right Upper Femur, Open Approach (ICD-10-PCS; 2021-12-05)
PROC: 30233N1 Transfusion of Nonautologous Red Blood Cells into Peripheral Vein, Percutaneous Approach (ICD-10-PCS; 2021-12-09)
DX: S72.141A Displaced intertrochanteric fracture of right femur, initial encounter for closed fracture (principal); M81.0 Age-related osteoporosis without current pathological fracture; W18.39XA Other fall on same level, initial encounter; J44.9 Chronic obstructive pulmonary disease, unspecified; E03.9 Hypothyroidism, unspecified; J30.9 Allergic rhinitis, unspecified; G89.29 Other chronic pain; E78.5 Hyperlipidemia, unspecified; M54.50 Low back pain, unspecified; D64.9 Anemia, unspecified; Y92.009 Unspecified place in unspecified non-institutional (private) residence as the place of occurrence of the external cause; Z79.51 Long term (current) use of inhaled steroids; Z79.899 Other long term (current) drug therapy; Z88.6 Allergy status to analgesic agent; Z91.030 Bee allergy status; Z88.7 Allergy status to serum and vaccine; Z98.890 Other specified postprocedural states; Z47.2 Encounter for removal of internal fixation device
CPT/HCPCS: 36415; 71046; 72170; 80048; 80053; 81003; 82306; 82550; 83735; 85025; 85610; 85730; 86850; 86900; 86901; 86920; 87635; 93005; 94640; 96374; 96375; 96376; 99285

== ENCOUNTER → 2022-05-09 | Outpatient (CLI) | payer MEDICARE | END | disposition home or self-care (01) | LOC: LABWHC1 13:00 | DX: Z48.89 Encounter for other specified surgical aftercare (principal); S72.041D Displaced fracture of base of neck of right femur, subsequent encounter for closed fracture with routine healing; M25.551 Pain in right hip; X58.XXXD Exposure to other specified factors, subsequent encounter | CPT/HCPCS: 36415; 85652; 86140 ==

== ENCOUNTER → 2022-06-12 | Outpatient (CLI) | payer MEDICARE ==
--- NOTE | 2022-06-12 14:18 | BD ---
EXAMINATION TYPE: Axial Bone Density DATE OF EXAM: 06/12/2022 COMPARISON: NONE CLINICAL HISTORY: 76 years year old Female. ICD-10 CODE: Z78.0 Post Menopausal Height: 57 Weight: 112.5 FRAX RISK QUESTIONS: Alcohol (3 or more units per day): NO Family History (Parent hip fracture): MOTHER Glucocorticoids (More than 3mos): NO History of Fracture in Adulthood: YES Secondary Osteoporosis: 1. Type 1 Diabetes: NO 2. Hyperthyroidism: NO 3. Menopause before 45: YES 4. Malnutrition: NO 5. Chronic liver disease: NO Rheumatoid Arthritis: YES Current Tobacco Use: NO RISK FACTORS HISTORY OF: Hip Fracture (Right/Left): RT HIP When: 2021 Spine Fracture: YES When: 2021 History of Wrist Fracture: NO Surgery to Spine/Hip(right/left)/Wrist (right/left): YES SPINE AND RT HIP, BILATERAL CARPAL TUNNEL Family History of Osteoporosis: MOTHER Active: NO Diet low in dairy products/other sources of calcium: NO Postmenopausal woman: YES Take estrogen and/or progesterone medications: NO Lost more than 2 inches in height since high school: YES Frequent falls: YES Poor Health: NO Hyperparathyroidism: NO Adrenal Insufficiency: NO MEDICATIONS: Prednisone or other steroids: NO Thyroid Medications:NO Osteoporosis Medications: NO Additional Medications: MY FUSION, PERNELL, SIMVASTATIN, FUROSEMIDE, Additional History: EXAM MEASUREMENTS: Bone mineral density about the L hip (g/cm2): 0.802 T Score values are as follows: -----L Neck: -1.7 -----L Total: -1.8 Bone mineral density has: DECREASED 12.0 % since study of: 09/30/2016 Bone mineral density about the L Wrist (g/cm2): 0.208 T Score values are as follows: -----Dist. R+U: -5.7 -----Prox. R+U: -2.6 -----Radius total: -4.3 BASELINE WRIST STUDY FRAX%s: The graph provided illustrates a 41.9% chance for a major osteoporotic fx and a 25.7% chance for the hips probability for fx in 10 years time. IMPRESSION: Osteoporosis (T Score less than -2.5). There is increased fracture risk and therapy is usually indicated based on age. Re-Screen 1-2 years. NOTE: T-SCORE=SD OF THE YOUNG ADULT MEAN.
== END | disposition home or self-care (01) ==
LOC: RADBDWWP 11:19
PROVIDERS: ATTEND Family Medicine
DX: Z12.31 Encounter for screening mammogram for malignant neoplasm of breast (principal); Z78.0 Asymptomatic menopausal state
CPT/HCPCS: 77080

== ENCOUNTER 2023-02-19 06:16 | Inpatient (IN) | payer MEDICARE ==
[2023-02-19] MEDS ORDERED: SODIUM CHLORIDE 0.9% 1,000 ML IV STA ×2 (06:33→06:42)
--- NOTE | 2023-02-19 06:44 | ED ---
Chest Pain HPI - General Source: patient, family, EMS, RN notes reviewed Mode of arrival: EMS Limitations: no limitations - History of Present Illness MD Complaint: chest pain Onset/Timin -: hour(s) Pain Location: left chest Treatments Prior to Arrival: aspirin <Alexia Calhoun - Last Filed: 02/19/23 09:20> <Katy Estrada - Last Filed: 02/24/23 23:50> - General Chief Complaint: Chest Pain Stated Complaint: Chest pain Time Seen by Provider: 02/19/23 06:18 - History of Present Illness Initial Comments: This is a 77 year old female who presents to the emergency department for chest pain. States that this started approximately 1 hour prior to arrival around 5:30 AM. She does have older rib fractures that cause overlying tenderness. States that she rolled over on her left side, and the pain did start almost immediately afterwards. She has associated shortness of breath, and she feels like she is working somewhat harder to breathe. Denies any radiation of pain. Also denies any cardiac history. She was given 4 baby ASA by EMS on arrival. Denies any new falls and the patient is not taking any blood thinners. Denies any fevers, chills, sore throat, cough, palpitations, abdominal pain, nausea, vomiting, diarrhea, back pain, or headaches. (Alexia Calhoun) - Related Data Home Medications Medication Instructions Recorded Confirmed Mometasone Furoate [Mometasone 2 drops BOTH EARS DAILY PRN 07/30/15 02/19/23 Furoate 0.1%] Simvastatin [Zocor] 40 mg PO HS 07/30/15 02/19/23 Fluticasone Nasal [place] [Flonase 2 spr EA NOSTRIL DAILY PRN 12/17/15 02/19/23 Nasal [place]] Carboxymethylcellulose Sodium 1 drop BOTH EYES BID PRN 04/02/16 02/19/23 [Refresh Tears] Albuterol Sulfate [Proair Hfa] 2 puff INHALATION RT-Q6H PRN 06/05/19 02/19/23 Fluticasone Propionate [Flovent 1 puff INHALATION RT-BID 06/05/19 02/19/23 Hfa 110 mcg] Potassium Chloride [Potassium 10 meq PO DAILY 12/05/21 02/19/23 Chloride ER] Cholecalciferol [Vitamin D3 (25 50 mcg PO DAILY 02/19/23 02/19/23 Mcg = 1000 Iu)] Cyclobenzaprine [Flexeril] 5 mg PO HS 02/19/23 02/19/23 Furosemide [Lasix] 20 mg PO BID 02/19/23 02/19/23 Ipratropium-Albuterol Nebulize 3 ml INHALATION RT-QID PRN 02/19/23 02/19/23 [Duoneb 0.5 mg-3 mg/3 ml Soln] Previous Rx's Medication Instructions Recorded Famotidine [Pepcid] 20 mg PO BID #30 tab 03/06/20 Allergies Allergy/AdvReac Type Severity Reaction Status Date / Time bee venom protein (honey bee) Allergy Anaphylaxis Verified 02/19/23 08:08 tetanus immune globulin Allergy Rash/Hives Verified 02/19/23 08:08 aspirin AdvReac NOSE BLEED Verified 02/19/23 08:08 Review of Systems ROS Other: All systems not noted in ROS Statement are negative. <Alexia Calhoun - Last Filed: 02/19/23 09:20> ROS Other: All systems not noted in ROS Statement are negative. <Katy Estrada - Last Filed: 02/24/23 23:50> ROS Statement: Those systems with pertinent positive or pertinent negative responses have been documented in the HPI. EKG Findings - EKG Comments: EKG Findings:: EKG done at 932 after the patient had arrested was demonstrating a widened QRS. Rate of 92. CT interval 146. QRS 161. QTC 429. Right bundle branch block. No ST elevation <Katy Estrada - Last Filed: 02/24/23 23:50> Past Medical History Past Medical History: COPD, Hyperlipidemia, Thyroid Disorder Additional Past Medical History / Comment(s): edema, seasonal allergies to grass, trees and mold. History of Any Multi-Drug Resistant Organisms: None Reported Past Surgical History: Adenoidectomy, Appendectomy, Bowel Resection, Tonsillectomy Additional Past Surgical History / Comment(s): 3/4 thyroid removed, right leg and foot fracture repair, carple tunnel kim repair, parts of her ribs reomved from left upper chest, ovarian cyst, kim breast cysts removed, 1ft intestine removed for blockage, heart surgery, Anerysm repair in neck 07/2018. Right eye surgery Past Anesthesia/Blood Transfusion Reactions: No Reported Reaction Additional Past Anesthesia/Blood Transfusion Reaction / Comment(s): Pt has recei woody blood in past without reaction. Past Psychological History: No Psychological Hx Reported Smoking Status: Never smoker Past Alcohol Use History: None Reported Past Drug Use History: None Reported - Past Family History Father Family Medical History: No Reported History Additional Family Medical History / Comment(s): Father was healthty and lived to be 89yrs old. Mother Family Medical History: No Reported History Additional Family Medical History / Comment(s): Mother was healthy and lived to be 85 yrs old. <Alexia Calhoun - Last Filed: 02/19/23 09:20> General Exam Limitations: no limitations General appearance: alert, in distress Head exam: Present: atraumatic, normocephalic, normal inspection Respiratory exam: Present: chest wall tenderness (left sided - per the pt chronic related to old rib fractures), other (diminished breath sounds on the left) Cardiovascular Exam: Present: normal rhythm, tachycardia GI/Abdominal exam: Present: soft. Absent: distended, tenderness Neurological exam: Present: alert, oriented X3, CN II-XII intact Psychiatric exam: Present: normal affect, normal mood Skin exam: Present: warm, dry, intact <Alexia Calhoun - Last Filed: 02/19/23 09:20> Course <Katy Estrada - Last Filed: 02/24/23 23:50> Vital Signs 02/19/23 02/19/23 02/19/23 06:19 06:32 06:40 Temperature 97.9 F Pulse Rate 123 H 124 H Pulse Rate [ 125 H Electrogalvanizing Machine Operator ] Respiratory 18 35 H Rate Blood Pressure 103/67 95/60 O2 Sat by Pulse 90 L 91 L Oximetry Fraction of Inspired Oxygen (FIO2) 02/19/23 02/19/23 02/19/23 07:06 07:10 07:27 Temperature Pulse Rate 112 H 112 H Pulse Rate [ Electrogalvanizing Machine Operator ] Respiratory 31 H 26 H Rate Blood Pressure 113/62 96/68 O2 Sat by Pulse 82 L 6 L Oximetry Fraction of Inspired Oxygen (FIO2) 02/19/23 02/19/23 02/19/23 07:30 07:55 08:00 Temperature Pulse Rate 129 H 126 H Pulse Rate [ Electrogalvanizing Machine Operator ] Respiratory 33 H 37 H Rate Blood Pressure 90/68 149/84 O2 Sat by Pulse 85 L 84 L Oximetry Fraction of Inspired Oxygen (FIO2) 02/19/23 02/19/23 02/19/23 08:30 09:30 09:40 Temperature 97.1 F L 97.1 F L Pulse Rate 130 H 0 L 82 Pulse Rate [ Electrogalvanizing Machine Operator ] Respiratory 34 H 0 L 18 Rate Blood Pressure 109/68 0/0 140/80 O2 Sat by Pulse 97 Oximetry Fraction of 100 Inspired Oxygen (FIO2) 02/19/23 02/19/23 02/19/23 09:42 10:00 10:12 Temperature 97.1 F L 97.1 F L Pulse Rate 77 71 Pulse Rate [ Electrogalvanizing Machine Operator ] Respiratory 20 18 Rate Blood Pressure 115/66 122/68 O2 Sat by Pulse 100 Oximetry Fraction of 100 Inspired Oxygen (FIO2) 02/19/23 02/19/23 02/19/23 10:30 11:00 11:30 Temperature 97.1 F L Pulse Rate 71 73 67 Pulse Rate [ Electrogalvanizing Machine Operator ] Respiratory 18 20 26 H Rate Blood Pressure 156/76 87/54 112/52 O2 Sat by Pulse 99 99 100 Oximetry Fraction of Inspired Oxygen (FIO2) 02/19/23 02/19/23 02/19/23 11:32 11:38 11:50 Temperature 97.1 F L 97.1 F L Pulse Rate 75 75 74 Pulse Rate [ Electrogalvanizing Machine Operator ] Respiratory 18 18 28 H Rate Blood Pressure 118/57 78/45 82/45 O2 Sat by Pulse 100 100 100 Oximetry Fraction of Inspired Oxygen (FIO2) 02/19/23 02/19/23 02/19/23 11:52 11:55 12:00 Temperature 997.1 F H 97.1 F L Pulse Rate 75 72 78 Pulse Rate [ Electrogalvanizing Machine Operator ] Respiratory 18 18 24 Rate Blood Pressure 78/45 67/46 67/46 O2 Sat by Pulse 100 100 99 Oximetry Fraction of Inspired Oxygen (FIO2) 02/19/23 02/19/23 02/19/23 12:10 12:15 12:20 Temperature 97.1 F L Pulse Rate 77 79 79 Pulse Rate [ Electrogalvanizing Machine Operator ] Respiratory 25 H 18 19 Rate Blood Pressure 77/33 69/40 81/54 O2 Sat by Pulse 97 100 99 Oximetry Fraction of Inspired Oxygen (FIO2) 02/19/23 02/19/23 02/19/23 12:30 12:32 12:40 Temperature 97.1 F L Pulse Rate 79 93 80 Pulse Rate [ Electrogalvanizing Machine Operator ] Respiratory 24 18 33 H Rate Blood Pressure 68/46 68/47 69/52 O2 Sat by Pulse 100 100 99 Oximetry Fraction of Inspired Oxygen (FIO2) 02/19/23 02/19/23 02/19/23 12:50 13:00 13:10 Temperature Pulse Rate 85 83 91 Pulse Rate [ Electrogalvanizing Machine Operator ] Respiratory 22 22 26 H Rate Blood Pressure 107/91 65/41 73/50 O2 Sat by Pulse 98 99 Oximetry Fraction of Inspired Oxygen (FIO2) 02/19/23 02/19/23 02/19/23 13:20 13:30 13:40 Temperature Pulse Rate 89 84 85 Pulse Rate [ Electrogalvanizing Machine Operator ] Respiratory 31 H 27 H 26 H Rate Blood Pressure 65/42 70/31 46/28 O2 Sat by Pulse 97 95 92 L Oximetry Fraction of Inspired Oxygen (FIO2) 02/19/23 02/19/23 02/19/23 13:50 14:00 14:01 Temperature 97.1 F L Pulse Rate 84 83 84 Pulse Rate [ Electrogalvanizing Machine Operator ] Respiratory 25 H 21 18 Rate Blood Pressure 57/30 75/31 64/40 O2 Sat by Pulse 90 L 93 L 94 L Oximetry Fraction of Inspired Oxygen (FIO2) - Reevaluation(s) Reevaluation #1: Received a call from the radiologist stating that the patient had a left-sided hemothorax with active extravasation from internal mammary artery 02/19/23 07:30 Spoke with Brody Logan from cardiothoracics. Recommend that I speak with Dr. Chung who is on-call 02/19/23 07:[address] Chung from cardiothoracics. He will be down to see patient 02/19/23 07:38 Dr. Chung placing left sided chest tube. Consent signed by daughter 02/19/23 07:50 Chest tube in - [address] Chung states that he has the capability to care for the patient here at our facility. Patient will be admitted to the ICU. Lottery Manager and medicine are made aware 02/19/23 07:37 Spoke with Brody from cardiothoracics. I am concerned about the amount of output in the patient's chest tube. She is now up to 1800 mL. Blood pressure was stable however last read is lower with a 70 systolic. Emergency release of blood is ordered but need to know if intervention will happen to stop the bleeding 02/19/23 08:52 Patient does arrest at 9:04 AM. Patient does marybeth down and has PEA. Compressions started. Dr. Mendoza and Dr. Chung are both at bedside. Dr. Mendoza does place a left central line. 2 units of blood infusing - Dr Chung states that the patient has a very poor prognosis and therefore does not recommend any more than 2 units of blood. 2 epis given. We did regain pulses at 9:30. Levophed ordered and infused 02/19/23 09:04-9:[address] Hernandez. Does not feel that he can perform intervention - he will not perform surgery because he feels as if the patient needs a thoracotomy. Calling cardiothoracic's back at this time 02/19/23 09:42 Cardiothoracic's/Dr. Chung does not feel that the patient is a candidate for surgery. Patient will have extremity poor prognosis and will not survive surgery. Not willing to operate. Recommending transfer if the patients family wants any additional care 02/19/23 09:48 Spoke with family. They are requesting that they do not want any decisions made until all family is at bedside. Awaiting 2 sons to show up. Chest xray performed - ET tube retracted 2 cm 02/19/23 10:00 At this time we do have 5 children, one sister and one significant other at bedside. Request that the patient be transferred for intervention if possible. Calling [facility] at this time as this is were the patient previously was previously there 02/19/23 10:56 [facility] states no due to no beds 02/19/23 11:06 [facility] - no icu beds 02/19/23 11:10 Agustín Luis -will reach out and call back 02/19/23 11:15 Agustín Luis -speaking with Dr. Richardson - senior vice president and chief information officer 02/19/23 11:41 Dr. Richardson has no beds but doing what is possible to make room 02/19/23 11:41 Dr. Chung - still does not feel patient would survive thoracotomy 02/19/23 12:15 Dr. Richardson - accepts - CAT1. Will try and find bed later but accepts as he knows patient needs intervention now 02/19/23 12:22 Dr. Hernandez calls back - states patient is too unstable for transfer and he will perform intervention on the patient. At this time the patient is infusing her seventh units of blood. She has received 2 units of plasma and 2 units of platelets. She also received 2 L of lactated Ringer's 02/19/23 12:35 (Katy Estrada) Procedures - Intubation Laryngoscope: other (glidescope) ET Tube Size: 7.5 ET Tube Uncuffed: No Tube Secured Depth (cm): 22 Tube Secured Location: lips Tube Placement Confirmation: visualized tube passing through cords, equal breath sounds bilaterally, no breath sounds over epigastrium, confirmation by capnometry Patient Tolerated Procedure: well, no complications Intubation Complications: none <Katy Estrada - Last Filed: 02/24/23 23:50> Chest Pain MDM <Alexia Calhoun - Last Filed: 02/19/23 09:20> <Katy Estrada - Last Filed: 02/24/23 23:50> - MDM This is a 77-year-old female who presents to the emergency department for chest pain. Was pt. sent in by a medical professional or institution? @ -No Did you speak to anyone other than the patient for history? @ -EMS Did you review nursing and triage notes? @ -Yes, and I agree, it is accurate with regards to the patient's symptoms. Were old charts reviewed? @ -No Differential Diagnosis? @ -Differential Chest Pain: Stable Angina, Unstable Angina, STEMI, NSTEMI Aortic Dissection, Pneumothorax, Musculoskeletal, Esophageal Spasm GERD, Cholecystitis, Pancreatitis, Zoster, this is not meant to be an all-inclusive list. EKG interpreted by me (3pts min.)? @ -Sinus tachycardia. Ventricular rate 123 beats per minute, CT interval 139 ms, QRS duration 80 ms, QTC 387 ms. X-rays interpreted by me (1pt min.)? @ -[none] CT interpreted by me (1pt min.)? @ -[none] What testing was considered but not performed? (CT, X-rays, U/S, labs)? Why? @ -None What meds were considered but not given? Why? @ -None Did you discuss the management of the patient with other professionals? @ -Yes, Dr. Chung, cardiothoracic surgery, who placed a chest tube in the patient. Did you reconcile home meds? @ -No Was smoking cessation discussed for >3mins.? @ -No Was critical care preformed (if so, how long)? @ -No Were there social determinants of health that impacted care today? How? (Homelessness, low income, unemployed, alcoholism, drug addiction, transportation, low edu. Level, literacy, decrease access to med. care, mcc, rehab)? @ -No Was there de-escalation of care discussed even if they declined? (Discuss DNR or withdrawal of care, Hospice)? @ -No What co-morbidities impacted this encounter? (DM, HTN, Smoking, COPD, CAD, Cancer, CVA, Hep., AIDS, mental health diagnosis, sleep apnea, morbid obesity)? @ -COPD, HLD, thyroid disorder Was patient admitted / discharged? @ -On arrival, patient was managed by both myself and Dr. Vences. Following Dr. Vences's shift completion, Dr. Estrada assumed care of the patient with me. Patient was tachycardic, hypoxic, and hypotensive on arrival. She was given a 2 L bolus of IV fluids with minor improvement in hemodynamic status. Chest x-ray reveals a possible large left pleural effusion. We did obtain a CTA of the chest stat to evaluate for signs of a PE or aortic pathology. CTA reveals critical findings of arterial extravasation from the lateral aspect of the left internal mammary artery, resulting in moderate to large left-sided hemothorax and secondary mass effect shifting the mediastinum to the right. Patient's family states that she had a similar problem 4 years ago and was life flighted to the [facility]. Upon review of old records, she had a rupture of the left subclavian artery in 2018. At that time, she presented with sudden onset left-sided neck pain and had a visible hematoma externally. She was subsequently transferred to the [facility]. 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 Dr. Chung, cardiothoracic surgery, came to the emergency department to evaluate the patient. A chest tube was placed and dark red blood was drained. Consent was obtained prior to the procedure by the patient's daughter. Patient did continue to be hypoxic, at approximately 85% after the procedure. She was subsequently placed on a nonrebreather and was satting around 93%. She continues to decline hemodynamically and became altered. 2 units packed red blood cells were ordered stat. Dr. Chung and Dr. Hernandez were paged stat to evaluate the patient after the change in mentation and worsening hemodynamic status. Undiagnosed new problem with uncertain prognosis? @ -None Drug Therapy requiring intensive monitoring for toxicity (Heparin, Nitro, Insulin, Cardizem)? @ -None Were any procedures done? @ -None Diagnosis/symptom? @ -[default] Acute, or Chronic, or Acute on Chronic? @ -[default] Uncomplicated (without systemic symptoms) or Complicated (systemic symptoms)? @ -[default] Side effects of treatment? @ -[none] Exacerbation, Progression, or Severe Exacerbation] @ -Not applicable Poses a threat to life or bodily function? @ -[no] (Alexia Calhoun) Was pt. sent in by a medical professional or institution? @ -No Did you speak to anyone other than the patient for history? @ -EMS, family states that patient had similar diagnosis previously and was life flighted to [facility] Did you review nursing and triage notes? @ -Yes, and I agree, it is accurate with regards to the patient's symptoms. Were old charts reviewed? 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 @ -Differential Chest Pain: Stable Angina, Unstable Angina, STEMI, NSTEMI Aortic Dissection, Pneumothorax, Musculoskeletal, Esophageal Spasm GERD, Cholecystitis, Pancreatitis, Zoster, t his is not meant to be an all-inclusive list. EKG interpreted by me (3pts min.)? @ -yes, interpreted by me - Sinus tachycardia. Ventricular rate 123 beats per minute, CT interval 139 ms, QRS duration 80 ms, QTC 387 ms. X-rays interpreted by me (1pt min.)? @ -patient had several xrays performed - once before ct, once after chest tube, once after intubation. xrays improved in regards to reduced effusion and reduced mediastinal shift CT interpreted by me (1pt min.)? @ -yes, interpreted by me showing active extravasation of blood into left chest cavity What testing was considered but not performed? (CT, X-rays, U/S, labs)? Why? @ -None What meds were considered but not given? Why? @ -None Did you discuss the management of the patient with other professionals? @ -Yes, Dr. Chung, cardiothoracic surgery, who placed a chest tube in the patient. dr. hernandez who placed central line and took patient for intervention Did you reconcile home meds? @ -Yes - patient is not on a blood thinner Was smoking cessation discussed for >3mins.? @ -No Was critical care preformed (if so, how long)? @ -yes, 240 minutes. Were there social determinants of health that impacted care today? How? (Homelessness, low income, unemployed, alcoholism, drug addiction, transportation, low edu. Level, literacy, decrease access to med. care, mcc, rehab)? @ -No Was there de-escalation of care discussed even if they declined? (Discuss DNR or withdrawal of care, Hospice)? @ -Yes - several discussions occurred between myself and the patients family (3 daughters, 2 sons, significant other, 1 sister). Family agreed that if the patient coded for a second time, they would like her to be DNR What co-morbidities impacted this encounter? (DM, HTN, Smoking, COPD, CAD, Cancer, CVA, Hep., AIDS, mental health diagnosis, sleep apnea, morbid obesity)? @ -COPD, HLD, thyroid disorder Was patient admitted / discharged? @- Admitted - please see above and progress notes. Additionally refer to code sheet Undiagnosed new problem with uncertain prognosis? @ -yes Drug Therapy requiring intensive monitoring for toxicity (Heparin, Nitro, Insulin, Cardizem)? @ -blood products, levophed Were any procedures done? @ -intubation, central line, left sided chest tube Diagnosis/symptom? @ -acute cardiopulmonary arrest, acute vent dependant respiratory failure, left hemothorax with mediastinal shift, acute blood loss anemia s/p 7 units prbc, left mammary artery bleed, metabolic acidosis Acute, or Chronic, or Acute on Chronic? @ -acute Uncomplicated (without systemic symptoms) or Complicated (systemic symptoms)? @ -complicated Side effects of treatment? @ -acidosis and coagulopathy due to large volume blood transfusion Exacerbation, Progression, or Severe Exacerbation] @ -Not applicable Poses a threat to life or bodily function? @ -yes - survival not expected for patient (Katy Estrada) Critical Care Time Critical Care Time: Yes <Katy Estrada - Last Filed: 02/24/23 23:50> Critical Care Time: 242 hours of critical care time performed on the patient. Patient arrived unstable - hypotensive, hypoxic and tachycardic. Patient subsequently decompensated due to continued bleeding. She received multiple blood products including 7 units of blood, 2 plasma and 2 platelets. She required several re- evaluations due to waxing and waning status. I had many discussions with family regarding goals of care. Patients family then opted for transfer when CT surgeon and vascular surgeon were unwilling to perform any surgery due to guarded prognosis. I called 3 outside facilities and discussed patients status before receiving refusal. Patient was too unstable for transfer and Dr. Hernandez agreed to take for intervention as this was last option for the patient. Family aware of extremely guarded prognosis and that she likely may not survive any procedures. (Katy Estrada) Disposition <Alexia Calhoun - Last Filed: 02/19/23 09:20> Is patient prescribed a controlled substance at d/c from ED?: No <Katy Estrada - Last Filed: 02/24/23 23:50> Clinical Impression: Hemothorax on left, Chest pain, Cardiopulmonary arrest, Injury of left internal mammary artery, Acute blood loss anemia, Ventilator dependence, Metabolic acidosis Disposition: ADMITTED IP TO THIS HOSP Condition: Critical
[2023-02-19 06:47] LABS: Anisocytosis Slight; HCT 38.7 % (34.0-46.0); HGB 11.9 gm/dL (11.4-16.0); Hypochromasia Moderate; MCH 27.4 pg (25.0-35.0); MCHC 30.7 g/dL (31.0-37.0); MCV 89.1 fL (80.0-100.0); Platelet Count 159 k/uL (150-450); RBC 4.35 m/uL (3.80-5.40); RDW 16.7 % (11.5-15.5); WBC 11.4 k/uL (3.8-10.6)
[2023-02-19 07:12] LABS: Partial Thromboplastin Time 25.5 sec (22.0-30.0); Prothrombin Time 10.5 sec (9.0-12.0)
--- NOTE | 2023-02-19 07:18 | XR ---
EXAMINATION TYPE: XR chest 1V portable DATE OF EXAM: 02/19/2023 Comparison: 12/05/2021 Clinical History: 77-year-old female with chest pain and shortness of breath Findings: Left heart margin now entirely obscured by adjacent pleural parenchymal opacity. Suspect underlying m oderate to large left pleural effusion. Patient is rotated towards the left and kyphotic in positioni ng limiting the evaluation. Underlying hyperinflation, suspected COPD. Impression: New moderate to large left pleural effusion with underlying atelectasis and/or consolidation. Limited , rotated exam.
[2023-02-19 07:19] LABS: ALT 14 U/L (4-34); AST 17 U/L (14-36); African American GFR (CKD) >90 (>60 ml/min/1.73 sqM); Albumin 3.5 g/dL (3.5-5.0); Alkaline Phosphatase 70 U/L (38-126); Anion Gap 9 mmol/L; Blood Urea Nitrogen 14 mg/dL (7-17); Calcium 8.1 mg/dL (8.4-10.2); Carbon Dioxide 23 mmol/L (22-30); Chloride 104 mmol/L (98-107); Glucose 237 mg/dL (74-99); Magnesium 1.9 mg/dL (1.6-2.3); Non-African American GFR(CKD) 86 (>60 ml/min/1.73 sqM); Sodium 136 mmol/L (137-145); Total Bilirubin 0.5 mg/dL (0.2-1.3); Total Protein 6.3 g/dL (6.3-8.2)
--- NOTE | 2023-02-19 07:38 | CT ---
EXAMINATION TYPE: CT angio thor/abd pel aorta DATE OF EXAM: 02/19/2023 COMPARISON: Chest radiograph same day and CT 10/16/2018 HISTORY: 77-year-old female with pain and shortness of breath, assess for PE or dissection TECHNIQUE: Contiguous axial scanning of the chest, abdomen, and pelvis performed without and with IV Contrast, patient injected with 100 mL of Isovue 370. Coronal/sagittal reconstructions performed. 3-D reconstructions generated on a dedicated independent workstation. CT DLP: 947.2 mGycm Automated exposure control for dose reduction was used. FINDINGS: Chest: Heart is upper limits of normal in size without pericardial effusion. No flattening of the interventr icular septum or reflux of contrast into the hepatic veins. Initial noncontrast images show no evidence for acute intracranial hematoma. No evidence for aortic d issection. Mild atherosclerotic arch calcifications with inlet shortness of breath anatomy. Aortic ro ot normal caliber. Ascending aorta mildly ectatic at 3.6 cm. There is large caliber to the main right and left pulmonary arteries measuring up to 2.7 cm each sugg esting underlying pulmonary arterial hypertension. Prominent breathing motion artifact specially in t he lower lungs. Alignment for this limitation, no definite pulmonary embolus is seen. We are able to visualize the bilateral intramammary arteries are enhancing normally. However, there i s a focal area of arterial extravasation along the left lateral aspect of the left ulnar mammary jason ry near the level of the sternomanubrial joint. Associated moderate to large pneumothorax is demonstr ated with underlying atelectasis. Background mild emphysematous change. Again, extensive breathing motion artifact. Large oval nodule high in the right axilla measuring 3.6 cm. This appears to have been present on the 10/16/2018 exam as well suggesting a benign etiology, possible lymphangioma. Otherwise, no thoracic ly mphadenopathy by CT size criteria. ABDOMEN: Motion limited assessment of the abdomen. No definite focal liver lesion or biliary ductal dilatation . Arterial phase imaging of the gallbladder, adrenal glands, kidneys, spleen, and pancreas show no taylor s abnormality. No dilated small bowel, free fluid, or free air. No mesenteric or retroperitoneal lymphadenopathy. Scattered moderate stool. No pericolonic inflammatory change. PELVIS: Bladder is distended. Uterus surgically absent. No abnormal fluid collection in the pelvis or pelvic lymphadenopathy. BONES: Postsurgical change L4-L5 posterior and interbody fusion with fixed grade 1 anterolisthesis. Accentua isabel thoracic kyphosis. Levoconvex scoliosis cervicothoracic junction. IMPRESSION: 1. ACTIVE ARTERIAL EXTRAVASATION FROM THE LATERAL ASPECT OF THE LEFT INTERNAL MAMMARY ARTERY. NEAR TH E LEVEL OF THE STERNOMANUBRIAL JOINT. THIS RESULTS IN MODERATE TO LARGE LEFT-SIDED HEMOTHORAX AND SEC ONDARY MASS EFFECT SHIFTING THE CARDIOMEDIASTINUM TO THE RIGHT. 2. NO EVIDENCE FOR ACUTE AORTIC INJURY. BREATHING MOTION LIMITING ASSESSMENT FOR PE. NO DEFINITE PULM ONARY EMBOLUS. Critical findings called to Dr. Estrada in the ER at 7:30 AM. 3. COPD AND PULMONARY ARTERIAL HYPERTENSION.
[2023-02-19] MEDS ORDERED: LIDOCAINE 1% INJ 10MG/ML (30 ML VIAL-PF) SQ ONE (07:46)
--- NOTE | 2023-02-19 08:33 | XR ---
EXAMINATION TYPE: XR chest 1V portable DATE OF EXAM: 02/19/2023 Comparison: CT earlier today Clinical History: 77-year-old female chest tube Findings: Interval placement of left-sided chest tube. Consider slight advancement so that the sidehole clearly enters the thoracic cavity. Ongoing moderate to large left effusion obscuring the left heart margin. Similar slight mass effect with right regarding mediastinal shift. Impression: Interval placement of left-sided chest tube. Consider minimal advancement so that the sidehole clearl y enters the thoracic cavity. Ongoing moderate to large left hemothorax with associated rightward car diomediastinal shift.
[2023-02-19] MEDS ORDERED: NALOXONE 0.4 MG/ML 1 ML VIAL IV PRN (08:35)
[2023-02-19] MEDS ORDERED: HYDROcodone/APAP 5-325MG 1 EACH TAB PO PRN (08:35)
[2023-02-19] MEDS ORDERED: ACETAMINOPHEN TAB 325 MG TAB PO PRN (08:35)
[2023-02-19 09:06] LABS: Lymphocytes # (M) 2.05 k/uL (1.0-4.8); Metamyelocytes # (M) 0.11 k/uL (0); Metamyelocytes % 1 %; Monocytes # (M) 1.82 k/uL (0-1.0); Myelocytes # (M) 0.11 k/uL (0); Myelocytes % 1 %; Neutrophils # (M) 7.41 k/uL (1.3-7.7); Neutrophils % (M) 65 %; Nucleated Red Blood Cells 0 /100 WBC (0-0); Total Cells Counted 200
--- NOTE | 2023-02-19 09:26 | P.OP ---
Date of Procedure: 02/19/23 Preoperative Diagnosis: Hemodynamic instability with acute bleeding into the left chest with no IV access. Postoperative Diagnosis: Same. Procedure(s) Performed: Insertion of triple-lumen central venous catheter via left femoral vein approach. Anesthesia: none Surgeon: Mikel Hernandez Estimated Blood Loss (ml): 2 Pathology: none sent Condition: critical Disposition: no change Indications for Procedure: Patient is a 77-year-old female who presented to the emergency department. She was found to be suffering from a large hemothorax. Chest tube was placed by cardio thoracic surgery and 1.5 L of blood was returned. CTA was performed demonstrating bleeding from the left subclavian artery. Upon arrival to the emergency Department patient was being intubated and was found to be severely bradycardic with no palpable pulse. Previously placed IVs were no longer functional. Description of Procedure: Because of the emergent nature of the procedure no sterile prep or drape was performed. Multipurpose needle was utilized to cannulate the left femoral vein. Once cannulated Softip guidewire is advanced into the vein. The needle was withdrawn. Vessel dilator was advanced over the wire and subsequently removed. Triple-lumen central venous catheter was easily advanced over the guidewire. Guidewire was withdrawn and venous blood was returned. The catheter was secured to the skin with nylon suture and IV fluids were administered through the catheter. Proper dressing was applied.
[2023-02-19 09:37] LABS: Glucose,Whole Blood 416 mg/dL (70-110)
[2023-02-19] MEDS ORDERED: MIDAZOLAM 1 MG/ML 5 ML VIAL IV STA ×3 (09:43→13:03)
[2023-02-19] MEDS ORDERED: NOREPINEPHRINE 4 MG in SODIUM CHLORIDE 0.9% 250 ML IV SCH (09:45)
[2023-02-19] MEDS ORDERED: IPRATROPIUM-ALBUTEROL 3 ML NEB INHALATION PRN (09:46)
[2023-02-19] MEDS ORDERED: DEXTROSE 50% SYRINGE 50 ML IVP PRN ×2 (09:48)
--- NOTE | 2023-02-19 10:02 | XR ---
EXAMINATION TYPE: XR chest 1V portable DATE OF EXAM: 02/19/2023 Comparison: Earlier today Clinical History: 77-year-old female intubated Findings: Left-sided chest tube remains in place. Decreasing size of the patient's left effusion. Small to mode rate effusion remains. The cardiomediastinal shift seen previously has resolved. The ET tube is in th e proximal right mainstem bronchus. Pull back 4 cm. Impression: 1. Left-sided chest tube in place. Decreasing size of the left hemothorax, now [id number] in s ize and resolution of the previous cardiomediastinal shift. 2. Right mainstem intubation, pullback [address] Estrada in the ER at 10:00 AM.
[2023-02-19] MEDS ORDERED: SODIUM BICARB 8.4% 50 ML SYR (1 MEQ/ML) IV STA ×3 (12:26→19:37)
[2023-02-19] MEDS: NOREPINEPHRINE 32 MG in SODIUM CHLORIDE 0.9% 218 ML IV SCH ×2 (12:28→19:27)
[2023-02-19 12:47] LABS: Allen Test Performed? Yes
[2023-02-19 12:48] LABS: ABG Base Excess -22.6 mmol/L; ABG PCO2 41 mmHg (35-45); ABG PO2 139 mmHg (83-108); ABG TCO2 11 mmol/L (19-24)
[2023-02-19 12:56] LABS: ABG HCO3 9 mmol/L (21-25); ABG PH 6.96 (7.35-7.45)
--- NOTE | 2023-02-19 12:57 | XR ---
EXAMINATION TYPE: XR chest 1V confirm line [facility] DATE OF EXAM: 02/19/2023 COMPARISON: Earlier today HISTORY: 77-year-old female OG and ET tube TECHNIQUE: Single frontal view of the chest is obtained. FINDINGS: ET tube has been pulled back, tip now at the level of the aortic arch, satisfactory. NG tu be courses below the diaphragm. Left-sided chest tube remains in place. Moderate sized left pleural e ffusion remains, slightly increased from recent prior. IMPRESSION: 1. ET tube satisfactory. NG tube artifact. 2. Left-sided chest tube in place. Moderate left pleural effusion/hemothorax minimally increased.
[2023-02-19] MEDS ORDERED: DEXTROSE 5% IN WATER 1,000 ML with SODIUM BICARB (1 MEQ/ML) 150 ML IV SCH (13:00)
--- NOTE | 2023-02-19 13:12 | P.GSCN ---
History of Present Illness Consult date: 02/19/23 Reason for Consult: Extravation MATA Requesting physician: Pedro Logan History of present illness: 77-year-old female who had presented to the emergency department with complaints of chest pain. 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 HPI obtained from chart. Initially on cardiothoracic surgery was cons ulted and a chest tube was placed for hemothorax with approximatley 1.5 L of blood out. Vascular surgery was initially asked to see patient regarding arterial bleed from MATA. When patient was initially seen, she became pulseless, patient was intubated and CPR was started. Cardiothoracic surgeon Dr. Chung was called to the bedside, at that time did not feel patient was stable to undergo intervention. Vascular surgery was then called off. However after CPR patient regained pulse and initial plan was to transfer to [facility] where patient has been accepted. She continues to have significant amount of bleeding up to reported 4100 mL from the chest tube. Vascular surgery was then contacted again regarding possible intervention. Emergency rapid blood administration ordered patient at this time has received 5 units of of red blood cells, 1 unit of FFP and 1 unit of platelets. Temperature 97.1 heart rate 79 and respiratory rate 18 blood pressure 69/40 oxygen saturation 100% Imaging Chest x-ray: Moderate to large left pleural effusion with underlying atelectasis and/or consolidation CT angiogram thoracic/abdominal pelvic aorta reports active arterial extravasation from the lateral aspect of the left internal mammary artery. Near the level of sternotomanubrial joint. This results in moderate to large left- sided hemothorax and secondary mass effect shifting the cardiomediastinum to the right. No evidence for acute aortic injury. Breathing motion limiting assessm ent for PE. No definite pulmonary embolism. COPD and pulmonary arterial hypertension. Labs WBC 11.4 hemoglobin 11.9 hematocrit 38 platelet count 159,000 PT 10.5 INR 1.0 PTT 25.5 d-dimer 0.6 sodium 136 potassium 4.0 BUN 14 creatinine 0.62, glucose 237 calcium 8.1 magnesium 1.9 total bilirubin 0.5 AST 17 AT 14 alkaline phosphatase 70, troponin less than 0.012 Review of Systems ROS unobtainable: due to endotracheal tube Past Medical History Past Medical History: COPD, Hyperlipidemia, Thyroid Disorder Additional Past Medical History / Comment(s): edema, seasonal allergies to grass, trees and mold. 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 Right eye surgery Past Anesthesia/Blood Transfusion Reactions: No Reported Reaction Additional Past Anesthesia/Blood Transfusion Reaction / Comm: Pt has received blood in past without reaction. Past Psychological History: No Psychological Hx Reported Smoking Status: Never smoker Past Alcohol Use History: None Reported Past Drug Use History: None Reported - Past Family History Father Family Medical History: No Reported History Additional Family Medical History / Comment(s): Father was healthty and lived to be 89yrs old. Mother Family Medical History: No Reported History Additional Family Medical History / Comment(s): Mother was healthy and lived to be 85 yrs old. Medications and Allergies Home Medications Medication Instructions Recorded Confirmed Type Mometasone Furoate [Mometasone 2 drops BOTH EARS DAILY PRN 07/30/15 02/19/23 History Furoate 0.1%] Simvastatin [Zocor] 40 mg PO HS 07/30/15 02/19/23 History Fluticasone Nasal [place] [Flonase 2 spr EA NOSTRIL DAILY PRN 12/17/15 02/19/23 History Nasal [place]] Carboxymethylcellulose Sodium 1 drop BOTH EYES BID PRN 04/02/16 02/19/23 History [Refresh Tears] Albuterol Sulfate [Proair Hfa] 2 puff INHALATION RT-Q6H PRN 06/05/19 02/19/23 History Fluticasone Propionate [Flovent 1 puff INHALATION RT-BID 06/05/19 02/19/23 History Hfa 110 mcg] Famotidine [Pepcid] 20 mg PO BID #30 tab 03/06/20 02/19/23 Rx Potassium Chloride [Potassium 10 meq PO DAILY 12/05/21 02/19/23 History Chloride ER] Cholecalciferol [Vitamin D3 (25 50 mcg PO DAILY 02/19/23 02/19/23 History Mcg = 1000 Iu)] Cyclobenzaprine [Flexeril] 5 mg PO HS 02/19/23 02/19/23 History Furosemide [Lasix] 20 mg PO BID 02/19/23 02/19/23 History Ipratropium-Albuterol Nebulize 3 ml INHALATION RT-QID PRN 02/19/23 02/19/23 History [Duoneb 0.5 mg-3 mg/3 ml Soln] Allergies Allergy/AdvReac Type Severity Reaction Status Date / Time bee venom protein (honey bee) Allergy Anaphylaxis Verified 02/19/23 08:08 tetanus immune globulin Allergy Rash/Hives Verified 02/19/23 08:08 aspirin AdvReac NOSE BLEED Verified 02/19/23 08:08 Surgical - Exam Vital Signs Temp Pulse Resp BP Pulse Ox 97.9 F 123 H 18 103/67 90 L 02/19/23 06:19 02/19/23 06:19 02/19/23 06:19 02/19/23 06:19 02/19/23 06:19 General appearance: The patient is intubated and sedated. HET: Head is normocephalic and atraumatic. Neck: Supple. Trachea midline. No audible carotid bruit. Heart: Regular. Lungs: Equal expansion. Chest: Left-sided chest tube in place. Abdomen: Soft, nontender, nondistended. Extremities: Normal skin color and turgor. Neurological: Intubated. Results - Labs 02/19/23 06:35 02/19/23 06:35 Abnormal Lab Results - Last 24 Hours (Table) 02/19/23 02/19/23 02/19/23 Range/Units 06:35 06:35 06:35 WBC 11.4 H (3.8-10.6) k/uL MCHC 30.7 L (31.0-37.0) g/dL RDW 16.7 H (11.5-15.5) % Monocytes # (Manual) 1.82 H (0-1.0) k/uL Metamyelocytes # (Man) 0.11 H (0) k/uL Myelocytes # (Manual) 0.11 H (0) k/uL D-Dimer 0.61 H (<0.60) mg/L FEU Sodium 136 L (137-145) mmol/L Glucose 237 H (74-99) mg/dL POC Glucose (mg/dL) (70-110) mg/dL Calcium 8.1 L (8.4-10.2) mg/dL Crossmatch 02/19/23 02/19/23 Range/Units 08:26 09:36 WBC (3.8-10.6) k/uL MCHC (31.0-37.0) g/dL RDW (11.5-15.5) % Monocytes # (Manual) (0-1.0) k/uL Metamyelocytes # (Man) (0) k/uL Myelocytes # (Manual) (0) k/uL D-Dimer (<0.60) mg/L FEU Sodium (137-145) mmol/L Glucose (74-99) mg/dL POC Glucose (mg/dL) 416 H (70-110) mg/dL Calcium (8.4-10.2) mg/dL Crossmatch See Detail Diabetes panel 02/19/23 Range/Units 06:35 Sodium 136 L (137-145) mmol/L Potassium 4.0 (3.5-5.1) mmol/L Chloride 104 (98-107) mmol/L Carbon Dioxide 23 (22-30) mmol/L BUN 14 (7-17) mg/dL Creatinine 0.62 (0.52-1.04) mg/dL Glucose 237 H (74-99) mg/dL Calcium 8.1 L (8.4-10.2) mg/dL AST 17 (14-36) U/L ALT 14 (4-34) U/L Alkaline Phosphatase 70 (38-126) U/L Total Protein 6.3 (6.3-8.2) g/dL Albumin 3.5 (3.5-5.0) g/dL Calcium panel 02/19/23 Range/Units 06:35 Calcium 8.1 L (8.4-10.2) mg/dL Albumin 3.5 (3.5-5.0) g/dL Pituitary panel 02/19/23 Range/Units 06:35 Sodium 136 L (137-145) mmol/L Potassium 4.0 (3.5-5.1) mmol/L Chloride 104 (98-107) mmol/L Carbon Dioxide 23 (22-30) mmol/L BUN 14 (7-17) mg/dL Creatinine 0.62 (0.52-1.04) mg/dL Glucose 237 H (74-99) mg/dL Calcium 8.1 L (8.4-10.2) mg/dL Adrenal panel 02/19/23 Range/Units 06:35 Sodium 136 L (137-145) mmol/L Potassium 4.0 (3.5-5.1) mmol/L Chloride 104 (98-107) mmol/L Carbon Dioxide 23 (22-30) mmol/L BUN 14 (7-17) mg/dL Creatinine 0.62 (0.52-1.04) mg/dL Glucose 237 H (74-99) mg/dL Calcium 8.1 L (8.4-10.2) mg/dL Total Bilirubin 0.5 (0.2-1.3) mg/dL AST 17 (14-36) U/L ALT 14 (4-34) U/L Alkaline Phosphatase 70 (38-126) U/L Total Protein 6.3 (6.3-8.2) g/dL Albumin 3.5 (3.5-5.0) g/dL Assessment and Plan Assessment: 1. Chest pain 2. Left hemothorax status post chest tube placement 3. Active arterial extravasation from the lateral aspect of left internal mammary artery per CTA 4. History of coronary artery disease Plan: 1. Continue supportive care 2. Continue to transfuse as needed 3. Stat CBC 4. Patient scheduled for left subclavian angiogram with possible stent placement 5. Further recommendations forthcoming per vascular surgeon The impression and plan of care has been dictated as directed. I performed a history and examination of this patient, discussed the same with the dictator. I agree with the dictator's note ,documented as a scribe. Any additional findings or plans will be noted.
[2023-02-19 13:33] LABS: HCT 34.1 % (34.0-46.0); HGB 10.8 gm/dL (11.4-16.0); Hypochromasia Moderate; MCH 29.6 pg (25.0-35.0); MCHC 31.6 g/dL (31.0-37.0); MCV 93.8 fL (80.0-100.0); Mean Platelet Volume 10.6; RBC 3.63 m/uL (3.80-5.40); RDW 14.8 % (11.5-15.5); WBC 32.4 k/uL (3.8-10.6)
[2023-02-19] MEDS ORDERED: LIDOCAINE 1% INJ 10MG/ML (20 ML MDV) ONE (14:03)
[2023-02-19] MEDS ORDERED: ROCURONIUM 10 MG/ML (5 ML VIAL) IV ONE (14:16)
[2023-02-19] MEDS ORDERED: VASOPRESSIN 20 UNIT/ML 1 ML VIAL ONE (14:16)
[2023-02-19] MEDS ORDERED: CALCIUM CHLORIDE 100 MG/ML 10 ML SYRINGE ONE (14:16)
[2023-02-19] MEDS ORDERED: PHENYLEPHRINE-0.9% NACL SYG 1,000 MCG/10 ML SYRINGE ONE (14:16)
[2023-02-19] MEDS ORDERED: NOREPINEPHRINE 1 MG/ML 4 ML VIAL IV ONE (14:16)
[2023-02-19] MEDS ORDERED: MIDAZOLAM 2 MG/2 ML VIAL ONE (14:16)
[2023-02-19 14:39] LABS: Platelet Count 99 k/uL (150-450)
--- NOTE | 2023-02-19 15:06 | P.GSCN ---
History of Present Illness Consult date: 02/19/23 Reason for Consult: Left hemothorax Requesting physician: Katy Estrada History of present illness: This is a 77-year-old female patient who follows on an outpatient basis with Dr. Kassandra Cordoba for her primary care service and with Dr. Holman for her cardiology care. She has a past medical history significant for aneurysm repair in the neck around 5 years ago, hyperlipidemia, COPD, coronary artery disease with mild CAD, scoliosis, and is a lifetime nonsmoker. The patient reports upon waking us morning she had complaints of chest pain to her left chest, called her daughter and also cold life alert which initiated EMS response. The patient did receive 4 aspirin 81 mg by mouth given by EMS. The patient denies any recent fever, chills, nausea, vomiting, trauma, headache, dizziness, diarrhea, constipation, palpitations, presyncope or syncope. Initial laboratory results in the emergency department showed a WBC count of 11.4, hemoglobin 11.9, hematocrit 38.7, platelets 159, PT 10.5, INR 1.0, PTT 25.5, d-dimer 0.61, sodium 136, potassium 4.0, chloride 104, CO2 23, BUN 14, creatinine 0.62, glucose 237, calci um 8.1, magnesium 1.9, and troponin less than 0.012. A chest x-ray was completed which showed a new moderate to large left pleural effusion with underlying atelectasis and/or consolidation. For further evaluation the patient underwent a CT angio thoracic, abdominal and pelvic aorta which demonstrated an active arterial extravasation from the lateral aspect of the left internal mammary artery near the level of the sternomanubrial joint with a large left- sided hemothorax and secondary mass effect shifting the cardiomediastinum to the right. It also demonstrated no evidence for acute aortic injury and no definite pulmonary embolus. Subsequently, due to the patient's presenting symptoms and findings on the CT angio a consult was placed to Dr. Chung from cardiothoracic surgery. The patient was complaining of some shortness of breath and after evaluating the patient a left pleural chest tube was placed by Dr. Chung. Once the chest tube was placed and drained about 1.2 L of dark red blood and the patient reported that she felt her breathing did improve. Review of Systems A 14 point review of systems was completed and was negative except as mentioned in the HPI. Past Medical History Past Medical History: Coronary Artery Disease (CAD), COPD, Hyperlipidemia, Thyroid Disorder Additional Past Medical History / Comment(s): edema, seasonal allergies to grass, trees and mold. History of Any Multi-Drug Resistant Organisms: None Reported Past Surgical History: Adenoidectomy, Appendectomy, Bowel Resection, Tonsillectomy Additional Past Surgical History / Comment(s): 3/4 thyroid removed, right leg and foot fracture repair, carple tunnel ikm repair, parts of her ribs reomved from left upper chest, ovarian cyst, kim breast cysts removed, 1ft intestine removed for blockage, heart surgery, Anerysm repair in neck 07/2018. Right eye surgery Past Anesthesia/Blood Transfusion Reactions: No Reported Reaction Additional Past Anesthesia/Blood Transfusion Reaction / Comm: Pt has received blood in past without reaction. Past Psychological History: No Psychological Hx Reported Smoking Status: Never smoker Past Alcohol Use History: None Reported Past Drug Use History: None Reported - Past Family History Father Family Medical History: No Reported History Additional Family Medical History / Comment(s): Father was healthty and lived to be 89yrs old. Mother Family Medical History: No Reported History Additional Family Medical History / Comment(s): Mother was healthy and lived to be 85 yrs old. History of scoliosis Medications and Allergies Home Medications Medication Instructions Recorded Confirmed Type Mometasone Furoate [Mometasone 2 drops BOTH EARS DAILY PRN 07/30/15 02/19/23 History Furoate 0.1%] Simvastatin [Zocor] 40 mg PO HS 07/30/15 02/19/23 History Fluticasone Nasal [place] [Flonase 2 spr EA NOSTRIL DAILY PRN 12/17/15 02/19/23 History Nasal [place]] Carboxymethylcellulose Sodium 1 drop BOTH EYES BID PRN 04/02/16 02/19/23 History [Refresh Tears] Albuterol Sulfate [Proair Hfa] 2 puff INHALATION RT-Q6H PRN 06/05/19 02/19/23 History Fluticasone Propionate [Flovent 1 puff INHALATION RT-BID 06/05/19 02/19/23 History Hfa 110 mcg] Famotidine [Pepcid] 20 mg PO BID #30 tab 03/06/20 02/19/23 Rx Potassium Chloride [Potassium 10 meq PO DAILY 12/05/21 02/19/23 History Chloride ER] Cholecalciferol [Vitamin D3 (25 50 mcg PO DAILY 02/19/23 02/19/23 History Mcg = 1000 Iu)] Cyclobenzaprine [Flexeril] 5 mg PO HS 02/19/23 02/19/23 History Furosemide [Lasix] 20 mg PO BID 02/19/23 02/19/23 History Ipratropium-Albuterol Nebulize 3 ml INHALATION RT-QID PRN 02/19/23 02/19/23 History [Duoneb 0.5 mg-3 mg/3 ml Soln] Allergies Allergy/AdvReac Type Severity Reaction Status Date / Time bee venom protein (honey bee) Allergy Anaphylaxis Verified 02/19/23 08:08 tetanus immune globulin Allergy Rash/Hives Verified 02/19/23 08:08 aspirin AdvReac NOSE BLEED Verified 02/19/23 08:08 Surgical - Exam Vital Signs Temp Pulse Resp BP Pulse Ox 97.9 F 123 H 18 103/67 90 L 02/19/23 06:19 02/19/23 06:19 02/19/23 06:19 02/19/23 06:19 02/19/23 06:19 - General Patient was seen at her bedside in the emergency department, complaints of shortness of breath. moderate distress, chronically ill - Eyes PERRL, normal ocular movement, no pale, no icteric - ENT normal pinna, normal nares, normal mucosa, no hearing loss, no congestion, dentures - Neck No lymphadenopathy. no masses, no bruits, trachea midline, no venous distension - Respiratory Lung sounds essentially clear throughout, diminished bilateral bases, left greater than right. Respirations are symmetrical and tachypneic. - Cardiovascular Regular rhythm and rate. S1 and S2 present, negative for history, gallop or murmur. No edema present. - Abdomen Abdomen soft, nontender and nondistended. Active bowel sounds present in all 4 quadrants. No guarding or rigidity. - Genitourinary Deferred - Rectum Deferred - Integumentary Skin is warm and dry. No clubbing or cyanosis is present. no rash, no growths, no abnormal pigmentation - Neurologic Cranial nerves II through XII intact. No focal deficits. normal coordination, normal sensation - Musculoskeletal Equal strength bilateral extremities. - Psychiatric oriented to time, oriented to person, oriented to place, speech is normal, memory intact Results - Labs 02/19/23 13:19 02/19/23 06:35 Abnormal Lab Results - Last 24 Hours (Table) 02/19/23 02/19/23 02/19/23 Range/Units 06:35 06:35 06:35 WBC 11.4 H (3.8-10.6) k/uL MCHC 30.7 L (31.0-37.0) g/dL RDW 16.7 H (11.5-15.5) % D-Dimer 0.61 H (<0.60) mg/L FEU Sodium 136 L (137-145) mmol/L Glucose 237 H (74-99) mg/dL Calcium 8.1 L (8.4-10.2) mg/dL Diabetes panel 02/19/23 Range/Units 06:35 Sodium 136 L (137-145) mmol/L Potassium 4.0 (3.5-5.1) mmol/L Chloride 104 (98-107) mmol/L Carbon Dioxide 23 (22-30) mmol/L BUN 14 (7-17) mg/dL Creatinine 0.62 (0.52-1.04) mg/dL Glucose 237 H (74-99) mg/dL Calcium 8.1 L (8.4-10.2) mg/dL AST 17 (14-36) U/L ALT 14 (4-34) U/L Alkaline Phosphatase 70 (38-126) U/L Total Protein 6.3 (6.3-8.2) g/dL Albumin 3.5 (3.5-5.0) g/dL Calcium panel 02/19/23 Range/Units 06:35 Calcium 8.1 L (8.4-10.2) mg/dL Albumin 3.5 (3.5-5.0) g/dL Pituitary panel 02/19/23 Range/Units 06:35 Sodium 136 L (137-145) mmol/L Potassium 4.0 (3.5-5.1) mmol/L Chloride 104 (98-107) mmol/L Carbon Dioxide 23 (22-30) mmol/L BUN 14 (7-17) mg/dL Creatinine 0.62 (0.52-1.04) mg/dL Glucose 237 H (74-99) mg/dL Calcium 8.1 L (8.4-10.2) mg/dL Adrenal panel 02/19/23 Range/Units 06:35 Sodium 136 L (137-145) mmol/L Potassium 4.0 (3.5-5.1) mmol/L Chloride 104 (98-107) mmol/L Carbon Dioxide 23 (22-30) mmol/L BUN 14 (7-17) mg/dL Creatinine 0.62 (0.52-1.04) mg/dL Glucose 237 H (74-99) mg/dL Calcium 8.1 L (8.4-10.2) mg/dL Total Bilirubin 0.5 (0.2-1.3) mg/dL AST 17 (14-36) U/L ALT 14 (4-34) U/L Alkaline Phosphatase 70 (38-126) U/L Total Protein 6.3 (6.3-8.2) g/dL Albumin 3.5 (3.5-5.0) g/dL - Imaging Chest x-ray: report reviewed, image reviewed CT scan - abdomen: report reviewed, image reviewed CT scan - chest: report reviewed, image reviewed CT scan - pelvis: report reviewed, image reviewed Assessment and Plan Assessment: Left sided hemothorax, status post chest tube placement Chest pain, chronic in nature although could be secondary to above, troponins less than 0.012 Acute arterial extravasation from the lateral aspect of the left internal mammary artery for CTA Hyperlipidemia History of aneurysm repair in the neck around 5 years ago COPD Coronary artery disease, mild History of scoliosis Lifetime nonsmoker Plan: The patient was seen and examined in the emergency department Dr. Mikel Chung from cardiothoracic surgery. A chest tube was placed as the patient was found to have a left-sided hemothorax with mass effects shifting the cardiomediastinum to the right on the computed tomography scan of the chest. Emergency department is initiating the rapid transfusion protocol. Consult vascular surgery for evaluation of the CTA report showing active arterial extravasation from the lateral aspect of the left internal mammary artery. Medical management of her comorbidities per primary care service. Continue to monitor CBC. Continue supportive care. More recommendations to follow based on patient's clinical course. Thank you for this consult and we will look forward to working with you in the care of this patient. I have personally seen and examined the patient, performed the documentation and the assessment and plan as written. 30 minutes spent on the visit . Brody SHERIFF
[2023-02-19 16:49] LABS: HCT 33.8 % (34.0-46.0); Hypochromasia Slight; MCH 29.6 pg (25.0-35.0); MCHC 32.5 g/dL (31.0-37.0); MCV 91.3 fL (80.0-100.0); Mean Platelet Volume 10.7; Poikilocytosis Slight; RDW 14.8 % (11.5-15.5); WBC 32.1 k/uL (3.8-10.6)
[2023-02-19 16:51] LABS: Potassium 4.4 mmol/L (3.5-5.1)
[2023-02-19 17:26] LABS: Platelet Count 49 k/uL (150-450)
[2023-02-19] MEDS ORDERED: IOPAMIDOL-250 100ML BTL INTRAARTER ONE (18:00)
[2023-02-19] MEDS ORDERED: VASOPRESSIN 60 UNIT in SODIUM CHLORIDE 0.9% 150 ML IV SCH (19:00)
[2023-02-19 19:04] LABS: Glucose,Whole Blood 269 mg/dL (70-110)
--- NOTE | 2023-02-19 19:24 | P.OP ---
Date of Procedure: 02/19/23 Preoperative Diagnosis: Bleeding left subclavian/internal mammary artery was secondary severe blood loss anemia and hemodynamic instability. Postoperative Diagnosis: 1: Bleeding from distal segment of the internal mammary artery resulting in severe blood loss anemia. 2: Iatrogenic injury left internal mammary artery. Procedure(s) Performed: 1: Ultrasound-guided cannulation left brachial artery. 2: Left subclavian angiogram. 3: Selective catheterization of the left internal mammary artery with internal mammary artery angiography. 4: Coil embolization left internal mammary artery. 5: Placement of the VBX stent left subclavian artery. Implants: VBX stent left subclavian artery. Anesthesia: GETA Surgeon: Mikel Hernandez Estimated Blood Loss (ml): 100 Pathology: none sent Condition: critical Disposition: ICU Indications for Procedure: Indications: Patient is a 77-year-old female who presented to to the emergency room complaining of chest pain. CT angiogram was performed which demonstrated bleeding from the left internal mammary artery although a clear source could not be truly identified. A hemothorax was drained with a chest tube initial return of 1500 ML's of blood. Cardiothoracic surgery did not think the patient could survive an open thoracotomy and vascular surgery was consult for possible percutaneous intervention. I did discuss with the patient's family the critical nature of the patient's condition and my feeling that the patient was too unstable to transfer to an outside institution and did offer attempt at percutaneous repair. The procedure, risks and benefits were discussed. All questions were answered to patient's family satisfaction. Description of Procedure: Patient is brought to the cardiovascular lab. She had been previously intubated and anesthesia was directly involved in the patient's care. Patient's left upper extremity sterilely prepped and draped in usual manner. Ultrasound was utilized to identify the brachial artery. Multipurpose needle was utilized to cannulate the artery with ultrasound guidance. Once cannulated Softip guidewire was advanced. The needle was withdrawn and a 6-[place] sheath was placed. Pigtail catheter and guidewire were advanced into the thoracic aorta at the takeoff of the subclavian. Angiogram was performed which did demonstrate bleeding from the left internal mammary artery. A MATA catheter was exchanged for the pigtail catheter and selective cannulization of the MATA was performed. Selective MATA angiogram was performed demonstrating a blush at the mid to distal third of the MATA. Guidewire was advanced down through this artery past the level of of bleed. The MATA catheter was exchanged for a 4-[place] guide catheter. Coil embolization was then performed utilizing multiple separate coils both distal and proximal to the area of bleeding. In doing so this controlled the bleeding however iatrogenic injury to the MATA was identified. In an effort to control this bleeding additional coils were placed above this area and the bleeding appeared to be slowing down significantly. I was concerned however if this area would persistent bleeding patient would not survive and as such it was decided to place a covered stent understanding that this would also occlude the left vertebral artery. The right vertebral artery appeared patent on CTA. The subclavian artery was measured to a proximally 9 mm and an 8 mm VBX stent was selected. The 6-[place] sheath was exchanged for an 8-[place] sheath and over guidewire and with roadmapping imaging the stent was deployed. A 10 mm high pressure balloon was then utilized to expand the stent with good apposition noted. Completion angiogram demonstrated no further bleeding along the course of the CALEB with good flow distal. Small dissection was identified and this was not felt to be hemodynamically significant and no further intervention was felt necessary. The stent as anticipated did occlude the vertebral artery. With the above findings noted guidewires and catheters were removed. The brachial sheath was left in place for a line purposes and was secured to the skin with silk suture. Patient tolerated the procedure well. At the completion of the case she had received 7 units of packed red blood cells 3 units of fresh frozen plasma and one 5 pack of platelets. She was transferred to the intensive care unit. I did speak with the critical care physician longwall headgate operator explaining the findings and treatment administered.
[2023-02-19 19:28] LABS: ABG Base Excess -20.6 mmol/L; ABG HCO3 11 mmol/L (21-25); ABG PCO2 43 mmHg (35-45); ABG PO2 65 mmHg (83-108); ABG TCO2 12 mmol/L (19-24); Allen Test Performed? Yes
[2023-02-19 19:30] LABS: ABG PH 7.01 (7.35-7.45)
[2023-02-19] MEDS ORDERED: SODIUM BICARB 8.4% 50 ML SYR (1 MEQ/ML) ONE ×2 (19:33→19:34)
--- NOTE | 2023-02-19 19:40 | XR ---
EXAMINATION: XR chest 1V portable 02/19/2023 7:25 PM Clinical Indication: Tube placement Technique: Portable AP supine Comparison: 02/19/2023 at 1205 hours Findings: SUPPORT LINES AND CATHETERS: 1. Endotracheal tube tip superimposed over the mid trachea, just above the level of the clavicular he ads. 2. NG tube is present, passing over the study course of the thoracic esophagus to have its port super imposed over the expected position of the gastric cardia and its tip projecting caudal to the radiogr aph, presumably superimposed over the gastric body 3. Left chest tube is present. 4. EKG leads. The large left pleural effusion and airlessness throughout the left lower lobe, the previously seen w idespread interstitial lung pattern, and the widened mediastinum with bilateral hilar prominence - th helga findings are similar to the prior radiograph. Note: Current radiograph is obtained in the supine position, as well as the prior radiograph. IMPRESSION: Stable overall lung inflation, details as discussed.
[2023-02-19] MEDS ORDERED: CALCIUM GLUCONATE IN NACL 2 GM in SALINE 1 100ML.BAG IVPB ONE (19:45)
[2023-02-19] MEDS: INSULIN ASPART (NovoLOG) 100 UNIT/ML VIAL SQ SCH ×2 (19:47→19:48)
[2023-02-19 20:01] LABS: Basophils # (A) 0.8 k/uL (0-0.2); Basophils % (A) 3 %; Eosinophils % (A) 0 %; HCT 20.7 % (34.0-46.0); Hypochromasia Marked; Lymphocytes # (A) 3.8 k/uL (1.0-4.8); Lymphocytes % (A) 12 %; MCH 28.8 pg (25.0-35.0); MCHC 30.7 g/dL (31.0-37.0); MCV 93.9 fL (80.0-100.0); Mean Platelet Volume 11.4; Monocytes % (A) 13 %; Neutrophils # (A) 19.7 k/uL (1.3-7.7); Neutrophils % (A) 63 %; Poikilocytosis Slight; RDW 15.3 % (11.5-15.5); WBC 31.3 k/uL (3.8-10.6)
[2023-02-19] MEDS ORDERED: MORPHINE SULFATE 4 MG/ML SYRINGE IV PRN (20:16)
[2023-02-19] MEDS ORDERED: MORPHINE SULFATE 2 MG/ML SYRINGE IV PRN (20:16)
[2023-02-19 20:32] LABS: HGB 6.4 gm/dL (11.4-16.0)
[2023-02-19 20:33] LABS: Platelet Count 56 k/uL (150-450)
[2023-02-19 20:34] VITALS: BP 69/47; PULSE 25; RESP 28; TEMP 92
[2023-02-19 20:42] LABS: Albumin 1.3 g/dL (3.5-5.0); Magnesium 2.5 mg/dL (1.6-2.3); Total Bilirubin 1.3 mg/dL (0.2-1.3); Total Protein 2.9 g/dL (6.3-8.2)
[2023-02-19 20:58] LABS: Phosphorus 12.4 mg/dL (2.5-4.5); Potassium 6.1 mmol/L (3.5-5.1)
[2023-02-19] MEDS ORDERED: CHLORHEXIDINE GLUCONATE 15 ML CUP MUCOUS MEM SCH (21:00)
[2023-02-19] MEDS ORDERED: ATORVASTATIN 20 MG TAB PO SCH (21:00)
--- NOTE | 2023-02-19 21:05 | P.HPIM ---
History of Present Illness H&P Date: 02/19/23 Chief Complaint: Chest pain Patient is a 77-year-old female with a known history of COPD, hyperlipidemia, hypothyroidism and rupture of the left subclavian artery in 2018 with sudden onset left-sided neck pain and visible hematoma and subsequently transferred to [facility]. 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 Patient presents to ER with the complaints of chest pain. Pain started about 1 hour prior to arrival to the hospital around 5:30 AM. Patient states that she rolled over her left side and pain started immediately. Pain is associate with shortness of breath and had difficulty taking deep breaths. Denied any nausea or vomiting. No radiation of the pain. Patient was given aspirin by EMS. Currently patient is not taking any medications and denies any recent falls. No fever no chills. No cough or sputum production. Chest x-ray on admission showed new moderate to large left pleural effusion with underlying atelectasis and or consolidation. EKG showed sinus tachycardia. Laboratory data showed WBC 11.4 hemoglobin 11.9 and platelets 159. D-dimer elevated 0.61. CT thoracic aorta showed active arterial extravasation from the lateral aspect of the left internal mammary artery., Near the level of the sternomanubrial joint. This results in moderate to large left-sided hemothorax and secondary mass effect shifting the cardiomediastinum to the right. No acute evidence of aortic injury. COPD and pulmonary hypertension. CT surgery was consulted in the ER. Chest tube was placed due to left-sided hemothorax and has drainage about 1800 cc of blood. Patient continued to be hypoxic and was placed on 100% nonrebreather. Patient received 2 units of PRBC transfusion and third unit is pending at this time. Vascular surgery was consulted for possible intervention. While in the ER she was found to be bradycardic, hypotensive and went into cardiopulmonary arrest. Status post CPR for about 25 minutes and successful return of spontaneous circulation. Left femoral central line was placed by vascular surgery. Patient was intubated and is being transferred to MICU. Patient is awake alert and is able to follow simple commands. Repeat chest x-ray showed left-sided chest tube in place. Decreasing in size of the left hemothorax., Now small to moderate in size and resolution of the previous cardiomediastinal shift. Review of Systems ROS unobtainable: due to endotracheal tube Past Medical History Past Medical History: COPD, Hyperlipidemia, Thyroid Disorder Additional Past Medical History / Comment(s): edema, seasonal allergies to grass, trees and mold. History of Any Multi-Drug Resistant Organisms: None Reported Past Surgical History: Adenoidectomy, Appendectomy, Bowel Resection, Tonsillectomy Additional Past Surgical History / Comment(s): 3/4 thyroid removed, right leg and foot fracture repair, carple tunnel kim repair, parts of her ribs reomved from left upper chest, ovarian cyst, kim breast cysts removed, 1ft intestine removed for blockage, heart surgery, Anerysm repair in neck 07/2018. Right eye surgery Past Anesthesia/Blood Transfusion Reactions: No Reported Reaction Additional Past Anesthesia/Blood Transfusion Reaction / Comment(s): Pt has received blood in past without reaction. Past Psychological History: No Psychological Hx Reported Smoking Status: Never smoker Past Alcohol Use History: None Reported Past Drug Use History: None Reported - Past Family History Father Family Medical History: No Reported History Additional Family Medical History / Comment(s): Father was healthty and lived to be 89yrs old. Mother Family Medical History: No Reported History Additional Family Medical History / Comment(s): Mother was healthy and lived to be 85 yrs old. Medications and Allergies Home Medications Medication Instructions Recorded Confirmed Type Mometasone Furoate [Mometasone 2 drops BOTH EARS DAILY PRN 07/30/15 02/19/23 History Furoate 0.1%] Simvastatin [Zocor] 40 mg PO HS 07/30/15 02/19/23 History Fluticasone Nasal [place] [Flonase 2 spr EA NOSTRIL DAILY PRN 12/17/15 02/19/23 History Nasal [place]] Carboxymethylcellulose Sodium 1 drop BOTH EYES BID PRN 04/02/16 02/19/23 History [Refresh Tears] Albuterol Sulfate [Proair Hfa] 2 puff INHALATION RT-Q6H PRN 06/05/19 02/19/23 History Fluticasone Propionate [Flovent 1 puff INHALATION RT-BID 06/05/19 02/19/23 History Hfa 110 mcg] Famotidine [Pepcid] 20 mg PO BID #30 tab 03/06/20 02/19/23 Rx Potassium Chloride [Potassium 10 meq PO DAILY 12/05/21 02/19/23 History Chloride ER] Cholecalciferol [Vitamin D3 (25 50 mcg PO DAILY 02/19/23 02/19/23 History Mcg = 1000 Iu)] Cyclobenzaprine [Flexeril] 5 mg PO HS 02/19/23 02/19/23 History Furosemide [Lasix] 20 mg PO BID 02/19/23 02/19/23 History Ipratropium-Albuterol Nebulize 3 ml INHALATION RT-QID PRN 02/19/23 02/19/23 History [Duoneb 0.5 mg-3 mg/3 ml Soln] Allergies Allergy/AdvReac Type Severity Reaction Status Date / Time bee venom protein (honey bee) Allergy Anaphylaxis Verified 02/19/23 08:08 tetanus immune globulin Allergy Rash/Hives Verified 02/19/23 08:08 aspirin AdvReac NOSE BLEED Verified 02/19/23 08:08 Physical Exam Vitals: Vital Signs Temp Pulse Pulse Resp BP Pulse Ox FiO2 02/19/23 09:42 100 02/19/23 08:00 95 02/19/23 07:55 85 L 02/19/23 07:27 96/68 02/19/23 07:10 112 H 26 H 113/62 6 L 02/19/23 06:40 124 H 35 H 95/60 91 L 02/19/23 06:32 125 H 02/19/23 06:19 97.9 F 123 H 18 103/67 90 L Intake and Output 02/18/23 02/19/23 02/19/23 22:59 06:59 14:59 Intake Total 0 Balance 0 Intake: Blood Product 0 Rc As-1 Unit 0 [id number] Other: Weight 51.256 kg PHYSICAL EXAMINATION: Patient is intubated and on mechanical ventilator. Awake and alert and is able to open her eyes... HEENT: Normocephalic. Neck is supple. Pupils reactive. Nostrils clear. Oral cavity is moist. Neck reveals no JVD, carotid bruits, or thyromegaly. CHEST EXAMINATION: Trachea is central. Symmetrical expansion. Left-sided diminished sounds. No wheezing.. CARDIAC: Normal S1, S2 with no gallops. No murmurs ABDOMEN: Soft. Bowel sounds present. Nontender. No organomegaly. No abdominal bruits. Extremities: reveal no edema. No clubbing or cyanosis Neurologically. Patient is intubated. No gross focal neurological abnormality noted. Skin: No rash or skin lesions. Psychiatric: Could not be assessed at this time. Musculoskeletal: No joint swelling or deformity. Results CBC & Chem 7: 02/19/23 19:30 02/19/23 19:30 Labs: Abnormal Lab Results - Last 24 Hours (Table) 02/19/23 02/19/23 02/19/23 Range/Units 06:35 06:35 06:35 WBC 11.4 H (3.8-10.6) k/uL MCHC 30.7 L (31.0-37.0) g/dL RDW 16.7 H (11.5-15.5) % Monocytes # (Manual) 1.82 H (0-1.0) k/uL Metamyelocytes # (Man) 0.11 H (0) k/uL Myelocytes # (Manual) 0.11 H (0) k/uL D-Dimer 0.61 H (<0.60) mg/L FEU Sodium 136 L (137-145) mmol/L Glucose 237 H (74-99) mg/dL POC Glucose (mg/dL) (70-110) mg/dL Calcium 8.1 L (8.4-10.2) mg/dL Crossmatch 02/19/23 02/19/23 Range/Units 08:26 09:36 WBC (3.8-10.6) k/uL MCHC (31.0-37.0) g/dL RDW (11.5-15.5) % Monocytes # (Manual) (0-1.0) k/uL Metamyelocytes # (Man) (0) k/uL Myelocytes # (Manual) (0) k/uL D-Dimer (<0.60) mg/L FEU Sodium (137-145) mmol/L Glucose (74-99) mg/dL POC Glucose (mg/dL) 416 H (70-110) mg/dL Calcium (8.4-10.2) mg/dL Crossmatch See Detail Thrombosis Risk Factor Assmnt - DVT/VTE Prophylaxis DVT/VTE Prophylaxis: Mechanical Prophylaxis ordered Assessment and Plan Assessment: Left-sided moderate to large hemothorax with secondary mass effect. Shifting the cardiomediastinum to the right. S/p chest tube placement. Acute arterial extravasation from the lateral aspect of the left internal mammary artery as per CTA thorax. Acute blood loss anemia secondary to hemothorax. Acute cardiopulmonary rest status post CPR and edema spontaneous circulation. Acute hypoxic respiratory failure due to hemothorax requiring nonrebreather on admission and eventually intubated on mechanical ventilator. Acute chest pain likely secondary to above. Troponin x1 negative. History of rupture of the left subclavian artery in 2018 and was found to have vascular malformation and repair at [facility]. Hyperlipidemia COPD Hypothyroidism History of scoliosis Lifetime nonsmoker DVT prophylaxis with SCDs Plan: Patient is intubated and mechanically ventilated. Status post chest tube placement due to left hemothorax. Continue to monitor H&H and transfuse PRBC. Patient was seen by CT surgery and vascular surgery was consulted for possible intervention and is scheduled for left subclavian angiogram with possible stent placement and selective embolization of the internal mammary artery. Prognosis guarded at this time. Discussed with the family at bedside in detail. Time with Patient: Greater than 30
--- NOTE | 2023-02-20 09:48 | P.DS ---
Providers Date of admission: 02/19/23 08:26 Expected date of discharge: 02/19/23 Attending physician: Yoan Jarquin Consults: 02/19/23 08:35 Consult Physician Stat Consulting Provider: Gaston Ware Consult Reason/Comments: Left sided hemothorax Do you want consulting provider notified?: Yes Consult Physician Stat Consulting Provider: Mikel Chung Consult Reason/Comments: Left sided hemothorax Do you want consulting provider notified?: Already Contacted 02/19/23 12:33 Consult Physician Urgent Consulting Provider: Mikel Hernandez Consult Reason/Comments: Extravastion MATA Do you want consulting provider notified?: Already Contacted [facility] Course: diagnosis Left-sided moderate to large hemothorax with secondary mass effect ,Shifting the cardiomediastinum to the right. S/p chest tube placement. Acute arterial extravasation from the lateral aspect of the left internal mammary artery as per CTA thorax. Acute blood loss anemia secondary to hemothorax. Acute cardiopulmonary rest status post CPR and edema spontaneous circulation. Acute hypoxic respiratory failure due to hemothorax requiring nonrebreather on admission and eventually intubated on mechanical ventilator. Acute chest pain likely secondary to above. Troponin x1 negative. History of rupture of the left subclavian artery in 2018 and was found to have vascular malformation and repair at [facility]. Hyperlipidemia COPD Hypothyroidism History of scoliosis Lifetime nonsmoker DVT prophylaxis with SCDs Patient is a 77-year-old female with a known history of COPD, hyperlipidemia, hypothyroidism and rupture of the left subclavian artery in 2018 with sudden onset left-sided neck pain and visible hematoma and subsequently transferred to [facility]. 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 Patient presents to ER with the complaints of chest pain. Pain started about 1 hour prior to arrival to the hospital around 5:30 AM. Patient states that she rolled over her left side and pain started immediately. Pain is associate with shortness of breath and had difficulty taking deep breaths. Denied any nausea or vomiting. No radiation of the pain. Patient was given aspirin by EMS. Currently patient is not taking any medications and denies any recent falls. No fever no chills. No cough or sputum production. Chest x-ray on admission showed new moderate to large left pleural effusion with underlying atelectasis and or consolidation. EKG showed sinus tachycardia. Laboratory data showed WBC 11.4 hemoglobin 11.9 and platelets 159. D-dimer elevated 0.61. CT thoracic aorta showed active arterial extravasation from the lateral aspect of the left internal mammary artery., Near the level of the sternomanubrial joint. This results in moderate to large left-sided hemothorax and secondary mass effect shifting the cardiomediastinum to the right. No acute evidence of aortic injury. COPD and pulmonary hypertension. CT surgery was consulted in the ER. Chest tube was placed due to left-sided hemothorax and has drainage about 1800 cc of blood. Patient continued to be hypoxic and was placed on 100% nonrebreather. Patient received 2 units of PRBC transfusion and third unit is pending at this time. Vascular surgery was consulted for possible intervention. While in the ER she was found to be bradycardic, hypotensive and went into cardiopulmonary arrest. Status post CPR for about 25 minutes and successful return of spontaneous circulation. Left femoral central line was placed by vascular surgery. Patient was intubated and is being transferred to MICU. Patient is awake alert and is able to follow simple commands. Repeat chest x-ray showed left-sided chest tube in place. Decreasing in size of the left hemothorax., Now small to moderate in size and resolution of the previous cardiomediastinal shift. Patient was intubated and mechanically ventilated. Status post chest tube placement due to left hemothorax. Continued to monitor H&H and transfuse PRBC. Patient was seen by CT surgery and vascular surgery was consulted for possible intervention and is scheduled for left subclavian angiogram with possible stent placement and selective embolization of the internal mammary artery. Patient underwent ultrasound-guided cannulation of the left brachial artery and left subclavian angiogram, selective catheterization of the left internal mammary artery with internal mammary artery angiography and coil embolization by vascular surgery.. Patient remained on mechanical ventilator and due to continued hypotension and worsening clinical status family opted to go with comfort care. Patient on 02/19/2023 at 2043. Family has been notified. Plan - Discharge Summary New Discharge Prescriptions: No Action Mometasone Furoate [Mometasone Furoate 0.1%] 2 drops BOTH EARS DAILY PRN PRN Reason: IRRITATION Simvastatin [Zocor] 40 mg PO HS Fluticasone Nasal [place] [Flonase Nasal [place]] 2 spr EA NOSTRIL DAILY PRN PRN Reason: Allergy Symptoms Carboxymethylcellulose Sodium [Refresh Tears] 1 drop BOTH EYES BID PRN PRN Reason: Dry Eye(S) Fluticasone Propionate [Flovent Hfa 110 mcg] 1 puff INHALATION RT-BID Albuterol Sulfate [Proair Hfa] 2 puff INHALATION RT-Q6H PRN PRN Reason: Shortness Of Breath Famotidine [Pepcid] 20 mg PO BID #30 tab Potassium Chloride [Potassium Chloride ER] 10 meq PO DAILY Furosemide [Lasix] 20 mg PO BID Cyclobenzaprine [Flexeril] 5 mg PO HS Cholecalciferol [Vitamin D3 (25 Mcg = 1000 Iu)] 50 mcg PO DAILY Ipratropium-Albuterol Nebulize [Duoneb 0.5 mg-3 mg/3 ml Soln] 3 ml INHALATION RT-QID PRN PRN Reason: Shortness Of Breath Discharge Medication List Mometasone Furoate [Mometasone Furoate 0.1%] 2 drops BOTH EARS DAILY PRN 07/30/15 [History] Simvastatin [Zocor] 40 mg PO HS 07/30/15 [History] Fluticasone Nasal [place] [Flonase Nasal [place]] 2 spr EA NOSTRIL DAILY PRN 12/17/15 [History] Carboxymethylcellulose Sodium [Refresh Tears] 1 drop BOTH EYES BID PRN 04/02/16 [History] Albuterol Sulfate [Proair Hfa] 2 puff INHALATION RT-Q6H PRN 06/05/19 [History] Fluticasone Propionate [Flovent Hfa 110 mcg] 1 puff INHALATION RT-BID 06/05/19 [History] Famotidine [Pepcid] 20 mg PO BID #30 tab 03/06/20 [Rx] Potassium Chloride [Potassium Chloride ER] 10 meq PO DAILY 12/05/21 [History] Cholecalciferol [Vitamin D3 (25 Mcg = 1000 Iu)] 50 mcg PO DAILY 02/19/23 [History] Cyclobenzaprine [Flexeril] 5 mg PO HS 02/19/23 [History] Furosemide [Lasix] 20 mg PO BID 02/19/23 [History] Ipratropium-Albuterol Nebulize [Duoneb 0.5 mg-3 mg/3 ml Soln] 3 ml INHALATION RT-QID PRN 02/19/23 [History] Follow up Appointment(s)/Referral(s): None,Stated [REFERRING] - 1-2 days Discharge Disposition: - Preliminary Cause of Preliminary Cause of : Left-sided moderate to large hemothorax with secondary mass effect
--- NOTE | 2023-02-23 14:40 | IR ---
EXAMINATION TYPE: IR stent intravas non coronary DATE OF EXAM: 02/19/2023 COMPARISON: NONE HISTORY: Fluoroscopy time. Fluoroscopy was provided to the referring clinician.
--- NOTE | 2023-03-03 14:07 | CDI ---
Documentation Clarification Form Date: 03/03/2023 1:39:59 PM From: Pennie Kennedy RN, CCDS Email: [email or web address] Admit Date: 02/19/2023 8:26:00 AM Patient Name: Myriam Pike Visit Number: [id number] Discharge Date: 02/19/2023 10:00:00 PM ATTENTION: The Clinical Documentation Specialists (CDI) and [facility] Coding Staff appreciate your assistance in clarifying documentation. Please respond to the clarification below the line at the bottom and electronically sign. The CDI & [facility] Coding staff will review the response and follow-up if needed. Please note: Queries are made part of the Legal Health Record. If you have any questions, please contact the author of this message via ITS. Dr. Yoan Jarquin The patient was bleeding, hypotensive and given IV Levophed. Additional clarification is requested. Patient history/risk factors: Admitted with left-sided moderate to large hemothorax with secondary mass effect, shifting the cardio mediastinum to the right. S/P chest tube placement, coiling and stent placement. Past medical history of COPD, hyperlipidemia, hypothyroidism and rupture of the left subclavian artery in 2018 with sudden onset left-sided neck pain and visible hematoma and subsequently transferred to [facility]. 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 Clinical Indicators: 02/19 CTA: active arterial extravasation from the lateral aspect of the MATA resulting in moderate to large left-sided hemothorax and secondary mass effect shifting the cardiomediastinum to the right. 02/19 Procedure: "Chest tube was placed by CTS and 1.5L of blood returned. Upon arrival to the ED, patient was being intubated and was found to be severely bradycardic with no palpable pulse. Triple-lumen central venous catheter was easily advanced over the guidewire." 02/19 Procedure: "Pre-op Dx: Bleeding left subclavian/internal mammary artery was secondary severe blood loss anemia and hemodynamic instability. Postoperative Diagnosis: Bleeding from distal segment of the internal mammary artery resulting in severe blood loss anemia. Iatrogenic injury left internal mammary artery. Procedure(s) Performed: Ultrasound-guided cannulation left brachial artery. Left subclavian angiogram. Selective catheterization of the left internal mammary artery with internal mammary artery angiography. Coil embolization left internal mammary artery.Placement of the VBX stent left subclavian artery. BP 19:15: 63/41 BP 19:30: 102/58 BP 20:15: 70/41 BP 20:30: 17/15 Treatment: IV Levophed, IV Vasopressin titrated, IVF bolus 2L, 8 units PRBC's total, FFP x2 units, Platelets x1 unit. S/P coiling and stenting of MATA bleed. Please clarify if there is an additional diagnosis: [ ] Hypovolemic Shock [ x ] Hemorrhagic Shock [ ] Other, please specify [ ] Unable to determine MTDD
== END 2023-02-19 22:00 | disposition expired | DRG 270 ==
LOC: EC 06:16 → 2SICU 08:26
PROVIDERS: ADMIT Internal Medicine; ATTEND Internal Medicine
PROC: 03V Upper Arteries, Restriction (ICD-10-PCS; 2023-02-19)
PROC: 03L Upper Arteries, Occlusion (ICD-10-PCS; 2023-02-19)
PROC: 0W9B30Z Drainage of Left Pleural Cavity with Drainage Device, Percutaneous Approach (ICD-10-PCS; 2023-02-19)
PROC: 0BH17EZ Insertion of Endotracheal Airway into Trachea, Via Natural or Artificial Opening (ICD-10-PCS; 2023-02-19)
PROC: 5A12012 Performance of Cardiac Output, Single, Manual (ICD-10-PCS; 2023-02-19)
PROC: 06HN33Z Insertion of Infusion Device into Left Femoral Vein, Percutaneous Approach (ICD-10-PCS; 2023-02-19)
PROC: B3121ZZ Fluoroscopy of Left Subclavian Artery using Low Osmolar Contrast (ICD-10-PCS; 2023-02-19)
PROC: B4101ZZ Fluoroscopy of Abdominal Aorta using Low Osmolar Contrast (ICD-10-PCS; 2023-02-19)
PROC: 30233R1 Transfusion of Nonautologous Platelets into Peripheral Vein, Percutaneous Approach (ICD-10-PCS; 2023-02-19)
PROC: 30233K1 Transfusion of Nonautologous Frozen Plasma into Peripheral Vein, Percutaneous Approach (ICD-10-PCS; 2023-02-19)
PROC: 30233N1 Transfusion of Nonautologous Red Blood Cells into Peripheral Vein, Percutaneous Approach (ICD-10-PCS; 2023-02-19)
PROC: 6A550Z2 Pheresis of Platelets, Single (ICD-10-PCS; 2023-02-19)
PROC: 3E043XZ Introduction of Vasopressor into Central Vein, Percutaneous Approach (ICD-10-PCS; 2023-02-19)
PROC: 5A1935Z Respiratory Ventilation, Less than 24 Consecutive Hours (ICD-10-PCS; principal; 2023-02-19 13:50)
DX: I77.2 Rupture of artery (principal); J96.01 Acute respiratory failure with hypoxia; J94.2 Hemothorax; D62 Acute posthemorrhagic anemia; J98.11 Atelectasis; J93.9 Pneumothorax, unspecified; J90 Pleural effusion, not elsewhere classified; I97.51 Accidental puncture and laceration of a circulatory system organ or structure during a circulatory system procedure; R00.1 Bradycardia, unspecified; Z20.822 Contact with and (suspected) exposure to COVID-19; Z51.5 Encounter for palliative care; Z79.51 Long term (current) use of inhaled steroids; I95.9 Hypotension, unspecified; J44.9 Chronic obstructive pulmonary disease, unspecified; I46.9 Cardiac arrest, cause unspecified; Z91.030 Bee allergy status; M41.9 Scoliosis, unspecified; E78.5 Hyperlipidemia, unspecified; J30.2 Other seasonal allergic rhinitis; I27.21 Secondary pulmonary arterial hypertension; E03.9 Hypothyroidism, unspecified; Z66 Do not resuscitate; Z88.6 Allergy status to analgesic agent; Z79.890 Hormone replacement therapy; Z86.79 Personal history of other diseases of the circulatory system; Z88.7 Allergy status to serum and vaccine; Z87.19 Personal history of other diseases of the digestive system; Z87.81 Personal history of (healed) traumatic fracture
CPT/HCPCS: 36415; 36600; 71045; 71275; 74174; 80051; 80053; 82805; 83735; 84100; 84484; 85025; 85027; 85379; 85610; 85730; 86850; 86900; 86901; 86920; 87635; 92950; 93005; 94002; 96361; 96365; 96366; 96368; 96375; 96376; 99291; 99292